=== PATIENT | male | born 1985 | race African-American/Black ===

== ENCOUNTER 2016-02-28 14:37 | Emergency (ER) | payer OTHER ==
[~2016-02-28] VITALS: Ht 188 cm; Wt 77.8 kg
[~2016-02-28 14:37] MED LIST: ACET-1256 PO; ADAL40KI IM; ATR25 PO; DICY20TA10 PO; LXP10 PO; PRED10TA PO
[2016-02-28 14:43] VITALS: TEMP 37.8; Ht 188 cm; Wt 77.8 kg
--- NOTE | 2016-02-28 15:09 | EMERGENCY ROOM VISIT NOTE ---
History Report prepared by Elmira: Elbert Carey Under the Supervision of: Dr. Cholo Domínguez M.D. First contact with patient: 14:56 Chief Complaint: FLU LIKE SX Stated Complaint: FLU LIKE SX, CROHN'S FLARE SEVERE ABD. PAINS History of Present Illness The patient is a 30 year old male who presents to the Emergency Room with complaints of a persistent illness that started 3 days ago. He has Crohn's disease. The patient was just released from alcohol rehab this morning, and he says his whole unit was sick with bronchitis and other illnesses. The patient denies drinking any alcohol since he left rehab. The patient's symptoms include achiness, sore throat, coughing, fevers, and chills. His fever has gone up to 102. The patient is still on Prednisone. He has depression and anxiety, but denies any current suicidal ideations. Source of History: patient Onset: 3 days ago Position: other (global - illness) Timing: other (persistent) Associated Symptoms: + chills, + cough, + fevers, + sorethroat Note: No other associated symptoms noted. Review of Systems See HPI for pertinent positives & negatives. A total of 10 systems reviewed and were otherwise negative. Past Medical & Surgical Medical Problems: (1) Abdominal pain (2) Abdominal pain (3) Alcohol abuse (4) Anxiety (5) Blood loss anemia (6) C. 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 Nurse's notes were reviewed and I agree with. Family History No pertinent family history Social History Smoking Status: Never Smoker Alcohol Use: occasionally Drug Use: marijuana Marital Status: single Housing Status: lives with family Occupation Status: unemployed Current/Historical Medications Scheduled Adalimumab (Humira Pen), 40 MG IM [id number] Amoxicillin & Pot Clavulanate (Augmentin 875-125 mg), 875 MG PO BID Escitalopram Oxalate (Escitalopram Oxalate), 10 MG PO HS Prednisone (Prednisone), 30 MG PO DAILY Scheduled PRN Acetaminophen (Tylenol), 1,000 MG PO Q8 PRN for Pain Dicyclomine Hcl (Dicyclomine Hcl), 20 MG PO TIDM PRN for GI Upset Hydrocodone W/ Homatropine (Hycodan 5/1.5MG 5 Ml), 5-10 ML PO Q4H PRN for Cough Hydroxyzine HCl (Hydroxyzine HCl), 25 MG PO Q4H and at bedtime PRN for Anxiety Allergies Coded Allergies: Tomato (Verified Adverse Reaction, Intermediate, GI SYMPTOMS-CROHN'S ACTS UP, 02/28/16) CROHN'S ACTS UP Eggs or Egg-derived Products (Verified Adverse Reaction, Mild, GI SYMPTOMS , 02/28/16) Lactose (Verified Adverse Reaction, Unknown, GI UPSET, 02/28/16) Physical Exam Vital Signs Date Time Temp Pulse Resp B/P Pulse Ox O2 Delivery O2 Flow Rate FiO2 02/28/16 17:31 120 20 110/77 94 02/28/16 16:35 79 20 118/79 96 Room Air 02/28/16 14:43 37.8 116 18 110/72 95 Room Air Physical Exam General: Well developed well nourished mildly ill appearing but non toxic male in no acute distress, breathing comfortably on room air. Normal speech. Occasional cough. HEENT: Normal cephalic atraumatic. Pupils are equal round and reactive to light. Sclera anicteric. Extraocular movements are intact. Oropharynx is pink with moist mucous membranes. No swelling of the mouth lips or tongue. Neck: Supple with a midline trachea. No meningeal signs or stiffness, no JVD or bruits. No Stridor. Chest: Clear to auscultation bilaterally. No wheezes or rhonchi. No increased work of breathing. Heart: regular rate and rhythm. Abdomen: Soft nontender, nondistended without rebound guarding or rigidity. Extremities: No cyanosis clubbing or edema. No calf tenderness or assymetry Spine/Back. Non tender to palpation. No CVA tenderness Skin: Good turgor without rashes. Neurologic exam: Cranial nerves two through 12 are intact. Motor and sensation are intact and symmetrical throughout. No tremor or evidence of withdrawal. Medical Decision & Procedures ER Provider Diagnostic Interpretation: X-ray results as stated below per interpretation by me and the radiologist: CHEST ONE VIEW PORTABLE HISTORY: Atypical CHEST PAIN COMPARISON: Chest 01/28/2016. FINDINGS: A few small patchy/nodular densities at the lung bases. This is new from the prior study. The heart is normal in size. No pleural effusions. No pneumothorax. Left mediastinal lucency may represent a gas-filled esophagus. This was present on the 06/18/2015 chest x-ray. IMPRESSION: Interval development of a few small patchy/nodular densities at the lung bases. This may represent a developing pneumonia or atelectasis. Electronically signed by: Bert Richardson M.D. 02/28/2016 3:26 PM Dictated Date/Time: 02/28/2016 3:23 PM Laboratory Results 02/28/16 15:22 Red Blood Count 4.91, Mean Corpuscular Volume 82.7, Mean Corpuscular Hemoglobin 28.3, Mean Corpuscular Hemoglobin Concent 34.2, Mean Platelet Volume 9.4, Neutrophils (%) (Auto) 76.5, Lymphocytes (%) (Auto) 16.0, Monocytes (%) (Auto) 6.6, Eosinophils (%) (Auto) 0.5, Basophils (%) (Auto) 0.1, Neutrophils # (Auto) 10.98, Lymphocytes # (Auto) 2.29, Monocytes # (Auto) 0.95, Eosinophils # (Auto) 0.07, Basophils # (Auto) 0.02 02/28/16 15:22 Test 02/28/16 15:15 02/28/16 15:22 Influenza Type A Antigen Neg for Influ A (NEG) Influenza Type B Antigen Neg for Influ B (NEG) White Blood Count 14.35 K/uL (4.8-10.8) Red Blood Count 4.91 M/uL (4.7-6.1) Hemoglobin 13.9 g/dL (14.0-18.0) Hematocrit 40.6 % (42-52) Mean Corpuscular Volume 82.7 fL (80-100) Mean Corpuscular Hemoglobin 28.3 pg (25-34) Mean Corpuscular Hemoglobin Concent 34.2 g/dl (32-36) Platelet Count 226 K/uL (130-400) Mean Platelet Volume 9.4 fL (7.4-10.4) Neutrophils (%) (Auto) 76.5 % Lymphocytes (%) (Auto) 16.0 % Monocytes (%) (Auto) 6.6 % Eosinophils (%) (Auto) 0.5 % Basophils (%) (Auto) 0.1 % Neutrophils # (Auto) 10.98 K/uL (1.4-6.5) Lymphocytes # (Auto) 2.29 K/uL (1.2-3.4) Monocytes # (Auto) 0.95 K/uL (0.11-0.59) Eosinophils # (Auto) 0.07 K/uL (0-0.5) Basophils # (Auto) 0.02 K/uL (0-0.2) RDW Standard Deviation 40.3 fL (36.4-46.3) RDW Coefficient of Variation 13.4 % (11.5-14.5) Immature Granulocyte % (Auto) 0.3 % Immature Granulocyte # (Auto) 0.04 K/uL (0.00-0.02) Anion Gap 8.0 mmol/L (3-11) Est Creatinine Clear Calc Drug Dose 109.0 ml/min Estimated GFR () 104.6 Estimated GFR (Non- 90.2 BUN/Creatinine Ratio 10.1 (10-20) Calcium Level 8.6 mg/dl (8.5-10.1) Total Bilirubin 0.5 mg/dl (0.2-1) Direct Bilirubin 0.1 mg/dl (0-0.2) Aspartate Amino Transf (AST/SGOT) 35 U/L (15-37) Alanine Aminotransferase (ALT/SGPT) 46 U/L (12-78) Alkaline Phosphatase 88 U/L (45-117) Total Protein 7.5 gm/dl (6.4-8.2) Albumin 3.2 gm/dl (3.4-5.0) Lipase 150 U/L (73-393) Laboratory studies as stated above per my review. Medications Administered Medications (Trade) Dose Ordered Sig/Erika Route Start Time Stop Time Status Last Admin Dose Admin Sodium Chloride (Nss 1000ml) 1,000 ml @ 999 mls/hr Q1H1M STAT IV 02/28/16 15:10 02/28/16 16:10 DC 02/28/16 15:42 999 MLS/HR Ketorolac Tromethamine (Toradol Inj) 30 mg NOW STAT IV 02/28/16 15:10 02/28/16 15:13 DC 02/28/16 15:43 30 MG Amoxicillin/ Clavulanate Potassium (Augmentin 875MG Home Pack) 1 homepack UD ONCE PO 02/28/16 16:45 02/28/16 16:46 DC 02/28/16 17:31 1 HOMEPACK Hydrocodone Bit/ Homatropine Methylb (Hycodan Elix Homepack 5/1.5MG/ 5ML) 1 homepack UD ONCE PO 02/28/16 16:45 02/28/16 16:46 DC 02/28/16 17:31 1 HOMEPACK ED Course 1500: Past medical records reviewed. The patient was evaluated in room B6, and a complete history and physical examination were performed. 1510: Ordered Toradol Inj 30 mg IV, NSS 1000 ml @ 200 mls/hr IV, NSS 1000 ml @ 999 mls/hr IV. 1639: I reevaluated the patient and he is doing well. He is watching TV. The patient verbally expressed agreement and understanding of the treatment plan. The patient will be discharged. 1645: Ordered Hycodan Elix Homepack 5/1.5MG/5ML 1 homepack PO, Augmentin 875MG Home Pack 1 homepack PO. Medical Decision Differential diagnoses include: influenza, bronchitis, dehydration, pneumonia, pharyngitis, electrolyte or metabolic abnormality. This patient comes in as described above. He was placed in room B6. He's having flulike symptoms. He has been sick for several daysand had a cough and URI type symptoms as well. He just got discharged from rehabilitation today and he denies that he is relapsed from alcohol. Chest x-ray and multiple blood tests was obtained. IV access established was hydrated with IV normal saline and was given Toradol 30 mg IV for pain. He was feeling better. He has no hypoxemia or anything to suggest sepsis. he's no acute electrode or metabolic abnormalities. He does have a possible infiltrate in the base on his chest x- ray. I'll treat him with Augmentin 875 mg twice a day for an early pneumonia.. Influenza swab was negative. Even if this was flu, he's several days into this and out of the Tamiflu window. For coughing, he's going to use a Hycodan syrup 1-2 teaspoons every 6 hours if needed. He was warned that this could make him drowsy. He was encouraged to return ER if: Worsening of symptoms, fever or chills, shortness of breath, any new problems or concerns. He is happy with plan and discharged to home. Impression Primary Impression: PNA (pneumonia) Scribe Attestation The scribe's documentation has been prepared under my direction and personally reviewed by me in its entirety. I confirm that the note above accurately reflects all work, treatment, procedures, and medical decision making performed by me. Departure Information Dispostion Home / Self-Care Prescriptions Hydrocodone W/ Homatropine (HYCODAN 5/1.5MG 5 ML) 1 Syp Syp 5-10 ML PO Q4H Y for Cough, #200 ML Prov: Cholo Domínguez M.D. 02/28/16 Amoxicillin & Pot Clavulanate (Augmentin 875-125 mg) 1 Tab Tab 875 MG PO BID for 10 Days, #20 TAB Prov: Cholo Domínguez M.D. 02/28/16 Referrals Alfred Carmichael MD (PCP) Forms HOME CARE DOCUMENTATION FORM, IMPORTANT VISIT INFORMATION Patient Instructions A Signature Page, My [facility] [employer] Additional Instructions Rest. Drink plenty of fluids. For cough, may use Hycodan syrup 5-10 mL every 6 hours if needed. This may make you drowsy and do not take with other medications to sedate you. Use Augmentin 875 mg twice a dayantibiotic. Return if: Worsening of symptoms, increasing shortness breath, fever chills, or any new problems or concerns Follow-up with doctor Tuesday for recheck. Return ER over the weekend if symptoms worsen.
[2016-02-28] MEDS ORDERED: SODIUM CHLORIDE 0.9% 1000ML 1,000 ML IV STA (15:10)
[2016-02-28] MEDS ORDERED: KETOROLAC TROMETHAMINE 30 MG/ML VIAL IV STA (15:10)
[2016-02-28] MEDS ORDERED: SODIUM CHLORIDE 0.9% 1000ML 1,000 ML IV ONE (15:10)
--- NOTE | 2016-02-28 15:28 | DIAGNOSTIC IMAGING REPORT ---
CHEST ONE VIEW PORTABLE HISTORY: Atypical CHEST PAIN COMPARISON: Chest 01/28/2016. FINDINGS: A few small patchy/nodular densities at the lung bases. This is new from the prior study. The heart is normal in size. No pleural effusions. No pneumothorax. Left mediastinal lucency may represent a gas-filled esophagus. This was present on the 06/18/2015 chest x-ray. IMPRESSION: Interval development of a few small patchy/nodular densities at the lung bases. This may represent a developing pneumonia or atelectasis. Electronically signed by: Bert Richardson M.D. 02/28/2016 3:26 PM Dictated Date/Time: 02/28/2016 3:23 PM
[2016-02-28 15:47] LABS: BASO % 0.1 %; BASO ABS # 0.02 K/uL (0-0.2); COMPLETE YES; EOS % 0.5 %; HEMATOCRIT 40.6 % (42-52); IG% 0.3 %; LYMPH ABS # 2.29 K/uL (1.2-3.4); MEAN CELL VOLUME 82.7 fL (80-100); MEAN CORPUSCULAR HEMOGLOBIN 28.3 pg (25-34); MEAN CORPUSCULAR HGB CONC 34.2 g/dl (32-36); MEAN PLATELET VOLUME 9.4 fL (7.4-10.4); MONO % 6.6 %; NEUT % 76.5 %; PLATELET COUNT 226 K/uL (130-400); RED BLOOD COUNT 4.91 M/uL (4.7-6.1); WHITE BLOOD COUNT 14.35 K/uL (4.8-10.8)
[2016-02-28 16:19] LABS: BUN/CREATININE RATIO 10.1 (10-20); CALCIUM 8.6 mg/dl (8.5-10.1); CREATININE 1.1 mg/dl (0.60-1.40); POTASSIUM 3.6 mmol/L (3.5-5.1)
[2016-02-28] MEDS ORDERED: HYCODAN 60ML BOTTLE HOMEPACK PO ONE (16:45)
[2016-02-28] MEDS ORDERED: AMOXICIL/CLAVU 875MG HOME PACK PO ONE (16:45)
[2016-02-28] MEDS ORDERED: HYDR5SYP11 PO (16:46)
[2016-02-28] MEDS ORDERED: AMOX875T PO (16:46)
[2016-02-28 17:31] VITALS: BP 110/77; PULSE 120; O2SAT 94
--- NOTE | 2016-03-02 13:58 | Pharmacy Progress Note ---
ED Pharmacist Culture FollowUp Date of Service: Mar 02, 2016. Patient was sent home with a prescription for Augmentin 875mg PO BID x 10 days, which should cover the Grp A Strep growing from the patient's Grp A Strep backup throat culture. No action required at this time as this abx will treat this infection and the duration of treatment is appropriate as well.
== END 2016-02-28 17:34 | disposition home or self-care (01) ==
LOC: C.EDB 14:38
DX: J18.9 Pneumonia, unspecified organism (principal); K50.90 Crohn's disease, unspecified, without complications; F41.9 Anxiety disorder, unspecified; K21.9 Gastro-esophageal reflux disease without esophagitis; F32.9 Major depressive disorder, single episode, unspecified; Z86.19 Personal history of other infectious and parasitic diseases; Z98.890 Other specified postprocedural states; Z79.899 Other long term (current) drug therapy; Z91.018 Allergy to other foods; Z91.011 Allergy to milk products

== ENCOUNTER 2016-04-08 12:39 | Emergency (ER) | payer OTHER ==
[~2016-04-08] VITALS: Ht 188 cm; Wt 78.0 kg
[2016-04-08 12:44] VITALS: Ht 188 cm; Wt 78.0 kg
[2016-04-08] MEDS ORDERED: ONDANSETRON INJ 2 MG/ML 2 ML VIAL IV STA (13:12)
[2016-04-08] MEDS ORDERED: SODIUM CHLORIDE 0.9% 1000ML 1,000 ML IV STA (13:12)
[2016-04-08] MEDS: MoRPHine SULFATE 4 MG/ML 1 ML CARP\\VIAL IV PRN ×2 (13:30→14:24)
--- NOTE | 2016-04-08 13:38 | EMERGENCY ROOM VISIT NOTE ---
History Report prepared by [place]: Cholo Pollack Under the Supervision of: Dr. Pierre Broderick D.O. First contact with patient: 12:58 Chief Complaint: ABDOMINAL PAIN Stated Complaint: SEVERE ABD/ANAL PAINS, CROHNS DISEASE FLARE UP Nursing Triage Summary: pt here with abd pain, nausea and diarrhea since tuesday. hx of crohns disease History of Present Illness The patient is a 30 year old male who presents to the Emergency Room with complaints of persistent abdominal pain beginning about 3 days ago. He reports having Crohn's disease, and believes this to be a flare-up of his Crohn's, the last of which was in January of 2016. He notes having pain with coughing and pain with sitting, and has had difficulty eating as this also causes pain. He has had nausea and lower back pain, but no vomiting or fever. The patient states there was blood in his stools yesterday and today. He follows with Ramrio Kat for gastroenterology, and last saw her 2 weeks ago. He sees her every 4 to 6 months, and is prescribed Tramadol to manage his pain. The patient is currently on Humira, and denies taking any steroids. Source of History: patient Onset: about 3 days ago Position: abdomen Quality: other (abdominal pain; "Crohn's flare-up") Timing: other (persistent) Modifying Factors (Worsening): other (coughing, sitting up, eating) Associated Symptoms: + back pain, + cough, + nausea, No fevers, No vomiting Note: The patient reports having blood in his stools yesterday and today. Review of Systems See HPI for pertinent positives & negatives. A total of 10 systems reviewed and were otherwise negative. Past Medical & Surgical Medical Problems: (1) Abdominal pain (2) Abdominal pain (3) Alcohol abuse (4) Anxiety (5) Blood loss anemia (6) C. difficile diarrhea (7) Cannabis abuse (8) Chest wall pain (9) Cocaine abuse (10) Costochondral pain (11) Crohn disease (12) Crohn's disease (13) Crohn's disease (14) Crohns disease (15) Crohns disease (16) Crohns disease (17) Depression (18) Depression (19) Exacerbation of Crohn's disease (20) Exacerbation of Crohn's disease (21) Generalized anxiety disorder (22) GERD (gastroesophageal reflux disease) (23) Left sided abdominal pain (24) Marfan's disease (25) Marfan's syndrome (26) Non-cardiac chest pain (27) Palpitations (28) Oflrd-Fsqgcyqqm-Kimov (WPW) syndrome (29) Tnkbv-Lynhkhkwg-Cqbcg pattern (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) Surgical Problems: (1) H/O colonoscopy (2) History of bowel resection (3) History of partial colectomy (4) History of prior ablation treatment (5) S/P partial colectomy Family History No pertinent family history Social History Smoking Status: Current Every Day Smoker Alcohol Use: occasionally Drug Use: marijuana Marital Status: single Housing Status: lives with family Occupation Status: unemployed Current/Historical Medications Scheduled Adalimumab (Humira Pen), 40 MG IM [id number] Escitalopram Oxalate (Escitalopram Oxalate), 10 MG PO HS Hydroxyzine Pamoate (Vistaril), 1 CAP PO HS Scheduled PRN Acetaminophen (Tylenol), 1,000 MG PO Q8 PRN for Pain Allergies Coded Allergies: Tomato (Verified Adverse Reaction, Intermediate, GI SYMPTOMS-CROHN'S ACTS UP, 04/08/16) CROHN'S ACTS UP Eggs or Egg-derived Products (Verified Adverse Reaction, Mild, GI SYMPTOMS , 04/08/16) Lactose (Verified Adverse Reaction, Unknown, GI UPSET, 04/08/16) Physical Exam Vital Signs Date Time Temp Pulse Resp B/P Pulse Ox O2 Delivery O2 Flow Rate FiO2 04/08/16 15:06 37.1 61 18 135/95 100 04/08/16 14:25 63 18 130/98 98 Room Air 04/08/16 13:34 65 04/08/16 12:44 37.1 73 16 137/86 99 Room Air Physical Exam GENERAL: Patient is awake alert in no acute distress patient is resting comfortably and showing no signs of anxiety EYES: The conjunctivae are clear. The pupils are round and reactive. EARS, NOSE, MOUTH AND THROAT: The nose is without any evidence of any deformity. Mucous membranes are moist tongue is midline NECK: The neck is nontender and supple. RESPIRATORY: Normal respiratory effort is noted there is no evidence of wheezing rhonchi or rales CARDIOVASCULAR: Regular rate and rhythm noted there no murmurs rubs or gallops normal S1 normal S2 GASTROINTESTINAL: Mildly distended but soft. Diffuse tenderness, but no guarding or rigidity. MUSCULOSKELETAL/EXTREMITIES: There is no evidence of gross deformity full range of motion is noted in the hips and shoulders SKIN: There is no obvious evidence of any rash. There are no petechiae, pallor or cyanosis noted. NEUROLOGIC: Patient is awake alert and oriented x3 strength is symmetric patellar reflexes are 2+ bilaterally Medical Decision & Procedures ER Provider Diagnostic Interpretation: Radiology results as stated below per my review and radiologist interpretation: PA CHEST WITH ABDOMINAL SERIES FINDINGS: A PA chest radiograph is compared to study dated 02/28/2016. The cardiomediastinal silhouette is unremarkable. The lungs and pleural spaces are clear. No pneumothorax is seen. The bony thorax is grossly intact. Supine and erect abdominal radiographs are compared to study dated 01/28/2016 and correlated with abdominal CT dated 08/18/2015. There is a nonobstructed abdominal bowel gas pattern. No intraperitoneal free air is seen. Enlargement of the hepatic silhouette is unchanged from previous. There are no abnormal abdominal calcifications. The lumbosacral spine and bony pelvis structures are within normal limits. IMPRESSION: 1. No active disease in the chest. 2. Nonobstructed abdominal bowel gas pattern. Electronically signed by: Erasmo Pedroza M.D. 04/08/2016 2:14 PM Dictated Date/Time: 04/08/2016 2:13 PM Laboratory Results 04/08/16 13:25 Red Blood Count 5.10, Mean Corpuscular Volume 82.2, Mean Corpuscular Hemoglobin 27.5, Mean Corpuscular Hemoglobin Concent 33.4, Mean Platelet Volume 9.2, Neutrophils (%) (Auto) 71.3, Lymphocytes (%) (Auto) 20.7, Monocytes (%) (Auto) 6.5, Eosinophils (%) (Auto) 1.0, Basophils (%) (Auto) 0.2, Neutrophils # (Auto) 8.52, Lymphocytes # (Auto) 2.47, Monocytes # (Auto) 0.77, Eosinophils # (Auto) 0.12, Basophils # (Auto) 0.02 04/08/16 13:25 Test 04/08/16 13:20 04/08/16 13:25 Urine Color DK YELLOW Urine Appearance CLEAR (CLEAR) Urine pH 6.5 (4.5-7.5) Urine Specific [place]ushing 1.037 (1.000-1.030) Urine Protein NEG (NEG) Urine Glucose (UA) NEG (NEG) Urine Ketones TRACE (NEG) Urine Occult Blood NEG (NEG) Urine Nitrite NEG (NEG) Urine Bilirubin NEG (NEG) Urine Urobilinogen NEG (NEG) Urine Leukocyte Esterase NEG (NEG) White Blood Count 11.93 K/uL (4.8-10.8) Red Blood Count 5.10 M/uL (4.7-6.1) Hemoglobin 14.0 g/dL (14.0-18.0) Hematocrit 41.9 % (42-52) Mean Corpuscular Volume 82.2 fL (80-100) Mean Corpuscular Hemoglobin 27.5 pg (25-34) Mean Corpuscular Hemoglobin Concent 33.4 g/dl (32-36) Platelet Count 275 K/uL (130-400) Mean Platelet Volume 9.2 fL (7.4-10.4) Neutrophils (%) (Auto) 71.3 % Lymphocytes (%) (Auto) 20.7 % Monocytes (%) (Auto) 6.5 % Eosinophils (%) (Auto) 1.0 % Basophils (%) (Auto) 0.2 % Neutrophils # (Auto) 8.52 K/uL (1.4-6.5) Lymphocytes # (Auto) 2.47 K/uL (1.2-3.4) Monocytes # (Auto) 0.77 K/uL (0.11-0.59) Eosinophils # (Auto) 0.12 K/uL (0-0.5) Basophils # (Auto) 0.02 K/uL (0-0.2) RDW Standard Deviation 41.0 fL (36.4-46.3) RDW Coefficient of Variation 13.5 % (11.5-14.5) Immature Granulocyte % (Auto) 0.3 % Immature Granulocyte # (Auto) 0.03 K/uL (0.00-0.02) Toxic Vacuolation OCCASIONAL Erythrocyte Sedimentation Rate 16 mm/hr (0-14) Anion Gap 10.0 mmol/L (3-11) Est Creatinine Clear Calc Drug Dose 109.3 ml/min Estimated GFR () 104.6 Estimated GFR (Non- 90.2 BUN/Creatinine Ratio 5.9 (10-20) Calcium Level 8.9 mg/dl (8.5-10.1) Total Bilirubin 0.8 mg/dl (0.2-1) Direct Bilirubin 0.2 mg/dl (0-0.2) Aspartate Amino Transf (AST/SGOT) 13 U/L (15-37) Alanine Aminotransferase (ALT/SGPT) 17 U/L (12-78) Alkaline Phosphatase 88 U/L (45-117) C-Reactive Protein 0.31 mg/dl (0-0.29) Total Protein 7.5 gm/dl (6.4-8.2) Albumin 3.6 gm/dl (3.4-5.0) Lipase 113 U/L (73-393) Laboratory results per my review. Medications Administered Medications (Trade) Dose Ordered Sig/Erika Route Start Time Stop Time Status Last Admin Dose Admin Sodium Chloride (Nss 1000ml) 1,000 ml @ 999 mls/hr Q1H1M STAT IV 04/08/16 13:12 04/08/16 14:12 DC 04/08/16 13:30 999 MLS/HR Ondansetron HCl (Zofran Inj) 4 mg NOW STAT IV 04/08/16 13:12 04/08/16 13:14 DC 04/08/16 13:30 4 MG Morphine Sulfate (MoRPHine SULFATE INJ) 4 mg Q15M PRN IV 04/08/16 13:15 04/08/16 15:14 DC 04/08/16 14:24 4 MG ED Course 1307: The patient was evaluated in room B9. A complete history and physical examination were performed. 1312: Ordered Zofran Inj 4 mg IV, and NSS 1,000 ml @ 999 mls/hr IV. 1315: Ordered Morphine Sulfate 4 mg IV. 1440: Upon reevaluation, the patient is doing well. I discussed the results and treatment plan with the patient. He verbalized agreement of the treatment plan. The patient was discharged home. Medical Decision Differential diagnosis: Etiologies such as appendicitis, diverticulitis, PUD, biliary pathology, UTI, pancreatitis, obstruction, mesenteric ischemia, aortic pathology, infections, inflammatory bowel disease, renal colic, as well as others were entertained. Nursing notes reviewed. Patient's previous electronic medical records reviewed. The patient is a 30-year-old male who presented to the emergency department for evaluation of lower abdominal pain. The patient has a history of Crohn's disease and feels as though this is consistent with his previous Crohn's exacerbation. The patient tried using his outpatient medications without relief. The patient did not have a physical exam consistent with an acute surgical abdomen. He did not of fever. I discussed the patient's laboratory and radiographic studies with him. He was feeling much better on subsequent reevaluation. He was treated with IV fluids IV pain medicine IV antiemetics. He was encouraged to drink plenty clear liquids and continue all medications as prescribed. 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 He was also encouraged to return to the emergency department immediately if symptoms change worsen or if the need arises. Impression Primary Impression: Right sided abdominal pain Additional Impression: Exacerbation of Crohn's disease Scribe Attestation The scribe's documentation has been prepared under my direction and personally reviewed by me in its entirety. I confirm that the note above accurately reflects all work, treatment, procedures, and medical decision making performed by me. Departure Information Dispostion Home / Self-Care Referrals Alfred Carmichael MD (PCP) Patient Instructions Crohn Disease, My [facility] Additional Instructions Call your gastro doctor to schedule a follow up appointment. Continue all medications as prescribed. Drink plenty of clear liquids Problem Qualifiers
[2016-04-08 13:42] LABS: HEMATOCRIT 41.9 % (42-52); MEAN CELL VOLUME 82.2 fL (80-100); MEAN CORPUSCULAR HEMOGLOBIN 27.5 pg (25-34); MEAN CORPUSCULAR HGB CONC 33.4 g/dl (32-36); MEAN PLATELET VOLUME 9.2 fL (7.4-10.4); PLATELET COUNT 275 K/uL (130-400); WHITE BLOOD COUNT 11.93 K/uL (4.8-10.8)
[2016-04-08 13:44] LABS: URINE APPEARANCE CLEAR (CLEAR); URINE BILIRUBIN NEG (NEG); URINE COLOR DK YELLOW; URINE NITRITE NEG (NEG); URINE PH 6.5 (4.5-7.5); URINE SPECIFIC GRAVITY 1.037 (1.000-1.030); UROBILINOGEN NEG (NEG)
[2016-04-08 13:59] LABS: BUN/CREATININE RATIO 5.9 (10-20); C-REACTIVE PROTEIN 0.31 mg/dl (0-0.29); CALCIUM 8.9 mg/dl (8.5-10.1); CREATININE 1.1 mg/dl (0.60-1.40); POTASSIUM 3.5 mmol/L (3.5-5.1)
[2016-04-08 14:00] LABS: MANUAL MICROSCOPIC REQUIRED? NO; REVIEW REQ? NO
[2016-04-08 14:09] LABS: BASO % 0.2 %; BASO ABS # 0.02 K/uL (0-0.2); COMPLETE YES; IG% 0.3 %; LYMPH % 20.7 %; LYMPH ABS # 2.47 K/uL (1.2-3.4); MONO % 6.5 %; NEUT % 71.3 %; VACUOLIZATION OCCASIONAL
--- NOTE | 2016-04-08 14:15 | DIAGNOSTIC IMAGING REPORT ---
PA CHEST WITH ABDOMINAL SERIES CLINICAL HISTORY: Generalized abdominal pain. FINDINGS: A PA chest radiograph is compared to study dated 02/28/2016. The cardiomediastinal silhouette is unremarkable. The lungs and pleural spaces are clear. No pneumothorax is seen. The bony thorax is grossly intact. Supine and erect abdominal radiographs are compared to study dated 01/28/2016 and correlated with abdominal CT dated 08/18/2015. There is a nonobstructed abdominal bowel gas pattern. No intraperitoneal free air is seen. Enlargement of the hepatic silhouette is unchanged from previous. There are no abnormal abdominal calcifications. The lumbosacral spine and bony pelvis structures are within normal limits. IMPRESSION: 1. No active disease in the chest. 2. Nonobstructed abdominal bowel gas pattern. Electronically signed by: Erasmo Pedroza M.D. 04/08/2016 2:14 PM Dictated Date/Time: 04/08/2016 2:13 PM
[2016-04-08] MEDS ORDERED: HYDR1CAP85 PO (14:26)
[2016-04-08 15:06] VITALS: BP 135/95; PULSE 61; TEMP 37.1; O2SAT 100
== END 2016-04-08 15:07 | disposition home or self-care (01) ==
LOC: C.EDB 12:41
DX: R10.9 Unspecified abdominal pain (principal); K50.90 Crohn's disease, unspecified, without complications; F10.10 Alcohol abuse, uncomplicated; F41.9 Anxiety disorder, unspecified; F12.10 Cannabis abuse, uncomplicated; F14.10 Cocaine abuse, uncomplicated; F32.9 Major depressive disorder, single episode, unspecified; K21.9 Gastro-esophageal reflux disease without esophagitis; I45.6 Pre-excitation syndrome; F17.210 Nicotine dependence, cigarettes, uncomplicated; Z79.899 Other long term (current) drug therapy

== ENCOUNTER 2016-06-27 16:20 | Emergency (ER) | payer OTHER ==
[~2016-06-27] VITALS: Ht 188 cm; Wt 82.8 kg
[~2016-06-27 16:20] MED LIST changes: -ATR25 PO; -DICY20TA10 PO; +HYDR1CAP85 PO; -PRED10TA PO
[2016-06-27 16:27] VITALS: TEMP 37.1; Ht 188 cm; Wt 82.8 kg
[2016-06-27] MEDS ORDERED: KETOROLAC TROMETHAMINE 30 MG/ML VIAL IV STA (16:54)
[2016-06-27] MEDS ORDERED: SODIUM CHLORIDE 0.9% 1000ML 1,000 ML IV STA (16:54)
[2016-06-27 17:33] LABS: URINE APPEARANCE CLEAR (CLEAR); URINE BILIRUBIN NEG (NEG); URINE COLOR YELLOW; URINE EPITHELIAL CELL AUTO 0-5 /lpf (0-5); URINE NITRITE NEG (NEG); URINE SPECIFIC GRAVITY 1.016 (1.000-1.030); UROBILINOGEN NEG (NEG); ZZUR CULT IF INDIC CLEAN CATCH NO
[2016-06-27 17:34] LABS: MANUAL MICROSCOPIC REQUIRED? NO; REVIEW REQ? NO
[2016-06-27 17:53] LABS: BASO % 0.1 %; BASO ABS # 0.01 K/uL (0-0.2); COMPLETE YES; EOS % 3.7 %; HEMATOCRIT 40.3 % (42-52); IG% 0.3 %; LYMPH % 31.4 %; LYMPH ABS # 2.45 K/uL (1.2-3.4); MEAN CELL VOLUME 83.8 fL (80-100); MEAN CORPUSCULAR HEMOGLOBIN 27.2 pg (25-34); MEAN CORPUSCULAR HGB CONC 32.5 g/dl (32-36); MEAN PLATELET VOLUME 9.4 fL (7.4-10.4); MONO % 7.3 %; NEUT % 57.2 %; PLATELET COUNT 298 K/uL (130-400); RED BLOOD COUNT 4.81 M/uL (4.7-6.1); WHITE BLOOD COUNT 7.81 K/uL (4.8-10.8)
[2016-06-27 18:02] LABS: ALT/SGPT 27 U/L (12-78); AST/SGOT 16 U/L (15-37); BLOOD UREA NITROGEN 9 mg/dl (7-18); BUN/CREATININE RATIO 8.4 (10-20); CARBON DIOXIDE 31 mmol/L (21-32); CHLORIDE 104 mmol/L (98-107); GLUCOSE 95 mg/dl (70-99); SODIUM 141 mmol/L (136-145)
[2016-06-27 18:05] LABS: ALKALINE PHOSPHATASE 95 U/L (45-117)
--- NOTE | 2016-06-27 18:41 | DIAGNOSTIC IMAGING REPORT ---
CT PELVIS W/IV CONT ONLY (CT) CT DOSE: 201.29 mGy.cm CLINICAL HISTORY: Rectal pain TECHNIQUE: The patient was scanned without oral contrast. The patient was scanned in a dynamic helical fashion during intravenous administration of 1 15 cc Optiray 320 COMPARISON STUDY: 08/18/2015 FINDINGS: There are postsurgical changes in the ileocecal region. The appendix is not visualized. There is no pathologic bowel dilatation. There is no pathologic bowel wall thickening. There is no evidence of ascites. No bladder abnormalities are visualized. There is no pathologic adenopathy. There is a tiny fat-containing umbilical hernia. There is mild rectus diastases. No rectal abnormalities are visualized. IMPRESSION: 1. Postoperative changes in the ileocecal region 2. No evidence of pathologic bowel dilatation. No evidence of pathologic bowel wall thickening. 3. No acute inflammatory changes Electronically signed by: Speedy Flynn M.D. 06/27/2016 6:39 PM Dictated Date/Time: 06/27/2016 6:35 PM
[2016-06-27] MEDS ORDERED: OPTIRAY 320 IV PRN (18:45)
--- NOTE | 2016-06-27 19:06 | EMERGENCY ROOM VISIT NOTE ---
History Report prepared by [place]: Alfredo Ray Under the Supervision of: Dr. Shawn Vu D.O. First contact with patient: 16:47 Chief Complaint: ABDOMINAL PAIN Stated Complaint: ABD PAIN,RECTAL PAIN (ABCESS) Nursing Triage Summary: Pt presents with RLQ pain x 1.5 weeks. Diarrhea. Pt has hx of Crohn's. History of Present Illness The patient is a 30 year old male with a history of Crohn's who presents to the Emergency Room with complaints of a persistent abscess in his rectal area beginning a week and a half prior to arrival. He currently rates his discomfort as a 9/10 in severity. The patient complains of nausea, vomiting, and diarrhea with today's symptoms. He states he has noticed a sharp pain, when he sits in certain positions for the past month to month and a half with some clear drainage from the abscess. He states his nausea and vomiting began last night. The patient denies being on blood thinners. Source of History: patient Onset: week and a half prior to arrival Position: other (rectum) Symptom Intensity: 9/10 Quality: other (abscess) Timing: other (persistent) Associated Symptoms: + diarrhea, + nausea, + vomiting Note: Associated symptoms: abscess in rectal area with clear drainage Review of Systems See HPI for pertinent positives & negatives. A total of 10 systems reviewed and were otherwise negative. Past Medical & Surgical Medical Problems: (1) Abdominal pain (2) Abdominal pain (3) Alcohol abuse (4) Anxiety (5) Blood loss anemia (6) C. 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) Surgical Problems: (1) H/O colonoscopy (2) History of bowel resection (3) History of partial colectomy (4) History of prior ablation treatment (5) S/P partial colectomy Family History No pertinent family history Social History Smoking Status: Current Every Day Smoker Alcohol Use: occasionally Drug Use: marijuana Marital Status: single Housing Status: lives with family Occupation Status: unemployed Current/Historical Medications No Active Prescriptions or Reported Meds Allergies Coded Allergies: Lactose Intolerance (GI) (Unverified Allergy, Unknown, GI SYMPTOMS, 06/27/16 ) Tomato (Verified Adverse Reaction, Intermediate, GI SYMPTOMS-CROHN'S ACTS UP, 06/27/16) CROHN'S ACTS UP Eggs or Egg-derived Products (Verified Adverse Reaction, Mild, GI SYMPTOMS , 06/27/16) Lactose (Verified Adverse Reaction, Unknown, GI UPSET, 06/27/16) Physical Exam Vital Signs Date Time Temp Pulse Resp B/P Pulse Ox O2 Delivery O2 Flow Rate FiO2 06/27/16 18:07 64 18 125/96 100 Room Air 06/27/16 16:27 37.1 84 18 142/101 97 Room Air Physical Exam CONSTITUTIONAL/VITAL SIGNS: Reviewed / noted above. GENERAL: Non-toxic in appearance. INTEGUMENTARY: Warm, dry, and [place]. HEAD: Normocephalic. EYES: without scleral icterus or trauma. ENT/OROPHARYNX: clear and moist. LYMPHADENOPATHY/NECK: Is supple without lymphadenopathy or meningismus. RESPIRATORY: Lungs clear and equal. CARDIOVASCULAR: Regular rate and rhythm. GI/ABDOMEN: Soft and nontender. No organomegaly or pulsatile mass. No rebound or guarding. Normal bowel sounds. RECTAL: Mild tenderness and swelling in the 3-5 o'clock position. EXTREMITIES: Warm and well perfused. BACK: No CVA tenderness. NEUROLOGICAL: Intact without focal deficits. PSYCHIATRIC: normal affect. MUSCULOSKELETAL: Normally developed with good muscle tone. Medical Decision & Procedures ER Provider Diagnostic Interpretation: CT results as stated below per my review and radiologist interpretation: CT PELVIS W/IV CONT ONLY (CT) CT DOSE: 201.29 mGy.cm CLINICAL HISTORY: Rectal pain TECHNIQUE: The patient was scanned without oral contrast. The patient was scanned in a dynamic helical fashion during intravenous administration of 1 15 cc Optiray 320 COMPARISON STUDY: 08/18/2015 FINDINGS: There are postsurgical changes in the ileocecal region. The appendix is not visualized. There is no pathologic bowel dilatation. There is no pathologic bowel wall thickening. There is no evidence of ascites. No bladder abnormalities are visualized. There is no pathologic adenopathy. There is a tiny fat-containing umbilical hernia. There is mild rectus diastases. No rectal abnormalities are visualized. IMPRESSION: 1. Postoperative changes in the ileocecal region 2. No evidence of pathologic bowel dilatation. No evidence of pathologic bowel wall thickening. 3. No acute inflammatory changes Electronically signed by: Speedy Flynn M.D. 06/27/2016 6:39 PM Laboratory Results 06/27/16 17:00 Red Blood Count 4.81, Mean Corpuscular Volume 83.8, Mean Corpuscular Hemoglobin 27.2, Mean Corpuscular Hemoglobin Concent 32.5, Mean Platelet Volume 9.4, Neutrophils (%) (Auto) 57.2, Lymphocytes (%) (Auto) 31.4, Monocytes (%) (Auto) 7.3, Eosinophils (%) (Auto) 3.7, Basophils (%) (Auto) 0.1, Neutrophils # (Auto) 4.47, Lymphocytes # (Auto) 2.45, Monocytes # (Auto) 0.57, Eosinophils # (Auto) 0.29, Basophils # (Auto) 0.01 06/27/16 17:00 Test 06/27/16 17:00 06/27/16 17:21 White Blood Count 7.81 K/uL (4.8-10.8) Red Blood Count 4.81 M/uL (4.7-6.1) Hemoglobin 13.1 g/dL (14.0-18.0) Hematocrit 40.3 % (42-52) Mean Corpuscular Volume 83.8 fL (80-100) Mean Corpuscular Hemoglobin 27.2 pg (25-34) Mean Corpuscular Hemoglobin Concent 32.5 g/dl (32-36) Platelet Count 298 K/uL (130-400) Mean Platelet Volume 9.4 fL (7.4-10.4) Neutrophils (%) (Auto) 57.2 % Lymphocytes (%) (Auto) 31.4 % Monocytes (%) (Auto) 7.3 % Eosinophils (%) (Auto) 3.7 % Basophils (%) (Auto) 0.1 % Neutrophils # (Auto) 4.47 K/uL (1.4-6.5) Lymphocytes # (Auto) 2.45 K/uL (1.2-3.4) Monocytes # (Auto) 0.57 K/uL (0.11-0.59) Eosinophils # (Auto) 0.29 K/uL (0-0.5) Basophils # (Auto) 0.01 K/uL (0-0.2) RDW Standard Deviation 41.4 fL (36.4-46.3) RDW Coefficient of Variation 13.7 % (11.5-14.5) Immature Granulocyte % (Auto) 0.3 % Immature Granulocyte # (Auto) 0.02 K/uL (0.00-0.02) Anion Gap 6.0 mmol/L (3-11) Est Creatinine Clear Calc Drug Dose 115.3 ml/min Estimated GFR () 104.6 Estimated GFR (Non- 90.2 BUN/Creatinine Ratio 8.4 (10-20) Calcium Level 9.0 mg/dl (8.5-10.1) Total Bilirubin 0.3 mg/dl (0.2-1) Direct Bilirubin < 0.1 mg/dl (0-0.2) Aspartate Amino Transf (AST/SGOT) 16 U/L (15-37) Alanine Aminotransferase (ALT/SGPT) 27 U/L (12-78) Alkaline Phosphatase 95 U/L (45-117) Total Protein 7.7 gm/dl (6.4-8.2) Albumin 3.4 gm/dl (3.4-5.0) Lipase 106 U/L (73-393) Urine Color YELLOW Urine Appearance CLEAR (CLEAR) Urine pH 7.0 (4.5-7.5) Urine Specific [place] 1.016 (1.000-1.030) Urine Protein NEG (NEG) Urine Glucose (UA) NEG (NEG) Urine Ketones NEG (NEG) Urine Occult Blood NEG (NEG) Urine Nitrite NEG (NEG) Urine Bilirubin NEG (NEG) Urine Urobilinogen NEG (NEG) Urine Leukocyte Esterase NEG (NEG) Urine WBC (Auto) 0 /hpf (0-5) Urine RBC (Auto) 0-4 /hpf (0-4) Urine Hyaline Casts (Auto) 0 /lpf (0-5) Urine Epithelial Cells (Auto) 0-5 /lpf (0-5) Urine Bacteria (Auto) NEG (NEG) Laboratory results as stated above per my review. Medications Administered Medications (Trade) Dose Ordered Sig/Erika Route Start Time Stop Time Status Last Admin Dose Admin Sodium Chloride (Nss 1000ml) 1,000 ml @ 999 mls/hr Q1H1M STAT IV 06/27/16 16:54 06/27/16 17:54 DC 06/27/16 17:20 999 MLS/HR Ketorolac Tromethamine (Toradol Inj) 30 mg NOW STAT IV 06/27/16 16:54 06/27/16 16:57 DC 06/27/16 17:20 30 MG ED Course 1652: Previous medical records were reviewed. The patient was evaluated in room A12B. A complete history and physical examination was performed. 1653: Ordered Toradol Inj 30 mg IV, Sodium Chloride 1,000 ml @ 999 mls/hr IV. 1911: On reevaluation, the patient is doing well. I discussed the results and findings with the patient. He verbalized agreement of the treatment plan. The patient was discharged home. Medical Decision The differential diagnoses include but are not limited to: rectal cellulitis, rectal abscess, perirectal abscess. The patient is a 30-year-old male who presents to the ED with a chief complaint of discomfort in his rectal area. The patient reports some rectal discomfort for the past month and a half. The patient reports a history of Crohn's disease. He also stated to the nurse about right lower quadrant pain for a week and a half. He was concerned about a Crohn's flare. The patient's vital signs are normal. He did not report the abdominal discomfort to me. Abdominal exam was unremarkable. Exam of the rectum reveals an area of mild tenderness and slight fullness in the right perianal area in the 2 to 5 o'clock position. His exam is otherwise unremarkable. Blood work including a CBC and complete metabolic panel normal. Urinalysis did not show infection. CT scan of the pelvis did not show rectal abscess or other acute [place]. The patient was given IV fluids and IV Toradol. He is felt to be stable for discharge. I recommended follow-up with his GI specialist. Impression Primary Impression: Rectal pain Additional Impression: Crohns disease Scribe Attestation The scribe's documentation has been prepared under my direction and personally reviewed by me in its entirety. I confirm that the note above accurately reflects all work, treatment, procedures, and medical decision making performed by me. Departure Information Dispostion Home / Self-Care Prescriptions No Active Prescriptions or Reported Meds Referrals No Doctor, Assigned (PCP) Forms HOME CARE DOCUMENTATION FORM, IMPORTANT VISIT INFORMATION Patient Instructions My [facility] Additional Instructions Follow-up with your doctor/ GI specialist for further care and evaluation in 1- 2 days. Return to the emergency department for worsening or new symptoms or any concerns. You have been examined and treated today on an emergency basis only. This is not a substitute for, or an effort to provide, complete comprehensive medical care. It is impossible to recognize and treat all injuries or illnesses in a single emergency department visit. It is therefore important that you follow up closely with your doctor. Call as soon as possible for an appointment. Problem Qualifiers
[2016-06-27 19:48] VITALS: BP 156/108; PULSE 61; O2SAT 100
[2016-12-19] MEDS ORDERED: ADAL40KI INJ (14:58)
[2016-12-19] MEDS ORDERED: ESCI1TAB9 PO (18:53)
[2016-12-19] MEDS ORDERED: HYDR25CA PO (18:54)
[2016-12-20] MEDS ORDERED: DOXY-300 PO (19:57)
[2016-12-20] MEDS ORDERED: OXYC-57 PO (19:57)
== END 2016-06-27 19:49 | disposition home or self-care (01) ==
LOC: C.EDB 16:22 → C.EDA 19:49
DX: K50.90 Crohn's disease, unspecified, without complications (principal); K62.89 Other specified diseases of anus and rectum; F41.1 Generalized anxiety disorder; F32.9 Major depressive disorder, single episode, unspecified; K21.9 Gastro-esophageal reflux disease without esophagitis; I45.6 Pre-excitation syndrome; F17.200 Nicotine dependence, unspecified, uncomplicated; Z98.890 Other specified postprocedural states; Z91.011 Allergy to milk products; Z91.018 Allergy to other foods

== ENCOUNTER 2016-08-04 23:59 | Emergency (ER) | payer OTHER ==
[~2016-08-04] VITALS: Ht 188 cm; Wt 78.2 kg
[2016-08-05 00:05] VITALS: TEMP 36.7; Ht 188 cm; Wt 78.2 kg
--- NOTE | 2016-08-05 01:02 | EMERGENCY ROOM VISIT NOTE ---
History Report prepared by [place]: Polly Clements Under the Supervision of: Dr. Faith Garduno D.O. First contact with patient: 00:44 Chief Complaint: ABDOMINAL PAIN Stated Complaint: SEVERE ABDOMINAL AND RECTAL PAINS - CROHNS/ABSCESS History of Present Illness The patient is a 30 year old male who presents to the Emergency Room with complaints of persistent right sided abdominal pain starting about 7-10 days ago. He has a history of Crohn's disease. The abdominal pain is worse than his normal Crohn's pain. He has severe nausea but denies vomiting. He reports worse than normal diarrhea and increased frequency of bowel movements. He has been having a bowel movement every time he eats. The patient normally has blood with wiping but it has now worsened. He is now having blood in the toilet bowel with the stool. He has a rectal abscess that was opened up and drained about a month ago but it is not healing. The abscess now seemed to have opened up more. A few days ago, he felt another abscess growing on top of the old one and it seemed as though the new one was draining. He informed the locker operator about the new abscess and he was instructed to continue taking Flagyl and Cipro. He denies any relief with the antibiotics. He initially had a surgery set up for August 17 but got a call 2 days ago that the surgery was cancelled. He is unsure of why it was cancelled. He denies lower extremity pain/swelling, or any other complaints. Source of History: patient Onset: about 7-10 days ago Position: abdomen (right sided) Timing: other (persistent) Associated Symptoms: + nausea, + diarrhea, No vomiting Review of Systems See HPI for pertinent positives & negatives. A total of 10 systems reviewed and were otherwise negative. Past Medical & Surgical Medical Problems: (1) Abdominal pain (2) Abdominal pain (3) Alcohol abuse (4) Anxiety (5) Blood loss anemia (6) C. difficile diarrhea (7) Cannabis abuse (8) Chest wall pain (9) Cocaine abuse (10) Costochondral pain (11) Crohn disease (12) Crohn's disease (13) Crohn's disease (14) Crohns disease (15) Crohns disease (16) Crohns disease (17) Depression (18) Depression (19) Exacerbation of Crohn's disease (20) Exacerbation of Crohn's disease (21) Generalized anxiety disorder (22) GERD (gastroesophageal reflux disease) (23) Left sided abdominal pain (24) Marfan's disease (25) Marfan's syndrome (26) Non-cardiac chest pain (27) Palpitations (28) Lpsrn-Bwzncpdfu-Lrseo (WPW) syndrome (29) Zbjrg-Csuizxsbu-Hcsfn pattern (30) WPW (Cnkbg-Rncsnzjvh-Ggdpi syndrome) Surgical Problems: (1) H/O colonoscopy (2) History of bowel resection (3) History of partial colectomy (4) History of prior ablation treatment (5) S/P partial colectomy Family History No pertinent family history Social History Smoking Status: Current Every Day Smoker Alcohol Use: occasionally Drug Use: marijuana Marital Status: single Housing Status: lives with family Occupation Status: unemployed Current/Historical Medications Scheduled Adalimumab (Humira), 40 MG SQ [id number] Ciprofloxacin Hcl (Cipro), Unknown Dose PO TID Metronidazole (Flagyl), Unknown Dose PO BID Allergies Coded Allergies: Lactose Intolerance (GI) (Unverified Allergy, Unknown, GI SYMPTOMS, 06/27/16 ) Tomato (Verified Adverse Reaction, Intermediate, GI SYMPTOMS-CROHN'S ACTS UP, 06/27/16) CROHN'S ACTS UP Eggs or Egg-derived Products (Verified Adverse Reaction, Mild, GI SYMPTOMS , 06/27/16) Lactose (Verified Adverse Reaction, Unknown, GI UPSET, 06/27/16) Physical Exam Vital Signs Date Time Temp Pulse Resp B/P (MAP) Pulse Ox O2 Delivery O2 Flow Rate FiO2 08/05/16 02:48 70 18 152/114 99 Room Air 08/05/16 01:38 68 18 139/108 98 Room Air 08/05/16 00:05 36.7 87 20 143/95 99 Room Air Physical Exam HEENT: Head - normocephalic and atraumatic Pupils are equal, round, and reactive to light. Extraocular eye muscles are intact, and sclera are anicteric. Nose - moist nasal mucosa without discharge. Mouth - moist buccal mucosa. Oropharynx is nonerythematous and there is no tonsillar exudate or edema noted. Neck: Supple; no JVD, nuchal rigidity, cervical lymphadenopathy. Heart: Regular rate and rhythm. There is a normal S1 and S2 with no murmurs, clicks, or gallops appreciated. Lungs: Clear to auscultation bilaterally with no wheezes, rales, or rhonchi. Abdomen: Soft, mild discomfort to the right of the umbilicus, nondistended, with good bowel sounds. There are no palpable pulsatile masses or hepatosplenomegaly. There is no guarding, rigidity, or rebound noted. Rectal: Well-healing surgical incision to the left of the rectum, no signs of infection or drainage. Mild induration, fluctuance, and pain inferior to that area concerning for new perirectal abscess formation. Extremities: No evidence of cyanosis, clubbing, or edema. There are easily palpable peripheral pulses. Skin: warm and dry with good turgor and no rashes. Medical Decision & Procedures Laboratory Results 08/05/16 01:20 Red Blood Count 5.25, Mean Corpuscular Volume 81.9, Mean Corpuscular Hemoglobin 26.9, Mean Corpuscular Hemoglobin Concent 32.8, Mean Platelet Volume 9.3, Neutrophils (%) (Auto) 52.2, Lymphocytes (%) (Auto) 35.4, Monocytes (%) (Auto) 7.2, Eosinophils (%) (Auto) 4.9, Basophils (%) (Auto) 0.2, Neutrophils # (Auto) 4.94, Lymphocytes # (Auto) 3.35, Monocytes # (Auto) 0.68, Eosinophils # (Auto) 0.46, Basophils # (Auto) 0.02 08/05/16 01:20 Test 08/05/16 01:01 08/05/16 01:20 Urine Color DK YELLOW Urine Appearance CLEAR (CLEAR) Urine pH 5.5 (4.5-7.5) Urine Specific [place] 1.032 (1.000-1.030) Urine Protein NEG (NEG) Urine Glucose (UA) NEG (NEG) Urine Ketones TRACE (NEG) Urine Occult Blood NEG (NEG) Urine Nitrite NEG (NEG) Urine Bilirubin NEG (NEG) Urine Urobilinogen NEG (NEG) Urine Leukocyte Esterase NEG (NEG) White Blood Count 9.46 K/uL (4.8-10.8) Red Blood Count 5.25 M/uL (4.7-6.1) Hemoglobin 14.1 g/dL (14.0-18.0) Hematocrit 43.0 % (42-52) Mean Corpuscular Volume 81.9 fL (80-100) Mean Corpuscular Hemoglobin 26.9 pg (25-34) Mean Corpuscular Hemoglobin Concent 32.8 g/dl (32-36) Platelet Count 321 K/uL (130-400) Mean Platelet Volume 9.3 fL (7.4-10.4) Neutrophils (%) (Auto) 52.2 % Lymphocytes (%) (Auto) 35.4 % Monocytes (%) (Auto) 7.2 % Eosinophils (%) (Auto) 4.9 % Basophils (%) (Auto) 0.2 % Neutrophils # (Auto) 4.94 K/uL (1.4-6.5) Lymphocytes # (Auto) 3.35 K/uL (1.2-3.4) Monocytes # (Auto) 0.68 K/uL (0.11-0.59) Eosinophils # (Auto) 0.46 K/uL (0-0.5) Basophils # (Auto) 0.02 K/uL (0-0.2) RDW Standard Deviation 42.1 fL (36.4-46.3) RDW Coefficient of Variation 14.0 % (11.5-14.5) Immature Granulocyte % (Auto) 0.1 % Immature Granulocyte # (Auto) 0.01 K/uL (0.00-0.02) Anion Gap 7.0 mmol/L (3-11) Est Creatinine Clear Calc Drug Dose 109.6 ml/min Estimated GFR () 104.6 Estimated GFR (Non- 90.2 BUN/Creatinine Ratio 11.0 (10-20) Calcium Level 8.7 mg/dl (8.5-10.1) Total Bilirubin 0.4 mg/dl (0.2-1) Direct Bilirubin < 0.1 mg/dl (0-0.2) Aspartate Amino Transf (AST/SGOT) 37 U/L (15-37) Alanine Aminotransferase (ALT/SGPT) 49 U/L (12-78) Alkaline Phosphatase 104 U/L (45-117) Total Protein 8.3 gm/dl (6.4-8.2) Albumin 3.8 gm/dl (3.4-5.0) Laboratory results per my review. Medications Administered Medications (Trade) Dose Ordered Sig/Erika Route Start Time Stop Time Status Last Admin Dose Admin Ondansetron HCl (Zofran Inj) 4 mg NOW STAT IV 6/15/17 01:19 08/05/16 01:21 DC 08/05/16 01:40 4 MG Morphine Sulfate (MoRPHine SULFATE INJ) 4 mg NOW STAT IV 08/05/16 01:19 08/05/16 01:21 DC 08/05/16 01:40 4 MG Sodium Chloride 1,000 ml @ 250 mls/hr Q4H STAT IV 08/05/16 01:19 08/05/16 03:52 DC 08/05/16 01:40 250 MLS/HR Ketorolac Tromethamine (Toradol Inj) 30 mg NOW STAT IV 08/05/16 03:01 08/05/16 03:02 DC 08/05/16 03:05 30 MG Procedure Sodium Chloride 1000 ml @ 250 mls/hr IV, Morphine Sulfate 4 mg IV, Zofran Inj 4 mg IV ED Course 0044: Past medical records reviewed. The patient was evaluated in room B09. A complete history and physical exam was performed. An IV lock was initiated and labs were drawn. 0119: Sodium Chloride 1000 ml @ 250 mls/hr IV, Morphine Sulfate 4 mg IV, Zofran Inj 4 mg IV. 0222: I reviewed the patient's MRI from July 29 which showed no evidence of Crohn 's disease and no abscess was appreciated. It seems that they have canceled any surgical procedure at this time because the MRI showed no significant pathology. 0231: Upon reevaluation, the patient is resting comfortably. I discussed findings and results with him. He verbalized agreement of the treatment plan. He was discharged home. 0301: Toradol Inj 30 mg IV Medical Decision This patient presents to the Emergency Room with the chief complaint of right sided abdominal pain and rectal abscess. Differential diagnosis includes but is not limited to new perirectal abscess formation, Crohn's flare, hematochezia, anemia. His labs showed no leucocytosis, stable H&H, normal renal function, normal glucose, normal LFTs. Patient's urine had trace ketones. I attest that I have personally reviewed the patient's current medication list. Blood Pressure Screening: Patient was found to have a slightly elevated blood pressure due to circumstances. I do not believe that the patient requires hypertension monitoring. The patient presents to the emergency department with increasing pain to the right side of his abdomen with significant bloody stools. The patient has a history of Crohn's disease. He recently restarted his Humira. He recently had a perirectal abscess incised and drained. He is concerned that this was not healing appropriately and that he is developing another abscess in that area. I agree that there may be a new superficial abscess develop did not area but the previous surgical incision appears well healing and is not infected. I have recommended that the patient take his medications as prescribed. He will need to follow up closely with his locker operator as well as with his surgeon in [place] per possible subsequent incision and draining of a newly forming perirectal abscess. He was told to return to the emergency department if he developed more severe pain or fever. Impression Primary Impression: Periumbilical abdominal pain Additional Impression: Perirectal abscess Scribe Attestation The scribe's documentation has been prepared under my direction and personally reviewed by me in its entirety. I confirm that the note above accurately reflects all work, treatment, procedures, and medical decision making performed by me. Departure Information Dispostion Home / Self-Care Referrals Alfred Carmichael MD (PCP) Forms HOME CARE DOCUMENTATION FORM, IMPORTANT VISIT INFORMATION Patient Instructions My [facility] Additional Instructions REst. continue the Flagyl and Cipro. Follow up with GI and your surgeon at [place] Return to the ER for fevers, worsening pain, or more significant GI bleeding Problem Qualifiers
[2016-08-05] MEDS ORDERED: SODIUM CHLORIDE 0.9% 1000ML 1,000 ML IV STA (01:19)
[2016-08-05] MEDS ORDERED: MoRPHine SULFATE 4 MG/ML 1 ML CARP\\VIAL IV STA (01:19)
[2016-08-05] MEDS ORDERED: ONDANSETRON INJ 2 MG/ML 2 ML VIAL IV STA (01:19)
[2016-08-05 01:28] LABS: BASO % 0.2 %; BASO ABS # 0.02 K/uL (0-0.2); COMPLETE YES; EOS % 4.9 %; IG% 0.1 %; LYMPH % 35.4 %; LYMPH ABS # 3.35 K/uL (1.2-3.4); MEAN CELL VOLUME 81.9 fL (80-100); MEAN CORPUSCULAR HEMOGLOBIN 26.9 pg (25-34); MEAN CORPUSCULAR HGB CONC 32.8 g/dl (32-36); MEAN PLATELET VOLUME 9.3 fL (7.4-10.4); MONO % 7.2 %; NEUT % 52.2 %; PLATELET COUNT 321 K/uL (130-400); RED BLOOD COUNT 5.25 M/uL (4.7-6.1); WHITE BLOOD COUNT 9.46 K/uL (4.8-10.8)
[2016-08-05] MEDS ORDERED: ADAL1KIT SQ (01:32)
[2016-08-05] MEDS ORDERED: CIPR-255 PO (01:34)
[2016-08-05] MEDS ORDERED: METR-163 PO (01:35)
[2016-08-05 01:45] LABS: ALT/SGPT 49 U/L (12-78); AST/SGOT 37 U/L (15-37); BLOOD UREA NITROGEN 12 mg/dl (7-18); CALCIUM 8.7 mg/dl (8.5-10.1); CARBON DIOXIDE 26 mmol/L (21-32); CHLORIDE 107 mmol/L (98-107); GLUCOSE 96 mg/dl (70-99); POTASSIUM 4.1 mmol/L (3.5-5.1); SODIUM 140 mmol/L (136-145)
[2016-08-05 01:47] LABS: ALKALINE PHOSPHATASE 104 U/L (45-117)
[2016-08-05 01:58] LABS: URINE APPEARANCE CLEAR (CLEAR); URINE BILIRUBIN NEG (NEG); URINE COLOR DK YELLOW; URINE NITRITE NEG (NEG); URINE PH 5.5 (4.5-7.5); URINE SPECIFIC GRAVITY 1.032 (1.000-1.030); UROBILINOGEN NEG (NEG)
[2016-08-05 01:59] LABS: MANUAL MICROSCOPIC REQUIRED? NO; REVIEW REQ? NO
[2016-08-05 02:48] VITALS: BP 152/114; PULSE 70; O2SAT 99
[2016-08-05] MEDS ORDERED: KETOROLAC TROMETHAMINE 30 MG/ML VIAL IV STA (03:01)
[2016-12-19] MEDS ORDERED: ADAL40KI INJ (14:58)
[2016-12-19] MEDS ORDERED: ESCI1TAB9 PO (18:53)
[2016-12-19] MEDS ORDERED: HYDR25CA PO (18:54)
[2016-12-20] MEDS ORDERED: DOXY-300 PO (19:57)
[2016-12-20] MEDS ORDERED: OXYC-57 PO (19:57)
== END 2016-08-05 03:07 | disposition home or self-care (01) ==
LOC: C.EDB 08-05 00:01
DX: R10.33 Periumbilical pain (principal); L02.211 Cutaneous abscess of abdominal wall; K50.90 Crohn's disease, unspecified, without complications; K21.9 Gastro-esophageal reflux disease without esophagitis; I45.6 Pre-excitation syndrome; F41.1 Generalized anxiety disorder; F32.9 Major depressive disorder, single episode, unspecified; F17.200 Nicotine dependence, unspecified, uncomplicated; Z90.49 Acquired absence of other specified parts of digestive tract; Z98.890 Other specified postprocedural states; Z91.011 Allergy to milk products; Z91.012 Allergy to eggs; Z91.018 Allergy to other foods

== ENCOUNTER 2016-08-12 09:55 | Emergency (ER) | payer OTHER ==
[~2016-08-12] VITALS: Ht 188 cm; Wt 76.7 kg
[~2016-08-12 09:55] MED LIST changes: -ACET-1256 PO; +ADAL1KIT SQ; -ADAL40KI IM; +CIPR-255 PO; -HYDR1CAP85 PO; -LXP10 PO; +METR-163 PO
[2016-08-12 09:58] VITALS: TEMP 36.8; Ht 188 cm; Wt 76.7 kg
[2016-08-12] MEDS ORDERED: SODIUM CHLORIDE 0.9% 1000ML 1,000 ML IV STA (10:14)
[2016-08-12] MEDS ORDERED: ONDANSETRON INJ 2 MG/ML 2 ML VIAL IV STA (10:14)
[2016-08-12] MEDS ORDERED: SODIUM CHLORIDE 0.9% 1000ML 1,000 ML IV ONE (10:14)
[2016-08-12] MEDS ORDERED: MoRPHine SULFATE 4 MG/ML 1 ML CARP\\VIAL IV STA (10:14)
--- NOTE | 2016-08-12 10:17 | EMERGENCY ROOM VISIT NOTE ---
History Report prepared by Elmira: Merced Frankel Under the Supervision of: Dr. Cholo Domínguez M.D. First contact with patient: 10:03 Chief Complaint: ABDOMINAL PAIN Stated Complaint: CROHN'S FLARE-UP, SEVERE ABD. PAINS, N,V Nursing Triage Summary: Pt taking Humira for Chrons disease, being treated for perianal abcesses, verbalizes "i'm not supposed to be on humira while being treated for an infection, but my GI doc wanted me to stay on it". C/O abdominal pain, worse in the morning, N/V/D "feels like a chrons flare-up" since restarted on Humira two weeks ago. Denies blood in stool or vomit. abdominal pain 7/10. History of Present Illness The patient is a 30 year old male who presents to the Emergency Room with complaints of persistent abdominal pain for the past two weeks. He currently rates his discomfort as a 7/10 in severity that he describes as a sharp pain. The patient reports a history of Crohn's Disease and states that two weeks ago he restarted Humira. He states that he has been dealing with abscesses to his buttocks. The patient states that he had the areas drained surgically. He states that he has another abscess forming that he will have surgically fixed in [place]. The patient states that over the last two weeks he has noticed increased nausea, vomiting, and diarrhea. He states that he has not experienced any melena or hematochezia within the last week. The patient states that he follows with gastroenterology. He reports chills today. The patient denies any fistula history. He denies any fever. Source of History: patient Onset: two weeks Position: abdomen Symptom Intensity: 7/10 Quality: sharp Timing: other (persistent) Associated Symptoms: + chills, + nausea, + vomiting, + diarrhea, No fevers, No melena, No hematochezia Review of Systems See HPI for pertinent positives & negatives. A total of 10 systems reviewed and were otherwise negative. Past Medical & Surgical Medical Problems: (1) Abdominal pain (2) Abdominal pain (3) Alcohol abuse (4) Anxiety (5) Blood loss anemia (6) C. 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 Nurse's notes were reviewed and I agree with. Family History No pertinent family history Social History Smoking Status: Current Every Day Smoker Alcohol Use: occasionally Drug Use: marijuana Marital Status: single Housing Status: lives with family Occupation Status: unemployed Current/Historical Medications Scheduled Adalimumab (Humira), 40 MG SQ [id number] Ciprofloxacin Hcl (Cipro), Unknown Dose PO TID Metronidazole (Flagyl), Unknown Dose PO BID Allergies Coded Allergies: Lactose Intolerance (GI) (Unverified Allergy, Unknown, GI SYMPTOMS, 06/27/16 ) Tomato (Verified Adverse Reaction, Intermediate, GI SYMPTOMS-CROHN'S ACTS UP, 06/27/16) CROHN'S ACTS UP Eggs or Egg-derived Products (Verified Adverse Reaction, Mild, GI SYMPTOMS , 06/27/16) Lactose (Verified Adverse Reaction, Unknown, GI UPSET, 06/27/16) Physical Exam Vital Signs Date Time Temp Pulse Resp B/P (MAP) Pulse Ox O2 Delivery O2 Flow Rate FiO2 08/12/16 12:12 57 16 127/93 100 08/12/16 11:16 58 16 125/87 100 Room Air 08/12/16 09:58 36.8 82 16 131/83 98 Room Air Physical Exam General: Well developed well nourished, non-ill appearing young male in no acute distress, breathing comfortably on room air. Normal speech HEENT: Normal cephalic atraumatic. Pupils are equal round and reactive to light. Extraocular movements are intact. Oropharynx is pink with moist mucous membranes. No swelling of the mouth lips or tongue. Neck: Supple with a midline trachea. No meningeal signs or stiffness, no JVD or bruits. No Stridor. Chest: Clear to auscultation bilaterally. No wheezes or rhonchi. No increased work of breathing. Heart: regular rate and rhythm. Abdomen: Soft nontender, nondistended without rebound guarding or rigidity. Rectal: Several small openings where areas were drained. Small fistula noted. Small amount of puss expressible. Extremities: No cyanosis clubbing or edema. No calf tenderness or assymetry Spine/Back. Non tender to palpation. No CVA tenderness Skin: Good turgor without rashes. Neurologic exam: Cranial nerves two through 12 are intact. Motor and sensation are intact and symmetrical throughout. Medical Decision & Procedures Laboratory Results 08/12/16 10:40 Red Blood Count 5.08, Mean Corpuscular Volume 83.1, Mean Corpuscular Hemoglobin 26.8, Mean Corpuscular Hemoglobin Concent 32.2, Mean Platelet Volume 9.3, Neutrophils (%) (Auto) 57.4, Lymphocytes (%) (Auto) 32.8, Monocytes (%) (Auto) 6.6, Eosinophils (%) (Auto) 2.6, Basophils (%) (Auto) 0.3, Neutrophils # (Auto) 4.24, Lymphocytes # (Auto) 2.42, Monocytes # (Auto) 0.49, Eosinophils # (Auto) 0.19, Basophils # (Auto) 0.02 08/12/16 10:40 Test 08/12/16 10:40 White Blood Count 7.38 K/uL (4.8-10.8) Red Blood Count 5.08 M/uL (4.7-6.1) Hemoglobin 13.6 g/dL (14.0-18.0) Hematocrit 42.2 % (42-52) Mean Corpuscular Volume 83.1 fL (80-100) Mean Corpuscular Hemoglobin 26.8 pg (25-34) Mean Corpuscular Hemoglobin Concent 32.2 g/dl (32-36) Platelet Count 306 K/uL (130-400) Mean Platelet Volume 9.3 fL (7.4-10.4) Neutrophils (%) (Auto) 57.4 % Lymphocytes (%) (Auto) 32.8 % Monocytes (%) (Auto) 6.6 % Eosinophils (%) (Auto) 2.6 % Basophils (%) (Auto) 0.3 % Neutrophils # (Auto) 4.24 K/uL (1.4-6.5) Lymphocytes # (Auto) 2.42 K/uL (1.2-3.4) Monocytes # (Auto) 0.49 K/uL (0.11-0.59) Eosinophils # (Auto) 0.19 K/uL (0-0.5) Basophils # (Auto) 0.02 K/uL (0-0.2) RDW Standard Deviation 42.8 fL (36.4-46.3) RDW Coefficient of Variation 14.2 % (11.5-14.5) Immature Granulocyte % (Auto) 0.3 % Immature Granulocyte # (Auto) 0.02 K/uL (0.00-0.02) Erythrocyte Sedimentation Rate 16 mm/hr (0-14) Anion Gap 7.0 mmol/L (3-11) Est Creatinine Clear Calc Drug Dose 98.5 ml/min Estimated GFR () 94.1 Estimated GFR (Non- 81.2 BUN/Creatinine Ratio 7.7 (10-20) Calcium Level 8.6 mg/dl (8.5-10.1) Total Bilirubin 0.4 mg/dl (0.2-1) Direct Bilirubin 0.1 mg/dl (0-0.2) Aspartate Amino Transf (AST/SGOT) 18 U/L (15-37) Alanine Aminotransferase (ALT/SGPT) 35 U/L (12-78) Alkaline Phosphatase 86 U/L (45-117) C-Reactive Protein < 0.29 mg/dl (0-0.29) Total Protein 7.9 gm/dl (6.4-8.2) Albumin 3.6 gm/dl (3.4-5.0) Lipase 158 U/L (73-393) Laboratory studies as stated above per my review. Medications Administered Medications (Trade) Dose Ordered Sig/Erika Route Start Time Stop Time Status Last Admin Dose Admin Sodium Chloride 1,000 ml @ 999 mls/hr Q1H1M STAT IV 08/12/16 10:14 08/12/16 11:14 DC 08/12/16 10:24 999 MLS/HR Sodium Chloride 1,000 ml @ 150 mls/hr Q6H40M ONCE IV 08/12/16 10:14 08/12/16 12:28 DC 08/12/16 10:25 150 MLS/HR Morphine Sulfate (MoRPHine SULFATE INJ) 4 mg NOW STAT IV 08/12/16 10:14 08/12/16 10:15 DC 08/12/16 10:24 4 MG Ondansetron HCl (Zofran Inj) 4 mg NOW STAT IV 08/12/16 10:14 08/12/16 10:15 DC 08/12/16 10:23 4 MG ED Course 1007: Past medical records reviewed. The patient was evaluated in room B4B, and a complete history and physical examination were performed. 1014: Ordered Zofran Inj 4 mg IV, Morphine Sulfate 4 mg IV, Sodium Chloride 1000 ml @ 150 mls/hr IV, Sodium Chloride 1000 ml @ 999 mls/hr IV. 1136: I reevaluated the patient and I performed a rectal exam at this time. See physical exam for further detail. 1143: I discussed the patients case with [facility]. She asked us to add additional labs. 1205: I reevaluated the patient and he is doing well. I discussed all of the exam findings with him and I discussed the treatment plan. He verbalized complete understanding and agreement. He is ready to go home. Medical Decision Differentials include, but are not limited to; acute exacerbation of chronic pain, Crohn's exacerbation, abscess, infection, electrolyte or metabolic abnormality. Medication Reconciliation: I attest that I have personally reviewed the patient' s current medication list. Blood pressure Screening: Patient was found to have normal blood pressure on screening and does not require follow-up. This patient comes in as described above he's having abdominal pain. He is well -known to the emergency department he does get frequent abdominal pain and has Crohn's disease. He looks well on exam. He has is no tenderness or peritonitis. He has no fever or chills. He's been having problems with some rectal abscesses and drainage that has been going on since February he schedule see a [facility] surgeon within the next week. IV access established and he was given IV morphine and IV Zofran and felt significant better .he has no white count or fever to suggest infection. He has no acute electrolyte or metabolic abnormalities. He has nothing to suggest acute liver or kidney disease. On rectal exam, he has several small openings but no large area of redness or fluctuance and has minimal expressible pus. I discussed the case with the GI team the follows him and they asked if I could add a sedimentation rate and a CRP and they felt he go home his artery on antibiotics and they have arranged him to have close follow-up with surgery in [place]. The patient is told to return if increasing pain or fever or drainage, worsening symptoms, any new problems or concerns. Consults Time Called: 1136 Consulting Physician: [facility] Returned Call: [phone] I discussed the patients case with [facility]. She asked us to add additional labs. Impression Primary Impression: Diffuse abdominal pain Additional Impression: Crohn's disease Scribe Attestation The scribe's documentation has been prepared under my direction and personally reviewed by me in its entirety. I confirm that the note above accurately reflects all work, treatment, procedures, and medical decision making performed by me. Departure Information Dispostion Home / Self-Care Referrals Alfred Carmichael MD (PCP) Forms HOME CARE DOCUMENTATION FORM, IMPORTANT VISIT INFORMATION Patient Instructions My [facility] Additional Instructions Continue current antibiotics. May do Sitz baths in the tub. Follow-up with your rectal surgeon keep your appointment this coming week. Return to the ER if: Increasing pain, fever, worsening of symptoms, any new problems or concerns. Problem Qualifiers
[2016-08-12 10:56] LABS: BASO % 0.3 %; BASO ABS # 0.02 K/uL (0-0.2); COMPLETE YES; EOS % 2.6 %; HEMATOCRIT 42.2 % (42-52); IG% 0.3 %; LYMPH % 32.8 %; LYMPH ABS # 2.42 K/uL (1.2-3.4); MEAN CELL VOLUME 83.1 fL (80-100); MEAN CORPUSCULAR HEMOGLOBIN 26.8 pg (25-34); MEAN CORPUSCULAR HGB CONC 32.2 g/dl (32-36); MEAN PLATELET VOLUME 9.3 fL (7.4-10.4); MONO % 6.6 %; NEUT % 57.4 %; PLATELET COUNT 306 K/uL (130-400); RED BLOOD COUNT 5.08 M/uL (4.7-6.1); WHITE BLOOD COUNT 7.38 K/uL (4.8-10.8)
[2016-08-12 11:13] LABS: BUN/CREATININE RATIO 7.7 (10-20); CREATININE 1.2 mg/dl (0.60-1.40); POTASSIUM 4.1 mmol/L (3.5-5.1)
[2016-08-12 11:14] LABS: CALCIUM 8.6 mg/dl (8.5-10.1)
[2016-08-12 12:12] VITALS: BP 127/93; PULSE 57; O2SAT 100
[2016-12-19] MEDS ORDERED: ADAL40KI INJ (14:58)
[2016-12-19] MEDS ORDERED: ESCI1TAB9 PO (18:53)
[2016-12-19] MEDS ORDERED: HYDR25CA PO (18:54)
[2016-12-20] MEDS ORDERED: DOXY-300 PO (19:57)
[2016-12-20] MEDS ORDERED: OXYC-57 PO (19:57)
== END 2016-08-12 12:13 | disposition home or self-care (01) ==
LOC: C.EDB 09:59
DX: K50.90 Crohn's disease, unspecified, without complications (principal); K21.9 Gastro-esophageal reflux disease without esophagitis; F41.1 Generalized anxiety disorder; F32.9 Major depressive disorder, single episode, unspecified; F12.10 Cannabis abuse, uncomplicated; F14.10 Cocaine abuse, uncomplicated; Z79.899 Other long term (current) drug therapy; I45.6 Pre-excitation syndrome; Q87.40 Marfan syndrome, unspecified; Z90.49 Acquired absence of other specified parts of digestive tract

== ENCOUNTER 2016-08-29 11:56 | Emergency (ER) | payer OTHER ==
[~2016-08-29] VITALS: Ht 188 cm; Wt 76.4 kg
[2016-08-29 11:58] VITALS: TEMP 36.7; Ht 188 cm; Wt 76.4 kg
--- NOTE | 2016-08-29 12:22 | EMERGENCY ROOM VISIT NOTE ---
History Report prepared by Elmira: Emi Reddy Under the Supervision of: Dr. Solis Garcia M.D. First contact with patient: 12:15 Chief Complaint: GI ASSESSMENT Stated Complaint: ABD PAIN,VOMITING,NAUSEA,DIARRHEA,CROHN'S DISEASE History of Present Illness The patient is a 30 year old male who presents to the Emergency Room with complaints of worsening abdominal pain beginning 10 days prior to arrival. The patient states that he has Crohn's disease and is having a flare up. The flare up began 10 days ago but has significantly worsened 3 days ago. The patient is experiencing nausea, vomiting, diarrhea and chills. He states that his symptoms are consistent with his Crohn's. He denies urinary symptoms or recent fevers. The patient states that he use to be on Humira. He was taken off due to an abscess that formed. He is scheduled for surgery in [place] on September 01. The patient's GI surgeon does not want to put the patient back on Humira until the surgery is completed. 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 Please see Additional Medical History Sheet. Past Medical & Surgical Medical Problems: (1) Abdominal pain (2) Abdominal pain (3) Alcohol abuse (4) Anxiety (5) Blood loss anemia (6) C. difficile diarrhea (7) Cannabis abuse (8) Chest wall pain (9) Cocaine abuse (10) Costochondral pain (11) Crohn disease (12) Crohn's disease (13) Crohn's disease (14) Crohns disease (15) Crohns disease (16) Crohns disease (17) Depression (18) Depression (19) Exacerbation of Crohn's disease (20) Exacerbation of Crohn's disease (21) Generalized anxiety disorder (22) GERD (gastroesophageal reflux disease) (23) Left sided abdominal pain (24) Marfan's disease (25) Marfan's syndrome (26) Non-cardiac chest pain (27) Palpitations (28) Jimoy-Tymigzcxa-Qqknm (WPW) syndrome (29) Jukqj-Vdfzokzed-Nyhdx pattern (30) WPW (Qgspk-Kusmclxkt-Kdysg syndrome) Surgical Problems: (1) H/O colonoscopy (2) History of bowel resection (3) History of partial colectomy (4) History of prior ablation treatment (5) S/P partial colectomy Family History No pertinent family history Social History Smoking Status: Current Every Day Smoker Alcohol Use: occasionally Drug Use: marijuana Marital Status: single Housing Status: lives with family Occupation Status: unemployed Current/Historical Medications Scheduled Adalimumab (Humira), 40 MG SQ [id number] Dicyclomine Hcl (Bentyl), 1 CAP PO TID Allergies Coded Allergies: Lactose Intolerance (GI) (Verified Allergy, Unknown, GI SYMPTOMS, 08/29/16) Tomato (Verified Adverse Reaction, Intermediate, GI SYMPTOMS-CROHN'S ACTS UP, 08/29/16) CROHN'S ACTS UP Eggs or Egg-derived Products (Verified Adverse Reaction, Mild, GI SYMPTOMS , 08/29/16) Lactose (Verified Adverse Reaction, Unknown, GI UPSET, 08/29/16) Physical Exam Vital Signs Date Time Temp Pulse Resp B/P (MAP) Pulse Ox O2 Delivery O2 Flow Rate FiO2 08/29/16 16:56 52 20 141/98 100 08/29/16 16:09 74 20 134/80 100 Room Air 08/29/16 14:39 86 20 120/89 100 Room Air 08/29/16 13:42 58 20 127/96 100 Room Air 08/29/16 11:58 36.7 88 17 121/80 98 Room Air Physical Exam GENERAL: Patient awake, alert, oriented x 3. Patient follows commands. Patient does not appear toxic. Patient is adequately hydrated and well- nourished. SKIN: No erythema, pallor, cyanosis or rash HEENT: Normal head, pupils equal, reactive to light and accommodation. Oral cavity and posterior pharynx appear normal. Neck: Without adenopathy, no neck vein distention. LUNGS: Clear to auscultation. No wheezes, no rales, no rhonchi. HEART: No murmurs. No gallops. No rubs ABDOMEN: Well healed periumbilical scar and vague tenderness in right mid abdomen. EXTREMITIES: No signs of trauma or infection. NEUROLOGIC: Cranial nerves II-XII within normal limits. No gross motor sensory function deficits. Medical Decision & Procedures Laboratory Results 08/29/16 12:15 Red Blood Count 5.40, Mean Corpuscular Volume 83.7, Mean Corpuscular Hemoglobin 27.8, Mean Corpuscular Hemoglobin Concent 33.2, Mean Platelet Volume 9.6, Neutrophils (%) (Auto) 61.2, Lymphocytes (%) (Auto) 29.8, Monocytes (%) (Auto) 7.1, Eosinophils (%) (Auto) 1.5, Basophils (%) (Auto) 0.3, Neutrophils # (Auto) 4.48, Lymphocytes # (Auto) 2.18, Monocytes # (Auto) 0.52, Eosinophils # (Auto) 0.11, Basophils # (Auto) 0.02 08/29/16 12:15 Test 08/29/16 12:15 08/29/16 13:50 White Blood Count 7.32 K/uL (4.8-10.8) Red Blood Count 5.40 M/uL (4.7-6.1) Hemoglobin 15.0 g/dL (14.0-18.0) Hematocrit 45.2 % (42-52) Mean Corpuscular Volume 83.7 fL (80-100) Mean Corpuscular Hemoglobin 27.8 pg (25-34) Mean Corpuscular Hemoglobin Concent 33.2 g/dl (32-36) Platelet Count 291 K/uL (130-400) Mean Platelet Volume 9.6 fL (7.4-10.4) Neutrophils (%) (Auto) 61.2 % Lymphocytes (%) (Auto) 29.8 % Monocytes (%) (Auto) 7.1 % Eosinophils (%) (Auto) 1.5 % Basophils (%) (Auto) 0.3 % Neutrophils # (Auto) 4.48 K/uL (1.4-6.5) Lymphocytes # (Auto) 2.18 K/uL (1.2-3.4) Monocytes # (Auto) 0.52 K/uL (0.11-0.59) Eosinophils # (Auto) 0.11 K/uL (0-0.5) Basophils # (Auto) 0.02 K/uL (0-0.2) RDW Standard Deviation 44.3 fL (36.4-46.3) RDW Coefficient of Variation 14.4 % (11.5-14.5) Immature Granulocyte % (Auto) 0.1 % Immature Granulocyte # (Auto) 0.01 K/uL (0.00-0.02) Anion Gap 5.0 mmol/L (3-11) Est Creatinine Clear Calc Drug Dose 84.1 ml/min Estimated GFR () 78.1 Estimated GFR (Non- 67.4 BUN/Creatinine Ratio 6.0 (10-20) Calcium Level 9.6 mg/dl (8.5-10.1) Total Bilirubin 0.8 mg/dl (0.2-1) Aspartate Amino Transf (AST/SGOT) 22 U/L (15-37) Alanine Aminotransferase (ALT/SGPT) 30 U/L (12-78) Alkaline Phosphatase 97 U/L (45-117) Total Protein 8.7 gm/dl (6.4-8.2) Albumin 4.1 gm/dl (3.4-5.0) Globulin 4.6 gm/dl (2.5-4.0) Albumin/Globulin Ratio 0.9 (0.9-2) Lipase 111 U/L (73-393) Urine Color DK YELLOW Urine Appearance CLEAR (CLEAR) Urine pH 6.0 (4.5-7.5) Urine Specific [place] 1.028 (1.000-1.030) Urine Protein TRACE (NEG) Urine Glucose (UA) NEG (NEG) Urine Ketones TRACE (NEG) Urine Occult Blood NEG (NEG) Urine Nitrite NEG (NEG) Urine Bilirubin NEG (NEG) Urine Urobilinogen NEG (NEG) Urine Leukocyte Esterase NEG (NEG) Urine WBC (Auto) 1-5 /hpf (0-5) Urine RBC (Auto) 0-4 /hpf (0-4) Urine Hyaline Casts (Auto) 1-5 /lpf (0-5) Urine Epithelial Cells (Auto) 10-20 /lpf (0-5) Urine Bacteria (Auto) NEG (NEG) Laboratory results as stated above per my review. Medications Administered Medications (Trade) Dose Ordered Sig/Erika Route Start Time Stop Time Status Last Admin Dose Admin Sodium Chloride 2,000 ml @ 1,000 mls/hr Q2H ONCE IV 08/29/16 12:30 08/29/16 14:29 DC 08/29/16 12:34 1,000 MLS/HR Morphine Sulfate (MoRPHine SULFATE INJ) 8 mg Q1H PRN IV 08/29/16 12:30 08/29/16 17:18 DC 08/29/16 13:47 8 MG Ondansetron HCl (Zofran Inj) 4 mg Q1HWA PRN IV 08/29/16 12:30 08/29/16 17:18 DC 08/29/16 12:34 4 MG ED Course 1215: Past medical records reviewed. The patient was evaluated in room A11. A complete history and physical examination was performed. 1230: Zofran Inj 4 mg IV, Morphine Sulfate Inj 8 mg IV, Sodium Chloride 2,000 ml @ 1,000 mls/hr IV. 1438: The patient is being to feel better. He will try drinking fluids. 1639: Upon reevaluation, the patient appeared to have improvement of his symptoms. I discussed today's findings with him. He verbalized agreement of the treatment plan. He was discharged home. Medical Decision Nurses notes reviewed. Medical history sheet reviewed. Differential diagnosis includes but is not limited to: Crohn's flare, abscess, metabolic disorder, dehydration. 30-year-old male with history of Crohn's is here with abdominal pain similar to what he experienced in the past with a Crohn's flare. The patient denies fever or chills. He has had some nausea. The patient is scheduled to have surgery this week at [facility] in [place]. Multiple labs and urinalysis were evaluated. The patient is slightly dehydrated and ketotic. He was given 2 L of IV fluid. He was given Zofran and morphine. Patient was able to drink fluids prior to departure. I did not perform another CT as he's had CTs in the past and he does not have an acute abdomen. The patient felt significantly better at time of discharge. The patient was encouraged to make sure he gets to [place] for the surgery this week. Medication Reconciliation: I attest that I have personally reviewed the patient' s current medication list. Blood pressure Screening: Patient was found to have normal blood pressure on screening and does not require follow up. Impression Primary Impression: Exacerbation of Crohn's disease Scribe Attestation The scribe's documentation has been prepared under my direction and personally reviewed by me in its entirety. I confirm that the note above accurately reflects all work, treatment, procedures, and medical decision making performed by me. Departure Information Dispostion Home / Self-Care Referrals No Doctor, Assigned (PCP) Forms HOME CARE DOCUMENTATION FORM, IMPORTANT VISIT INFORMATION Patient Instructions My [facility] Additional Instructions Continue all of your current medications as prescribed. Follow-up at [place] this week for your surgery. Drink extra fluids.
[2016-08-29] MEDS ORDERED: SODIUM CHLORIDE 0.9% 1000ML 2,000 ML IV ONE (12:30)
[2016-08-29] MEDS ORDERED: ONDANSETRON INJ 2 MG/ML 2 ML VIAL IV PRN (12:30)
[2016-08-29 12:34] LABS: BASO % 0.3 %; BASO ABS # 0.02 K/uL (0-0.2); COMPLETE YES; EOS % 1.5 %; HEMATOCRIT 45.2 % (42-52); IG% 0.1 %; LYMPH % 29.8 %; LYMPH ABS # 2.18 K/uL (1.2-3.4); MEAN CELL VOLUME 83.7 fL (80-100); MEAN CORPUSCULAR HEMOGLOBIN 27.8 pg (25-34); MEAN CORPUSCULAR HGB CONC 33.2 g/dl (32-36); MEAN PLATELET VOLUME 9.6 fL (7.4-10.4); MONO % 7.1 %; NEUT % 61.2 %; PLATELET COUNT 291 K/uL (130-400); WHITE BLOOD COUNT 7.32 K/uL (4.8-10.8)
[2016-08-29] MEDS: MoRPHine SULFATE 10 MG/ML CARP/VIAL IV PRN ×2 (12:35→13:47)
[2016-08-29 12:41] LABS: CALCIUM 9.6 mg/dl (8.5-10.1); CREATININE 1.4 mg/dl (0.60-1.40)
[2016-08-29 12:43] LABS: ALB/GLOB RATIO 0.9 (0.9-2)
[2016-08-29] MEDS ORDERED: DICY10CA55 PO (12:47)
[2016-08-29 14:14] LABS: MANUAL MICROSCOPIC REQUIRED? NO; REVIEW REQ? NO; URINE APPEARANCE CLEAR (CLEAR); URINE BILIRUBIN NEG (NEG); URINE COLOR DK YELLOW; URINE NITRITE NEG (NEG); URINE SPECIFIC GRAVITY 1.028 (1.000-1.030); UROBILINOGEN NEG (NEG); ZZUR CULT IF INDIC CLEAN CATCH NO
[2016-08-29 16:56] VITALS: BP 141/98; PULSE 52; O2SAT 100
== END 2016-08-29 16:57 | disposition home or self-care (01) ==
LOC: C.EDB 11:57 → C.EDA 16:57
DX: K50.919 Crohn's disease, unspecified, with unspecified complications (principal); F41.9 Anxiety disorder, unspecified; F12.90 Cannabis use, unspecified, uncomplicated; F32.9 Major depressive disorder, single episode, unspecified; K21.9 Gastro-esophageal reflux disease without esophagitis; Q87.40 Marfan syndrome, unspecified; I45.6 Pre-excitation syndrome; F17.200 Nicotine dependence, unspecified, uncomplicated

== ENCOUNTER 2016-09-08 11:51 | Emergency (ER) | payer OTHER ==
[~2016-09-08] VITALS: Ht 188 cm; Wt 77.2 kg
[~2016-09-08 11:51] MED LIST changes: -CIPR-255 PO; +DICY10CA55 PO; -METR-163 PO
[2016-09-08 11:53] VITALS: TEMP 36.8; Ht 188 cm; Wt 77.2 kg
[2016-09-08] MEDS ORDERED: ACETAMINOPHEN 325 MG TAB PO STA (12:05)
[2016-09-08] MEDS ORDERED: ACET325T96 PO (12:18)
[2016-09-08] MEDS ORDERED: ACETAMINOPHEN 500 MG TAB PO ONE (12:26)
[2016-09-08 12:42] LABS: BASO % 0.3 %; BASO ABS # 0.03 K/uL (0-0.2); COMPLETE YES; EOS % 1.5 %; HEMATOCRIT 45.7 % (42-52); IG% 0.1 %; LYMPH % 26.8 %; MEAN CELL VOLUME 82.3 fL (80-100); MEAN CORPUSCULAR HEMOGLOBIN 26.1 pg (25-34); MEAN CORPUSCULAR HGB CONC 31.7 g/dl (32-36); MEAN PLATELET VOLUME 9.6 fL (7.4-10.4); MONO % 6.2 %; NEUT % 65.1 %; PLATELET COUNT 335 K/uL (130-400); RED BLOOD COUNT 5.55 M/uL (4.7-6.1); WHITE BLOOD COUNT 8.59 K/uL (4.8-10.8)
[2016-09-08] MEDS ORDERED: TRAMADOL HCL 50 MG TAB PO STA (12:57)
[2016-09-08 13:06] LABS: BUN/CREATININE RATIO 8.1 (10-20); CALCIUM 9.5 mg/dl (8.5-10.1); CREATININE 1.3 mg/dl (0.60-1.40); POTASSIUM 3.9 mmol/L (3.5-5.1)
--- NOTE | 2016-09-08 13:27 | EMERGENCY ROOM VISIT NOTE ---
History Report prepared by Elmira: Eloise Peoples Under the Supervision of: Dr. Solis Garcia M.D. 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 The patient has a perirectal abscess. He had an I&D 1 week ago. He states that the pain has worsened since the surgery. He was unable to sleep because of the pain. He has been taking Tylenol to no significant relief. He last took some at 0600 today. He reports drainage from the abscess. He has had a fever for the past 2 nights. He denies any abdominal pain. 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 Review of Systems All systems have been listed, reviewed, and are negative other than those previously mentioned. Please see Additional Medical History Sheet. Past Medical & Surgical Medical Problems: (1) Abdominal pain (2) Abdominal pain (3) Alcohol abuse (4) Anxiety (5) Blood loss anemia (6) C. 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) Kxodp-Uiyrrzpaq-Zfhyr pattern (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) Surgical Problems: (1) H/O colonoscopy (2) History of bowel resection (3) History of partial colectomy (4) History of prior ablation treatment (5) S/P partial colectomy Family History No pertinent family history Social History Smoking Status: Current Every Day Smoker Drug Use: marijuana Marital Status: single Housing Status: lives with significant other Occupation Status: unemployed Current/Historical Medications Scheduled Acetaminophen Tab (Tylenol), 650 MG PO UD Adalimumab (Humira), 40 MG SQ [id number] Dicyclomine Hcl (Bentyl), 1 CAP PO TID Allergies Coded Allergies: Lactose Intolerance (GI) (Verified Allergy, Unknown, GI SYMPTOMS, 09/08/16) Tomato (Verified Adverse Reaction, Intermediate, GI SYMPTOMS-CROHN'S ACTS UP, 09/08/16) CROHN'S ACTS UP Eggs or Egg-derived Products (Verified Adverse Reaction, Mild, GI SYMPTOMS , 09/08/16) Lactose (Verified Adverse Reaction, Unknown, GI UPSET, 09/08/16) Physical Exam Vital Signs Date Time Temp Pulse Resp B/P (MAP) Pulse Ox O2 Delivery O2 Flow Rate FiO2 09/08/16 13:36 62 20 127/86 100 09/08/16 11:53 36.8 88 18 139/92 95 Room Air Physical Exam GENERAL: Patient awake, alert, oriented x 3. Patient follows commands. Patient does not appear toxic. Patient is adequately hydrated and well- nourished. SKIN: No erythema, pallor, cyanosis or rash HEENT: Normal head, pupils equal, reactive to light and accommodation. LUNGS: Clear to auscultation. No wheezes, no rales, no rhonchi. HEART: No murmurs. No gallops. No rubs ABDOMEN: No masses, no rebound, no hepatomegaly or splenomegaly. RECTAL: Patient has 2 open wounds on either side of the rectum, currently not draining, no signs of infection, no significant erythema or induration. EXTREMITIES: No signs of trauma. No pedal or pretibial edema. No calf or thigh tenderness. NEUROLOGIC: Cranial nerves II-XII within normal limits. No gross motor sensory function deficits. Medical Decision & Procedures Laboratory Results 09/08/16 12:17 Red Blood Count 5.55, Mean Corpuscular Volume 82.3, Mean Corpuscular Hemoglobin 26.1, Mean Corpuscular Hemoglobin Concent 31.7, Mean Platelet Volume 9.6, Neutrophils (%) (Auto) 65.1, Lymphocytes (%) (Auto) 26.8, Monocytes (%) (Auto) 6.2, Eosinophils (%) (Auto) 1.5, Basophils (%) (Auto) 0.3, Neutrophils # (Auto) 5.59, Lymphocytes # (Auto) 2.30, Monocytes # (Auto) 0.53, Eosinophils # (Auto) 0.13, Basophils # (Auto) 0.03 09/08/16 12:17 Test 09/08/16 12:17 White Blood Count 8.59 K/uL (4.8-10.8) Red Blood Count 5.55 M/uL (4.7-6.1) Hemoglobin 14.5 g/dL (14.0-18.0) Hematocrit 45.7 % (42-52) Mean Corpuscular Volume 82.3 fL (80-100) Mean Corpuscular Hemoglobin 26.1 pg (25-34) Mean Corpuscular Hemoglobin Concent 31.7 g/dl (32-36) Platelet Count 335 K/uL (130-400) Mean Platelet Volume 9.6 fL (7.4-10.4) Neutrophils (%) (Auto) 65.1 % Lymphocytes (%) (Auto) 26.8 % Monocytes (%) (Auto) 6.2 % Eosinophils (%) (Auto) 1.5 % Basophils (%) (Auto) 0.3 % Neutrophils # (Auto) 5.59 K/uL (1.4-6.5) Lymphocytes # (Auto) 2.30 K/uL (1.2-3.4) Monocytes # (Auto) 0.53 K/uL (0.11-0.59) Eosinophils # (Auto) 0.13 K/uL (0-0.5) Basophils # (Auto) 0.03 K/uL (0-0.2) RDW Standard Deviation 42.1 fL (36.4-46.3) RDW Coefficient of Variation 13.9 % (11.5-14.5) Immature Granulocyte % (Auto) 0.1 % Immature Granulocyte # (Auto) 0.01 K/uL (0.00-0.02) Anion Gap 5.0 mmol/L (3-11) Est Creatinine Clear Calc Drug Dose 91.6 ml/min Estimated GFR () 85.5 Estimated GFR (Non- 73.7 BUN/Creatinine Ratio 8.1 (10-20) Calcium Level 9.5 mg/dl (8.5-10.1) Laboratory results as stated above per my review. Medications Administered Medications (Trade) Dose Ordered Sig/Erika Route Start Time Stop Time Status Last Admin Dose Admin Acetaminophen (Tylenol Tab) 1,000 mg STK-MED ONCE PO 09/08/16 12:26 09/08/16 12:27 DC 09/08/16 12:28 1,000 MG Tramadol HCl (Ultram Tab) 50 mg NOW STAT PO 09/08/16 12:57 09/08/16 12:58 DC 09/08/16 13:03 50 MG ED Course 1202: Past medical records reviewed. The patient was evaluated in room B2. A complete history and physical examination was performed. 1205: Acetaminophen 1000 mg PO. 1257: Ultram Tab 50 mg PO. 1322: Upon reevaluation, the patient appeared to have improvement of his symptoms. I discussed today's findings with him. He verbalized agreement of the treatment plan. He was discharged home. Medical Decision Nurses notes reviewed. Medical history sheet reviewed. Differential diagnosis includes but is not limited to: perirectal/perianal abscess, Crohn's disease. 30-year-old male with Crohn's disease had a perirectal abscess I & Ded last week. He is concerned that he maybe reforming an abscess. Evaluation of the rectal area reveals 2 small incisions without significant induration. No pus was seen. There may be some slight drainage but this is not purulent. White count is not elevated. I reassured the patient. I do not think he requires any other intervention at this time. The patient was encouraged to follow-up with his family physician. The patient is to continue taking Tylenol as needed for pain. Medication Reconcilliation Current Medication List: was personally reviewed by me Blood Pressure Screening Patient's blood pressure: Elevated blood pressure Blood pressure disposition: Elevated BP felt to be situational Impression Primary Impression: Crohns disease Additional Impression: S/P juancarlos-rectal abscess repair, follow-up exam Scribe Attestation The scribe's documentation has been prepared under my direction and personally reviewed by me in its entirety. I confirm that the note above accurately reflects all work, treatment, procedures, and medical decision making performed by me. Departure Information Dispostion Home / Self-Care Referrals Alfred Carmichael MD (PCP) Patient Instructions My [facility] Additional Instructions 1000 mg of Tylenol every 6 hours as needed for pain. Follow-up with your surgeon as scheduled. Continue sitz baths as directed. Continue all current medications as prescribed. Problem Qualifiers
[2016-09-08 13:36] VITALS: BP 127/86; PULSE 62; O2SAT 100
== END 2016-09-08 13:37 | disposition home or self-care (01) ==
LOC: C.EDB 11:53
DX: Z09 Encounter for follow-up examination after completed treatment for conditions other than malignant neoplasm (principal); K61.1 Rectal abscess; K50.90 Crohn's disease, unspecified, without complications; F12.10 Cannabis abuse, uncomplicated; F32.9 Major depressive disorder, single episode, unspecified; F41.1 Generalized anxiety disorder; K21.9 Gastro-esophageal reflux disease without esophagitis; Q87.40 Marfan syndrome, unspecified; I45.6 Pre-excitation syndrome; Z90.49 Acquired absence of other specified parts of digestive tract; F17.210 Nicotine dependence, cigarettes, uncomplicated

== ENCOUNTER 2016-10-14 09:43 | Emergency (ER) | payer OTHER ==
[~2016-10-14] VITALS: Ht 188 cm; Wt 76.0 kg
[~2016-10-14 09:43] MED LIST changes: +ACET325T96 PO
[2016-10-14 09:47] VITALS: TEMP 36.8; Ht 188 cm; Wt 76.0 kg
[2016-10-14] MEDS ORDERED: PROMETHAZINE HCL INJ 25 MG/ML 1 ML VIAL IV STA (09:58)
[2016-10-14] MEDS ORDERED: KETOROLAC TROMETHAMINE 30 MG/ML VIAL IV STA (09:58)
[2016-10-14] MEDS ORDERED: SODIUM CHLORIDE 0.9% 1000ML 1,000 ML IV STA ×2 (09:58)
--- NOTE | 2016-10-14 10:05 | EMERGENCY ROOM VISIT NOTE ---
History Report prepared by Elmira: Merced Frankel Under the Supervision of: Dr. Erasmo Sexton M.D. First contact with patient: 09:47 Chief Complaint: ABDOMINAL PAIN Stated Complaint: ABD PAIN / CROHNS History of Present Illness The patient is a 30 year old male who presents to the Emergency Room with complaints of persistent mid-right abdominal pain that began one week ago. He currently rates his discomfort as a 9/10 in severity. The patient states that he has a history of Crohn's disease and states that he has been experiencing a flair for the past 7 days. He states that he was previously on Humira, but states that he developed an abscess on his rectum so he was taken off the medication. The patient states that his GI provider wants to place him back on the Humira in the near future. He states that he called his GI provider today prior to coming to the emergency department. The patient states that he was was following with a surgeon for his previous abscess to his rectum, but states that he last saw the surgeon on September 02. The patient states that today he has experiencing nausea, vomiting, and diarrhea. He denies any fever. Source of History: patient Onset: one week ago Position: abdomen (mid-right) Symptom Intensity: 9/10 Timing: other (persistent) Associated Symptoms: + nausea, + vomiting, + diarrhea, No fevers Review of Systems See HPI for pertinent positives & negatives. A total of 10 systems reviewed and were otherwise negative. Past Medical & Surgical Medical Problems: (1) Abdominal pain (2) Abdominal pain (3) Alcohol abuse (4) Anxiety (5) Blood loss anemia (6) C. difficile diarrhea (7) Cannabis abuse (8) Chest wall pain (9) Cocaine abuse (10) Costochondral pain (11) Crohn disease (12) Crohn's disease (13) Crohn's disease (14) Crohns disease (15) Crohns disease (16) Crohns disease (17) Depression (18) Depression (19) Exacerbation of Crohn's disease (20) Exacerbation of Crohn's disease (21) Generalized anxiety disorder (22) GERD (gastroesophageal reflux disease) (23) Left sided abdominal pain (24) Marfan's disease (25) Marfan's syndrome (26) Non-cardiac chest pain (27) Palpitations (28) Hqvzh-Jssuwohle-Lkhzl (WPW) syndrome (29) Jicba-Dpjhfwgas-Ejble pattern (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-Shlippibd-Fkudy syndrome) Surgical Problems: (1) H/O colonoscopy (2) History of bowel resection (3) History of partial colectomy (4) History of prior ablation treatment (5) S/P partial colectomy Family History No pertinent family history Social History Smoking Status: Current Every Day Smoker Drug Use: marijuana Marital Status: single Housing Status: lives with significant other Occupation Status: unemployed Current/Historical Medications Scheduled Prednisone (Prednisone), 2 TAB PO DAILY Scheduled PRN Tramadol (Ultram), 50-100 MG PO Q4H PRN for Pain Allergies Coded Allergies: Lactose Intolerance (GI) (Verified Allergy, Unknown, GI SYMPTOMS, 09/08/16) Tomato (Verified Adverse Reaction, Intermediate, GI SYMPTOMS-CROHN'S ACTS UP, 09/08/16) CROHN'S ACTS UP Eggs or Egg-derived Products (Verified Adverse Reaction, Mild, GI SYMPTOMS , 09/08/16) Lactose (Verified Adverse Reaction, Unknown, GI UPSET, 09/08/16) Physical Exam Vital Signs Date Time Temp Pulse Resp B/P (MAP) Pulse Ox O2 Delivery O2 Flow Rate FiO2 10/14/16 12:26 66 20 125/86 99 Room Air 10/14/16 11:57 76 20 106/85 99 Room Air 10/14/16 10:56 76 16 120/93 99 Room Air 10/14/16 09:47 36.8 86 16 142/89 99 Room Air Physical Exam GENERAL: Patient is in no acute distress. HEENT: No acute trauma, normocephalic atraumatic, mucous membranes moist, no nasal congestion, no scleral icterus. NECK: No stridor, no adenopathy, no meningismus, trachea is midline. LUNGS: Clear to auscultation bilaterally, no wheeze, no rhonchi, breath sounds equal. HEART: Without murmurs gallops or rubs, regular rate and rhythm. ABDOMEN: Tender along entire right side. Soft, bowel sounds positive, no hernias, no peritonitis. RECTAL: No perirectal abscess seen, no drainage, healing rectal area consistent with surgery over a month ago. EXTREMITIES: No cyanosis or edema, full range of motion of all the joints without pain or difficulty, no signs for acute trauma. NEUROLOGIC: Oriented x 3, no acute motor or sensory deficits, no focal weakness. SKIN: No rash, no jaundice, no diaphoresis. Medical Decision & Procedures ER Provider Diagnostic Interpretation: X-ray results as stated below per interpretation by me and the radiologist: ABDOMEN 2VIEW W/PA CHEST RTN HISTORY: 30 years-old Male acute abdominal pain with vomiting and diarrhea for approximately 1 week. COMPARISON: Acute abdominal series radiographs 04/08/2016, CT study 06/27/2016. TECHNIQUE: Frontal view of the chest with erect and supine views of the abdomen. FINDINGS: Cardiac mediastinal and hilar silhouettes are within normal limits. No pneumothorax, pleural effusion or focal airspace consolidation. No pneumoperitoneum on the upright projection. Bowel gas pattern is nonobstructive. There are several mildly prominent air-filled loops of small bowel throughout the mid abdomen. No urolithiasis or fracture. IMPRESSION: 1. Air-filled mildly prominent loops of small bowel within the midabdomen without evidence of obstruction are nonspecific. Differential considerations include ileus or enteritis. 2. No pneumoperitoneum. 3. No acute cardiopulmonary process. The above report was generated using voice recognition software. It may contain grammatical, syntax or spelling errors. Electronically signed by: Phan Velázquez M.D. 10/14/2016 10:57 AM Dictated Date/Time: 10/14/2016 10:55 AM Laboratory Results 10/14/16 10:10 Red Blood Count 5.55, Mean Corpuscular Volume 81.3, Mean Corpuscular Hemoglobin 27.9, Mean Corpuscular Hemoglobin Concent 34.4, Mean Platelet Volume 9.4, Neutrophils (%) (Auto) 61.0, Lymphocytes (%) (Auto) 27.5, Monocytes (%) (Auto) 8.7, Eosinophils (%) (Auto) 2.3, Basophils (%) (Auto) 0.3, Neutrophils # (Auto) 5.75, Lymphocytes # (Auto) 2.60, Monocytes # (Auto) 0.82, Eosinophils # (Auto) 0.22, Basophils # (Auto) 0.03 10/14/16 10:10 Test 10/14/16 10:10 White Blood Count 9.44 K/uL (4.8-10.8) Red Blood Count 5.55 M/uL (4.7-6.1) Hemoglobin 15.5 g/dL (14.0-18.0) Hematocrit 45.1 % (42-52) Mean Corpuscular Volume 81.3 fL (80-100) Mean Corpuscular Hemoglobin 27.9 pg (25-34) Mean Corpuscular Hemoglobin Concent 34.4 g/dl (32-36) Platelet Count 366 K/uL (130-400) Mean Platelet Volume 9.4 fL (7.4-10.4) Neutrophils (%) (Auto) 61.0 % Lymphocytes (%) (Auto) 27.5 % Monocytes (%) (Auto) 8.7 % Eosinophils (%) (Auto) 2.3 % Basophils (%) (Auto) 0.3 % Neutrophils # (Auto) 5.75 K/uL (1.4-6.5) Lymphocytes # (Auto) 2.60 K/uL (1.2-3.4) Monocytes # (Auto) 0.82 K/uL (0.11-0.59) Eosinophils # (Auto) 0.22 K/uL (0-0.5) Basophils # (Auto) 0.03 K/uL (0-0.2) RDW Standard Deviation 41.1 fL (36.4-46.3) RDW Coefficient of Variation 13.9 % (11.5-14.5) Immature Granulocyte % (Auto) 0.2 % Immature Granulocyte # (Auto) 0.02 K/uL (0.00-0.02) Anion Gap 6.0 mmol/L (3-11) Est Creatinine Clear Calc Drug Dose 106.5 ml/min Estimated GFR () 104.6 Estimated GFR (Non- 90.2 BUN/Creatinine Ratio 9.5 (10-20) Calcium Level 9.3 mg/dl (8.5-10.1) Total Bilirubin 0.5 mg/dl (0.2-1) Aspartate Amino Transf (AST/SGOT) 15 U/L (15-37) Alanine Aminotransferase (ALT/SGPT) 21 U/L (12-78) Alkaline Phosphatase 97 U/L (45-117) Total Protein 8.6 gm/dl (6.4-8.2) Albumin 3.8 gm/dl (3.4-5.0) Globulin 4.8 gm/dl (2.5-4.0) Albumin/Globulin Ratio 0.8 (0.9-2) Lipase 137 U/L (73-393) Laboratory results reviewed by me. Medications Administered Medications (Trade) Dose Ordered Sig/Erika Route Start Time Stop Time Status Last Admin Dose Admin Morphine Sulfate (MoRPHine SULFATE INJ) 4 mg Q30M PRN IV 10/14/16 10:00 10/28/16 09:59 10/14/16 11:27 4 MG Ketorolac Tromethamine (Toradol Inj) 30 mg NOW STAT IV 10/14/16 09:58 10/14/16 10:01 DC 10/14/16 10:21 30 MG Sodium Chloride 1,000 ml @ 999 mls/hr Q1H1M STAT IV 10/14/16 09:58 10/14/16 10:58 DC 10/14/16 10:21 999 MLS/HR Sodium Chloride 1,000 ml @ 200 mls/hr Q5H STAT IV 10/14/16 09:58 10/14/16 14:57 10/14/16 11:28 200 MLS/HR Promethazine HCl 12.5 mg/Sodium Chloride 50.5 ml @ 202 mls/hr NOW ONCE IV 10/14/16 10:30 10/14/16 10:44 DC 10/14/16 10:57 202 MLS/HR Methylprednisolone Sodium Succinate (Solu-Medrol IV) 80 mg NOW STAT IV 10/14/16 11:54 10/14/16 11:56 DC 10/14/16 12:27 80 MG ED Course 0956: The patient was evaluated in room B7. A complete history and physical exam was performed. 0958: Ordered Sodium Chloride 1000 ml @ 200 mls/hr IV, Sodium Chloride 1000 ml @ 999 mls/hr IV, Toradol Inj 30 mg IV, Phenergan Inj 12.5 mg IV, Morphine Sulfate 4 mg IV. 1000: Ordered Morphine Sulfate 4 mg IV. 1030: Ordered Promethazine HCl 12.5 mg/Sodium Chloride 50.5 ml @ 202 mls/hr IV. 1143: I discussed the patients case with Yamilet [facility]. She is going to speak to Ramiro [facility]. 1154: I spoke to Yamilet [facility]. She states that the patient should be placed on Prednisone and Ultram and he should follow up with their office in a week. Ordered Solu-Medrol IV 80 mg IV. 1205: I reevaluated the patient and he is resting comfortably. I discussed the exam findings with him and I discussed the treatment plan. He verbalized complete understanding and agreement. He is ready to go home. Medical Decision The patient is a 30 year old male who presents to the ED with complaints of abdominal pain. Differential diagnoses considered include exacerbation of Crohn 's, dehydration, electrolyte imbalance, anemia, bowel obstruction. There is no leukocytosis or concerning anemia. No significant electrolyte abnormality, kidney failure or hepatitis. There is no pancreatitis. Obstruction series shows a possible ileus, no bowel obstruction, no pneumonia or free air. The patient was not toxic or febrile. On exam, there was no peritonitis. Patient received IV Toradol, IV Phenergan and IV morphine. He received IV saline and IV Solu-Medrol. I discussed the case with the GI group. The patient is being discharged on steroids, tramadol for pain. He will follow with the GI group in the outpatient setting. If worsening, he can return. He is very likely suffering from an exacerbation of his Crohn's disease. [place] Drug Monitoring Program Search Results: patient reviewed within database, see additional documentation Drug Monitoring Findings: He was prescribed 16 tramadol on October 08 and 30 oxycodone on September 01. Consults Time Called: 1141 Consulting Physician: Sofia Hammer Returned Call: 1143 I discussed the patients case with Sofia Hammer. She is going to speak to Ramiro [facility]. Impression Primary Impression: Vomiting and diarrhea Additional Impressions: Right sided abdominal pain Exacerbation of Crohn's disease Scribe Attestation The scribe's documentation has been prepared under my direction and personally reviewed by me in its entirety. I confirm that the note above accurately reflects all work, treatment, procedures, and medical decision making performed by me. Departure Information Dispostion Home / Self-Care Prescriptions Tramadol (Ultram) 50 Mg Tab 50-100 MG PO Q4H Y for Pain, #14 TAB Prov: Erasmo Sexton M.D. 10/14/16 Prednisone (Prednisone) 20 Mg Tab 2 TAB PO DAILY for 5 Days, #10 TAB Prov: Erasmo Sexton M.D. 10/14/16 Referrals Alfred Carmichael MD (PCP) Forms HOME CARE DOCUMENTATION FORM, IMPORTANT VISIT INFORMATION Patient Instructions My [facility] Additional Instructions prednisone daily for 5 more days tramadol 1-2 tab every 4 hours for severe pain bland diet---crackers, soup, toast, gatorade see GI for follow up as scheduled return for fever or if worsening Problem Qualifiers
[2016-10-14] MEDS: MoRPHine SULFATE 4 MG/ML 1 ML CARP\\VIAL IV PRN ×2 (10:21→11:27)
[2016-10-14 10:23] LABS: BASO % 0.3 %; BASO ABS # 0.03 K/uL (0-0.2); COMPLETE YES; EOS % 2.3 %; HEMATOCRIT 45.1 % (42-52); IG% 0.2 %; LYMPH % 27.5 %; MEAN CELL VOLUME 81.3 fL (80-100); MEAN CORPUSCULAR HEMOGLOBIN 27.9 pg (25-34); MEAN CORPUSCULAR HGB CONC 34.4 g/dl (32-36); MEAN PLATELET VOLUME 9.4 fL (7.4-10.4); MONO % 8.7 %; PLATELET COUNT 366 K/uL (130-400); RED BLOOD COUNT 5.55 M/uL (4.7-6.1); WHITE BLOOD COUNT 9.44 K/uL (4.8-10.8)
[2016-10-14] MEDS ORDERED: PROMETHAZINE HCL INJ 12.5 MG in SODIUM CHLORIDE 0.9% 50ML 50 ML IV ONE (10:30)
[2016-10-14 10:41] LABS: BUN/CREATININE RATIO 9.5 (10-20); CALCIUM 9.3 mg/dl (8.5-10.1); CREATININE 1.1 mg/dl (0.60-1.40)
[2016-10-14 10:46] LABS: ALB/GLOB RATIO 0.8 (0.9-2)
--- NOTE | 2016-10-14 10:59 | DIAGNOSTIC IMAGING REPORT ---
ABDOMEN 2VIEW W/PA CHEST RTN HISTORY: 30 years-old Male acute abdominal pain with vomiting and diarrhea for approximately 1 week. COMPARISON: Acute abdominal series radiographs 04/08/2016, CT study 06/27/2016. TECHNIQUE: Frontal view of the chest with erect and supine views of the abdomen. FINDINGS: Cardiac mediastinal and hilar silhouettes are within normal limits. No pneumothorax, pleural effusion or focal airspace consolidation. No pneumoperitoneum on the upright projection. Bowel gas pattern is nonobstructive. There are several mildly prominent air-filled loops of small bowel throughout the mid abdomen. No urolithiasis or fracture. IMPRESSION: 1. Air-filled mildly prominent loops of small bowel within the midabdomen without evidence of obstruction are nonspecific. Differential considerations include ileus or enteritis. 2. No pneumoperitoneum. 3. No acute cardiopulmonary process. The above report was generated using voice recognition software. It may contain grammatical, syntax or spelling errors. Electronically signed by: Phan Velázquez M.D. 10/14/2016 10:57 AM Dictated Date/Time: 10/14/2016 10:55 AM
[2016-10-14] MEDS ORDERED: METHYLPREDNISOLONE 125 MG VIAL IV STA (11:54)
[2016-10-14] MEDS ORDERED: PRED20TA PO (12:15)
[2016-10-14] MEDS ORDERED: TRAM-10 PO (12:15)
[2016-10-14 12:26] VITALS: BP 125/86; PULSE 66; O2SAT 99
== END 2016-10-14 12:38 | disposition home or self-care (01) ==
LOC: EDBD 09:43 → C.EDB 09:44
DX: K50.90 Crohn's disease, unspecified, without complications (principal); F32.9 Major depressive disorder, single episode, unspecified; F41.1 Generalized anxiety disorder; K21.9 Gastro-esophageal reflux disease without esophagitis; Q87.40 Marfan syndrome, unspecified; I45.6 Pre-excitation syndrome; Z90.49 Acquired absence of other specified parts of digestive tract; F17.210 Nicotine dependence, cigarettes, uncomplicated

== ENCOUNTER 2017-05-05 10:28 | Emergency (ER) | payer OTHER ==
[~2017-05-05] VITALS: Ht 188 cm; Wt 88.4 kg
[~2017-05-05 10:28] MED LIST changes: -ACET325T96 PO; -ADAL1KIT SQ; +ADAL40KI INJ; -DICY10CA55 PO; +DOXY-300 PO; +ESCI1TAB9 PO; +HYDR25CA PO
[2017-05-05 10:45] VITALS: TEMP 36.9; Ht 188 cm; Wt 88.4 kg
[2017-05-05] MEDS ORDERED: OPTIRAY 320 IV PRN (11:30)
[2017-05-05 11:44] LABS: BASO % 0.1 %; BASO ABS # 0.01 K/uL (0-0.2); EOS % 1.1 %; EOS ABS # 0.09 K/uL (0-0.5); HEMATOCRIT 37.5 % (42-52); HEMOGLOBIN 12.4 g/dL (14.0-18.0); IG# 0.03 K/uL (0.00-0.02); LYMPH % 20.5 %; LYMPH ABS # 1.73 K/uL (1.2-3.4); MEAN CELL VOLUME 79.8 fL (80-100); MEAN CORPUSCULAR HEMOGLOBIN 26.4 pg (25-34); MEAN CORPUSCULAR HGB CONC 33.1 g/dl (32-36); MEAN PLATELET VOLUME 8.5 fL (7.4-10.4); MONO % 6.5 %; MONO ABS # 0.55 K/uL (0.11-0.59); NEUT % 71.4 %; NEUT ABS # 6.02 K/uL (1.4-6.5); PLATELET COUNT 288 K/uL (130-400); RED CELL DISTRIBUTION WIDTH CV 13.2 % (11.5-14.5); RED CELL DISTRIBUTION WIDTH SD 38.2 fL (36.4-46.3); WHITE BLOOD COUNT 8.43 K/uL (4.8-10.8)
[2017-05-05 12:01] LABS: ALBUMIN 3.5 gm/dl (3.4-5.0); ALT/SGPT 21 U/L (12-78); AST/SGOT 14 U/L (15-37); BLOOD UREA NITROGEN 8 mg/dl (7-18); CALCIUM 9.2 mg/dl (8.5-10.1); CARBON DIOXIDE 27 mmol/L (21-32); CREATININE 0.96 mg/dl (0.60-1.40); GLUCOSE 91 mg/dl (70-99); LIPASE 118 U/L (73-393); POTASSIUM 3.7 mmol/L (3.5-5.1); SODIUM 138 mmol/L (136-145)
[2017-05-05 12:05] LABS: ALKALINE PHOSPHATASE 94 U/L (45-117); TOTAL PROTEIN 8.6 gm/dl (6.4-8.2)
[2017-05-05] MEDS ORDERED: ACET-1693 PO (12:55)
--- NOTE | 2017-05-05 14:22 | DIAGNOSTIC IMAGING REPORT ---
CT OF THE ABDOMEN AND PELVIS WITH CONTRAST CLINICAL HISTORY: Perirectal abscess surgery in March. Increased swelling and pain. Crohn's disease. COMPARISON STUDY: CT of the abdomen and pelvis December 19, 2016. TECHNIQUE: Following IV administration of 119 mL of Optiray-320, axial images of the abdomen and pelvis were obtained from the lung bases to the proximal femurs. Images were reviewed in the axial, sagittal, and coronal planes. IV contrast was administered without complication. A dose lowering technique was utilized adhering to the principles of ALARA. Oral contrast was administered. CT DOSE: 399.95 mGy.cm FINDINGS: Lung bases are clear. The liver, spleen, adrenal glands, kidneys and pancreas are normal. There is no hydronephrosis. There are findings suggestive of an ileocecectomy. There is no evidence for a bowel obstruction. There is no abdominal abscess. No fistulas identified. No bowel wall thickening is noted on this exam. Apparent colonic wall thickening is likely due to underdistention. There is a right sided seton in place. There is skin thickening and mild infiltration of the right medial gluteal fold. There is an associated 2 x 0.7 cm rim-enhancing fluid collection of the right gluteal fold shown on axial image 441 of 501, located posterior and inferior to the indwelling seton. This suggests an abscess. No additional abscesses are identified on this examination. No suspicious osseous lesion is present. There is no bowel obstruction. IMPRESSION: 1. 2 x 0.7 cm rim-enhancing inferior right gluteal fold fluid collection consistent with a small subcutaneous abscess. Associated infiltration and skin thickening suggests cellulitis. No additional abscesses. Collection is located inferior and posterior to the indwelling right-sided seton. 2. Status post ileocecectomy. No bowel obstruction. No bowel wall thickening. Electronically signed by: Aaron Jefferson M.D. 05/05/2017 2:21 PM Dictated Date/Time: 05/05/2017 2:10 PM
[2017-05-05] MEDS ORDERED: KETOROLAC TROMETHAMINE 30 MG/ML VIAL IV STA (14:54)
[2017-05-05] MEDS ORDERED: CEFTRIAXONE SOD INJ 1 GM ADDVIAL IV STA (14:54)
[2017-05-05] MEDS ORDERED: CEFU250T15 PO (15:12)
--- NOTE | 2017-05-05 15:13 | EMERGENCY ROOM VISIT NOTE ---
History First contact with patient: 11:09 Chief Complaint: RECTAL PAIN Stated Complaint: JOCELIN-RECTAL ABCESS INFECTION Nursing Triage Summary: Denies abd pain, stools regular. Denies blood in stool, reports blood coming from abscess. History of Present Illness The patient is a 31 year old male who presents to the Emergency Room with complaints of increased pain and swelling in the perirectal region. The patient had perirectal abscess surgery done on March 25 at [facility] by Dr. hunt. He has had a long-standing history of Crohn's and recurrent perirectal abscesses. He finally had the surgery to remove the abscess. He has a drain in place. He went and had an appointment with Dr. hunt one week ago for follow-up. He told him at that time that he was having increased pain and drainage in the area. He never even looked at the patient. He stated that increased drainage was normal since there was a drain in place and will see him again in 3 weeks. That will be 2 weeks from this week. The patient just got out of residential this morning. He called his family doctor, Dr. Carmichael and he has an appointment with him next Tuesday but that was earliest they can get him in. He states that his mother just told him to come to the emergency room. The patient denies any fever, nausea or vomiting. The patient has increased pain with sitting. He states it feels a lot more swollen in the area. He cannot visualize the area for any redness. The patient denies any change in bowel habits. He does admit to some lower abdominal discomfort. Review of Systems 10 system review was performed and was negative unless stated otherwise history of present illness. Past Medical/Surgical History Medical Problems: (1) Abdominal pain (2) Abdominal pain (3) Alcohol abuse (4) Anxiety (5) Blood loss anemia (6) C. 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) Surgical Problems: (1) H/O colonoscopy (2) History of bowel resection (3) History of partial colectomy (4) History of prior ablation treatment (5) S/P partial colectomy Family History No pertinent family history Social History Smoking Status: Current Every Day Smoker Drug Use: marijuana Marital Status: single Housing Status: lives with significant other Occupation Status: unemployed Current/Historical Medications Scheduled Acetaminophen Tab (Tylenol), 325 MG PO UD Adalimumab (Humira Pen), 0.8 ML INJ [id number] Escitalopram Oxalate (Lexapro), 1 TAB PO QAM Hydroxyzine Pamoate (Vistaril), 1 CAP PO HS Physical Exam Vital Signs Date Time Temp Pulse Resp B/P (MAP) Pulse Ox O2 Delivery O2 Flow Rate FiO2 05/05/17 15:07 66 16 139/87 99 Room Air 05/05/17 14:30 72 14 130/72 99 Room Air 05/05/17 12:33 65 17 134/76 99 Room Air 05/05/17 10:45 36.9 73 17 145/98 99 Room Air Physical Exam GENERAL: Patient is alert oriented in no acute distress. MOUTH: Mucosa is slightly dry. NECK: Supple, no lymphadenopathy noted. No carotid bruits noted. LUNGS: Clear auscultation without wheezes rales or rhonchi. CARDIAC: Regular rate and rhythm without murmur. Pulses is full and equal throughout. BACK: No CVA tenderness noted. ABDOMEN: Positive bowel sounds all 4 quadrants. Soft, mild tenderness palpation the right lower quadrant otherwise nontender to palpation without organomegaly or masses. RECTAL: There is increased erythema and edema noted in the right perianal region. There is a drain in place. I do not see any active drainage at this time. The patient has a small piece of gauze and does have some yellow drainage on the gauze. EXTREMITIES: No cyanosis or edema noted. Medical Decision & Procedures ER Provider Diagnostic Interpretation: CT OF THE ABDOMEN AND PELVIS WITH CONTRAST CLINICAL HISTORY: Perirectal abscess surgery in March. Increased swelling and pain. Crohn's disease. COMPARISON STUDY: CT of the abdomen and pelvis December 19, 2016. TECHNIQUE: Following IV administration of 119 mL of Optiray-320, axial images of the abdomen and pelvis were obtained from the lung bases to the proximal femurs. Images were reviewed in the axial, sagittal, and coronal planes. IV contrast was administered without complication. A dose lowering technique was utilized adhering to the principles of ALARA. Oral contrast was administered. CT DOSE: 399.95 mGy.cm FINDINGS: Lung bases are clear. The liver, spleen, adrenal glands, kidneys and pancreas are normal. There is no hydronephrosis. There are findings suggestive of an ileocecectomy. There is no evidence for a bowel obstruction. There is no abdominal abscess. No fistulas identified. No bowel wall thickening is noted on this exam. Apparent colonic wall thickening is likely due to underdistention. There is a right sided seton in place. There is skin thickening and mild infiltration of the right medial gluteal fold. There is an associated 2 x 0.7 cm rim-enhancing fluid collection of the right gluteal fold shown on axial image 441 of 501, located posterior and inferior to the indwelling seton. This suggests an abscess. No additional abscesses are identified on this examination. No suspicious osseous lesion is present. There is no bowel obstruction. IMPRESSION: 1. 2 x 0.7 cm rim-enhancing inferior right gluteal fold fluid collection consistent with a small subcutaneous abscess. Associated infiltration and skin thickening suggests cellulitis. No additional abscesses. Collection is located inferior and posterior to the indwelling right-sided seton. 2. Status post ileocecectomy. No bowel obstruction. No bowel wall thickening. Electronically signed by: Aaron Jefferson M.D. 05/05/2017 2:21 PM Laboratory Results 05/05/17 11:30 Red Blood Count 4.70, Mean Corpuscular Volume 79.8, Mean Corpuscular Hemoglobin 26.4, Mean Corpuscular Hemoglobin Concent 33.1, Mean Platelet Volume 8.5, Neutrophils (%) (Auto) 71.4, Lymphocytes (%) (Auto) 20.5, Monocytes (%) (Auto) 6.5, Eosinophils (%) (Auto) 1.1, Basophils (%) (Auto) 0.1, Neutrophils # (Auto) 6.02, Lymphocytes # (Auto) 1.73, Monocytes # (Auto) 0.55, Eosinophils # (Auto) 0.09, Basophils # (Auto) 0.01 05/05/17 11:30 Test 05/05/17 11:30 White Blood Count 8.43 K/uL (4.8-10.8) Red Blood Count 4.70 M/uL (4.7-6.1) Hemoglobin 12.4 g/dL (14.0-18.0) Hematocrit 37.5 % (42-52) Mean Corpuscular Volume 79.8 fL (80-100) Mean Corpuscular Hemoglobin 26.4 pg (25-34) Mean Corpuscular Hemoglobin Concent 33.1 g/dl (32-36) Platelet Count 288 K/uL (130-400) Mean Platelet Volume 8.5 fL (7.4-10.4) Neutrophils (%) (Auto) 71.4 % Lymphocytes (%) (Auto) 20.5 % Monocytes (%) (Auto) 6.5 % Eosinophils (%) (Auto) 1.1 % Basophils (%) (Auto) 0.1 % Neutrophils # (Auto) 6.02 K/uL (1.4-6.5) Lymphocytes # (Auto) 1.73 K/uL (1.2-3.4) Monocytes # (Auto) 0.55 K/uL (0.11-0.59) Eosinophils # (Auto) 0.09 K/uL (0-0.5) Basophils # (Auto) 0.01 K/uL (0-0.2) RDW Standard Deviation 38.2 fL (36.4-46.3) RDW Coefficient of Variation 13.2 % (11.5-14.5) Immature Granulocyte % (Auto) 0.4 % Immature Granulocyte # (Auto) 0.03 K/uL (0.00-0.02) Urine Color YELLOW Urine Appearance CLEAR (CLEAR) Urine pH 6.0 (4.5-7.5) Urine Specific [place] 1.010 (1.000-1.030) Urine Protein NEG (NEG) Urine Glucose (UA) NEG (NEG) Urine Ketones NEG (NEG) Urine Occult Blood NEG (NEG) Urine Nitrite NEG (NEG) Urine Bilirubin NEG (NEG) Urine Urobilinogen NEG (NEG) Urine Leukocyte Esterase NEG (NEG) Anion Gap 6.0 mmol/L (3-11) Est Creatinine Clear Calc Drug Dose 130.9 ml/min Estimated GFR () 122.4 Estimated GFR (Non- 105.6 BUN/Creatinine Ratio 8.0 (10-20) Calcium Level 9.2 mg/dl (8.5-10.1) Total Bilirubin 0.3 mg/dl (0.2-1) Direct Bilirubin < 0.1 mg/dl (0-0.2) Aspartate Amino Transf (AST/SGOT) 14 U/L (15-37) Alanine Aminotransferase (ALT/SGPT) 21 U/L (12-78) Alkaline Phosphatase 94 U/L (45-117) Total Protein 8.6 gm/dl (6.4-8.2) Albumin 3.5 gm/dl (3.4-5.0) Lipase 118 U/L (73-393) ED Course The patient was evaluated. The patient did not have his surgery at our hospital. IV access was obtained. CBC and differential, renal profile, LFTs and lipase levels were ordered. Urinalysis was ordered. The patient was placed n.p.o. labs are reviewed. The patient's white count was normal. Patient 's hemoglobin was slightly low at 12.4 and hematocrit was slightly low at 37.5. Urinalysis was negative. CT with IV and oral contrast was ordered interpreted by the radiologist as above with findings consistent with cellulitis and no new abscess was visualized. The patient was informed of the findings. The patient was then given Toradol 30 mg IV and Rocephin 1 g IV. The patient's case was discussed with Dr. lala who agreed with treatment plan. Outpatient antibiotic treatment was discussed with the pharmacist. The patient will be placed on Ceftin. The patient was discharged home in stable condition.. Medical Decision Differential diagnosis include recurrent perirectal abscess, cellulitis, abdominal abscess [place] Drug Monitoring Program Search Results: patient reviewed within database Medication Reconcilliation Current Medication List: was personally reviewed by me Blood Pressure Screening Patient's blood pressure: Normal blood pressure Impression Primary Impression: Cellulitis of buttock, left Departure Information Condition GOOD Prescriptions Cefuroxime Axetil (CEFTIN) 250 Mg Tab 500 MG PO BID for 10 Days, #40 TAB Prov: Yennifer Gilbert PA-C 3/15/18 Referrals No Doctor, Assigned (PCP) Forms HOME CARE DOCUMENTATION FORM, IMPORTANT VISIT INFORMATION, WORK / SCHOOL INSTRUCTIONS Patient Instructions Cellulitis - [facility], [facility] Additional Instructions Warm compresses to the affected area several times a day. Tylenol and/or ibuprofen as needed for pain. Take Ceftin as prescribed. Return to the ER in 2 -3 days for recheck or earlier if symptoms worsen. Keep scheduled follow-up appointment with your surgeon as previously scheduled.
[2017-05-05 15:38] VITALS: BP 139/87; PULSE 66; O2SAT 99
== END 2017-05-05 15:42 | disposition home or self-care (01) ==
LOC: C.EDB 10:29 → C.EDD 15:42
DX: L03.317 Cellulitis of buttock (principal); F41.9 Anxiety disorder, unspecified; K50.90 Crohn's disease, unspecified, without complications; F32.9 Major depressive disorder, single episode, unspecified; K21.9 Gastro-esophageal reflux disease without esophagitis; Q87.40 Marfan syndrome, unspecified; I45.6 Pre-excitation syndrome; F17.200 Nicotine dependence, unspecified, uncomplicated; F12.90 Cannabis use, unspecified, uncomplicated

== ENCOUNTER 2017-05-15 15:48 | Emergency (ER) | payer OTHER ==
[~2017-05-15] VITALS: Ht 188 cm; Wt 85.0 kg
[~2017-05-15 15:48] MED LIST changes: +ACET-1693 PO; +CEFU250T15 PO; -DOXY-300 PO
[2017-05-15 16:00] VITALS: Ht 188 cm; Wt 85.0 kg
--- NOTE | 2017-05-15 16:19 | EMERGENCY ROOM VISIT NOTE ---
History Report prepared by [place]: Grace Hwang Under the Supervision of: Dr. Nikko Guthrie M.D. First contact with patient: 16:06 Chief Complaint: WOUND INFECTION Stated Complaint: SEVER PAIN DUE TO JOCELIN-RECTAL ABSCESS INFECTION Nursing Triage Summary: jocelin rectal abcess getting worse more drainage more painful History of Present Illness The patient is a 31 year old male who presents to the Emergency Room with complaints of a persistent wound infection that started last week. The patient rates his pain an 8/10 in severity. The patient had surgery on a jocelin-rectal abscess about a month and a half ago. He notes he finished his antibiotics last week. The abscess is still draining. He states he had a fever yesterday but does not have one today. The patient notes he is experiencing nausea, diarrhea, and some blood on tissue during bowel movements. The patient denies any vomiting , abdominal pain, chest pain, shortness of breath, swelling of legs, or syncope. He has a history of Crohn's disease. Source of History: patient Onset: last week Position: other (rectal) Symptom Intensity: 8/10 Timing: other (persistent) Associated Symptoms: + fevers, + nausea, + diarrhea (some blood on tissue), No chest pain, No SOB, No vomiting, No abdominal pain Note: Denies: swelling of legs or syncope. Review of Systems See HPI for pertinent positives & negatives. A total of 10 systems reviewed and were otherwise negative. Past Medical & Surgical Medical Problems: (1) Abdominal pain (2) Abdominal pain (3) Alcohol abuse (4) Anxiety (5) Blood loss anemia (6) C. difficile diarrhea (7) Cannabis abuse (8) Cellulitis (9) Chest wall pain (10) Cocaine abuse (11) Costochondral pain (12) Crohn disease (13) Crohn's disease (14) Crohn's disease (15) Crohns disease (16) Crohns disease (17) Crohns disease (18) Depression (19) Depression (20) Exacerbation of Crohn's disease (21) Exacerbation of Crohn's disease (22) Generalized anxiety disorder (23) GERD (gastroesophageal reflux disease) (24) Left sided abdominal pain (25) Marfan's disease (26) Marfan's syndrome (27) Non-cardiac chest pain (28) Palpitations (29) Bvval-Druucusbq-Sisko (WPW) syndrome (30) Qrchp-Ycxpmkmwf-Wwmcw pattern (31) WPW (Ezlff-Tzmrxcmzt-Ywyij syndrome) Surgical Problems: (1) H/O colonoscopy (2) History of bowel resection (3) History of partial colectomy (4) History of prior ablation treatment (5) S/P partial colectomy Family History No pertinent family history Social History Smoking Status: Current Every Day Smoker Drug Use: marijuana Marital Status: single Housing Status: lives with significant other Occupation Status: unemployed Current/Historical Medications Scheduled Acetaminophen Tab (Tylenol), 325 MG PO UD Adalimumab (Humira Pen), 0.8 ML INJ [id number] Amoxicillin & Pot Clavulanate (Augmentin 875-125 mg), 875 MG PO BID Escitalopram Oxalate (Lexapro), 1 TAB PO QAM Hydroxyzine Pamoate (Vistaril), 1 CAP PO HS Allergies Coded Allergies: Lactose Intolerance (GI) (Verified Allergy, Unknown, GI SYMPTOMS, 05/15/17) Tomato (Verified Adverse Reaction, Intermediate, GI SYMPTOMS-CROHN'S ACTS UP, 05/15/17) CROHN'S ACTS UP Eggs or Egg-derived Products (Verified Adverse Reaction, Mild, GI SYMPTOMS , 05/15/17) Lactose (Verified Adverse Reaction, Unknown, GI UPSET, 05/15/17) Physical Exam Vital Signs Date Time Temp Pulse Resp B/P (MAP) Pulse Ox O2 Delivery O2 Flow Rate FiO2 05/15/17 17:58 36.8 82 18 139/97 100 05/15/17 17:34 82 18 139/97 100 Room Air 05/15/17 16:00 36.8 96 16 132/88 100 Physical Exam GENERAL: Patient is well appearing and in minimal distress. EYES: No scleral icterus, unremarkable pupils. ENT: Mucous membranes moist, no nasal congestion. NECK: No masses appreciated, no meningismus, trachea is midline. RESPIRATORY: No dyspnea. Clear to auscultation and equal bilaterally. No wheeze , no rhonchi. CARDIOVASCULAR: Regular rate and rhythm. No murmurs, rubs, gallops appreciated. GASTROINTESTINAL: Abdomen soft, nontender, no peritonitis. Bowel sounds positive. No masses appreciated. BACK: No midline tenderness, no CVA tenderness EXTREMITIES: Normal motion all extremities, no cyanosis, no edema. NEUROLOGIC: Alert and oriented, no acute motor or sensory deficits, no focal weakness, cranial nerves grossly intact. RECTAL: Left jocelin-rectal swelling infiltration and tenderness with surgical incision and red drain placed. Swelling 2 x 4 cm in size. SKIN: No rash, no jaundice, no diaphoresis. Medical Decision & Procedures Laboratory Results 05/15/17 16:59 05/15/17 16:59 Test 05/15/17 16:59 Red Blood Count 4.99 M/uL (4.7-6.1) Mean Corpuscular Volume 81.4 fL (80-100) Mean Corpuscular Hemoglobin 26.7 pg (25-34) Mean Corpuscular Hemoglobin Concent 32.8 g/dl (32-36) RDW Standard Deviation 41.4 fL (36.4-46.3) RDW Coefficient of Variation 14.0 % (11.5-14.5) Mean Platelet Volume 8.9 fL (7.4-10.4) Anion Gap 8.0 mmol/L (3-11) Est Creatinine Clear Calc Drug Dose 106.5 ml/min Estimated GFR () 95.4 Estimated GFR (Non- 82.3 BUN/Creatinine Ratio 12.1 (10-20) Calcium Level 9.1 mg/dl (8.5-10.1) C-Reactive Protein 1.65 mg/dl (0-0.29) Laboratory results as reviewed by me. Medications Administered Medications (Trade) Dose Ordered Sig/Erika Route Start Time Stop Time Status Last Admin Dose Admin Amoxicillin/ Clavulanate Potassium (Augmentin Tab) 875 mg ONE ONCE PO 05/15/17 18:00 05/15/17 18:01 DC 05/15/17 17:58 875 MG ED Course 1606: The patient was evaluated in room C11B. A complete history and physical exam was performed. 1740: I updated the patient and he is comfortable with the plan to talk to surgery at [place]. 1748: I spoke with Dr. Jett, Joshua of colorectal surgery. He requested the patient be started on Augmentin and call them tomorrow to schedule a follow up appointment. 1751: Reevaluated the patient. Discussed results and discharge instructions: He verbalized understanding and agreement. The patient is ready for discharge. Medical Decision 31 yr old male with Crohn's disease arrives with complaint of left buttock swelling. Seems mildly increased abscess area compared to what was written in note last week despite abx treatment. No fevers, no significant TTP and no evidence systemic symptoms. Wound not draining currently. Seems unlikely to need repeat imaging given just done and only minor worsening. Reviewed with surgeon service at [facility] who advised Augmentin and outpatient follow up. Medication Reconcilliation Current Medication List: was personally reviewed by me Consults Time Called: 1744 Consulting Physician: Joshua Parra Returned Call: 1747 I spoke with Joshua Parra of colorectal surgery. He requested the patient be started on Augmentin and call them tomorrow to schedule a follow up appointment. Impression Primary Impression: Abscess of buttock, left Scribe Attestation The scribe's documentation has been prepared under my direction and personally reviewed by me in its entirety. I confirm that the note above accurately reflects all work, treatment, procedures, and medical decision making performed by me. Departure Information Dispostion Home / Self-Care Prescriptions Amoxicillin & Pot Clavulanate (Augmentin 875-125 mg) 1 Tab Tab 875 MG PO BID for 10 Days, #20 TAB Prov: Nikko Guthrie M.D. 05/15/17 Referrals Alfred Carmichael MD (PCP) Patient Instructions My [facility] Additional Instructions Call your surgeon tomorrow to get follow up in the next few days. Return if worsening pain, fevers, vomiting, passing out or other concerns. Use Tylenol as needed for discomfort.
[2017-05-15 17:06] LABS: HEMATOCRIT 40.6 % (42-52); HEMOGLOBIN 13.3 g/dL (14.0-18.0); MEAN CELL VOLUME 81.4 fL (80-100); MEAN CORPUSCULAR HEMOGLOBIN 26.7 pg (25-34); MEAN CORPUSCULAR HGB CONC 32.8 g/dl (32-36); MEAN PLATELET VOLUME 8.9 fL (7.4-10.4); PLATELET COUNT 319 K/uL (130-400); RED CELL DISTRIBUTION WIDTH SD 41.4 fL (36.4-46.3); WHITE BLOOD COUNT 9.37 K/uL (4.8-10.8)
[2017-05-15 17:23] LABS: CALCIUM 9.1 mg/dl (8.5-10.1); CREATININE 1.18 mg/dl (0.60-1.40); POTASSIUM 4.2 mmol/L (3.5-5.1)
[2017-05-15] MEDS ORDERED: AMOX875T PO (17:49)
[2017-05-15 17:58] VITALS: BP 139/97; PULSE 82; TEMP 36.8; O2SAT 100
[2017-05-15] MEDS ORDERED: AMOXICILLIN/CLAVULANATE TAB 875 MG TAB PO ONE (18:00)
== END 2017-05-15 17:59 | disposition home or self-care (01) ==
LOC: C.EDB 15:49 → C.EDC 17:59
DX: K61.1 Rectal abscess (principal); K50.914 Crohn's disease, unspecified, with abscess; Q87.40 Marfan syndrome, unspecified; I45.6 Pre-excitation syndrome; K21.9 Gastro-esophageal reflux disease without esophagitis; F32.9 Major depressive disorder, single episode, unspecified; F41.9 Anxiety disorder, unspecified; F17.200 Nicotine dependence, unspecified, uncomplicated; Z90.49 Acquired absence of other specified parts of digestive tract; Z86.19 Personal history of other infectious and parasitic diseases; Z87.2 Personal history of diseases of the skin and subcutaneous tissue; Z91.011 Allergy to milk products; Z91.012 Allergy to eggs; Z91.018 Allergy to other foods

== ENCOUNTER 2017-06-03 13:56 | Emergency (ER) | payer OTHER ==
[~2017-06-03] VITALS: Ht 188 cm; Wt 83.7 kg
[~2017-06-03 13:56] MED LIST changes: -ADAL40KI INJ; -CEFU250T15 PO
[2017-06-03 13:58] VITALS: TEMP 36.7; Ht 188 cm; Wt 83.7 kg
[2017-06-03] MEDS ORDERED: SODIUM CHLORIDE 0.9% 500ML 500 ML IV STA (14:47)
--- NOTE | 2017-06-03 14:52 | EMERGENCY ROOM VISIT NOTE ---
History First contact with patient: 14:27 Chief Complaint: OTHER COMPLAINT Stated Complaint: CROHN'S FLARE, SEVERE PAIN WITH BLACK STOOLS History of Present Illness The patient is a 31 year old male who presents to the Emergency Room with complaints of black, tarry stools for the last 4 days. He also reports a sharp , stabbing, constant right-sided abdominal pain. The patient has a history of Crohn's disease. He went in for his typical Humira shot today. When he told the nurse what was going on, she contacted Dr. Daev who sent him to the emergency department for further evaluation. He denies any recent changes in medications. No recent Crohn flares. No significant nausea. Last bowel movement was this morning. Of note, the patient reports being treated for another perirectal abscess. He underwent a small surgical procedure of incision and drainage on 05/29 in [place]. He denies any severe rectal pain. Review of Systems 10 system review performed and negative unless noted in HPI or below Past Medical/Surgical History Medical Problems: (1) Abdominal pain (2) Abdominal pain (3) Alcohol abuse (4) Anxiety (5) Blood loss anemia (6) C. 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-Iqmeclhvw-Yfxwo 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) Surgical Problems: (1) H/O colonoscopy (2) History of bowel resection (3) History of partial colectomy (4) History of prior ablation treatment (5) S/P partial colectomy Family History No pertinent family history Social History Smoking Status: Current Every Day Smoker Drug Use: marijuana Marital Status: single Housing Status: lives with significant other Occupation Status: unemployed Current/Historical Medications Scheduled Adalimumab (Humira Pen), 0.8 ML INJ [id number] Metronidazole (Metronidazole), 500 MG PO TID Physical Exam Vital Signs Date Time Temp Pulse Resp B/P (MAP) Pulse Ox O2 Delivery O2 Flow Rate FiO2 06/03/17 16:26 86 18 123/79 100 Room Air 06/03/17 13:58 36.7 96 20 132/73 98 Room Air Physical Exam VITALS: Vitals are noted on the nurse's note and reviewed by myself. Vital signs stable. GENERAL: 31-year-old male, in no acute distress, nondiaphoretic, well-developed well-nourished. SKIN: The skin was without rashes, erythema, edema, or bruising. HEAD: Normocephalic atraumatic. MOUTH: Mucous membranes slightly dry. Tonsils are not enlarged. Pharynx without erythema or exudate. Uvula midline. Airway patent. Tongue does not deviate. NECK: Supple without nuchal rigidity. No lymphadenopathy. Cervical spine is nontender. No JVD. HEART: Regular rate and rhythm without murmurs gallops or rubs. LUNGS: Clear to auscultation bilaterally without wheezes, rales or rhonchi. No accessory muscle use. ABDOMEN: Positive bowel sounds x 4.Soft, nontender, without organomegaly. No guarding or rebound tenderness. RECTAL: Small perirectal incision approximately 0.5 cm in length with a catheter present. No surrounding erythema. Mild discomfort with rectal exam. Faintly guaiac positive. Good sphincter tone. MUSCULOSKELETAL: No muscle atrophy, erythema, or edema noted. Strength 5/5 throughout. NEURO: Patient was alert and oriented to person place and time. Normal sensation to touch. No focal neurological deficits. Medical Decision & Procedures ER Provider Diagnostic Interpretation: Abdominal/chest x-ray IMPRESSION: No acute cardiopulmonary process. No evidence for bowel obstruction. Electronically signed by: Bert Richardson M.D. 06/03/2017 3:28 PM Dictated Date/Time: 06/03/2017 3:24 PM Laboratory Results 06/03/17 15:05 Red Blood Count 5.04, Mean Corpuscular Volume 81.3, Mean Corpuscular Hemoglobin 26.6, Mean Corpuscular Hemoglobin Concent 32.7, Mean Platelet Volume 9.2, Neutrophils (%) (Auto) 80.3, Lymphocytes (%) (Auto) 15.8, Monocytes (%) (Auto) 2.8, Eosinophils (%) (Auto) 0.8, Basophils (%) (Auto) 0.1, Neutrophils # (Auto) 9.53, Lymphocytes # (Auto) 1.88, Monocytes # (Auto) 0.33, Eosinophils # (Auto) 0.10, Basophils # (Auto) 0.01 06/03/17 15:05 Test 06/03/17 15:05 White Blood Count 11.87 K/uL (4.8-10.8) Red Blood Count 5.04 M/uL (4.7-6.1) Hemoglobin 13.4 g/dL (14.0-18.0) Hematocrit 41.0 % (42-52) Mean Corpuscular Volume 81.3 fL (80-100) Mean Corpuscular Hemoglobin 26.6 pg (25-34) Mean Corpuscular Hemoglobin Concent 32.7 g/dl (32-36) Platelet Count 361 K/uL (130-400) Mean Platelet Volume 9.2 fL (7.4-10.4) Neutrophils (%) (Auto) 80.3 % Lymphocytes (%) (Auto) 15.8 % Monocytes (%) (Auto) 2.8 % Eosinophils (%) (Auto) 0.8 % Basophils (%) (Auto) 0.1 % Neutrophils # (Auto) 9.53 K/uL (1.4-6.5) Lymphocytes # (Auto) 1.88 K/uL (1.2-3.4) Monocytes # (Auto) 0.33 K/uL (0.11-0.59) Eosinophils # (Auto) 0.10 K/uL (0-0.5) Basophils # (Auto) 0.01 K/uL (0-0.2) RDW Standard Deviation 42.7 fL (36.4-46.3) RDW Coefficient of Variation 14.4 % (11.5-14.5) Immature Granulocyte % (Auto) 0.2 % Immature Granulocyte # (Auto) 0.02 K/uL (0.00-0.02) Anion Gap 3.0 mmol/L (3-11) Est Creatinine Clear Calc Drug Dose 114.2 ml/min Estimated GFR () 103.9 Estimated GFR (Non- 89.6 BUN/Creatinine Ratio 10.4 (10-20) Calcium Level 9.2 mg/dl (8.5-10.1) Total Bilirubin 0.4 mg/dl (0.2-1) Aspartate Amino Transf (AST/SGOT) 52 U/L (15-37) Alanine Aminotransferase (ALT/SGPT) 58 U/L (12-78) Alkaline Phosphatase 85 U/L (45-117) Total Protein 8.7 gm/dl (6.4-8.2) Albumin 3.9 gm/dl (3.4-5.0) Globulin 4.8 gm/dl (2.5-4.0) Albumin/Globulin Ratio 0.8 (0.9-2) Medications Administered Medications (Trade) Dose Ordered Sig/Erika Route Start Time Stop Time Status Last Admin Dose Admin Sodium Chloride 500 ml @ 999 mls/hr Q31M STAT IV 06/03/17 14:47 06/03/17 15:17 DC 06/03/17 14:47 999 MLS/HR Pantoprazole Sodium 40 mg/ Syringe 10 ml @ 5 mls/min NOW ONCE IV 06/03/17 15:30 06/03/17 15:31 DC 06/03/17 15:59 5 MLS/MIN Morphine Sulfate (MoRPHine SULFATE INJ) 4 mg ONE STAT IV 06/03/17 15:52 06/03/17 15:53 DC 06/03/17 15:59 4 MG ED Course Patient was seen and examined Vital signs including blood pressure were reviewed medications list was verified with patient Labs were obtained, and a saline lock was established The patient was hydrated with 500 cc of normal saline Imaging was performed and reviewed The patient was medicated with morphine 4 mg IV for pain The patient was seen by Dr. Rae from GI. We discussed the case. The patient was reassessed. We discussed his results. He voiced understanding , was comfortable being discharged home. I reviewed discharge instructions the patient. They voiced understanding and had no further questions. Medical Decision Differential diagnosis: Crohn's flare, gastritis, gastric versus duodenal ulcer , SBO, rectal bleeding, perirectal abscess, appendicitis This patient is a 31-year-old male with a history of Crohn's disease that presents complaining of dark stools and abdominal pain for the last 4 days. He was sent in by GI. On exam, he was nontoxic in appearance. He was very faintly guaiac positive, which I would expect given his history of recent incision and drainage of a perirectal abscess on 05/29. His abdomen was benign. He is afebrile. His labs revealed mild leukocytosis. His H&H is stable. Per GIs recommendations, he was started on pantoprazole twice daily. He will follow up with him first thing Tuesday morning for his Humira injection and recheck. The patient was comfortable with this plan. He agrees to return over the weekend for any new or worsening symptoms This chart was completed in part utilizing [employer] Voice Recognition software. Attempts were made to minimize the grammatical errors, random word insertions, pronoun errors and incomplete sentences. Any formal questions or concerns about the content, text or information contained within the body of this dictation should be directly addressed to the provider for clarification. Medication Reconcilliation Current Medication List: was personally reviewed by me Blood Pressure Screening Patient's blood pressure: Normal blood pressure Consults Consulting Physician: Dr. Rae Impression Primary Impression: GI bleed Departure Information Dispostion Home / Self-Care Condition GOOD Referrals Alfred Carmichael MD (PCP) Pierre Dave M.D. Patient Instructions My [facility] Additional Instructions You have been evaluated in the emergency department for possible GI bleeding. The GI doctors recommended putting you on pantoprazole twice daily. Please take this medication as prescribed. Please avoid caffeine, tobacco, spicy foods and alcohol DO NOT TAKE NSAIDS SUCH : IBUPROFEN/ADVIL/MOTRIN, NAPROXEN/ALEVE, ASPIRIN Please follow-up with your GI doctor on Tuesday as scheduled Do not hesitate to return to the emergency department with any new, worsening or concerning symptoms it was a pleasure participating in your care today
[2017-06-03] MEDS ORDERED: ADAL40KI INJ (14:58)
[2017-06-03] MEDS ORDERED: PANT1TAB3 PO (15:19)
[2017-06-03 15:27] LABS: BASO % 0.1 %; BASO ABS # 0.01 K/uL (0-0.2); EOS % 0.8 %; HEMOGLOBIN 13.4 g/dL (14.0-18.0); IG# 0.02 K/uL (0.00-0.02); LYMPH % 15.8 %; LYMPH ABS # 1.88 K/uL (1.2-3.4); MEAN CELL VOLUME 81.3 fL (80-100); MEAN CORPUSCULAR HEMOGLOBIN 26.6 pg (25-34); MEAN CORPUSCULAR HGB CONC 32.7 g/dl (32-36); MEAN PLATELET VOLUME 9.2 fL (7.4-10.4); MONO % 2.8 %; MONO ABS # 0.33 K/uL (0.11-0.59); NEUT % 80.3 %; NEUT ABS # 9.53 K/uL (1.4-6.5); PLATELET COUNT 361 K/uL (130-400); RED CELL DISTRIBUTION WIDTH CV 14.4 % (11.5-14.5); RED CELL DISTRIBUTION WIDTH SD 42.7 fL (36.4-46.3); WHITE BLOOD COUNT 11.87 K/uL (4.8-10.8)
--- NOTE | 2017-06-03 15:29 | DIAGNOSTIC IMAGING REPORT ---
CHEST AND ABDOMEN 2 VIEWS HISTORY: hx chrons black stools. Generalized abdominal pain ?SBO, perf COMPARISON: Abdomen and pelvis CT 05/05/2017. FINDINGS: The lungs are clear. The cardiomediastinal silhouette is within normal limits. There is no pneumoperitoneum or pneumatosis. The bowel gas pattern is unremarkable. No evidence for bowel obstruction. No pathologic calcifications. IMPRESSION: No acute cardiopulmonary process. No evidence for bowel obstruction. Electronically signed by: Bert Richardson M.D. 06/03/2017 3:28 PM Dictated Date/Time: 06/03/2017 3:24 PM
[2017-06-03] MEDS ORDERED: PANTOprazole INJ 40 MG in SYRINGE 0 ML IV ONE (15:30)
[2017-06-03 15:50] LABS: ALBUMIN 3.9 gm/dl (3.4-5.0); CALCIUM 9.2 mg/dl (8.5-10.1); CREATININE 1.1 mg/dl (0.60-1.40); POTASSIUM 3.7 mmol/L (3.5-5.1)
[2017-06-03] MEDS ORDERED: MoRPHine SULFATE 4 MG/ML 1 ML CARP\\VIAL IV STA (15:52)
[2017-06-03 15:53] LABS: TOTAL PROTEIN 8.7 gm/dl (6.4-8.2)
[2017-06-03] MEDS ORDERED: MTR500 PO (16:19)
[2017-06-03 16:26] VITALS: BP 123/79; PULSE 86; O2SAT 100
== END 2017-06-03 16:49 | disposition home or self-care (01) ==
LOC: C.EDB 13:58
DX: K92.2 Gastrointestinal hemorrhage, unspecified (principal); K50.90 Crohn's disease, unspecified, without complications; Z98.890 Other specified postprocedural states; F32.9 Major depressive disorder, single episode, unspecified; F41.1 Generalized anxiety disorder; K21.9 Gastro-esophageal reflux disease without esophagitis; Q87.40 Marfan syndrome, unspecified; I45.6 Pre-excitation syndrome; Z90.49 Acquired absence of other specified parts of digestive tract; F17.210 Nicotine dependence, cigarettes, uncomplicated; Z79.899 Other long term (current) drug therapy

== ENCOUNTER 2018-03-27 15:42 | Inpatient (IN) ==
[2018-03-27 16:44] LABS: Basophils # (auto) 0.03 K/uL (0-0.2); Basophils % (auto) 0.3 %; Eosinophils # (auto) 0.33 K/uL (0-0.5); Eosinophils % (auto) 3.2 %; Hematocrit (blood only) 40.9 % (42-52); Hemoglobin 12.9 g/dL (14.0-18.0); Immature Granulocytes # (auto) 0.03 K/uL (0.00-0.02); Immature Granulocytes % (auto) 0.3 %; Lymphocytes # (auto) 3.13 K/uL (1.2-3.4); Lymphocytes % (auto) 30.1 %; Mean Corpuscular Hgb Conc 31.5 g/dL (32-36); Mean Corpuscular Volume 80.2 fL (80-100); Mean Platelet Volume 9.2 fL (7.4-10.4); Monocytes # (auto) 0.71 K/uL (0.11-0.59); Monocytes % (auto) 6.8 %; Neutrophils # (auto) 6.17 K/uL (1.4-6.5); Neutrophils % (auto) 59.3 %; Platelet Count 466 K/uL (130-400); RDW Coefficient of Variation 15.6 % (11.5-14.5); RDW Standard Deviation 45.7 fL (36.4-46.3)
[2018-03-27 17:01] LABS: Albumin Level 3.3 gm/dl (3.4-5.0); BUN Creatinine Ratio 7.6 (10-20); Creatinine Clr Calc Pharmacy 142.3 ml/min; Est GFR (African American) 140.1; Est GFR (Non-African American) 120.9
[2018-03-27 17:04] LABS: Albumin Globulin Ratio 0.7 (0.9-2); Bilirubin,Total 0.3 mg/dl (0.2-1); Globulin 4.9 gm/dl (2.5-4.0); Total Protein 8.2 gm/dl (6.4-8.2)
[2018-03-27] MEDS ORDERED: LACTATED RINGER'S 1,000 ML IV ONE (17:42)
[2018-03-27] MEDS ORDERED: ONDANSETRON INJ 2 MG/ML 2 ML VIAL IV STA (17:42)
[2018-03-27] MEDS ORDERED: MoRPHine SULFATE 4 MG/ML 1 ML CARP\\VIAL IV STA ×2 (17:42→19:26)
--- NOTE | 2018-03-27 17:52 | Emergency Department Note ---
History of Present Illness General Chief complaint: Abdominal Pain Stated complaint: abdominal pain Time Seen by Provider: 03/27/18 17:23 History of Present Illness Maximum Pain Intensity: 10 This patient is a 32-year-old male returns to the emergency department complaining of ongoing abdominal pain for the last several weeks. It is in the epigastric region. He describes it as a constant cramping sensation. He rates his discomfort a 10/10. It is worse with eating. He has tried his Subutex with no relief of the pain. He denies any fever or chills. He reports normal output from his ostomy bag. He denies any blood in his stool. The patient has an appointment with his GI doctor scheduled 03/29, 2 days from now. Home Medications Home Medications Medication Instructions Recorded Confirmed Type buprenorphine HCl 12 mg SUBLINGUAL BID 03/17/18 03/27/18 History paroxetine HCl 20 mg PO DAILY 03/17/18 03/27/18 History nicotine [Nicoderm CQ] 14 mg TRANSDERMAL QAM 30 Days #30 03/29/18 Rx ea Allergies Allergy/AdvReac Type Severity Reaction Status Date / Time tomato AdvReac Intermediate GI Verified 03/27/18 17:52 SYMPTOMS-CROHN'S ACTS UP Egg Derived AdvReac Mild GI SYMPTOMS Verified 03/27/18 17:52 lactose AdvReac Unknown GI SYMPTOMS Verified 03/27/18 17:52 Past Med/Surg History Medical History Colostomy in place (Chronic) Crohns disease (Chronic) Rxdcw-Bbyebliek-Unsyg (WPW) syndrome (Chronic) GERD (gastroesophageal reflux disease) (Chronic) Marfan's disease (Chronic) Exacerbation of Crohn's disease (Resolved) Alcohol abuse (Resolved) Cannabis abuse (Chronic) Cellulitis (Resolved) Cocaine abuse (Resolved) Depression (Chronic) Generalized anxiety disorder (Chronic) Sunitha-rectal abscess (Resolved) Surgical History History of prior ablation treatment (Chronic) H/O colonoscopy (Chronic) History of partial colectomy (Chronic) Family History Other Ulcerative colitis Social History (Reviewed 03/28/18 @ 17:32 by RIGOBERTO Watson Current Living Situation: Spouse and Family Other Information That Helps Us Care for You: Yes Feels Safe at Home: Yes Safety Concerns: Feels Safe At This Time Smoking Status: Current every day smoker Tobacco Type: cigarettes Cigarettes per Day: 15 Do You Dip or Chew Tobacco: No Second Hand Exposure: No Tobacco Cessation Education Requested by Patient: Yes Hx Alcohol Use: Yes Alcohol Intake Frequency: holidays/special occasions only Hx Substance Use: Yes substance use type: marijuana Beliefs That Will Affect Care: None Preferred Language: Polish Review of Systems A total of 10 systems reviewed and were otherwise negative Physical Exam Vital Signs Vital Signs - 24 hr 03/27/18 18:26 03/27/18 20:25 03/27/18 22:00 Temperature Temperature Source Pulse Rate 69 Pulse Rate [Finger] Pulse Rate [Radial] 73 72 Pulse Rhythm [Radial] Regular Regular Pulse Strength [Radial] Normal Respiratory Rate 16 18 Respiratory Effort / Characteristics Non-Labored Spontaneous Respiratory Depth Normal Normal Blood Pressure [Right Arm] 108/73 129/75 Blood Pressure Mean [Right Arm] 84 93 Blood Pressure Position [Right Arm] Pulse Oximetry 100 97 Oxygen Delivery Method Room Air Room Air 03/27/18 22:21 03/27/18 23:56 03/28/18 00:00 Temperature 36.6 C 36.7 C Temperature Source Oral Oral Pulse Rate 80 Pulse Rate [Finger] Pulse Rate [Radial] 75 54 L Pulse Rhythm [Radial] Pulse Strength [Radial] Respiratory Rate 14 16 Respiratory Effort / Characteristics Non-Labored Spontaneous Respiratory Depth Normal Normal Blood Pressure [Right Arm] 115/79 113/73 Blood Pressure Mean [Right Arm] 91 86 Blood Pressure Position [Right Arm] Lying Lying Pulse Oximetry 98 98 Oxygen Delivery Method Room Air Room Air 03/28/18 04:00 03/28/18 07:00 03/28/18 11:32 Temperature 36.9 C 36.9 C 36.5 C Temperature Source Oral Oral Oral Pulse Rate Pulse Rate [Finger] 62 Pulse Rate [Radial] 65 71 Pulse Rhythm [Radial] Pulse Strength [Radial] Respiratory Rate 16 18 16 Respiratory Effort / Characteristics Respiratory Depth Normal Blood Pressure [Right Arm] 128/76 122/78 131/87 Blood Pressure Mean [Right Arm] 93 92 101 Blood Pressure Position [Right Arm] Lying Lying Lying Pulse Oximetry 98 99 96 Oxygen Delivery Method Room Air Room Air Room Air 03/28/18 15:37 Temperature 37 C Temperature Source Oral Pulse Rate Pulse Rate [Finger] 69 Pulse Rate [Radial] Pulse Rhythm [Radial] Pulse Strength [Radial] Respiratory Rate 18 Respiratory Effort / Characteristics Respiratory Depth Blood Pressure [Right Arm] 149/94 H Blood Pressure Mean [Right Arm] 112 Blood Pressure Position [Right Arm] Pulse Oximetry 98 Oxygen Delivery Method Constitutional WD/WN, vitals as above Mildly uncomfortable in appearance Eyes EOM intact bilaterally ENMT Oral mucosa slightly dry Neck trachea midline Respiratory normal respiratory effort, lungs clear to auscultation Cardiovascular RRR, no murmur, no edema Gastrointestinal (Abdomen) Bowel sounds present in all 4 quadrants. Tenderness to palpation noted in the epigastric region. There is gas and firm stool noted in the ostomy bag. Musculoskeletal no cyanosis or clubbing, extremities motor strength 5/5 Skin no rashes, warm and dry Neurologic Alert and oriented x3. No focal motor deficits. Psychiatric Acting appropriately Course The patient was triaged. Critical pathways were initiated. Labs were drawn. The patient was moved to room b 8 where he was evaluated by myself. A saline lock was established The patient was ordered morphine 4 mg IV, Zofran 4 mg IV and 1 L of LR bolus Imaging was performed and reviewed Upon reassessment, the patient was still complaining of pain. He was given an additional dose of morphine 4 mg IV. We discussed his workup. He voiced understanding, and was comfortable with proceeding plan. The case was discussed with my supervising physician who is in agreement with my plan. The case was discussed with case management and subsequently the [facility] service. They kindly agreed to evaluate the patient for further treatment. Consultations Consultation #1: Dr. Blum Administered Medications Discontinued Medications Buprenorphine HCl (Subutex) 12 mg SL BID RHONDA Stop: 04/26/18 21:07 Last Admin: 03/29/18 07:46 Dose: 12 mg Admin: 03/28/18 20:23 Dose: 12 mg Admin: 03/28/18 09:27 Dose: 12 mg Admin: 03/27/18 22:15 Dose: 12 mg Hydromorphone HCl (Dilaudid) 0.5 mg IV Q3H PRN PRN Reason: Pain Stop: 04/10/18 21:07 Last Admin: 03/29/18 07:46 Dose: 0.5 mg Admin: 03/29/18 03:31 Dose: 0.5 mg Admin: 03/28/18 23:34 Dose: 0.5 mg Admin: 03/28/18 20:23 Dose: 0.5 mg Admin: 03/28/18 16:51 Dose: 0.5 mg Admin: 03/28/18 10:49 Dose: 0.5 mg Admin: 03/28/18 07:28 Dose: 0.5 mg Admin: 03/28/18 04:00 Dose: 0.5 mg Admin: 03/28/18 01:09 Dose: 0.5 mg Admin: 03/27/18 22:13 Dose: 0.5 mg Lactated Ringer's (Lr) 1,000 mls @ 999 mls/hr IV .Q1H1M ONE Stop: 03/27/18 18:42 Last Infusion: 03/27/18 19:26 Dose: 0 mls/hr Admin: 03/27/18 18:24 Dose: 999 mls/hr Lactated Ringer's (Lr) 1,000 mls @ 125 mls/hr IV .Q8H RHONDA Stop: 04/26/18 21:07 Last Infusion: 03/29/18 12:40 Dose: 0 mls/hr Admin: 03/29/18 05:50 Dose: 125 mls/hr Infusion: 03/29/18 05:50 Dose: 125 mls/hr Admin: 03/28/18 22:23 Dose: 125 mls/hr Infusion: 03/28/18 22:21 Dose: 0 mls/hr Admin: 03/28/18 13:23 Dose: 125 mls/hr Infusion: 03/28/18 13:23 Dose: 125 mls/hr Admin: 03/28/18 06:08 Dose: 125 mls/hr Infusion: 03/28/18 06:08 Dose: 125 mls/hr Admin: 03/27/18 22:16 Dose: 125 mls/hr Miscellaneous (Remove Nicoderm Patch) 1 ea N/A HS RHONDA Stop: 04/27/18 20:59 Last Admin: 03/28/18 20:23 Dose: Not Given Morphine Sulfate (Morphine Sulfate) 4 mg IV NOW STA Stop: 03/27/18 17:43 Last Admin: 03/27/18 18:24 Dose: 4 mg Morphine Sulfate (Morphine Sulfate) 4 mg IV NOW STA Stop: 03/27/18 19:27 Last Admin: 03/27/18 19:34 Dose: 4 mg Nicotine (Nicoderm Cq) 14 mg TD QAM RHONDA Stop: 04/26/18 21:07 Last Admin: 03/29/18 07:47 Dose: Not Given Admin: 03/28/18 09:30 Dose: Not Given Admin: 03/27/18 22:13 Dose: Not Given Ondansetron HCl (Zofran) 4 mg IV NOW STA Stop: 03/27/18 17:43 Last Admin: 03/27/18 18:24 Dose: 4 mg Paroxetine HCl (Paxil) 20 mg PO DAILY RHONDA Stop: 04/27/18 08:59 Last Admin: 03/29/18 07:47 Dose: 20 mg Admin: 03/28/18 09:28 Dose: 20 mg Zolpidem Tartrate (Ambien) 5 mg PO HS PRN PRN Reason: Sleep Stop: 04/26/18 21:11 Last Admin: 03/28/18 20:23 Dose: 5 mg Admin: 03/27/18 22:14 Dose: 5 mg Medical Decision Making Medical Records Attestation: I reviewed the patient's medical records. Home Medications Current Medication List: was personally reviewed by me Laboratory Data Attestation: I reviewed the patient's lab results. Result diagrams: 03/28/18 05:37 03/28/18 05:37 Lab Results 03/27/18 03/27/18 03/27/18 Range/Units 16:25 16:25 16:25 WBC 10.40 (4.8-10.8) K/uL RBC 5.10 (4.7-6.1) M/uL Hgb 12.9 L (14.0-18.0) g/dL Hct 40.9 L (42-52) % MCV 80.2 (80-100) fL MCH 25.3 (25-34) pg MCHC 31.5 L (32-36) g/dL RDW Std Deviation 45.7 (36.4-46.3) fL RDW Coeff of Khadijah 15.6 H (11.5-14.5) % Plt Count 466 H (130-400) K/uL MPV 9.2 (7.4-10.4) fL Immature Gran % (Auto) 0.3 % Neut % (Auto) 59.3 % Lymph % (Auto) 30.1 % [place] % (Auto) 6.8 % Eos % (Auto) 3.2 % Baso % (Auto) 0.3 % Immature Gran # (Auto) 0.03 H (0.00-0.02) K/uL Neut # (Auto) 6.17 (1.4-6.5) K/uL Lymph # (Auto) 3.13 (1.2-3.4) K/uL [place] # (Auto) 0.71 H (0.11-0.59) K/uL Eos # (Auto) 0.33 (0-0.5) K/uL Baso # (Auto) 0.03 (0-0.2) K/uL ESR (0-14) mm/hr Sodium 137 (136-145) mmol/L Potassium 4.0 (3.5-5.1) mmol/L Chloride 105 (98-107) mmol/L Carbon Dioxide 29 (21-32) mmol/L Anion Gap 3.0 (3-11) BUN 6 L (7-18) mg/dl Creatinine 0.77 (0.6-1.4) mg/dl Est Cr Clr Drug Dosing 142.3 ml/min Est GFR ( Amer) 140.1 Est GFR (Non-Af Amer) 120.9 BUN/Creatinine Ratio 7.6 L (10-20) Glucose 105 H (70-99) mg/dl Calcium 9.0 (8.5-10.1) mg/dl Total Bilirubin 0.3 (0.2-1) mg/dl Direct Bilirubin (0-0.2) mg/dl AST 16 (15-37) U/L ALT 25 (12-78) U/L Alkaline Phosphatase 165 H (45-117) U/L C-Reactive Protein 1.64 H (0-0.29) mg/dl Total Protein 8.2 (6.4-8.2) gm/dl Albumin 3.3 L (3.4-5.0) gm/dl Globulin 4.9 H (2.5-4.0) gm/dl Albumin/Globulin Ratio 0.7 L (0.9-2) Amylase Cancelled 306 H Lipase 2746 H (73-393) U/L Urine Color Urine Appearance (Clear) Urine pH (4.5-7.5) Ur Specific [place] (1.000-1.030) Urine Protein (Negative) Urine Glucose (UA) (Negative) Urine Ketones (Negative) Urine Blood (Negative) Urine Nitrite (Negative) Urine Bilirubin (Negative) Urine Urobilinogen (Negative) Ur Leukocyte Esterase (Negative) Urine WBC (Auto) (0-5) /hpf Urine RBC (Auto) (0-4) /hpf U Hyaline Cast (Auto) (0-5) /lpf U Epithel Cells (Auto) (0-5) /lpf Urine Bacteria (Auto) (Negative) 03/27/18 03/27/18 03/28/18 Range/Units 16:25 18:12 05:37 WBC 9.04 (4.8-10.8) K/uL RBC 4.61 L (4.7-6.1) M/uL Hgb 11.6 L (14.0-18.0) g/dL Hct 37.0 L (42-52) % MCV 80.3 (80-100) fL MCH 25.2 (25-34) pg MCHC 31.4 L (32-36) g/dL RDW Std Deviation 45.9 (36.4-46.3) fL RDW Coeff of Khadijah 15.6 H (11.5-14.5) % Plt Count 387 (130-400) K/uL MPV 9.1 (7.4-10.4) fL Immature Gran % (Auto) % Neut % (Auto) % Lymph % (Auto) % [place] % (Auto) % Eos % (Auto) % Baso % (Auto) % Immature Gran # (Auto) (0.00-0.02) K/uL Neut # (Auto) (1.4-6.5) K/uL Lymph # (Auto) (1.2-3.4) K/uL [place] # (Auto) (0.11-0.59) K/uL Eos # (Auto) (0-0.5) K/uL Baso # (Auto) (0-0.2) K/uL ESR 58 H (0-14) mm/hr Sodium (136-145) mmol/L Potassium (3.5-5.1) mmol/L Chloride (98-107) mmol/L Carbon Dioxide (21-32) mmol/L Anion Gap (3-11) BUN (7-18) mg/dl Creatinine (0.6-1.4) mg/dl Est Cr Clr Drug Dosing ml/min Est GFR ( Amer) Est GFR (Non-Af Amer) BUN/Creatinine Ratio (10-20) Glucose (70-99) mg/dl Calcium (8.5-10.1) mg/dl Total Bilirubin (0.2-1) mg/dl Direct Bilirubin (0-0.2) mg/dl AST (15-37) U/L ALT (12-78) U/L Alkaline Phosphatase (45-117) U/L C-Reactive Protein (0-0.29) mg/dl Total Protein (6.4-8.2) gm/dl Albumin (3.4-5.0) gm/dl Globulin (2.5-4.0) gm/dl Albumin/Globulin Ratio (0.9-2) Amylase Lipase (73-393) U/L Urine Color Yellow Urine Appearance Clear (Clear) Urine pH 6.5 (4.5-7.5) Ur Specific [place] 1.033 H (1.000-1.030) Urine Protein Negative (Negative) Urine Glucose (UA) Negative (Negative) Urine Ketones Trace H (Negative) Urine Blood Negative (Negative) Urine Nitrite Negative (Negative) Urine Bilirubin Negative (Negative) Urine Urobilinogen Negative (Negative) Ur Leukocyte Esterase Trace H (Negative) Urine WBC (Auto) 1-5 (0-5) /hpf Urine RBC (Auto) 0-4 (0-4) /hpf U Hyaline Cast (Auto) 1-5 (0-5) /lpf U Epithel Cells (Auto) 20-30 H (0-5) /lpf Urine Bacteria (Auto) Negative (Negative) 03/28/18 Range/Units 05:37 WBC (4.8-10.8) K/uL RBC (4.7-6.1) M/uL Hgb (14.0-18.0) g/dL Hct (42-52) % MCV (80-100) fL MCH (25-34) pg MCHC (32-36) g/dL RDW Std Deviation (36.4-46.3) fL RDW Coeff of Khadijah (11.5-14.5) % Plt Count (130-400) K/uL MPV (7.4-10.4) fL Immature Gran % (Auto) % Neut % (Auto) % Lymph % (Auto) % [place] % (Auto) % Eos % (Auto) % Baso % (Auto) % Immature Gran # (Auto) (0.00-0.02) K/uL Neut # (Auto) (1.4-6.5) K/uL Lymph # (Auto) (1.2-3.4) K/uL [place] # (Auto) (0.11-0.59) K/uL Eos # (Auto) (0-0.5) K/uL Baso # (Auto) (0-0.2) K/uL ESR (0-14) mm/hr Sodium 139 (136-145) mmol/L Potassium 3.8 (3.5-5.1) mmol/L Chloride 104 (98-107) mmol/L Carbon Dioxide 30 (21-32) mmol/L Anion Gap 5.0 (3-11) BUN 6 L (7-18) mg/dl Creatinine 0.81 (0.6-1.4) mg/dl Est Cr Clr Drug Dosing 135.1 ml/min Est GFR ( Amer) 137.3 Est GFR (Non-Af Amer) 118.4 BUN/Creatinine Ratio 7.2 L (10-20) Glucose 79 (70-99) mg/dl Calcium 8.7 (8.5-10.1) mg/dl Total Bilirubin 0.3 (0.2-1) mg/dl Direct Bilirubin < 0.1 (0-0.2) mg/dl AST 16 (15-37) U/L ALT 19 (12-78) U/L Alkaline Phosphatase 137 H (45-117) U/L C-Reactive Protein (0-0.29) mg/dl Total Protein 6.8 (6.4-8.2) gm/dl Albumin 2.7 L (3.4-5.0) gm/dl Globulin 4.1 H (2.5-4.0) gm/dl Albumin/Globulin Ratio 0.7 L (0.9-2) Amylase Lipase 2152 H (73-393) U/L Urine Color Urine Appearance (Clear) Urine pH (4.5-7.5) Ur Specific [place] (1.000-1.030) Urine Protein (Negative) Urine Glucose (UA) (Negative) Urine Ketones (Negative) Urine Blood (Negative) Urine Nitrite (Negative) Urine Bilirubin (Negative) Urine Urobilinogen (Negative) Ur Leukocyte Esterase (Negative) Urine WBC (Auto) (0-5) /hpf Urine RBC (Auto) (0-4) /hpf U Hyaline Cast (Auto) (0-5) /lpf U Epithel Cells (Auto) (0-5) /lpf Urine Bacteria (Auto) (Negative) Imaging Data Attestation: I personally reviewed and interpreted this imaging study as follows : Radiologist's Impression: X-rays of the abdomen with PA chest IMPRESSION: 1. No acute process of the chest. 2. Nonobstructive bowel gas pattern. 3. Left lower quadrant colostomy. The above report was generated using voice recognition software. It may contain grammatical, syntax or spelling errors. Electronically signed by: Phan Velázquez M.D. 03/27/2018 7:13 PM Dictated: 03/27/181910 Transcribed: 03/27/181910 Blood Pressure Blood Pressure Findings: Normal blood pressure MDM Narrative Differential diagnosis: Viral GI illness, chronic abdominal pain, drug-seeking behavior, bowel obstruction, inflammatory bowel disease, gastritis, pancreatitis , cholecystitis, choledocholithiasis, among others This patient is a 32-year-old male presents to the emergency department with ongoing epigastric pain and nausea as noted above. He has a long-standing history of Crohn's disease and possible drug-seeking behavior. On exam, he was tender in the epigastric region and appeared dry. He had labs reveal an increasing lipase when compared to prior visits. Given this and his epigastric tenderness, this is likely pancreatitis. I do not feel comfortable sending the patient home. [facility] Hospitalist service was consulted and kindly agreed to evaluate the patient for further management. Impression & Plan Pancreatitis Discharge Plan Visit Data *Final* Discharge Date/Time: 03/27/18 20:48 Chief Complaint: Abdominal Pain Stated Complaint: abdominal pain ED Provider: Erasmo Sexton ED Midlevel Provider: Rosetta Lane Discharge Problem: Pancreatitis Patient Disposition: Admitted As Inpatient Condition: Fair Discharge Instructions Interventions: ED Discharge Assessment Last Done: 03/27/18 20:48
[2018-03-27 18:24] LABS: C Reactive Protein 1.64 mg/dl (0-0.29)
[2018-03-27 18:27] LABS: Appearance Urine Clear (Clear); Bacteria Urine Automated Negative (Negative); Bilirubin Urine Negative (Negative); Color Urine Yellow; Epithelial Cell Urine Auto 20-30 /lpf (0-5); Glucose Urine UA Negative (Negative); Ketones Urine Trace (Negative); Leukocyte Esterase Urine Trace (Negative); Nitrite Urine Negative (Negative); Protein Urine Negative (Negative); Specific Gravity Urine 1.033 (1.000-1.030); Urobilinogen Urine Negative (Negative); pH Urine 6.5 (4.5-7.5)
--- NOTE | 2018-03-27 19:14 | XRay Report ---
XR abdomen 2V w PA chest HISTORY: 32 years-old Male pancreatitis n/v abd pain ? ileus acute generalized abdominal pain with a cute atypical chest pain COMPARISON: CT abdomen and pelvis 03/20/2018, acute abdominal series radiographs 08/31/2017 TECHNIQUE: PA view of the chest with erect and supine views of the abdomen FINDINGS: Cardiomediastinal and hilar silhouettes are within normal limits. No pneumothorax, pleural effusion, focal airspace consolidation or overt pulmonary edema. Bones of the chest appear grossly intact. No pneumatosis or pneumoperitoneum. Bowel gas pattern is nonobstructive. Left lower quadrant colostom y noted. Air-filled mildly prominent loop of small bowel within this distribution is likely physiolog ic. No urolith. Bones appear intact. IMPRESSION: 1. No acute process of the chest. 2. Nonobstructive bowel gas pattern. 3. Left lower quadrant colostomy. The above report was generated using voice recognition software. It may contain grammatical, syntax o r spelling errors. Electronically signed by: Phan Velázquez M.D. 03/27/2018 7:13 PM
--- NOTE | 2018-03-27 20:35 | History & Physical Report ---
Date of Service March 27, 2018 Assessment & Plan (1) Pancreatitis: C/O epigastric pain with intermittent radiation to back x 2 weeks aggravated with eating. intermittent nausea. Drinks a few times a month, had 2 beers 2 days ago. Denies fever, vomiting, increased loose stool. This is pt's 3rd ER visit, most recent on 03/20/[address] with lipase [address] ABD/ PELVIS with no signs abscess or inflammation and refused hospital admission at that time. Today In ER afebrile, vitals stable. WBC: 10. Hgb: 12.9, AST: 16, ALT: 25, Alk Phos: 165, total bili: 0.3. Lipase: 2746. -Lactacted ringers -NPO -continue subutex -dilaudid prn breakthrough pain -cbc, liver/cmp in am -GI consult appreciate recommendations (2) Crohns disease: Hx Crohns, regional enteriritis, fistula, perirectal abscess, perianal crohns s/p perianal resection with end colostomy in 10/2017 -does not appear to be acute flare. denies hematochezia, changes in stool -has been off Humira since prior to surgery 10/2017 -GI consult appreciate recommendations (3) Nsofo-Alscpmfpo-Oooss (WPW) syndrome: Hx WPW -monitor (4) Chronic pain: On subutex from Dr Hernandez at [facility] -continue subutex (5) Tobacco use: -smoking cessation discussed -nicotine patch DVT Prophylaxis -SCDs Follows with Dr Carmichael for routine care Pt was seen with Dr Dunn. See addendum History of Present Illness Chief Complaint: Abdominal pain Primary Care Provider: Alfred Carmichael MD Pt is 32 y/o M with PMH WPW, Crohns, regional enteriritis, fistula, perirectal abscess, perianal crohns s/p perianal resection with end colostomy in 10/2017, depression, anxiety, GERD, tobacco abuse presented to ER with c/o abdominal pain x 2 weeks. Pt reports epigastric pain that is constant cramping with intermittent sharp pains that radiate to back. Pain worse with eating. 2 days ago ate at buffet and had increased abdominal pain and nausea. No vomiting. No increased stool or watery stool or hematochezia noted in colostomy bag. Denies fever, AGUIRRE, dizziness, syncope, vision changes, neck pain, CP, SOB, orthopnea, palpitations, cough, sore throat, choking, otalgia, rhinorrhea, paresthesias, weakness, extremity edema, rashes, urinary symptoms. Pt seen in ER on 03/20/18 for abdominal pain and had lipase of 2500, CT ABD/ PELVIS showed post surgical changes of ileocecectomy and partial left hemicolectomy with creation of a left lower quadrant colostomy. No evidence of bowel obstruction. No evidence of abscess. No acute inflammatory changes. Follows with Dr Dave - GI. Allergies Allergy/AdvReac Type Severity Reaction Status Date / Time tomato AdvReac Intermediate GI Verified 03/27/18 17:52 SYMPTOMS-CROHN'S ACTS UP Egg Derived AdvReac Mild GI SYMPTOMS Verified 03/27/18 17:52 lactose AdvReac Unknown GI SYMPTOMS Verified 03/27/18 17:52 Home Medications Home Medications Medication Instructions Recorded Confirmed Type buprenorphine HCl 12 mg SUBLINGUAL BID 03/17/18 03/27/18 History paroxetine HCl 20 mg PO DAILY 03/17/18 03/27/18 History Past Med/Surg History Medical History Colostomy in place (Chronic) Crohns disease (Chronic) Ndgxx-Rrjhohfws-Drobn (WPW) syndrome (Chronic) GERD (gastroesophageal reflux disease) (Chronic) Marfan's disease (Chronic) Exacerbation of Crohn's disease (Resolved) Alcohol abuse (Resolved) Cannabis abuse (Chronic) Cellulitis (Resolved) Cocaine abuse (Resolved) Depression (Chronic) Generalized anxiety disorder (Chronic) Sunitha-rectal abscess (Resolved) Surgical History History of prior ablation treatment (Chronic) H/O colonoscopy (Chronic) History of partial colectomy (Chronic) Social History Feels Safe at Home: Yes Smoking Status: Current every day smoker Hx Alcohol Use: Yes Alcohol Intake Frequency: a few times a month Hx Substance Use: Yes substance use type: marijuana Preferred Language: Yakut Review of Systems All systems reviewed & are unremarkable except as noted in HPI & below Physical Exam 2 Vital Signs (Past 24 Hours): Last Vital Signs Temp 36.8 C 03/27/18 16:15 Pulse 72 03/27/18 20:25 Resp 18 03/27/18 20:25 BP 129/75 03/27/18 20:25 Pulse Ox 97 03/27/18 20:25 Physical Exam: General: no distress, WDWN Head: normocephalic, atraumatic Eyes: PERRL, EOM's intact, conjunctiva non-injected, anicteric ENT: normal inspection external ears, nose, mucous membranes moist Neck: supple, trachea midline, non-tender Lungs: clear, no respiratory distress, no wheezing/rhonchi/rales CV: RRR, no murmur, no pretibial edema Abd: normal BS, soft, +colostomy small amount brown stool, +tender epigastric Ext: no cyanosis, no calf tenderness Neuro: A&O x 3, no focal deficits noted, normal affect Skin: warm, dry Results & Data Laboratory Results Short CBC 03/27/18 Range/Units 16:25 WBC 10.40 (4.8-10.8) K/uL Hgb 12.9 L (14.0-18.0) g/dL Hct 40.9 L (42-52) % Plt Count 466 H (130-400) K/uL BMP 03/27/18 16:25 Sodium 137 Potassium 4.0 Chloride 105 Carbon Dioxide 29 BUN 6 L Creatinine 0.77 Glucose 105 H Calcium 9.0 Liver Function 03/27/18 Range/Units 16:25 Total Bilirubin 0.3 (0.2-1) mg/dl AST 16 (15-37) U/L ALT 25 (12-78) U/L Alkaline Phosphatase 165 H (45-117) U/L Albumin 3.3 L (3.4-5.0) gm/dl Urine 03/27/18 Range/Units 18:12 Urine Color Yellow Urine Appearance Clear (Clear) Urine pH 6.5 (4.5-7.5) Ur Specific [place] 1.033 H (1.000-1.030) Urine Protein Negative (Negative) Urine Glucose (UA) Negative (Negative) Diagnostic Findings CXR/ABD XRAY: IMPRESSION: 1. Postsurgical changes of an ileocecectomy 2. Interval partial left hemicolectomy with creation of a left lower quadrant colostomy 3. No evidence of bowel obstruction. No evidence of free air 4. No evidence of abscess. No acute inflammatory changes. Supervising Physician Co-Signing Physician Notes Attending addendum The patient was seen and examined in emergency room He is a 32 y/o M with PMH WPW, Crohns, regional enteriritis, fistula, perirectal abscess, perianal crohns s/p perianal resection with end colostomy in 10/2017, depression, anxiety, GERD, tobacco abuse presented to ER with c/o abdominal pain x 2 weeks without any significant nausea and/or vomiting. Noted to have lipase of more than 2700 Denies any nausea and/or vomiting, abdominal pain is controlled Denies any other symptoms On examination Lying in bed comfortably Hemodynamically stable Chest-clear to auscultate bilaterally Heart-S1-S2 regular Abdomen-soft, tender in the epigastrium, colostomy site is intact, bowel sounds present Extremities-negative for any edema Admission labs and imaging studies reviewed Has acute pancreatitis GI consulted Agree with assessment and plan as outlined above by Ghazala Dunn
[2018-03-27] MEDS ORDERED: ONDANSETRON INJ 2 MG/ML 2 ML VIAL IV PRN (21:03)
[2018-03-27] MEDS: HYDROmorphone INJ 0.5 MG/0.5 ML SYR IV PRN (22:13)
[2018-03-27] MEDS: NICOTINE 14 MG/24 HR PATCH TD SCH (22:13)
[2018-03-27] MEDS: ZOLPIDEM TARTRATE 5 MG TAB PO PRN (22:14)
[2018-03-27] MEDS: BUPRENORPHINE HCL 8 MG SUBL SL SCH (22:15)
[2018-03-27] MEDS: LACTATED RINGER'S 1,000 ML IV SCH (22:16)
[2018-03-28] MEDS: HYDROmorphone INJ 0.5 MG/0.5 ML SYR IV PRN ×7 (01:09→23:34)
[2018-03-28 05:49] LABS: Hemoglobin 11.6 g/dL (14.0-18.0); Mean Corpuscular Hgb Conc 31.4 g/dL (32-36); Mean Corpuscular Volume 80.3 fL (80-100); Mean Platelet Volume 9.1 fL (7.4-10.4); Platelet Count 387 K/uL (130-400); RDW Coefficient of Variation 15.6 % (11.5-14.5); RDW Standard Deviation 45.9 fL (36.4-46.3); Red Blood Count 4.61 M/uL (4.7-6.1); White Blood Count 9.04 K/uL (4.8-10.8)
[2018-03-28] MEDS: LACTATED RINGER'S 1,000 ML IV SCH ×3 (06:08→22:23)
[2018-03-28 06:23] LABS: Alanine Aminotransferase 19 U/L (12-78); Albumin Level 2.7 gm/dl (3.4-5.0); Aspartate Aminotransferase 16 U/L (15-37); BUN Creatinine Ratio 7.2 (10-20); Bilirubin Direct < 0.1 mg/dl (0-0.2); Blood Urea Nitrogen 6 mg/dl (7-18); Calcium 8.7 mg/dl (8.5-10.1); Carbon Dioxide 30 mmol/L (21-32); Chloride 104 mmol/L (98-107); Creatinine Clr Calc Pharmacy 135.1 ml/min; Est GFR (African American) 137.3; Est GFR (Non-African American) 118.4; Glucose 79 mg/dl (70-99); Potassium 3.8 mmol/L (3.5-5.1); Sodium 139 mmol/L (136-145)
[2018-03-28 06:40] LABS: Albumin Globulin Ratio 0.7 (0.9-2); Alkaline Phosphatase 137 U/L (45-117); Bilirubin,Total 0.3 mg/dl (0.2-1); Globulin 4.1 gm/dl (2.5-4.0); Total Protein 6.8 gm/dl (6.4-8.2)
[2018-03-28] MEDS: BUPRENORPHINE HCL 8 MG SUBL SL SCH ×2 (09:27→20:23)
[2018-03-28] MEDS: PARoxetine HCl 20 MG TAB PO SCH (09:28)
[2018-03-28] MEDS: NICOTINE 14 MG/24 HR PATCH TD SCH (09:30)
--- NOTE | 2018-03-28 10:32 | Gastrointestinal Consultation ---
Date of Consultation March 28, 2018 Assessment & Plan (1) Pancreatitis: 32 year old male with crohn's disease s/p proctectomy and end colostomy in 2018 who presents for 2 weeks worth of upper abdominal pain, nausea. Lipase elevated at 2000, LFTs normal. CT 03/20 without any acute findings. DDX discussed : med induced, ETOH induced, gallstones, idiopathic etc - Check triglycerides - ABD US to rule out gallstones - ETOH cessation was recommended - Marijuana cessation was recommended - Treat the pancreatitis LR 200 ml/hr Antiemetics PRN Analgesia PRN NPO for now --> can advance to low fat clear liquids if still feeling well for dinner - In regards to his crohn's disease he has a history of medical noncompliance. He has had recurrence of rectal abscess and now reports continued rectal drainage w/ foul odor despite seton placement and surgical intervention. No fevers - OP GI follow up with Dr. Dave - Will discuss with attending inpatient gen surg eval vs OP colo-rectal Present on Admission?: Yes (2) Crohns disease: Present on Admission?: Yes Supervising Physician Co-Signing Physician Notes I saw and evaluated the patient. He is known to 1 of my partners for outpatient treatment of inflammatory bowel disease. Of note the patient does have some difficulty with compliance over the years. He presented with discomfort and was found to have mild pancreatitis. The patient does admit to cannabis use on a regular basis. He denies having nausea or vomiting today and notes that his pain is improving. Physical examination No obvious distress, no scleral icterus noted Impression: Patient with mild pancreatitis which appears to be improving with conservative intravenous fluid resuscitation. Given his pain-free status today I would suggest giving a clear liquid diet but continuing with IV hydration. There are number of etiologies to consider such as choledocholithiasis or perhaps cannabis use. Recommendations Continue with IV hydration overnight Right upper quadrant ultrasound pending Consider cessation of cannabis use Patient to reestablish care with Dr. Dave and his colorectal surgery as OP. 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 Pt was seen and evaluated , chart reviewed. Endorses upper abddominal pain for about 2-3 weeks. This is located in epigastric region, associated with nausea. Does not recall ever vomiting. Pain is intermittent. Sharp. Worse after PO. Radiates to back. No other associated symptoms. Denies any any change in bowel function. Empties bag 1-3 times a day. Stool can be semi-formed or loose. No black or bloody stools. Notes he is still having difficulty with sunitha-rectal abscess. Denies any new medications. Is only using paroxetine and subutex. Does drink ETOH 2-3 drinks 1- 2 a month. Uses marijuana almost daily. Has been in ED for symptoms x 2. Admission was suggested on both evaluations secondary to elevated lipase. He has refused admission CT 03/20: Postsurgical changes of an ileocecectomyInterval partial left hemicolectomy with creation of a left lower quadrant colostomy No evidence of bowel obstruction. No evidence of free airNo evidence of abscess. No acute inflammatory changes. Allergies Allergy/AdvReac Type Severity Reaction Status Date / Time tomato AdvReac Intermediate GI Verified 03/27/18 17:52 SYMPTOMS-CROHN'S ACTS UP Egg Derived AdvReac Mild GI SYMPTOMS Verified 03/27/18 17:52 lactose AdvReac Unknown GI SYMPTOMS Verified 03/27/18 17:52 Home Medications Home Medications Medication Instructions Recorded Confirmed Type buprenorphine HCl 12 mg SUBLINGUAL BID 03/17/18 03/27/18 History paroxetine HCl 20 mg PO DAILY 03/17/18 03/27/18 History Patient History Medical History Colostomy in place (Chronic) Crohns disease (Chronic) Ekvwm-Blgxhcwib-Lbeya (WPW) syndrome (Chronic) GERD (gastroesophageal reflux disease) (Chronic) Marfan's disease (Chronic) Exacerbation of Crohn's disease (Resolved) Alcohol abuse (Resolved) Cannabis abuse (Chronic) Cellulitis (Resolved) Cocaine abuse (Resolved) Depression (Chronic) Generalized anxiety disorder (Chronic) Sunitha-rectal abscess (Resolved) Surgical History History of prior ablation treatment (Chronic) H/O colonoscopy (Chronic) History of partial colectomy (Chronic) Social History Current Living Situation: Spouse and Family Other Information That Helps Us Care for You: Yes Feels Safe at Home: Yes Safety Concerns: Feels Safe At This Time Smoking Status: Current every day smoker Tobacco Type: cigarettes Cigarettes per Day: 15 Do You Dip or Chew Tobacco: No Second Hand Exposure: No Tobacco Cessation Education Requested by Patient: Yes Hx Alcohol Use: Yes Alcohol Intake Frequency: holidays/special occasions only Hx Substance Use: Yes substance use type: marijuana Beliefs That Will Affect Care: None Communication Ability: Effective Review of Systems Constitutional: no fever, no chills and no fatigue Respiratory: no cough, no chest congestion and no dyspnea Cardiovascular: no chest pain, no chest pain at rest and no dyspnea Gastrointestinal: + abdominal pain, + bloating, + nausea and + problem reported (rectal discharge/odor); no belching, no vomiting, no coffee ground emesis, no hematemesis, no dysphagia, no cramping, no diarrhea/loose stools, no blood in stools and no melena Physical Exam 2 Vital Signs (Past 24 Hours): Last Vital Signs Temp 36.9 C 03/28/18 07:00 Pulse 71 03/28/18 07:00 Resp 18 03/28/18 07:00 BP 122/78 03/28/18 07:00 Pulse Ox 99 03/28/18 07:00 Constitutional: well nourished, cooperative and comfortable; no acute distress Respiratory: normal respiratory effort, lungs clear to auscultation Cardiovascular: RRR, no murmur, no edema Gastrointestinal (Abdomen): Inspection/Auscultation: normal bowel sounds Percussion/Palpation: + abdomen tender (epigastric) and abdomen soft Rectal Exam: + abnormal visual inspection of rectum (failed closure of fistulizing tract) Ostomy in place. No stool but gas in bag Skin: no rashes, warm and dry Results & Data Laboratory Results 03/28/18 03/28/18 03/27/18 Range/Units 05:37 05:37 18:12 WBC 9.04 (4.8-10.8) K/uL RBC 4.61 L (4.7-6.1) M/uL Hgb 11.6 L (14.0-18.0) g/dL Hct 37.0 L (42-52) % MCV 80.3 (80-100) fL MCH 25.2 (25-34) pg MCHC 31.4 L (32-36) g/dL RDW Std Deviation 45.9 (36.4-46.3) fL RDW Coeff of Khadijah 15.6 H (11.5-14.5) % Plt Count 387 (130-400) K/uL MPV 9.1 (7.4-10.4) fL Immature Gran % (Auto) % Neut % (Auto) % Lymph % (Auto) % Mckinley % (Auto) % Eos % (Auto) % Baso % (Auto) % Immature Gran # (Auto) (0.00-0.02) K/uL Neut # (Auto) (1.4-6.5) K/uL Lymph # (Auto) (1.2-3.4) K/uL Mckinley # (Auto) (0.11-0.59) K/uL Eos # (Auto) (0-0.5) K/uL Baso # (Auto) (0-0.2) K/uL ESR (0-14) mm/hr Sodium 139 (136-145) mmol/L Potassium 3.8 (3.5-5.1) mmol/L Chloride 104 (98-107) mmol/L Carbon Dioxide 30 (21-32) mmol/L Anion Gap 5.0 (3-11) BUN 6 L (7-18) mg/dl Creatinine 0.81 (0.6-1.4) mg/dl Est Cr Clr Drug Dosing 135.1 ml/min Est GFR ( Amer) 137.3 Est GFR (Non-Af Amer) 118.4 BUN/Creatinine Ratio 7.2 L (10-20) Glucose 79 (70-99) mg/dl Calcium 8.7 (8.5-10.1) mg/dl Total Bilirubin 0.3 (0.2-1) mg/dl Direct Bilirubin < 0.1 (0-0.2) mg/dl AST 16 (15-37) U/L ALT 19 (12-78) U/L Alkaline Phosphatase 137 H (45-117) U/L C-Reactive Protein (0-0.29) mg/dl Total Protein 6.8 (6.4-8.2) gm/dl Albumin 2.7 L (3.4-5.0) gm/dl Globulin 4.1 H (2.5-4.0) gm/dl Albumin/Globulin Ratio 0.7 L (0.9-2) Amylase Lipase 2152 H (73-393) U/L Urine Color Yellow Urine Appearance Clear (Clear) Urine pH 6.5 (4.5-7.5) Ur Specific Caldwell 1.033 H (1.000-1.030) Urine Protein Negative (Negative) Urine Glucose (UA) Negative (Negative) Urine Ketones Trace H (Negative) Urine Blood Negative (Negative) Urine Nitrite Negative (Negative) Urine Bilirubin Negative (Negative) Urine Urobilinogen Negative (Negative) Ur Leukocyte Esterase Trace H (Negative) Urine WBC (Auto) 1-5 (0-5) /hpf Urine RBC (Auto) 0-4 (0-4) /hpf U Hyaline Cast (Auto) 1-5 (0-5) /lpf U Epithel Cells (Auto) 20-30 H (0-5) /lpf Urine Bacteria (Auto) Negative (Negative) 03/27/18 03/27/18 03/27/18 Range/Units 16:25 16:25 16:25 WBC (4.8-10.8) K/uL RBC (4.7-6.1) M/uL Hgb (14.0-18.0) g/dL Hct (42-52) % MCV (80-100) fL MCH (25-34) pg MCHC (32-36) g/dL RDW Std Deviation (36.4-46.3) fL RDW Coeff of Khadijah (11.5-14.5) % Plt Count (130-400) K/uL MPV (7.4-10.4) fL Immature Gran % (Auto) % Neut % (Auto) % Lymph % (Auto) % Mckinley % (Auto) % Eos % (Auto) % Baso % (Auto) % Immature Gran # (Auto) (0.00-0.02) K/uL Neut # (Auto) (1.4-6.5) K/uL Lymph # (Auto) (1.2-3.4) K/uL Mckinley # (Auto) (0.11-0.59) K/uL Eos # (Auto) (0-0.5) K/uL Baso # (Auto) (0-0.2) K/uL ESR 58 H (0-14) mm/hr Sodium 137 (136-145) mmol/L Potassium 4.0 (3.5-5.1) mmol/L Chloride 105 (98-107) mmol/L Carbon Dioxide 29 (21-32) mmol/L Anion Gap 3.0 (3-11) BUN 6 L (7-18) mg/dl Creatinine 0.77 (0.6-1.4) mg/dl Est Cr Clr Drug Dosing 142.3 ml/min Est GFR ( Amer) 140.1 Est GFR (Non-Af Amer) 120.9 BUN/Creatinine Ratio 7.6 L (10-20) Glucose 105 H (70-99) mg/dl Calcium 9.0 (8.5-10.1) mg/dl Total Bilirubin 0.3 (0.2-1) mg/dl Direct Bilirubin (0-0.2) mg/dl AST 16 (15-37) U/L ALT 25 (12-78) U/L Alkaline Phosphatase 165 H (45-117) U/L C-Reactive Protein 1.64 H (0-0.29) mg/dl Total Protein 8.2 (6.4-8.2) gm/dl Albumin 3.3 L (3.4-5.0) gm/dl Globulin 4.9 H (2.5-4.0) gm/dl Albumin/Globulin Ratio 0.7 L (0.9-2) Amylase 306 H Cancelled Lipase 2746 H (73-393) U/L Urine Color Urine Appearance (Clear) Urine pH (4.5-7.5) Ur Specific Caldwell (1.000-1.030) Urine Protein (Negative) Urine Glucose (UA) (Negative) Urine Ketones (Negative) Urine Blood (Negative) Urine Nitrite (Negative) Urine Bilirubin (Negative) Urine Urobilinogen (Negative) Ur Leukocyte Esterase (Negative) Urine WBC (Auto) (0-5) /hpf Urine RBC (Auto) (0-4) /hpf U Hyaline Cast (Auto) (0-5) /lpf U Epithel Cells (Auto) (0-5) /lpf Urine Bacteria (Auto) (Negative) 03/27/18 Range/Units 16:25 WBC 10.40 (4.8-10.8) K/uL RBC 5.10 (4.7-6.1) M/uL Hgb 12.9 L (14.0-18.0) g/dL Hct 40.9 L (42-52) % MCV 80.2 (80-100) fL MCH 25.3 (25-34) pg MCHC 31.5 L (32-36) g/dL RDW Std Deviation 45.7 (36.4-46.3) fL RDW Coeff of Khadijah 15.6 H (11.5-14.5) % Plt Count 466 H (130-400) K/uL MPV 9.2 (7.4-10.4) fL Immature Gran % (Auto) 0.3 % Neut % (Auto) 59.3 % Lymph % (Auto) 30.1 % Mckinley % (Auto) 6.8 % Eos % (Auto) 3.2 % Baso % (Auto) 0.3 % Immature Gran # (Auto) 0.03 H (0.00-0.02) K/uL Neut # (Auto) 6.17 (1.4-6.5) K/uL Lymph # (Auto) 3.13 (1.2-3.4) K/uL Mckinley # (Auto) 0.71 H (0.11-0.59) K/uL Eos # (Auto) 0.33 (0-0.5) K/uL Baso # (Auto) 0.03 (0-0.2) K/uL ESR (0-14) mm/hr Sodium (136-145) mmol/L Potassium (3.5-5.1) mmol/L Chloride (98-107) mmol/L Carbon Dioxide (21-32) mmol/L Anion Gap (3-11) BUN (7-18) mg/dl Creatinine (0.6-1.4) mg/dl Est Cr Clr Drug Dosing ml/min Est GFR ( Amer) Est GFR (Non-Af Amer) BUN/Creatinine Ratio (10-20) Glucose (70-99) mg/dl Calcium (8.5-10.1) mg/dl Total Bilirubin (0.2-1) mg/dl Direct Bilirubin (0-0.2) mg/dl AST (15-37) U/L ALT (12-78) U/L Alkaline Phosphatase (45-117) U/L C-Reactive Protein (0-0.29) mg/dl Total Protein (6.4-8.2) gm/dl Albumin (3.4-5.0) gm/dl Globulin (2.5-4.0) gm/dl Albumin/Globulin Ratio (0.9-2) Amylase Lipase (73-393) U/L Urine Color Urine Appearance (Clear) Urine pH (4.5-7.5) Ur Specific Caldwell (1.000-1.030) Urine Protein (Negative) Urine Glucose (UA) (Negative) Urine Ketones (Negative) Urine Blood (Negative) Urine Nitrite (Negative) Urine Bilirubin (Negative) Urine Urobilinogen (Negative) Ur Leukocyte Esterase (Negative) Urine WBC (Auto) (0-5) /hpf Urine RBC (Auto) (0-4) /hpf U Hyaline Cast (Auto) (0-5) /lpf U Epithel Cells (Auto) (0-5) /lpf Urine Bacteria (Auto) (Negative)
--- NOTE | 2018-03-28 13:58 | Hospitalist Progress Note ---
Date of Service March 28, 2018 delayed entry date of service as noted above Assessment & Plan (1) Pancreatitis: per admitting service notes C/O epigastric pain with intermittent radiation to back x 2 weeks aggravated with eating. intermittent nausea. Drinks a few times a month, had 2 beers 2 days ago. Denies fever, vomiting, increased loose stool. This is pt's 3rd ER visit, most recent on 03/20/18 with lipase [address] ABD/ PELVIS with no signs abscess or inflammation and refused hospital admission at that time. Today In ER afebrile, vitals stable. WBC: 10. Hgb: 12.9, AST: 16, ALT: 25, Alk Phos: 165, total bili: 0.3. Lipase: 2746. -Lactacted ringers -NPO -continue subutex -dilaudid prn breakthrough pain -cbc, liver/cmp in am -GI consult appreciate recommendations 03/28/18 symptoms improving lipase down from 2600 to 2100s discussed with GI etiology unclear at this time ordered GB US to r/o gallstones from alcohol intake? clear liquids started continue LR monitor (2) Crohns disease: Hx Crohns, regional enteriritis, fistula, perirectal abscess, perianal crohns s/p perianal resection with end colostomy in 10/2017 -has been off Humira since prior to surgery 10/2017 - does not exhibit signs/symptoms of flare up (3) Xyokk-Lsdrazwiu-Vvqfq (WPW) syndrome: Hx WPW -monitor (4) Chronic pain: On subutex from Dr Hernandez at [facility] -continue subutex (5) Tobacco use: -smoking cessation discussed -nicotine patch DVT Prophylaxis -SCDs Follows with Dr Carmichael for routine care discussed with patient and family member at bedside in detail and at length they are agreeable and comfortable with the plan of care Subjective ff up for acute pancreatitis seen resting in bed, comfortable states he feels improved compared to previous day less abdominal pain, no nausea no BMs no chest pain, dyspnea, dizziness ambulating with no problems denies other symptoms Physical Exam 2 Vital Signs (Past 24 Hours): Last Vital Signs Temp 36.5 C 03/28/18 11:32 Pulse 62 03/28/18 11:32 Resp 16 03/28/18 11:32 BP 131/87 03/28/18 11:32 Pulse Ox 96 03/28/18 11:32 Physical Exam: General- oriented x 3, not in distress, speaks in sentences with no effort or accessory muscle use Eyes- anicteric Neck- no JVD Lungs- clear breath sounds bilaterally, no rales/wheezes Heart- normal rate, regular rhythm; no murmurs Abdomen- normal bowel sounds, nondistended, soft, (+) moderate tenderness upper quadrants Extremities- no pretibial edema, no calf tenderness Neuro- alert, oriented x 3; no gross focal neurologic deficits Skin- warm & dry Results & Data Laboratory Results all noted and reviewed
--- NOTE | 2018-03-28 14:44 | Ultrasound Report ---
US gallbladder HISTORY: Pain pancreatitis r/o gallstone COMPARISON: None. FINDINGS: Normal gallbladder. Common bile duct 3 mm. Liver is uniform throughout. Pancreas and right kidney are unremarkable. Slight decrease in pancreatic echogenicity. IMPRESSION: 1. Negative study. 2. Normal caliber bile ducts. The above report was generated using voice recognition software. It may contain grammatical, syntax or spelling errors. Electronically signed by: Cristiano Giblert M.D. 03/28/2018 2:42 PM
[2018-03-28] MEDS: ZOLPIDEM TARTRATE 5 MG TAB PO PRN (20:23)
[2018-03-29] MEDS: HYDROmorphone INJ 0.5 MG/0.5 ML SYR IV PRN ×2 (03:31→07:46)
[2018-03-29] MEDS: LACTATED RINGER'S 1,000 ML IV SCH (05:50)
[2018-03-29] MEDS: BUPRENORPHINE HCL 8 MG SUBL SL SCH (07:46)
[2018-03-29] MEDS: PARoxetine HCl 20 MG TAB PO SCH (07:47)
[2018-03-29] MEDS: NICOTINE 14 MG/24 HR PATCH TD SCH (07:47)
--- NOTE | 2018-03-29 10:03 | Gastroenterology Progress Note ---
Date of Service March 29, 2018 Assessment & Plan (1) Pancreatitis: 32 year old male with crohn's disease s/p proctectomy and end colostomy in 2018 who presents for 2 weeks worth of upper abdominal pain, nausea. Lipase elevated at 2000, LFTs normal. CT 03/20 without any acute findings. DDX discussed : med induced, ETOH induced, gallstones, idiopathic etc. Tolerating clears, clinically improving. Would recommend he have low fat diet as tolerated - Check triglycerides - ABD US to rule out gallstones - ETOH cessation was recommended - Marijuana cessation was recommended - Treat the pancreatitis LR 200 ml/hr Antiemetics PRN Analgesia PRN Low fat diet - In regards to his crohn's disease he has a history of medical noncompliance. He has had recurrence of rectal abscess and now reports continued rectal drainage w/ foul odor despite seton placement and surgical intervention. No fevers - OP GI follow up with Dr. Dave - Will discuss with attending inpatient gen surg eval vs OP colo-rectal GI to sign off.Thank you for allowing us to participate in the care of this patient. Please call with any acute changes, questions or concerns. Please see addendum below with additional recommendation from my supervising physician. (2) Crohns disease: Supervising Physician Co-Signing Physician Notes I saw and evaluated the patient. He notes that his pancreatitis symptoms have resolved. He will follow-up with Dr. Daev as an OP. Subjective Pt was seen and evaluated, chart reviewed. No acute events. Feels a lot better. Wants to go home. No longer has any abd pain. Tolerated clears. no nausea, vomiting. Constitutional: no fever and no chills Respiratory: no cough and no dyspnea Cardiovascular: no chest pain, no radiating jaw, neck or arm pain, no dyspnea and no orthopnea Gastrointestinal: + bloating; no abdominal pain, no belching, no nausea, no vomiting, no coffee ground emesis, no hematemesis, no dysphagia, no cramping, no diarrhea/loose stools, no blood in stools and no melena Physical Exam 2 Vital Signs (Past 24 Hours): Last Vital Signs Temp 36.8 C 03/29/18 07:39 Pulse 66 03/29/18 07:39 Resp 18 03/29/18 07:39 BP 139/72 03/29/18 07:39 Pulse Ox 99 03/29/18 07:39 Constitutional: well nourished, cooperative and comfortable; no acute distress Respiratory: normal respiratory effort, lungs clear to auscultation Cardiovascular: RRR, no murmur, no edema Gastrointestinal (Abdomen): Inspection/Auscultation: normal bowel sounds Percussion/Palpation: + abdomen tender (epigastric) and abdomen soft Skin: no rashes, warm and dry _ (1) Pancreatitis Acute pancreatitis complication: Chronicity: acute Pancreatitis type:
--- NOTE | 2018-03-29 13:20 | Hospitalist Progress Note ---
Date of Service March 29, 2018 Assessment & Plan (1) Pancreatitis: As per admitting service notes C/O epigastric pain with intermittent radiation to back x 2 weeks aggravated with eating. intermittent nausea. Drinks a few times a month, had 2 beers 2 days ago. Denies fever, vomiting, increased loose stool. This is pt's 3rd ER visit, most recent on 03/20/18 with lipase [address] ABD/ PELVIS with no signs abscess or inflammation and refused hospital admission at that time. Today In ER afebrile, vitals stable. WBC: 10. Hgb: 12.9, AST: 16, ALT: 25, Alk Phos: 165, total bili: 0.3. Lipase: 2746. Received IV fluid and intravenous pain medications as needed Has been on n.p.o. and started low-fat diet from this morning feeling Better and wants to be discharged Appreciate GI input and recommendation for discharge today (2) Crohns disease: Hx Crohns, regional enteriritis, fistula, perirectal abscess, perianal crohns s/p perianal resection with end colostomy in 10/2017 -has been off Humira since prior to surgery 10/2017 - does not exhibit signs/symptoms of flare up -Advised to keep appointment with outpatient GI for ongoing Crohn's disease (3) Xbiwt-Srrpowgqo-Hwwgx (WPW) syndrome: Hx WPW -monitor (4) Chronic pain: On subutex from Dr Hernandez at [facility] -continue subutex (5) Tobacco use: -smoking cessation discussed -nicotine patch -Advised to quit smoking and quit using marijuana and/or alcohol DVT Prophylaxis -SCDs Follows with Dr Carmichael for routine care discussed with patient and family member at bedside in detail and at length they are agreeable and comfortable with the plan of care Discharge home today Subjective He is a 32 y/o M with PMH WPW, Crohns, regional enteriritis, fistula, perirectal abscess, perianal crohns s/p perianal resection with end colostomy in 10/2017, depression, anxiety, GERD, tobacco abuse presented to ER with c/o abdominal pain x 2 weeks without any significant nausea and/or vomiting. 03/29 The patient was seen and examined in medical telemetry Has been feeling a lot better today denies any abdominal pain nausea and/or vomiting Started on solid food from today Wants to go home Physical Exam 2 Vital Signs (Past 24 Hours): Last Vital Signs Temp 36.8 C 03/29/18 11:44 Pulse 67 03/29/18 11:44 Resp 18 03/29/18 11:44 BP 158/94 H 03/29/18 11:44 Pulse Ox 98 03/29/18 11:44 Constitutional: WD/WN, vitals as above well nourished, cooperative and comfortable; no acute distress Eyes: EOM intact bilaterally Neck: trachea midline Respiratory: normal respiratory effort, lungs clear to auscultation Cardiovascular: RRR, no murmur, no edema Gastrointestinal (Abdomen): Inspection/Auscultation: normal bowel sounds Percussion/Palpation: abdomen soft Musculoskeletal: no cyanosis or clubbing, extremities motor strength 5/5 Skin: no rashes, warm and dry Neurologic: Alert, awake and oriented x3 Results & Data Medications Administered Current Inpatient Medications Buprenorphine HCl (Subutex) 12 mg SL BID [facility] Stop: 04/26/18 21:07 Last Admin: 03/29/18 07:46 Dose: 12 mg Hydromorphone HCl (Dilaudid) 0.5 mg IV Q3H PRN PRN Reason: Pain Stop: 04/10/18 21:07 Last Admin: 03/29/18 07:46 Dose: 0.5 mg Miscellaneous (Remove Nicoderm Patch) 1 ea N/A HS [facility] Stop: 04/27/18 20:59 Last Admin: 03/28/18 20:23 Dose: Not Given Nicotine (Nicoderm Cq) 14 mg TD QAM [facility] Stop: 04/26/18 21:07 Last Admin: 03/29/18 07:47 Dose: Not Given Ondansetron HCl (Zofran) 4 mg IV Q6H PRN PRN Reason: Nausea Stop: 04/26/18 21:02 Paroxetine HCl (Paxil) 20 mg PO DAILY [facility] Stop: 04/27/18 08:59 Last Admin: 03/29/18 07:47 Dose: 20 mg Zolpidem Tartrate (Ambien) 5 mg PO HS PRN PRN Reason: Sleep Stop: 04/26/18 21:11 Last Admin: 03/28/18 20:23 Dose: 5 mg _ (1) Pancreatitis Acute pancreatitis complication: Chronicity: acute Pancreatitis type:
--- NOTE | 2018-03-30 07:59 | Discharge Summary ---
Date of Service March 30, 2018 Admission HPI Per Admitting Provider Pt is 32 y/o M with PMH WPW, Crohns, regional enteriritis, fistula, perirectal abscess, perianal crohns s/p perianal resection with end colostomy in 10/2017, depression, anxiety, GERD, tobacco abuse presented to ER with c/o abdominal pain x 2 weeks. Pt reports epigastric pain that is constant cramping with intermittent sharp pains that radiate to back. Pain worse with eating. 2 days ago ate at buffet and had increased abdominal pain and nausea. No vomiting. No increased stool or watery stool or hematochezia noted in colostomy bag. Denies fever, AGUIRRE, dizziness, syncope, vision changes, neck pain, CP, SOB, orthopnea, palpitations, cough, sore throat, choking, otalgia, rhinorrhea, paresthesias, weakness, extremity edema, rashes, urinary symptoms. Pt seen in ER on 03/20/18 for abdominal pain and had lipase of 2500, CT ABD/ PELVIS showed post surgical changes of ileocecectomy and partial left hemicolectomy with creation of a left lower quadrant colostomy. No evidence of bowel obstruction. No evidence of abscess. No acute inflammatory changes. Follows with Dr Dave - GI. Admission Exam Per Admitting Provider Vital Signs (Past 24 Hours): Last Vital Signs Temp 36.8 C 03/27/18 16:15 Pulse 72 03/27/18 20:25 Resp 18 03/27/18 20:25 BP 129/75 03/27/18 20:25 Pulse Ox 97 03/27/18 20:25 Physical Exam: General: no distress, WDWN Head: normocephalic, atraumatic Eyes: PERRL, EOM's intact, conjunctiva non-injected, anicteric ENT: normal inspection external ears, nose, mucous membranes moist Neck: supple, trachea midline, non-tender Lungs: clear, no respiratory distress, no wheezing/rhonchi/rales CV: RRR, no murmur, no pretibial edema Abd: normal BS, soft, +colostomy small amount brown stool, +tender epigastric Ext: no cyanosis, no calf tenderness Neuro: A&O x 3, no focal deficits noted, normal affect Skin: warm, dry Principal Diagnosis Acute pancreatitis, Crohn's disease status post terminal ileostomy Discharge Exam Constitutional WD/WN, vitals as above well nourished, cooperative and comfortable; no acute distress Eyes EOM intact bilaterally Neck trachea midline Respiratory normal respiratory effort, lungs clear to auscultation Cardiovascular RRR, no murmur, no edema Gastrointestinal (Abdomen) Inspection/Auscultation: normal bowel sounds Percussion/Palpation: abdomen soft Rectal Exam: + abnormal visual inspection of rectum (failed closure of fistulizing tract) Musculoskeletal no cyanosis or clubbing, extremities motor strength 5/5 Skin no rashes, warm and dry Discharge Data Allergies Allergy/AdvReac Type Severity Reaction Status Date / Time tomato AdvReac Intermediate GI Verified 03/27/18 17:52 SYMPTOMS-CROHN'S ACTS UP Egg Derived AdvReac Mild GI SYMPTOMS Verified 03/27/18 17:52 lactose AdvReac Unknown GI SYMPTOMS Verified 03/27/18 17:52 Consultations 03/27/18 19:27 ED Decision to Admit Stat 03/28/18 07:00 Consult Gastroenterology Routine Ordered Studies 03/28/18 13:50 US gallbladder Routine Hospital Course (1) Pancreatitis: As per admitting service notes C/O epigastric pain with intermittent radiation to back x 2 weeks aggravated with eating. intermittent nausea. Drinks a few times a month, had 2 beers 2 days ago. Denies fever, vomiting, increased loose stool. This is pt's 3rd ER visit, most recent on 03/20/[address] with lipase [address] ABD/ PELVIS with no signs abscess or inflammation and refused hospital admission at that time. Today In ER afebrile, vitals stable. WBC: 10. Hgb: 12.9, AST: 16, ALT: 25, Alk Phos: 165, total bili: 0.3. Lipase: 2746. Received IV fluid and intravenous pain medications as needed Has been on n.p.o. and started low-fat diet from this morning feeling Better and wants to be discharged Appreciate GI input and recommendation for discharge today (2) Crohns disease: Hx Crohns, regional enteriritis, fistula, perirectal abscess, perianal crohns s/p perianal resection with end colostomy in 10/2017 -has been off Humira since prior to surgery 10/2017 - does not exhibit signs/symptoms of flare up -Advised to keep appointment with outpatient GI for ongoing Crohn's disease (3) Kwluf-Eijfbjxjw-Tdhcw (WPW) syndrome: Hx WPW -monitor (4) Chronic pain: On subutex from Dr Hernandez at [facility] -continue subutex (5) Tobacco use: -smoking cessation discussed -nicotine patch -Advised to quit smoking and quit using marijuana and/or alcohol DVT Prophylaxis -SCDs Follows with Dr Carmichael for routine care discussed with patient and family member at bedside in detail and at length they are agreeable and comfortable with the plan of care Discharge home today Total Time Total Time Spent Total Time Spent (In Minutes): 35 minutes Total Time Includes: Examination of the Patient, Discharge Planning, Medication Reconciliation and Communication With Other Providers Discharge Plan Discharge Items Patient Disposition: Home - Self-Care Reason For Visit: PANCREATITIS Discharge Diagnosis: Acute pancreatitis, Crohn's disease status post terminal ileostomy Condition: Fair Discharge Goals: Decrease discomfort, Improve disease control and Improve function Activity: Resume your previous activity Non-emergency contact: Primary Care Provider Call non-emergency contact if: you have any medication questions and your symptoms worsen Follow-up/Referrals: Alfred Carmichael MD [Primary Care Provider] - 04/03/18 10:45 am (Please keep appointment with treasury accountant) Diet: Low Fat Addtl Provider Instructions: Please keep your regular appointments. Quit smoking and quit drinking alcohol. Prescriptions: New nicotine [Nicoderm CQ] 14 mg/24 hr Patch 24 Hour 14 mg Transdermal QAM 30 Days Qty: 30 RF: 0 Continue buprenorphine HCl 8 mg tablet, sublingual 12 mg Sublingual BID RF: 0 paroxetine HCl 20 mg Tablet 20 mg PO DAILY RF: 0 Stand-Alone Forms: [facility] Discharge Orders: Discharge Order (Routine); Ordered 03/29/18 Ordered By: Mandie Dunn Admission Data Admit Date/Time: 03/27/18 20:29 Attending Provider: Mandie Dunn Admit Provider: Mandie Dunn Primary Care Provider: Alfred Carmichael Other Providers: Mandie Dunn ; Maxi Veloz ; Boston Blas Service: Telemetry Other Interventions: Discharge Summary Assessment (RN) Last Done: 03/29/18 13:42 DC Date/Time DO NOT enter until pt leaves facility: 03/29/18 14:45
== END 2018-03-29 14:45 | disposition home or self-care (01) | DRG 439 ==
LOC: ED 15:42 → SUATTDRO 20:29 → 2N 20:29

== ENCOUNTER 2018-07-18 17:25 | Inpatient (IN) ==
--- OUTSIDE RECORDS SUMMARY | 2018-07-18 17:28 | External Medical Summary | Continuity of Care Document ---
:1985 Author Name Flaquito Chacko, Provider Address Unavailable Unavailable , Care Team Providers Name Role Phone Unavailable Unavailable Unavailable PCP, NO Unavailable Unavailable Problems Active medical history not documented Allergies and Adverse Reactions Allergy history not documented Medications Medications not documented Procedures Procedures not documented Immunizations Immunizations not documented Plan of Treatment Planned Observations Planned Goals not documented Results No Known Results Results not documented
[2018-07-18 18:37] LABS: Appearance Urine Clear (Clear); Bilirubin Urine Negative (Negative); Blood Urine Negative (Negative); Color Urine Yellow; Glucose Urine UA Negative (Negative); Ketones Urine Negative (Negative); Leukocyte Esterase Urine Negative (Negative); Nitrite Urine Negative (Negative); Protein Urine Negative (Negative); Urobilinogen Urine Negative (Negative); pH Urine 7.5 (4.5-7.5)
[2018-07-18 18:56] LABS: Basophils # (auto) 0.02 K/uL (0-0.2); Basophils % (auto) 0.2 %; Eosinophils # (auto) 0.43 K/uL (0-0.5); Eosinophils % (auto) 4.2 %; Hematocrit (blood only) 40.2 % (42-52); Hemoglobin 13.4 g/dL (14.0-18.0); Immature Granulocytes # (auto) 0.02 K/uL (0.00-0.02); Immature Granulocytes % (auto) 0.2 %; Lymphocytes # (auto) 2.52 K/uL (1.2-3.4); Lymphocytes % (auto) 24.8 %; Mean Corpuscular Hgb Conc 33.3 g/dL (32-36); Mean Corpuscular Volume 77.5 fL (80-100); Mean Platelet Volume 9.2 fL (7.4-10.4); Monocytes # (auto) 0.93 K/uL (0.11-0.59); Monocytes % (auto) 9.2 %; Neutrophils # (auto) 6.24 K/uL (1.4-6.5); Neutrophils % (auto) 61.4 %; Platelet Count 361 K/uL (130-400); RDW Coefficient of Variation 14.3 % (11.5-14.5); RDW Standard Deviation 40.6 fL (36.4-46.3); Red Blood Count 5.19 M/uL (4.7-6.1); White Blood Count 10.16 K/uL (4.8-10.8)
[2018-07-18 19:18] LABS: Amphetamines+Metham, Urine Neg (Neg); Barbiturates, Urine Neg (Neg); Benzodiazepine, Urine Neg (Neg); Cocaine, Urine Neg (Neg); MDMA (Ecstacy), Urine Neg (Neg); Methadone, Urine Neg (Neg); Opiate, Urine Neg (Neg); Phencyclidine, Urine Neg (Neg)
[2018-07-18 19:19] LABS: Albumin Level 3.3 gm/dl (3.4-5.0); BUN Creatinine Ratio 7.5 (10-20); Calcium 8.7 mg/dl (8.5-10.1); Creatinine Clr Calc Pharmacy 106.7 ml/min; Est GFR (African American) 115.7; Est GFR (Non-African American) 99.8; Potassium 3.5 mmol/L (3.5-5.1)
[2018-07-18 19:27] LABS: Acetaminophen < 2 ug/ml (10-30); Salicylate 3.6 mg/dl (2.8-20)
[2018-07-18 19:29] LABS: Albumin Globulin Ratio 0.7 (0.9-2); Bilirubin,Total 0.4 mg/dl (0.2-1); Globulin 4.6 gm/dl (2.5-4.0); Total Protein 7.9 gm/dl (6.4-8.2)
--- NOTE | 2018-07-18 21:57 | Emergency Department Note ---
Entered by Fox Gomes acting as a scribe for Terry Phillip MD History of Present Illness General Chief complaint: Mental Health Evaluation Stated complaint: MENTAL HEALTH Time Seen by Provider: 07/18/18 17:40 Source: patient History of Present Illness Onset (ago): week(s) (couple) Location: head (depression) Pain Consistency: + other (worsening) Maximum Pain Intensity: 9 Exacerbated By: + other (financial stress and medical issues) Associated symptoms: + denies other symptoms (congestion) and + other (feelings of hopelessness, suicidal ideations prior to arrival); no cough and no fe kiran/chills The patient is a 32 year old M who presents to the Emergency Room with compla ints of worsening depression that started a couple of weeks ago. The patient states that he is in the ED today because his depression is too strong to deal with. He notes that his depression started several years ago but was recently exacerbated due to financial stress and medical issues. He states that in October 2017, he underwent surgery for permanent placement of a colostomy bag. He adds that the colostomy bag was placed due to a history of Crohns disease and a rectal abscess. He states that the other source of his depression is from financial stress and feeling that he cannot provide for his family. 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 He states that due to this, he is trying to find another job. He adds that he has been unable to find another job. He notes that he has 6 children. He adds that he lives with his 3 children that he had with his current girlfriend. He states that he last had thoughts of hurting himself earlier today. He denies having a plan but notes that he does not want to have to deal with the stress anymore. He states that he was admitted to [facility] 2 years ago for de pression. He adds that a couple months ago he tried to hurt himself by tying a rope around his neck. He states that he is currently experiencing feelings of hopelessness. He denies experiencing hearing voices, fever, chills, coughing, and congestion. He also denies a regular use of alcohol and marijuana. He states that he smokes cigarettes regularly. He notes that he was prescribed Subutex for pain. He adds that he has not been taking his other medications that were prescribed to his by his PCP. Home Medications Home Medications Medication Instructions Recorded Confirmed Type buprenorphine HCl 12 mg SUBLINGUAL BID 03/17/18 07/18/18 History Allergies Allergy/AdvReac Type Severity Reaction Status Date / Time tomato AdvReac Intermediate GI Verified 03/27/18 17:52 SYMPTOMS-CROHN'S ACTS UP Egg Derived AdvReac Mild GI SYMPTOMS Verified 03/27/18 17:52 lactose AdvReac Unknown GI SYMPTOMS Verified 03/27/18 17:52 Past Med/Surg History Medical History Colostomy in place (Chronic) Crohns disease (Chronic) Gtkuh-Qqugfxmhc-Adwzu (WPW) syndrome (Chronic) GERD (gastroesophageal reflux disease) (Chronic) Marfan's disease (Chronic) Exacerbation of Crohn's disease (Resolved) Alcohol abuse (Resolved) Cannabis abuse (Chronic) Cellulitis (Resolved) Cocaine abuse (Resolved) Depression (Chronic) Generalized anxiety disorder (Chronic) Sunitha-rectal abscess (Resolved) Abdominal pain, acute, generalized (Inactive) Crohn's disease (Inactive) Surgical History History of prior ablation treatment (Chronic) H/O colonoscopy (Chronic) History of partial colectomy (Chronic) Family History Other Ulcerative colitis Social History Preferred Language: Moroccan Communication Ability: 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 and A total of 10 systems reviewed and were otherwise negative Physical Exam Vital Signs Vital Signs - 24 hr 07/18/18 17:33 Temperature 37 C Temperature Source Oral Sepsis Recent Fever Within 48 Hours No Sepsis New/Unexplained Change in Mental Status No Sepsis Action Taken by Nursing No Action Required Pulse Rate 87 Pulse Rhythm Regular Pulse Strength Normal Respiratory Rate 16 Respiratory Effort / Characteristics Non-Labored Spontaneous Respiratory Depth Normal Respiratory Pattern Regular Blood Pressure 128/87 Blood Pressure Mean 100 Blood Pressure Position Sitting Pulse Oximetry 99 Oxygen Delivery Method Room Air GENERAL: Awake, alert, melancholy appearing, no distress HENT: Normocephalic, atraumatic. TM's normal. Oropharynx unremarkable. EYES: PERRL. EOMI. Normal conjunctiva. Sclera non-icteric. NECK: Supple. No nuchal rigidity. FROM. No JVD or bruit. RESPIRATORY: CTAB CARDIAC: RRR. ABDOMEN: Soft, non distended. No tenderness to palpation. No rebound or guarding. No masses. Ostomy in place in left lower quadrant which is clean, dry, and intact. RECTAL: Deferred. MUSCULOSKELETAL: Unremarkable. No edema. No discoloration. Gross motor strength symmetric. NEURO: Normal sensorium. No sensory or motor deficits noted. SKIN: No rash or jaundice noted. LYMPH: No adenopathy PSYCH: Positive depression, hopelessness and intermittent suicidal ideations. Flat affect. Course 1739: The patient was evaluated in room A8. A complete history and physical exam was performed. 2149: The patient was medically cleared. 2224: The patient is being evaluated by [address] [facility]. Administered Medications Discontinued Medications Buprenorphine HCl (Subutex) 12 mg SL NOW STA Stop: 07/18/18 22:27 Last Admin: 07/18/18 22:57 Dose: 12 mg Documented by: [id number] Medical Decision Making Differential Diagnosis Differential diagnosis includes: mood disorder, infection, hypoglycemia, electrolyte abnormalities, cardiac sources, intracerebral event, toxicologic, neurologic, as well as others were entertained. Medical Records Attestation: I reviewed the patient's medical records. Home Medications Current Medication List: was personally reviewed by or Laboratory Data Attestation: I reviewed the patient's lab results. Result diagrams: 07/18/18 18:41 07/18/18 18:41 Lab Results 07/18/18 07/18/18 07/18/18 Range/Units 18:08 18:08 18:41 WBC 10.16 (4.8-10.8) K/uL RBC 5.19 (4.7-6.1) M/uL Hgb 13.4 L (14.0-18.0) g/dL Hct 40.2 L (42-52) % MCV 77.5 L (80-100) fL MCH 25.8 (25-34) pg MCHC 33.3 (32-36) g/dL RDW Std Deviation 40.6 (36.4-46.3) fL RDW Coeff of Khadijah 14.3 (11.5-14.5) % Plt Count 361 (130-400) K/uL MPV 9.2 (7.4-10.4) fL Immature Gran % (Auto) 0.2 % Neut % (Auto) 61.4 % Lymph % (Auto) 24.8 % [place] % (Auto) 9.2 % Eos % (Auto) 4.2 % Baso % (Auto) 0.2 % Immature Gran # (Auto) 0.02 (0.00-0.02) K/uL Neut # (Auto) 6.24 (1.4-6.5) K/uL Lymph # (Auto) 2.52 (1.2-3.4) K/uL [place] # (Auto) 0.93 H (0.11-0.59) K/uL Eos # (Auto) 0.43 (0-0.5) K/uL Baso # (Auto) 0.02 (0-0.2) K/uL Sodium (136-145) mmol/L Potassium (3.5-5.1) mmol/L Chloride (98-107) mmol/L Carbon Dioxide (21-32) mmol/L Anion Gap (3-11) BUN (7-18) mg/dl Creatinine (0.6-1.4) mg/dl Est Cr Clr Drug Dosing ml/min Est GFR ( Amer) Est GFR (Non-Af Amer) BUN/Creatinine Ratio (10-20) Glucose (70-99) mg/dl Calcium (8.5-10.1) mg/dl Total Bilirubin (0.2-1) mg/dl AST (15-37) U/L ALT (12-78) U/L Alkaline Phosphatase (45-117) U/L Total Protein (6.4-8.2) gm/dl Albumin (3.4-5.0) gm/dl Globulin (2.5-4.0) gm/dl Albumin/Globulin Ratio (0.9-2) TSH (0.300-4.500) uIu/ml Urine Color Yellow Urine Appearance Clear (Clear) Urine pH 7.5 (4.5-7.5) Ur Specific [place] 1.010 (1.000-1.030) Urine Protein Negative (Negative) Urine Glucose (UA) Negative (Negative) Urine Ketones Negative (Negative) Urine Blood Negative (Negative) Urine Nitrite Negative (Negative) Urine Bilirubin Negative (Negative) Urine Urobilinogen Negative (Negative) Ur Leukocyte Esterase Negative (Negative) Salicylates (2.8-20) mg/dl Urine Opiates Screen Neg (Neg) Ur Methadone, Qual Neg (Neg) Acetaminophen (10-30) ug/ml Urine Barbiturates Neg (Neg) Ur Phencyclidine (PCP) Neg (Neg) U Amphetamin/Meth Scrn Neg (Neg) MDMA (Ecstasy) Screen Neg (Neg) U Benzodiazepines Scrn Neg (Neg) Ur Cocaine Metabolite Neg (Neg) U Marijuana (THC) Screen Pos H (Neg) Ethyl Alcohol mg/dL (0-3) mg/dl 07/18/18 07/18/18 07/18/18 Range/Units 18:41 18:41 18:41 WBC (4.8-10.8) K/uL RBC (4.7-6.1) M/uL Hgb (14.0-18.0) g/dL Hct (42-52) % MCV (80-100) fL MCH (25-34) pg MCHC (32-36) g/dL RDW Std Deviation (36.4-46.3) fL RDW Coeff of Khadijah (11.5-14.5) % Plt Count (130-400) K/uL MPV (7.4-10.4) fL Immature Gran % (Auto) % Neut % (Auto) % Lymph % (Auto) % [place] % (Auto) % Eos % (Auto) % Baso % (Auto) % Immature Gran # (Auto) (0.00-0.02) K/uL Neut # (Auto) (1.4-6.5) K/uL Lymph # (Auto) (1.2-3.4) K/uL [place] # (Auto) (0.11-0.59) K/uL Eos # (Auto) (0-0.5) K/uL Baso # (Auto) (0-0.2) K/uL Sodium 135 L (136-145) mmol/L Potassium 3.5 (3.5-5.1) mmol/L Chloride 101 (98-107) mmol/L Carbon Dioxide 29 (21-32) mmol/L Anion Gap 5.0 (3-11) BUN 7 (7-18) mg/dl Creatinine 1.00 (0.6-1.4) mg/dl Est Cr Clr Drug Dosing 106.7 ml/min Est GFR ( Amer) 115.7 Est GFR (Non-Af Amer) 99.8 BUN/Creatinine Ratio 7.5 L (10-20) Glucose 118 H (70-99) mg/dl Calcium 8.7 (8.5-10.1) mg/dl Total Bilirubin 0.4 (0.2-1) mg/dl AST 16 (15-37) U/L ALT 19 (12-78) U/L Alkaline Phosphatase 116 (45-117) U/L Total Protein 7.9 (6.4-8.2) gm/dl Albumin 3.3 L (3.4-5.0) gm/dl Globulin 4.6 H (2.5-4.0) gm/dl Albumin/Globulin Ratio 0.7 L (0.9-2) TSH 0.801 (0.300-4.500) uIu/ml Urine Color Urine Appearance (Clear) Urine pH (4.5-7.5) Ur Specific [place] (1.000-1.030) Urine Protein (Negative) Urine Glucose (UA) (Negative) Urine Ketones (Negative) Urine Blood (Negative) Urine Nitrite (Negative) Urine Bilirubin (Negative) Urine Urobilinogen (Negative) Ur Leukocyte Esterase (Negative) Salicylates 3.6 (2.8-20) mg/dl Urine Opiates Screen (Neg) Ur Methadone, Qual (Neg) Acetaminophen < 2 L (10-30) ug/ml Urine Barbiturates (Neg) Ur Phencyclidine (PCP) (Neg) U Amphetamin/Meth Scrn (Neg) MDMA (Ecstasy) Screen (Neg) U Benzodiazepines Scrn (Neg) Ur Cocaine Metabolite (Neg) U Marijuana (THC) Screen (Neg) Ethyl Alcohol mg/dL < 3.0 (0-3) mg/dl Blood Pressure Blood Pressure Findings: Normal blood pressure Blood Pressure Disposition: did not require urgent referral MDM Narrative The patient is a 32 y/o gentleman with a pmhx of Crohn's disease s/p colostomy 10/2017, depression, chronic pain on subutex who presents to the emergency department with worsening depression and recurrent SI over the past week per HP I. Patient is interested in voluntary inpatient treatment. On arrival the patient is in NAD, AFVSS. Patient is melancholy appearing with flat affect. He reports recurring SI and persistent hopelessness. He has a history of admission for depression and previously even went so far to put a rope around his neck to kill himself but was talked out of it by his partner. Denies any recent medical complaints. WBC and platelets wnl. H/H similar to prior range of values. Chemistry without acidosis. LFTs and electrolytes unremarkable. UA negative for infection. Drug screen positive for THC. Patient was medically cleared. Accepted to for voluntary admission. 201 signed. Impression & Plan Suicidal ideation, Depression Discharge Plan Visit Data *Final* Discharge Date/Time: 07/19/18 00:15 Chief Complaint: Mental Health Evaluation Stated Complaint: MENTAL HEALTH ED Provider: Terry Phillip Discharge Problem: Suicidal ideation, Depression Patient Disposition: Admitted As Inpatient Discharge Instructions Interventions: ED Discharge Assessment Last Done: 07/19/18 00:15 The scribe's documentation has been prepared under my direction and personally reviewed by me in its entirety. I confirm that the note above accurately reflects all work, treatment, procedures, and medical decision making performed by me.
[2018-07-18] MEDS ORDERED: BUPRENORPHINE HCL 8 MG SUBL SL STA (22:26)
[2018-07-18] MEDS ORDERED: BISMUTH SUBSALICYLATE PER ML OMNICELL CHARGE PO PRN (22:47)
[2018-07-18] MEDS ORDERED: NICOTINE POLACRILEX 2 MG GUM MT PRN (22:47)
[2018-07-18] MEDS ORDERED: ALUMINUM/MAGNESIUM SUSP 30 ML UDC PO PRN (22:47)
[2018-07-18] MEDS ORDERED: MAGNESIUM HYDROXIDE SUSP 30 ML UDC PO PRN (22:47)
[2018-07-18] MEDS ORDERED: ACETAMINOPHEN 325 MG TAB PO PRN (22:47)
[2018-07-18] MEDS ORDERED: SODIUM CHLORIDE 0.65% NA SOLN 45 ML (OCEAN) PRN (22:47)
--- NOTE | 2018-07-19 08:17 | History & Physical ---
Date of Service July 19, 2018 Impression / Recommendations Impression 32-year-old male with a history of recurrent depression, generalized anxiety disorder, polysubstance abuse, and Crohn's disease who presented with worsening mood and suicidal ideation in the context of multiple stressors and was admitted voluntarily. He submitted a 72-hour notice within 24 hours of admission, but there has been no change in his status and he remains at risk of suicide if discharged prematurely. He has not been in outpatient mental health treatment for over a year, but in the past has been prescribed antidepressant medication by his PCP. He has never followed through with recommendations for substance abuse treatment or therapy, which were recommended during both of his 2 previous hospitalizations here. He is now taking Subutex for chronic pain, and smoking marijuana regularly. He agreed to a trial of fluoxetine, we will need a family meeting with his girlfriend and referrals for outpatient mental health and substance abuse treatment. (1) Suicidal ideation: 07/19 - Continue voluntary hospitalization. - Suicide checks for safety. - Encourage group attendance and participation, work on healthy coping skills and safety plan. - Family meeting with girlfriend whom he lives with, confirm no access to guns, reviewed recommendations for abstinence from substances, and review safety plan with her. Present on Admission?: Yes (2) Depression: 07/19 - H/o recurrent depression and reports worsening depression for the past month with SI and suicide attempt 1-2 mos ago. - Reviewed recommendations for antidepressant medication to target depression and anxiety. Had a good response to citalopram in the past, but doesn't want to resume. Discussed trial of fluoxetine or SNRI, and he agreed to trial of fluoxetine. Reviewed risks, benefits and side effects and what to respect form medication. Will start 20mg daily. - Reviewed behavioral strategies to improve mood, including physical activity, good nutrition, therapy. - Recommend OP therapy, which he is declining as he doesn't feel he has time. -Patient submitted a 72-hour notice requesting to be discharged from treatment, but reports that part of him wants to be here and knows he needs help, will part of him wants to leave. Continue to attempt to align with the part of him that desires to get well, encourage him to engage fully in treatment and make the most of his hospitalization. He is not safe for discharge given the severity of his symptoms, suicidality, recent suicide attempt, and the fact that he is not not in treatment currently and nothing has been done to address his risk factors. Active/Remission status: currently active Depression Type: major depressive disorder Major depression episode severity: severe Major depression recurrence: recurrent Psychotic features: without psychotic features Qualified Code(s): F33.2 - Major depressive disorder, recurrent severe without psychotic features Present on Admission?: Yes (3) Cannabis abuse: 07/19 - Reviewed risks of substance abuse, including worsening of mood, anxiety, psychosis, financial and legal implications. He is refusing to sign an MAGDALENO for his PO. - F/u at [facility] for substance abuse treatment. Present on Admission?: Yes (4) Generalized anxiety disorder: 07/19 - Start SSRI as above, offer hydroxyzine as needed. - Work on relaxation techniques and behavioral management of anxiety. Present on Admission?: Yes (5) Tobacco use: 07/19 - Offer nicotine patch/gum prn cravings. Present on Admission?: Yes (6) Colostomy in place: 07/19 - Continue colostomy care. Present on Admission?: Yes (7) Crohns disease: 07/19 - Has not seen GI doctor in 8 months (goes to [facility]), and states he was supposed to resume medications after his surgery last fall, but has only see nurses when he goes to GI appointments and they have not been resumed. Schedule f/u with Dr. Dvae. -Patient reports he has on Subutex for chronic abdominal pain. Does confirmed with Dr. Gordillo's office as 8 mg 3 times daily; will continue here and arrange follow-up. Send records to coordinate care. Present on Admission?: Yes (8) Xdndd-Ycppckkhv-Yfibn (WPW) syndrome: 07/19 - F/u with PCP and cardiology as needed. Present on Admission?: Yes Inventory Assets Strengths: responsible for children, has housing Needs: sobriety/substance abuse treatment, outpatient mental health treatment, regular employment Risk Factors Assessment Male: Yes : No Do You Have Access To A Gun?: No Health Problems: Yes Mental Health Diagnoses: Yes Substance Use Disorders: Yes Previous Attempt: Yes Family History of Suicide: No Previous Psychiatric Hospitalization: Yes Hopelessness: Yes Smoker: Yes Protective Factors Assessment Christian Beliefs: No : No Responsible for Young Children: Yes Employed: No ("Stopped job today at [employer]") Stable Relationships: Yes Supportive Family: No Good Rapport with Provider: No Psychiatric History Identifying Data RENEA MOROCHO is a 32-year-old M who currently lives in [place] with his girlfriend and 3 children and was admitted on 07/18/18 22:47 on a 201 voluntary commitment for depression and SI. He submitted a 72-hour notice requesting to withdraw from treatment within 24 hours of admission. Chief Complaint "Better to be doing it here than trying to do it on my own". History of Present Illness The patient presented to the ER with his girlfriend last evening (07/18/2018) reporting worsening depression and suicidality. He endorsed multiple stressors, including unemployment, and ability to find a job, and health issues with a colostomy due to Crohn's disease. His girlfriend reported she has never seen him this depressed. He reported feeling inadequate, as he cannot provide for his 4 children, 2 of whom live with him, and the other 2 live with their respective mothers. He reported helplessness, hopelessness, and not wanting to be alive. He admitted to a suicide attempt a couple of months ago when he wrapped a string around his neck and attempted to strangle himself, but his girlfriend found him and removed the string. He did not seek treatment at that time, but reported a history of 2 previous inpatient hospitalizations here. He said he has no outpatient mental health providers, but takes Suboxone prescribed by Dr. Hernandez. He is on probation, but refused to sign a release for his p.o. He reported he quit his job on the day of presentation, because they were not giving him enough hours. He reported increased anxiety, decreased sleep and appetite. This morning he submitted a 72 hour notice requesting to withdraw from treatment. On my assessment, he reports he has continued to struggle with maintaining employment and supporting his family, as well as with his yo issues, and had surgery for a nonreversible colostomy last fall. 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 He reports suicidal thoughts occur "whenever I get really stressed, like when they took my hours away," or when he doesn't have enough money. He reports "I'm tired of dealing with this, no matter how hard I try, I just get push back." He says he didn't want to be hospitalized, and that is why he submitted a 72 hour notice this morning, but then says he came here because "I know the program, it helped me before, that's why I came here." He says he asked to leave this morning because "I have other issues I need to deal with, they're not being met at all." He is upset that his colostomy bag was full yesterday and no one has helped him to empty it, and that his Suboxone wasn't ordered this morning (as done was not yet confirmed). He is also upset that his PCP wouldn't prescribe different psychotropic medication for him, stating he told him a couple months ago that the citalopram wasn't working, and he wanted something else. He is unable to clarify if he stopped the citalopram then or earlier (gives conflicting reports). He says he "needs something stronger, to be to the level of my medications." Past Psychiatric History Previous Psych History: PCP Dr. Carmichael previously prescribed antidepressants (2 SSRIs, which the patient said were ineffective and made him tired. He has not been on psychotropic medications for 1 year). Patient was hospitalized here in 10/2010 and again in 01/2016 for recurrent depression, generalized anxiety disorder, and polysubstance abuse (alcohol, cannabis, cocaine). Current Psychiatric Diagnosis: Depression Outpatient Services: Nurse practitioner Melina Alvarado prescribes Suboxone - (Chalino Dooley), states he also sees Dr. Hernandez in [place] No current mental health treatment, but reports having an intake with a nurse practitioner at [facility] in [place] on 07/21/2018. Do You Have Access To A Gun?: No History of Previous Suicide Attempt: Yes Describe Attempts in the Past: "Had a shoe string around my neck 1-1/2 months ago" Past Medication Trials: Paroxetine Citalopram -on it at the time of 2010 hospitalization, and stayed on it until 2015 when he stopped it because he felt better and did not think he needed it anymore. Escitalopram - doesn't recall response Lorazepam Hydroxyzine Allergies Allergy/AdvReac Type Severity Reaction Status Date / Time tomato AdvReac Intermediate GI Verified 03/27/18 17:52 SYMPTOMS-CROHN'S ACTS UP Egg Derived AdvReac Mild GI SYMPTOMS Verified 03/27/18 17:52 lactose AdvReac Unknown GI SYMPTOMS Verified 03/27/18 17:52 Home Medications Home Medications Medication Instructions Recorded Confirmed Type buprenorphine HCl 8 mg SUBLINGUAL TID 03/17/18 07/19/18 History Family History Family History of: Depression (Mother) and Alcoholism/Drug Abuse (Mother) Alcohol History Hx of Alcohol Use Over the Past 12 Months: Yes ("Socially") AUDIT Total Score: 3 Smoking Use tobacco type: cigarettes Smoking Status: Current every day smoker Substance History Hx of Prescription Med Misuse Over the Past 12 Months: No Hx of Over the Counter Med Misuse Over the Past 12 Months: No Hx of Inhalent Misuse Over the Past 12 Months: No Hx of Organic Substance Use Over the Past 12 Months: Yes (Marijuana -UDS positive, vague about amount and frequency of use. 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 B gonzález smoking cigarettes and marijuana and drinking alcohol around age 18, with regular marijuana use since then. Has abused alcohol and cocaine, with numerous legal problems as a result of substance abuse, as well as health and relationship problems. Was using cocaine for 4 months at the time of his last hospitalization in 2016. During hospitalization in 2010, inpatient rehab was recommended, but he refused substance abuse treatment. Personal History Living Arrangements: Home Living Arrangements Comments: With girlfriend in their 3 children in [place], [place] Born In: [place], [place] Childhood: Raised by maternal grandmother. 9 siblings, 6 brothers and 3 sisters. Never had any contact with his biological father. His mother was abusing drugs and when he was 16 he and his siblings were split up and placed into the custody of other people. Highest Grade Completed: High School Graduate Employment Status: Unemployed (Has not maintained stable employment) Number Of Children: 4 (although records from last hospitalization report 6 children) Beliefs That Will Affect Care: None Current Legal Problems: Yes Legal Problems Comment: History of multiple arrests on drug charges, trespass, burglary, harassment, and multiple DUIs. 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 Hx Legal Problems: Yes Hx Traumatic Life Events: No Patient History Medical History Colostomy in place (Chronic) Crohns disease (Chronic) Uxpac-Vimamrymf-Raqvz (WPW) syndrome (Chronic) GERD (gastroesophageal reflux disease) (Chronic) Marfan's disease (Chronic) Exacerbation of Crohn's disease (Resolved) Alcohol abuse (Resolved) Cannabis abuse (Chronic) Cellulitis (Resolved) Cocaine abuse (Resolved) Depression (Chronic) Generalized anxiety disorder (Chronic) Sunitha-rectal abscess (Resolved) Abdominal pain, acute, generalized (Inactive) Crohn's disease (Inactive) Surgical History History of prior ablation treatment (Chronic) H/O colonoscopy (Chronic) History of partial colectomy (Chronic) Family History Other Ulcerative colitis Social History Preferred Language: Nigerien Communication Ability: Effective Human Resources Project Coordinator Required: No Beliefs That Will Affect Care: None Current Living Situation: Spouse and Family Feels Safe at Home: Yes Smoking Status: Current every day smoker Tobacco Type: cigarettes Cigarettes Per Day: 15 Second Hand Exposure: No Hx Alcohol Use: Yes Hx Substance Use: Yes substance use type: marijuana Review of Systems Review of Systems: All systems reviewed & are unremarkable except as noted in HPI & below colostomy in place Physical Exam Psychiatric: Orientation: alert and oriented x 3 partially cooperative Apperance: appropriately dressed, appropriately groomed and appeared stated age Thin male, hair in dreads, trimmed facial hair, nose pierced. Eye Contact: + fair eye contact Motor Behavior: steady gait and station Restless, shifting in chair Speech: normal rate/rhythm/volume of speech Affect: + depressed affect and + anxious affect Mood: + depressed mood, + anxious mood and + irritable mood Thought Process: goal directed thought process Thought Content: + cognitive distortions, + hopelessness, + worthlessness and + guilt Suicidal Thoughts: + reports suicidal thoughts Homicidal Thoughts: denies homicidal thoughts Hallucinations: no auditory hallucinations Cognition: recent memory grossly intact, attention grossly intact and language grossly intact Estimated Intelligence: consistent with education level Insight: + impaired insight Judgement: + impaired judgement Vital Signs (Past 24 Hours): Last Vital Signs Temp 36.9 C 07/19/18 06:47 Pulse 88 07/19/18 06:48 Resp 16 07/19/18 06:47 BP 115/79 07/19/18 06:48 Pulse Ox 97 07/19/18 00:38 Exam Statement: A physical exam was performed in the ER prior to admission to the unit by Dr. Terry Phillip. I accept that physical as correct/medical clearance for the inpatient physical exam. Results & Data Laboratory Results Laboratory Results - last 24 hr 07/18/18 07/18/18 07/18/18 18:08 18:08 18:08 WBC RBC Hgb Hct MCV MCH MCHC RDW Std Deviation RDW Coeff of Khadijah Plt Count MPV Immature Gran % (Auto) Neut % (Auto) Lymph % (Auto) [place] % (Auto) Eos % (Auto) Baso % (Auto) Immature Gran # (Auto) Neut # (Auto) Lymph # (Auto) Licking # (Auto) Eos # (Auto) Baso # (Auto) Sodium Potassium Chloride Carbon Dioxide Anion Gap BUN Creatinine Est Cr Clr Drug Dosing Est GFR ( Amer) Est GFR (Non-Af Amer) BUN/Creatinine Ratio Glucose Calcium Total Bilirubin AST ALT Alkaline Phosphatase Total Protein Albumin Globulin Albumin/Globulin Ratio TSH Urine Color Yellow Urine Appearance Clear Urine pH 7.5 Ur Specific Cass 1.010 Urine Protein Negative Urine Glucose (UA) Negative Urine Ketones Negative Urine Blood Negative Urine Nitrite Negative Urine Bilirubin Negative Urine Urobilinogen Negative Ur Leukocyte Esterase Negative Salicylates Urine Opiates Screen Neg Ur Methadone, Qual Neg Acetaminophen Urine Barbiturates Neg Ur Phencyclidine (PCP) Neg U Amphetamin/Meth Scrn Neg MDMA (Ecstasy) Screen Neg U Benzodiazepines Scrn Neg Ur Cocaine Metabolite Neg U Marijuana (THC) Screen Pos H U Marijuana THC Carboxy Pending Ethyl Alcohol mg/dL 07/18/18 07/18/18 07/18/18 18:41 18:41 18:41 WBC 10.16 RBC 5.19 Hgb 13.4 L Hct 40.2 L MCV 77.5 L MCH 25.8 MCHC 33.3 RDW Std Deviation 40.6 RDW Coeff of Khadijah 14.3 Plt Count 361 MPV 9.2 Immature Gran % (Auto) 0.2 Neut % (Auto) 61.4 Lymph % (Auto) 24.8 Licking % (Auto) 9.2 Eos % (Auto) 4.2 Baso % (Auto) 0.2 Immature Gran # (Auto) 0.02 Neut # (Auto) 6.24 Lymph # (Auto) 2.52 Licking # (Auto) 0.93 H Eos # (Auto) 0.43 Baso # (Auto) 0.02 Sodium 135 L Potassium 3.5 Chloride 101 Carbon Dioxide 29 Anion Gap 5.0 BUN 7 Creatinine 1.00 Est Cr Clr Drug Dosing 106.7 Est GFR ( Amer) 115.7 Est GFR (Non-Af Amer) 99.8 BUN/Creatinine Ratio 7.5 L Glucose 118 H Calcium 8.7 Total Bilirubin 0.4 AST 16 ALT 19 Alkaline Phosphatase 116 Total Protein 7.9 Albumin 3.3 L Globulin 4.6 H Albumin/Globulin Ratio 0.7 L TSH 0.801 Urine Color Urine Appearance Urine pH Ur Specific Cass Urine Protein Urine Glucose (UA) Urine Ketones Urine Blood Urine Nitrite Urine Bilirubin Urine Urobilinogen Ur Leukocyte Esterase Salicylates 3.6 Urine Opiates Screen Ur Methadone, Qual Acetaminophen < 2 L Urine Barbiturates Ur Phencyclidine (PCP) U Amphetamin/Meth Scrn MDMA (Ecstasy) Screen U Benzodiazepines Scrn Ur Cocaine Metabolite U Marijuana (THC) Screen U Marijuana THC Carboxy Ethyl Alcohol mg/dL 07/18/18 18:41 WBC RBC Hgb Hct MCV MCH MCHC RDW Std Deviation RDW Coeff of Khadijah Plt Count MPV Immature Gran % (Auto) Neut % (Auto) Lymph % (Auto) [place] % (Auto) Eos % (Auto) Baso % (Auto) Immature Gran # (Auto) Neut # (Auto) Lymph # (Auto) Licking # (Auto) Eos # (Auto) Baso # (Auto) Sodium Potassium Chloride Carbon Dioxide Anion Gap BUN Creatinine Est Cr Clr Drug Dosing Est GFR ( Amer) Est GFR (Non-Af Amer) BUN/Creatinine Ratio Glucose Calcium Total Bilirubin AST ALT Alkaline Phosphatase Total Protein Albumin Globulin Albumin/Globulin Ratio TSH Urine Color Urine Appearance Urine pH Ur Specific Cass Urine Protein Urine Glucose (UA) Urine Ketones Urine Blood Urine Nitrite Urine Bilirubin Urine Urobilinogen Ur Leukocyte Esterase Salicylates Urine Opiates Screen Ur Methadone, Qual Acetaminophen Urine Barbiturates Ur Phencyclidine (PCP) U Amphetamin/Meth Scrn MDMA (Ecstasy) Screen U Benzodiazepines Scrn Ur Cocaine Metabolite U Marijuana (THC) Screen U Marijuana THC Carboxy Ethyl Alcohol mg/dL < 3.0 Current Inpatient Medications Current Inpatient Medications: Current Inpatient Medications Acetaminophen (Tylenol) 650 mg PO Q4H PRN PRN Reason: Headache or Minor Fever Stop: 08/17/18 22:46 Al Hydrox/Mg Hydrox/Simethicone (Maalox) 30 ml PO Q4H PRN PRN Reason: GI Upset Stop: 08/17/18 22:46 Bismuth Subsalicylate (Kaopectate) 15 ml PO PRN PRN PRN Reason: Loose Stool Stop: 08/17/18 22:46 Hydroxyzine HCl (Vistaril) 50 mg PO HSZ PRN PRN Reason: Insomnia Stop: 08/17/18 22:46 Hydroxyzine HCl (Vistaril) 25 mg PO Q4H PRN PRN Reason: Anxiety Stop: 08/17/18 22:46 Magnesium Hydroxide (Milk Of Magnesia) 30 ml PO DAILY PRN PRN Reason: Heartburn Stop: 08/17/18 22:46 Nicotine (Nicoderm Cq) 21 mg TD QAM RHONDA Stop: 08/18/18 08:59 Nicotine Polacrilex (Nicorette 2mg) 1 piece MT UD PRN PRN Reason: Nicotine Withdrawal Stop: 08/17/18 22:46 Sodium Chloride ([place] Nasal) 1 - 2 sprays NA PRN PRN PRN Reason: Nasal Dryness/Congestion Stop: 08/17/18 22:46 CPT Code CPT Code Initial Hospital Care: 60201
[2018-07-19] MEDS: BUPRENORPHINE HCL 8 MG SUBL SL SCH ×3 (11:48→22:07)
[2018-07-19] MEDS: FLUOXETINE HCL 20 MG CAP PO SCH (11:48)
[2018-07-19] MEDS: NICOTINE 21 MG/24 HR TDSY TD SCH (11:49)
[2018-07-20] MEDS: FLUOXETINE HCL 20 MG CAP PO SCH (09:09)
[2018-07-20] MEDS: BUPRENORPHINE HCL 8 MG SUBL SL SCH ×3 (09:18→21:32)
[2018-07-20] MEDS: NICOTINE 21 MG/24 HR TDSY TD SCH (09:24)
--- NOTE | 2018-07-20 11:55 | Psychiatric Progress Note ---
Date of Service July 20, 2018 Impression / Recommendations Impression Pt reporting some improvement in mood, but admits that he is concerned about ability to maintain this stability. Pt believes his anxiety is improving somewhat, but feels he continues to deal with depression. Pt is agreeable to titration of fluoxetine to 40mg daily to further target anxiety and depression. Pt reports continued inability to contract for safety outside of the hospital setting. Inpatient psychiatric treatment is medically necessary at this time. (1) Suicidal ideation: 07/19 - Continue voluntary hospitalization. - Suicide checks for safety. - Encourage group attendance and participation, work on healthy coping skills and safety plan. - Family meeting with girlfriend whom he lives with, confirm no access to guns, reviewed recommendations for abstinence from substances, and review safety plan with her. (2) Depression: 07/19 - H/o recurrent depression and reports worsening depression for the past month with SI and suicide attempt 1-2 mos ago. - Reviewed recommendations for antidepressant medication to target depression and anxiety. Had a good response to citalopram in the past, but doesn't want to resume. Discussed trial of fluoxetine or SNRI, and he agreed to trial of fluoxetine. Reviewed risks, benefits and side effects and what to respect form medication. Will start 20mg daily. - Reviewed behavioral strategies to improve mood, including physical activity, good nutrition, therapy. - Recommend OP therapy, which he is declining as he doesn't feel he has time. -Patient submitted a 72-hour notice requesting to be discharged from treatment, but reports that part of him wants to be here and knows he needs help, will part of him wants to leave. Continue to attempt to align with the part of him that desires to get well, encourage him to engage fully in treatment and make the most of his hospitalization. He is not safe for discharge given the severity of his symptoms, suicidality, recent suicide attempt, and the fact that he is not not in treatment currently and nothing has been done to address his risk factors. 07/20 - Pt rescinded his 72-hour notice, willing to remain in treatment - Increase fluoxetine to 40mg daily starting tomorrow morning - Family meeting to be scheduled with his girlfriend to discuss aftercare and safety planning (3) Cannabis abuse: 07/19 - Reviewed risks of substance abuse, including worsening of mood, anxiety, psychosis, financial and legal implications. He is refusing to sign an MAGDALENO for his PO. - F/u at [facility] for substance abuse treatment. (4) Generalized anxiety disorder: 07/19 - Start SSRI as above, offer hydroxyzine as needed. - Work on relaxation techniques and behavioral management of anxiety. 07/20 - Titrate fluoxetine to 40mg starting tomorrow morning - Continue to encourage healthy coping strategies (5) Tobacco use: 07/19 - Offer nicotine patch/gum prn cravings. (6) Colostomy in place: 07/19 - Continue colostomy care. (7) Crohns disease: 07/19 - Has not seen GI doctor in 8 months (goes to [facility]), and states he was supposed to resume medications after his surgery last fall, but has only see nurses when he goes to GI appointments and they have not been resumed. Schedule f/u with Dr. Dave. -Patient reports he has on Subutex for chronic abdominal pain. Does confirmed with Dr. Gordillo's office as 8 mg 3 times daily; will continue here and arrange follow-up. Send records to coordinate care. 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 Inventory Assets Strengths: responsible for children, has housing Needs: sobriety/substance abuse treatment, outpatient mental health treatment, regular employment Risk Factors Assessment Male: Yes : No Do You Have Access To A Gun?: No Health Problems: Yes Mental Health Diagnoses: Yes Substance Use Disorders: Yes Previous Attempt: Yes Family History of Suicide: No Previous Psychiatric Hospitalization: Yes Hopelessness: Yes Smoker: Yes Protective Factors Assessment Restoration Beliefs: No : No Responsible for Young Children: Yes Employed: No ("Stopped job today at [employer]") Stable Relationships: Yes Supportive Family: No Good Rapport with Provider: No Interval History Identifying Information RENEA MOROCHO is a 32-year-old M who currently lives in [place] with his girlfriend and 3 children and was admitted on 07/18/18 22:47 on a 201 voluntary commitment for depression and SI. Chief Complaint "Better than yesterday, I was flip-flopping a lot yesterday." Review of Systems Notes Constitutional: denied Cardiovascular: denied Respiratory: denied Gastrointestinal: denied Neurological: denied Psychiatric: denies symptoms other than stated above Total of at least 10 systems reviewed, pertinent positives as above and in HPI. Sleep Information Total Hours of Sleep: 7.25 Sleep Comments: pt on q-15 minute checks Meal Information Percent Meal Consumed - Breakfast: 100 Percent Meal Consumed - Lunch: 95 Percent Meal Consumed - Dinner: 90 Subjective Subjective Patient was seen & assessed and interval progress reviewed with Nursing. Staff reports patient did revoke his 72-hour notice initially submitted within 24 hours of admission. Pt was seen today to assess progress since admission. Pt states he is doing "better today." He reports feeling as though his mood "flip- flopped a lot yesterday." Pt states he feels his depressive symptoms can occur very suddenly, actually sharing that he often "looks for something to ruin a good mood, I wait for someone to say something or for something to happy." Pt states he has been attempting to participate very intentionally in groups. He feels his participation is not only helpful for him, but he feels his stories are beneficial to other patient's as well. Pt denies SI since last evening, but remains concerned about his ability to maintain this progress. Pt states, "I'm just still dealing with a lot of depression." Pt denies other specific needs or concerns at this time. Physical Exam Psychiatric Orientation: alert, oriented x 3 and cooperative Apperance: appropriately dressed and appropriately groomed Eye Contact: good eye contact Motor Behavior: steady gait and station and no abnormal motor movements Speech: normal rate/rhythm/volume of speech Affect: + depressed affect (though appears to be including) Mood: + depressed mood ("Just still dealing with a lot of depression") and + anxious mood Thought Process: goal directed thought process, linear/logical thought process and clear/coherent thought process Thought Content: reality based without delusions Suicidal Thoughts: denies suicidal thoughts (so far today) Homicidal Thoughts: denies homicidal thoughts Hallucinations: no auditory hallucinations and no visual hallucinations Cognition: recent memory grossly intact, attention grossly intact and language grossly intact Estimated Intelligence: consistent with education level Insight: + fair insight Judgement: + fair judgement Vital Signs (Past 24 Hours) Last Vital Signs Temp 36.5 C 07/20/18 06:37 Pulse 73 07/20/18 06:38 Resp 16 07/20/18 06:37 BP 118/82 07/20/18 06:38 Pulse Ox 97 07/19/18 00:38 Results & Data Current Inpatient Medications Current Inpatient Medications: Current Inpatient Medications Acetaminophen (Tylenol) 650 mg PO Q4H PRN PRN Reason: Headache or Minor Fever Stop: 08/17/18 22:46 Al Hydrox/Mg Hydrox/Simethicone (Maalox) 30 ml PO Q4H PRN PRN Reason: GI Upset Stop: 08/17/18 22:46 Bismuth Subsalicylate (Kaopectate) 15 ml PO PRN PRN PRN Reason: Loose Stool Stop: 08/17/18 22:46 Buprenorphine HCl (Subutex) 8 mg SL TID RHONDA Stop: 08/18/18 10:59 Last Admin: 07/20/18 09:18 Dose: 8 mg Documented by: Fluoxetine HCl (Prozac) 20 mg PO QAM RHONDA Stop: 08/18/18 10:59 Last Admin: 07/20/18 09:09 Dose: 20 mg Documented by: Hydroxyzine HCl (Vistaril) 50 mg PO HSZ PRN PRN Reason: Insomnia Stop: 08/17/18 22:46 Hydroxyzine HCl (Vistaril) 25 mg PO Q4H PRN PRN Reason: Anxiety Stop: 08/17/18 22:46 Magnesium Hydroxide (Milk Of Magnesia) 30 ml PO DAILY PRN PRN Reason: Heartburn Stop: 08/17/18 22:46 Nicotine (Nicoderm Cq) 21 mg TD QAM RHONDA Stop: 08/18/18 08:59 Last Admin: 07/20/18 09:24 Dose: Not Given Documented by: Nicotine Polacrilex (Nicorette 2mg) 1 piece MT UD PRN PRN Reason: Nicotine Withdrawal Stop: 08/17/18 22:46 Sodium Chloride ([place] Nasal) 1 - 2 sprays NA PRN PRN PRN Reason: Nasal Dryness/Congestion Stop: 08/17/18 22:46 Post Discharge Appointments Primary Care Physician Name Of Family Doctor: Dr Jany Sanchez Primary Care Date of Appointment with PCP: 08/01/18 Time of Appointment with PCP: 11:45 Provider Appointment Comment: [address], [place] [address] Psychiatrist Name of Psychiatrist: Ed [facility] Psychiatrist's Date of Appointment with Psychiatrist: 08/04/18 Time of Appointment with Psychiatrist: 4pm (complete paperwork online prior to appt and call once done) Psychiatric Appointment Comment: [address], [place] [address] Therapist Name of Therapist: Denied Material Stress Tester Name of Material Stress Tester: [employer] Phone Number for Material Stress Tester: [phone] Case Management Appointment Comment: [address], [place] [address] Contact Information Discharge Discharge Address: [address], [address], [place] [address] CPT Code CPT Code 59753 (1) Depression Active/Remission status: currently active Depression Type: major depressive disorder Major depression episode severity: severe Major depression recurrence: recurrent Psychotic features: without psychotic features Qualified Code(s): F33.2 - Major depressive disorder, recurrent severe without psychotic features
[2018-07-21] MEDS: FLUOXETINE HCL 20 MG CAP PO SCH (09:22)
[2018-07-21] MEDS: BUPRENORPHINE HCL 8 MG SUBL SL SCH ×3 (09:22→21:39)
[2018-07-21] MEDS: NICOTINE 21 MG/24 HR TDSY TD SCH (09:33)
--- NOTE | 2018-07-21 13:59 | Psychiatric Progress Note ---
Date of Service July 21, 2018 Impression / Recommendations Impression Patient reports improvement in mood, but is realistic in his awareness that dealing with stressors upon discharge can re-trigger depressive and anxiety symptoms. He is currently less concerned about returning to pre-admission state, given he has identified ways in which he might try to cope including medication, behaviors, and outpatient therapy. His goal is to maintain his current stability. Patient is currently content with the initiation and titration of fluoxetine as well as the as needed hydroxyzine, which help both the depression and anxiety symptoms, without evidence of side effects. Patient had a phone meeting with his and a contract for safety outside of the hospital setting is being developed. Inpatient psychiatric treatment is medically necessary at this time. Outpatient transitional follow up arrangements are made. (1) Suicidal ideation: 07/19 - Continue voluntary hospitalization. - Suicide checks for safety. - Encourage group attendance and participation, work on healthy coping skills and safety plan. - Family meeting with girlfriend whom he lives with, confirm no access to guns, reviewed recommendations for abstinence from substances, and review safety plan with her. 07/21 - Currently future-oriented, hopeful, without further SI - Productive phone meeting with girlfriend, with multiple stressors identified and discussed - Continue programming/group therapy, work on healthy coping skills and safety plan (2) Depression: 07/19 - H/o recurrent depression and reports worsening depression for the past month with SI and suicide attempt 1-2 mos ago. - Reviewed recommendations for antidepressant medication to target depression and anxiety. Had a good response to citalopram in the past, but doesn't want to resume. Discussed trial of fluoxetine or SNRI, and he agreed to trial of fluoxetine. Reviewed risks, benefits and side effects and what to respect form medication. Will start 20mg daily. - Reviewed behavioral strategies to improve mood, including physical activity, good nutrition, therapy. - Recommend OP therapy, which he is declining as he doesn't feel he has time. - Patient submitted a 72-hour notice requesting to be discharged from treatment, but reports that part of him wants to be here and knows he needs help, will part of him wants to leave. Continue to attempt to align with the part of him that desires to get well, encourage him to engage fully in treatment and make the most of his hospitalization. He is not safe for discharge given the severity of his symptoms, suicidality, recent suicide attempt, and the fact that he is not not in treatment currently and nothing has been done to address his risk factors. 07/20 - Pt rescinded his 72-hour notice, willing to remain in treatment - Increase fluoxetine to 40mg daily starting tomorrow morning - Family meeting to be scheduled with his girlfriend to discuss aftercare and safety planning 07/21 - Tolerating increased dose of fluoxetine to 40mg daily, will continue - Now amenable to follow up with outpatient therapist, will arrange (3) Cannabis abuse: 07/19 - Reviewed risks of substance abuse, including worsening of mood, anxiety, psychosis, financial and legal implications. He is refusing to sign an MAGDALENO for his PO. - F/u at [facility] for substance abuse treatment. (4) Generalized anxiety disorder: 07/19 - Start SSRI as above, offer hydroxyzine as needed. - Work on relaxation techniques and behavioral management of anxiety. 07/20 - Titrate fluoxetine to 40mg starting tomorrow morning - Continue to encourage healthy coping strategies 07/21 - Will continue increased dose of fluoxetine to target anxiety - Continue use of PRN hydroxyzine 25mg q4h as patient feels this has been helping - Patient interested in continuing regimen with SSRI and PRN hydroxyzine upon discharge - Patient self-identified various coping strategies and is encouraged to continuing practice of these (5) Tobacco use: 07/19 - Offer nicotine patch/gum prn cravings. 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 (7) Crohns disease: 07/19 - Has not seen GI doctor in 8 months (goes to [facility]), and states he was supposed to resume medications after his surgery last fall, but has only see nurses when he goes to GI appointments and they have not been resumed. Schedule f/u with Dr. Dave. -Patient reports he has on Subutex for chronic abdominal pain. Does confirmed with Dr. Gordillo's office as 8 mg 3 times daily; will continue here and arrange follow-up. Send records to coordinate care. 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 Inventory Assets Strengths: responsible for children, has housing, interested in outpatient therapy Needs: sobriety/substance abuse treatment, outpatient mental health treatment, regular employment Risk Factors Assessment Male: Yes : No Do You Have Access To A Gun?: No Health Problems: Yes Mental Health Diagnoses: Yes Substance Use Disorders: Yes Previous Attempt: Yes Family History of Suicide: No Previous Psychiatric Hospitalization: Yes Hopelessness: Yes Smoker: Yes Protective Factors Assessment Pentecostal Beliefs: No : No Responsible for Young Children: Yes Employed: No ("Stopped job today at [employer]") Stable Relationships: Yes Supportive Family: No Good Rapport with Provider: No Interval History Identifying Information RENEA MOROCHO is a 32-year-old M who currently lives in [place] with his girlfriend and 3 children and was admitted on 07/18/18 22:47 on a 201 voluntary commitment for depression and SI. Chief Complaint "Depression got so bad, I didn't want to wake up anymore. Now I'm coping better." Review of Systems Sleep Information Total Hours of Sleep: 6 Sleep Comments: pt given vistaril x2 per rn. pt on q-15 minute checks. Meal Information Percent Meal Consumed - Breakfast: 100 Percent Meal Consumed - Lunch: 100 Percent Meal Consumed - Dinner: 100 Subjective Subjective Patient was seen & assessed and interval progress reviewed with the Treatment Team. The staff notes that the patient attended all group programming and participated fully. He has been positive and encouraging to other patients, demonstrating good insight, but has been less hopeful of his own situation. He notes ongoing anxiety and has been using hydroxyzine PRN in the day time, also at night for insomnia. Per discussion with the patient, he notes marked improvement in his mood over the last 48 hours. He attributes the change to both being in the hospital and being able to talk about his concerns, and listening to other patient's issues. He also feels significantly better since starting the fluoxetine, and states it has "made him feel better" and it's like he "can feel the medicine working in [his] body and mind." He states that compared to time of admission, he feels like he is now able to smile. He no longer feels hopeless and helpless, and describes resolution of passive SI. He no longer feels empty or alone. He notes improvement in appetite, concentration, energy. He denies irritability or agitation, but does note ongoing issues with falling asleep. He appreciates that his stressors (financial and health concerns) will still need to be addressed, but is able to identify means to address his anxiety related to these. He notes, he will try to keep busy to avoid "too much down time" which is when his anxiety begins mounting when he 'over thinks'. When feeling anxious, his plan is to picker the phone and call his girlfriend, or mom, or a friend who recently started coping with depression. He also plans to continue to write music or listen to music as a calming therapy. He plans to keep Vistaril as a back up, as it does help and continue taking fluoxetine. His plans upon discharge are to commence job hunting, follow up as outpatient on previous health issues, look into ways to undo or lessen the duration of his licence being revoked (revoked until 2020 due to DUI + subsequent violation of probation) and is now amenable to commence outpatient therapy as a means for ongoing support. Physical Exam Psychiatric Orientation: alert, oriented x 3 and cooperative Apperance: appropriately dressed, appropriately groomed and appeared stated age Eye Contact: good eye contact Motor Behavior: steady gait and station and no abnormal motor movements Speech: normal rate/rhythm/volume of speech Affect: euthymic affect Euthymic mood, calm Thought Process: goal directed thought process, linear/logical thought process and clear/coherent thought process Thought Content: reality based without delusions (future-oriented, logical, linear) Suicidal Thoughts: denies suicidal thoughts (so far today) Homicidal Thoughts: denies homicidal thoughts Hallucinations: no auditory hallucinations and no visual hallucinations Cognition: recent memory grossly intact, remote memory grossly intact, attention grossly intact and language grossly intact Estimated Intelligence: consistent with education level Insight: good insight Judgement: good judgement Vital Signs (Past 24 Hours) Last Vital Signs Temp 36.7 C 07/21/18 06:41 Pulse 87 07/21/18 06:41 Resp 16 07/21/18 06:41 BP 128/86 07/21/18 06:41 Pulse Ox 97 07/19/18 00:38 Results & Data Laboratory Results Laboratory Results - last 24 hr 07/18/18 18:08 U Marijuana THC Carboxy 307 A Current Inpatient Medications Current Inpatient Medications: Current Inpatient Medications Acetaminophen (Tylenol) 650 mg PO Q4H PRN PRN Reason: Headache or Minor Fever Stop: 08/17/18 22:46 Al Hydrox/Mg Hydrox/Simethicone (Maalox) 30 ml PO Q4H PRN PRN Reason: GI Upset Stop: 08/17/18 22:46 Bismuth Subsalicylate (Kaopectate) 15 ml PO PRN PRN PRN Reason: Loose Stool Stop: 08/17/18 22:46 Buprenorphine HCl (Subutex) 8 mg SL TID RHONDA Stop: 08/18/18 10:59 Last Admin: 07/21/18 13:42 Dose: 8 mg Documented by: Fluoxetine HCl (Prozac) 40 mg PO QAM RHONDA Stop: 08/20/18 08:59 Last Admin: 07/21/18 09:22 Dose: 40 mg Documented by: Hydroxyzine HCl (Vistaril) 50 mg PO HSZ PRN PRN Reason: Insomnia Stop: 08/17/18 22:46 Last Admin: 07/20/18 23:13 Dose: 50 mg Documented by: Hydroxyzine HCl (Vistaril) 25 mg PO Q4H PRN PRN Reason: Anxiety Stop: 08/17/18 22:46 Last Admin: 07/21/18 09:27 Dose: 25 mg Documented by: Magnesium Hydroxide (Milk Of Magnesia) 30 ml PO DAILY PRN PRN Reason: Heartburn Stop: 08/17/18 22:46 Nicotine (Nicoderm Cq) 21 mg TD QAM RHONDA Stop: 08/18/18 08:59 Last Admin: 07/21/18 09:33 Dose: Not Given Documented by: Nicotine Polacrilex (Nicorette 2mg) 1 piece MT UD PRN PRN Reason: Nicotine Withdrawal Stop: 08/17/18 22:46 Sodium Chloride ([place] Nasal) 1 - 2 sprays NA PRN PRN PRN Reason: Nasal Dryness/Congestion Stop: 08/17/18 22:46 Post Discharge Appointments Primary Care Physician Name Of Family Doctor: Dr Jany Sanchez Primary Care Date of Appointment with PCP: 08/01/18 Time of Appointment with PCP: 1pm Provider Appointment Comment: [address], [place] [address] Psychiatrist Name of Psychiatrist: Ed [facility] Psychiatrist's Date of Appointment with Psychiatrist: 08/04/18 Time of Appointment with Psychiatrist: 4pm (complete paperwork online prior to appt and call once done) Psychiatric Appointment Comment: [address], [place] [address] Therapist Name of Therapist: Denied Receiver Stocker Name of Receiver Stocker: [employer] Phone Number for Receiver Stocker: [phone] Case Management Appointment Comment: [address], [place] [address] Contact Information Discharge Discharge Address: [address] [place] [address] CPT Code CPT Code 97788 [id number] Resident Activity Tracking Resident Involvement: Resident Care Provided Care Provided: Adult Hospital Medicine (1) Depression Active/Remission status: currently active Depression Type: major depressive disorder Major depression episode severity: severe Major depression recurrence: recurrent Psychotic features: without psychotic features Qualified Code(s): F33.2 - Major depressive disorder, recurrent severe without psychotic features
[2018-07-22] MEDS: FLUOXETINE HCL 20 MG CAP PO SCH (09:16)
[2018-07-22] MEDS: BUPRENORPHINE HCL 8 MG SUBL SL SCH ×2 (09:16→13:45)
[2018-07-22] MEDS: NICOTINE 21 MG/24 HR TDSY TD SCH ×2 (09:16→09:22)
--- NOTE | 2018-07-22 11:12 | Discharge Summary ---
Date of Service July 22, 2018 History of Present Illness The patient presented to the ER with his girlfriend last evening (07/18/2018) reporting worsening depression and suicidality. He endorsed multiple stressors, including unemployment, and ability to find a job, and health issues with a colostomy due to Crohn's disease. His girlfriend reported she has never seen him this depressed. He reported feeling inadequate, as he cannot provide for his 4 children, 2 of whom live with him, and the other 2 live with their respective mothers. He reported helplessness, hopelessness, and not wanting to be alive. He admitted to a suicide attempt a couple of months ago when he wrapped a string around his neck and attempted to strangle himself, but his girlfriend found him and removed the string. He did not seek treatment at that time, but reported a history of 2 previous inpatient hospitalizations here. He said he has no outpatient mental health providers, but takes Suboxone prescribed by Dr. Hernandez. He is on probation, but refused to sign a release for his p.o. He reported he quit his job on the day of presentation, because they were not giving him enough hours. He reported increased anxiety, decreased sleep and appetite. This morning he submitted a 72 hour notice requesting to withdraw from treatment. On my assessment, he reports he has continued to struggle with maintaining employment and supporting his family, as well as with his yo issues, and had surgery for a nonreversible colostomy last fall. 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 He reports suicidal thoughts occur "whenever I get really stressed, like when they took my hours away," or when he doesn't have enough money. He reports "I'm tired of dealing with this, no matter how hard I try, I just get push back." He says he didn't want to be hospitalized, and that is why he submitted a 72 hour notice this morning, but then says he came here because "I know the program, it helped me before, that's why I came here." He says he asked to leave this morning because "I have other issues I need to deal with, they're not being met at all." He is upset that his colostomy bag was full yesterday and no one has helped him to empty it, and that his Suboxone wasn't ordered this morning (as done was not yet confirmed). He is also upset that his PCP wouldn't prescribe different psychotropic medication for him, stating he told him a couple months ago that the citalopram wasn't working, and he wanted something else. He is unable to clarify if he stopped the citalopram then or earlier (gives conflicting reports). He says he "needs something stronger, to be to the level of my medications." Physical Exam Psychiatric Orientation: alert and oriented x 3 Apperance: appropriately dressed and appropriately groomed Eye Contact: good eye contact Motor Behavior: no abnormal motor movements Speech: normal rate/rhythm/volume of speech Affect: euthymic affect Mood: no depressed mood Thought Process: goal directed thought process Thought Content: reality based without delusions Suicidal Thoughts: denies suicidal thoughts Homicidal Thoughts: denies homicidal thoughts Hallucinations: no auditory hallucinations and no visual hallucinations Cognition: recent memory grossly intact Estimated Intelligence: average estimated intelligence Insight: + fair insight Judgement: + fair judgement Vital Signs (Past 24 Hours) Last Vital Signs Temp 36.7 C 07/22/18 10:38 Pulse 76 07/22/18 10:38 Resp 16 07/22/18 10:38 BP 139/84 07/22/18 10:38 Pulse Ox 97 07/22/18 10:38 Principal Diagnosis MDD Psychiatric Data see below Day of Discharge Assessment Patient reports significant improvement. He voices his safety plan and commitment to outpatient follow up appointments. He is future focussed with regards to his children and has been taking care of self on unit. He denies SI/HI/ramos and is stable for discharge to outpatient level of care. He did voice that unsure how may Subutex that he has at home. Reviewed that we do not provide that medication and would direct to outpatient prescriber. Confirmed that 84 filled at [facility] on 06/30 (28 day supply) which should be adequate until his outpatient follow-up, particularly given used hospital meds during stay. Transition of Care Transition Of Care Record: was reviewed with the patient Advance Directives Advance Directives Information Provided: Yes Advance Directives: No Mental Health Advance Directive: No Advance Directives on File: No Living Will: No Power of International Marketing Coordinator: No Advance Directives Reason:: Declines as Mental Health Visit. Risk Factors Assessment Male: Yes : No Do You Have Access To A Gun?: No Health Problems: Yes Mental Health Diagnoses: Yes Substance Use Disorders: Yes Previous Attempt: Yes Family History of Suicide: No Previous Psychiatric Hospitalization: Yes Hopelessness: Yes Smoker: Yes Protective Factors Assessment Yarsanism Beliefs: No : No Responsible for Young Children: Yes Employed: No ("Stopped job today at [employer]") Stable Relationships: Yes Supportive Family: No Good Rapport with Provider: No Tobacco Cessation at Discharge Tobacco Cessation Medication Prescribed at Discharge: Offered & Pt Refused Total Time Total Time Spent: Less Than 30 Minutes Discharge Data Lab Results 07/18/18 07/18/18 07/18/18 18:08 18:08 18:08 WBC RBC Hgb Hct MCV MCH MCHC RDW Std Deviation RDW Coeff of Khadijah Plt Count MPV Immature Gran % (Auto) Neut % (Auto) Lymph % (Auto) [place] % (Auto) Eos % (Auto) Baso % (Auto) Immature Gran # (Auto) Neut # (Auto) Lymph # (Auto) [place] # (Auto) Eos # (Auto) Baso # (Auto) Sodium Potassium Chloride Carbon Dioxide Anion Gap BUN Creatinine Est Cr Clr Drug Dosing Est GFR ( Amer) Est GFR (Non-Af Amer) BUN/Creatinine Ratio Glucose Calcium Total Bilirubin AST ALT Alkaline Phosphatase Total Protein Albumin Globulin Albumin/Globulin Ratio TSH Urine Color Yellow Urine Appearance Clear Urine pH 7.5 Ur Specific [place] 1.010 Urine Protein Negative Urine Glucose (UA) Negative Urine Ketones Negative Urine Blood Negative Urine Nitrite Negative Urine Bilirubin Negative Urine Urobilinogen Negative Ur Leukocyte Esterase Negative Salicylates Urine Opiates Screen Neg Ur Methadone, Qual Neg Acetaminophen Urine Barbiturates Neg Ur Phencyclidine (PCP) Neg U Amphetamin/Meth Scrn Neg MDMA (Ecstasy) Screen Neg U Benzodiazepines Scrn Neg Ur Cocaine Metabolite Neg U Marijuana (THC) Screen Pos H U Marijuana THC Carboxy 307 A Ethyl Alcohol mg/dL 07/18/18 07/18/18 07/18/18 18:41 18:41 18:41 WBC 10.16 RBC 5.19 Hgb 13.4 L Hct 40.2 L MCV 77.5 L MCH 25.8 MCHC 33.3 RDW Std Deviation 40.6 RDW Coeff of Khadijah 14.3 Plt Count 361 MPV 9.2 Immature Gran % (Auto) 0.2 Neut % (Auto) 61.4 Lymph % (Auto) 24.8 [place] % (Auto) 9.2 Eos % (Auto) 4.2 Baso % (Auto) 0.2 Immature Gran # (Auto) 0.02 Neut # (Auto) 6.24 Lymph # (Auto) 2.52 [place] # (Auto) 0.93 H Eos # (Auto) 0.43 Baso # (Auto) 0.02 Sodium 135 L Potassium 3.5 Chloride 101 Carbon Dioxide 29 Anion Gap 5.0 BUN 7 Creatinine 1.00 Est Cr Clr Drug Dosing 106.7 Est GFR ( Amer) 115.7 Est GFR (Non-Af Amer) 99.8 BUN/Creatinine Ratio 7.5 L Glucose 118 H Calcium 8.7 Total Bilirubin 0.4 AST 16 ALT 19 Alkaline Phosphatase 116 Total Protein 7.9 Albumin 3.3 L Globulin 4.6 H Albumin/Globulin Ratio 0.7 L TSH 0.801 Urine Color Urine Appearance Urine pH Ur Specific [place] Urine Protein Urine Glucose (UA) Urine Ketones Urine Blood Urine Nitrite Urine Bilirubin Urine Urobilinogen Ur Leukocyte Esterase Salicylates 3.6 Urine Opiates Screen Ur Methadone, Qual Acetaminophen < 2 L Urine Barbiturates Ur Phencyclidine (PCP) U Amphetamin/Meth Scrn MDMA (Ecstasy) Screen U Benzodiazepines Scrn Ur Cocaine Metabolite U Marijuana (THC) Screen U Marijuana THC Carboxy Ethyl Alcohol mg/dL 07/18/18 18:41 WBC RBC Hgb Hct MCV MCH MCHC RDW Std Deviation RDW Coeff of Khadijah Plt Count MPV Immature Gran % (Auto) Neut % (Auto) Lymph % (Auto) [place] % (Auto) Eos % (Auto) Baso % (Auto) Immature Gran # (Auto) Neut # (Auto) Lymph # (Auto) [place] # (Auto) Eos # (Auto) Baso # (Auto) Sodium Potassium Chloride Carbon Dioxide Anion Gap BUN Creatinine Est Cr Clr Drug Dosing Est GFR ( Amer) Est GFR (Non-Af Amer) BUN/Creatinine Ratio Glucose Calcium Total Bilirubin AST ALT Alkaline Phosphatase Total Protein Albumin Globulin Albumin/Globulin Ratio TSH Urine Color Urine Appearance Urine pH Ur Specific [place] Urine Protein Urine Glucose (UA) Urine Ketones Urine Blood Urine Nitrite Urine Bilirubin Urine Urobilinogen Ur Leukocyte Esterase Salicylates Urine Opiates Screen Ur Methadone, Qual Acetaminophen Urine Barbiturates Ur Phencyclidine (PCP) U Amphetamin/Meth Scrn MDMA (Ecstasy) Screen U Benzodiazepines Scrn Ur Cocaine Metabolite U Marijuana (THC) Screen U Marijuana THC Carboxy Ethyl Alcohol mg/dL < 3.0 Hospital Course (1) Suicidal ideation: 07/19 - Continue voluntary hospitalization. - Suicide checks for safety. - Encourage group attendance and participation, work on healthy coping skills and safety plan. - Family meeting with girlfriend whom he lives with, confirm no access to guns, reviewed recommendations for abstinence from substances, and review safety plan with her. (2) Depression: 07/19 - H/o recurrent depression and reports worsening depression for the past month with SI and suicide attempt 1-2 mos ago. - Reviewed recommendations for antidepressant medication to target depression and anxiety. Had a good response to citalopram in the past, but doesn't want to resume. Discussed trial of fluoxetine or SNRI, and he agreed to trial of fluoxetine. Reviewed risks, benefits and side effects and what to respect form medication. Will start 20mg daily. - Reviewed behavioral strategies to improve mood, including physical activity, good nutrition, therapy. - Recommend OP therapy, which he is declining as he doesn't feel he has time. -Patient submitted a 72-hour notice requesting to be discharged from treatment, but reports that part of him wants to be here and knows he needs help, will part of him wants to leave. Continue to attempt to align with the part of him that desires to get well, encourage him to engage fully in treatment and make the most of his hospitalization. He is not safe for discharge given the severity of his symptoms, suicidality, recent suicide attempt, and the fact that he is not not in treatment currently and nothing has been done to address his risk factors. 07/20 - Pt rescinded his 72-hour notice, willing to remain in treatment - Increase fluoxetine to 40mg daily starting tomorrow morning - Family meeting to be scheduled with his girlfriend to discuss aftercare and safety planning (3) Cannabis abuse: 07/19 - Reviewed risks of substance abuse, including worsening of mood, anxiety, psychosis, financial and legal implications. He is refusing to sign an MAGDALENO for his PO. - F/u at [facility] for substance abuse treatment. (4) Generalized anxiety disorder: 07/19 - Start SSRI as above, offer hydroxyzine as needed. - Work on relaxation techniques and behavioral management of anxiety. 07/20 - Titrate fluoxetine to 40mg starting tomorrow morning - Continue to encourage healthy coping strategies (5) Tobacco use: 07/19 - Offer nicotine patch/gum prn cravings. (6) Colostomy in place: 07/19 - Continue colostomy care. (7) Crohns disease: 07/19 - Has not seen GI doctor in 8 months (goes to [facility]), and states he was supposed to resume medications after his surgery last fall, but has only see nurses when he goes to GI appointments and they have not been resumed. Schedule f/u with Dr. Dave. -Patient reports he has on Subutex for chronic abdominal pain. Does confirmed with Dr. Gordillo's office as 8 mg 3 times daily; will continue here and arrange follow-up. Send records to coordinate care. 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 Post Discharge Appointments Primary Care Physician Name Of Family Doctor: Dr Carmichael - [facility] Date of Appointment with PCP: 08/01/18 Time of Appointment with PCP: 1 pm Provider Appointment Comment: [address], [place] [address] Psychiatrist Name of Psychiatrist: [facility] Date of Appointment with Psychiatrist: 08/04/18 Time of Appointment with Psychiatrist: 4 pm (complete paperwork online prior to appt and call once done) Psych[facility] App[facility]ment [facility] [address] [facility] [place] [address] Therapist Name of Therapist: [facility] Time of Therapist Appointment: Please call and schedule an intake (they have your referral) [facility] Appointment [facility] [address] [facility] [facility] Abstractor Name of Court Abstractor: [facility] Phone Number for Court Abstractor: [phone] Time of [address] with Court Abstractor: Please call and schedule an intake (they have your referral) Case Management Appointment Comment: [address], [place] [address] Smoking Cessation Counseling Tobacco Cessation Medication Prescribed at Discharge: Offered & Pt Refused Contact Information Discharge Discharge Address: [address], [place] [address] Discharge Plan Discharge Items Patient Disposition: Home - Self-Care Reason For Visit: MDRS Discharge Diagnosis: depressive disorder Discharge Goals: Improve disease control and Improve function Activity: Resume your previous activity Non-emergency contact: Primary Care Provider Call non-emergency contact if: your symptoms worsen Follow-up/Referrals: Alfred Carmichael MD [Primary Care Provider] - Diet: Regular, Lactose Intolerant and See below Diet Comment: with Crohn's guidelines Addtl Provider Instructions: SPECIAL CARE INSTRUCTIONS: 1. Follow through with your scheduled aftercare appointments. If unable to keep an appointment, please call to reschedule. 2. Take your medication only as prescribed. Medication should not be changed or stopped without the approval of your doctor. In the event of worsening symptoms or concerns about side effects, contact your doctor immediately. 3. Utilize new healthy coping skills, anger management skills, and stress management skills learned during your hospitalization. Journal feelings and process them with a support person. Identify stressors or situations that may result in relapse, deterioration or inappropriate behaviors and develop a plan to deal with those issues. 4. If your coping skills are ineffective and you are in crisis, contact your outpatient providers for direction. If unable to reach your providers, please call the CAN HELP LINE AT or go to the closest Emergency Room. 5. Avoid alcohol and un-prescribed drugs. 6. You have been provided with the Mental Health Advance Directives Pamphlet for your review. AFTERCARE APPOINTMENTS: * Please call your insurance company prior to your scheduled appointment to confirm your aftercare providers are covered. Take your insurance information to your appointments. WHO TO CALL AND WHEN: Medical Emergencies: For questions or emergencies related to your hospital stay, please contact the Inpatient Behavioral Health Unit at [phone]. A pyroglazer is on-call 24/7 for the Behavioral Health Unit for emergencies At any time you feel your situation is an emergency, you may also call 911 immediately. Your Doctors Instructions noted above were prepared by provider Araceli Marin MD. Prescriptions: New fluoxetine 20 mg Capsule 40 mg PO QAM Qty: 30 RF: 0 Continued buprenorphine HCl 8 mg tablet, sublingual 8 mg Sublingual TID RF: 0 Stand-Alone Forms: [facility] Discharge Orders: Discharge Order (Routine); Ordered 07/22/18 Ordered By: Araceli Marin Admission Data Admit Date/Time: 07/18/18 22:47 Attending Provider: Kristine Gresham Admit Provider: Hola Szymanski Primary Care Provider: Alfred Carmichael Service: Psychiatry Other Interventions: Discharge Summary Assessment (RN) Last Done: 07/22/18 10:38 PSY Interdisciplinary Discharge Planning Last Done: 07/22/18 10:40 Pending Studies at Discharge: No
== END 2018-07-22 14:25 | disposition home or self-care (01) | DRG 885 ==
LOC: ED 17:25 → 3S 22:47

== ENCOUNTER 2018-11-14 12:43 | Inpatient (IN) ==
[2018-11-14] MEDS ORDERED: SODIUM CHLORIDE 0.9% 1000ML 1,000 ML IV ONE (14:28)
[2018-11-14] MEDS ORDERED: MoRPHine SULFATE 4 MG/ML 1 ML CARP\\VIAL IV STA (14:28)
[2018-11-14] MEDS ORDERED: ONDANSETRON INJ 2 MG/ML 2 ML VIAL IV STA (14:28)
[2018-11-14 15:24] LABS: Basophils # (auto) 0.02 K/uL (0-0.2); Basophils % (auto) 0.2 %; Eosinophils # (auto) 0.55 K/uL (0-0.5); Eosinophils % (auto) 4.9 %; Hematocrit (blood only) 40.8 % (42-52); Hemoglobin 12.8 g/dL (14.0-18.0); Immature Granulocytes # (auto) 0.02 K/uL (0.00-0.02); Immature Granulocytes % (auto) 0.2 %; Lymphocytes # (auto) 1.66 K/uL (1.2-3.4); Lymphocytes % (auto) 14.7 %; Mean Corpuscular Hemoglobin 26.4 pg (25-34); Mean Corpuscular Hgb Conc 31.4 g/dL (32-36); Mean Corpuscular Volume 84.1 fL (80-100); Mean Platelet Volume 9.6 fL (7.4-10.4); Monocytes # (auto) 0.46 K/uL (0.11-0.59); Monocytes % (auto) 4.1 %; Neutrophils # (auto) 8.58 K/uL (1.4-6.5); Neutrophils % (auto) 75.9 %; Platelet Count 366 K/uL (130-400); RDW Coefficient of Variation 14.3 % (11.5-14.5); Red Blood Count 4.85 M/uL (4.7-6.1); White Blood Count 11.29 K/uL (4.8-10.8)
[2018-11-14 15:39] LABS: Albumin Level 3.7 gm/dl (3.4-5.0); BUN Creatinine Ratio 7.2 (10-20); Bilirubin Direct 0.2 mg/dl (0-0.2); Calcium 9.1 mg/dl (8.5-10.1); Creatinine Clr Calc Pharmacy 116.4 ml/min; Est GFR (African American) 119.2; Est GFR (Non-African American) 102.9; Potassium 3.4 mmol/L (3.5-5.1)
[2018-11-14 15:41] LABS: Bilirubin,Total 0.6 mg/dl (0.2-1); Total Protein 8.1 gm/dl (6.4-8.2)
[2018-11-14] MEDS ORDERED: HYDROmorphone INJ 1 MG/ML SYRINGE IV STA (15:41)
[2018-11-14] MEDS ORDERED: IOVERSOL 100ml IV PRN (16:17)
--- NOTE | 2018-11-14 16:42 | CT Scan Report ---
ABDOMEN AND PELVIS CT WITH IV CONTRAST CT DOSE: 262.80 mGy.cm HISTORY: Acute epigastric abdominal pain with history of Crohn's disease. Postoperative changes from prior ileocecectomy and left hemicolectomy. epigastric abdominal pain hx crohns pancreatitis TECHNIQUE: Multiaxial CT images of the abdomen and pelvis were performed following the IV administrat ion of 90 cc of Optiray 320, A dose lowering technique was utilized adhering to the principles of AL TAMARA. COMPARISON STUDY: CT abdomen and pelvis 03/20/2018. FINDINGS: Lung bases are generally clear. No pneumatosis or pneumoperitoneum. Imaged inferior cardiac chambers are unremarkable. Bridger lobe of the liver. No focal hepatic mass lesion or intrahepatic delayed duct al dilation. Portal vein appears patent. Spleen, gallbladder and adrenal glands are unremarkable. Mod erate interstitial inflammation/edema with peripancreatic edema compatible with acute pancreatitis. N o evidence of pancreatic necrosis, pancreatic ductal dilation or acute pancreatic fluid collection. N o biliary ductal dilation. The kidneys and ureters are unremarkable. Mild nonspecific wall thickening of the bladder. Trace free pelvic fluid is likely reactive. Aorta and IVC are unremarkable. There is no adenopathy. No bowel obstruction or bowel wall thickening. Postoperative changes from partial left hemicolectomy with left lower quadrant ostomy. Additionally, postoperative changes are noted compatible with prior ileocecectomy. Evaluation of the bowel is limited without the use of oral contrast. Bones appear to b e intact. IMPRESSION: 1. Findings compatible with acute uncomplicated pancreatitis. No evidence of pancreatic necrosis or a cute peripancreatic fluid collection. 2. Postoperative changes from prior ileocecectomy and partial left hemicolectomy with left lower quad rant ostomy. 3. No bowel obstruction or bowel wall thickening. 4. No pneumatosis or pneumoperitoneum. Electronically signed by: Phan Velázquez M.D. 11/14/2018 4:40 PM
[2018-11-14] MEDS ORDERED: KETOROLAC TROMETHAMINE 15 MG/ML VIAL IV STA (18:09)
--- NOTE | 2018-11-14 18:18 | History & Physical Report ---
Date of Service November 14, 2018 Assessment & Plan (1) Abdominal pain: (2) Pancreatitis: Patient is 33 y/o M with PMH Crohn's, regional enteritis, fistula, perirectal abscess, perianal Crohn's s/p perianal resection with colostomy in 10/2017, nonhealing perineal wound with recent debridement on 11/03/2018 at [facility] by Dr. William, WPW, depression, anxiety, GERD, tobacco use, chronic pain on Subutex presented to ER with complaint of sharp upper abdominal pain that started today with nausea and vomiting x 1. In ER afebrile, P: 58, R: 20, BP: 161/108. WBC: 11, H/H: 12.8/40 (baseline Hgb: 13), AST: 16, ALT: 17, Alk Phos: 119, Lipase: 1193 CT ABD/PELVIS: 1. Findings compatible with acute uncomplicated pancreatitis. No evidence of pancreatic necrosis or acute peripancreatic fluid collection. 2. Postoperative changes from prior ileocecectomy and partial left hemicolectomy with left lower quadrant ostomy. 3. No bowel obstruction or bowel wall thickening. 4. No pneumatosis or pneumoperitoneum. Consistent with pancreatitis. DDX: Crohn's flare -In ER given 1L NSS, morphine 8 mg, Dilaudid 1 mg, Zofran -Lactated Ringer's -N.p.o. -Zofran PRN nausea -Dilaudid as needed breakthrough pain -Continue chronic Subutex -CBC, CMP, liver labs in a.m. -GI consult (3) Crohns disease: H/O Crohn's, regional enteritis, fistula, perirectal abscess, perianal Crohn's s/p perianal resection with colostomy in 10/2017, nonhealing perineal wound with recent debridement on 11/03/2018 Off Humira since prior to surgery in 2017 No hematochezia or reported changes in stool -GI consult (4) Open wound of perineum: H/O nonhealing perineal wound with recent debridement on 11/03/2018 at [facility] by Dr. William Denies any increased discharge -General surgery consult (5) Chronic pain: On Subutex. Follows with Dr. Hernandez at [facility] Subutex last filled 10/27/2018 -Continue Subutex (6) Wmqfa-Hfilnzeti-Zidnn (WPW) syndrome: -Monitor (7) Tobacco use: -Patient denies nicotine patch -Smoking cessation encouraged DVT Prophylaxis -SCDs Follows with Dr Carmichael for routine care Pt was seen and care coordinated with Dr Waddell. See addendum History of Present Illness Chief Complaint: Abdominal pain Primary Care Provider: Alfred Carmichael MD Patient is 33 y/o M with PMH Crohn's, regional enteritis, fistula, perirectal abscess, perianal Crohn's s/p perianal resection with colostomy in 10/2017, nonhealing perineal wound with recent debridement on 11/03/2018 at [facility] by MANNY Turner, depression, anxiety, GERD, tobacco use, chronic pain on Subutex presented to ER with complaint of abdominal pain that started today. Patient reports upper abdominal pain that is described as sharp and constant is nonra diating. He reports chronic diffuse abdominal pain at baseline. Patient states took his Subutex this morning and Tylenol without relief of abdominal pain. Complains of nausea and vomiting x1 today. Denies any increased stool output to colostomy bag. Denies hematochezia, hematemesis, melena. Patient denies any fevers or chills. Did not eat or drink anything today. Reports he ate cheeseburger and fries yesterday. Reports 3 days ago had 3 glasses of wine. Today did not eat anything secondary to abdominal pain. Reports chronic intermittent drainage to perineal wound and denies any increased drainage. Denies fever/chills, diaphoresis, AGUIRRE, dizziness, syncope, vision changes, neck pain, CP, SOB, orthopnea, palpitations, cough, sore throat, choking, otalgia, rhinorrhea, paresthesias, weakness, extremity weakness, extremity edema, rashes, urinary symptoms. Allergies Allergy/AdvReac Type Severity Reaction Status Date / Time tomato AdvReac Intermediate GI Verified 11/14/18 14:27 SYMPTOMS-CROHN'S ACTS UP Egg Derived AdvReac Mild GI SYMPTOMS Verified 11/14/18 14:27 lactose AdvReac Unknown GI SYMPTOMS Verified 11/14/18 14:27 Home Medications Home Medications Medication Instructions Recorded Confirmed Type buprenorphine HCl 8 mg SUBLINGUAL TID 03/17/18 11/14/18 History Past Med/Surg History Medical History Chronic pain (Chronic) Tobacco use (Chronic) Colostomy in place (Chronic) Crohns disease (Chronic) Eokug-Bqucxuhbk-Bumsb (WPW) syndrome (Chronic) Marfan's disease (Chronic) Exacerbation of Crohn's disease (Resolved) Alcohol abuse (Resolved) Cannabis abuse (Chronic) Cellulitis (Resolved) Cocaine abuse (Resolved) Depression (Chronic) Generalized anxiety disorder (Chronic) Sunitha-rectal abscess (Resolved) Abdominal pain, acute, generalized (Inactive) Crohn's disease (Inactive) Surgical History History of prior ablation treatment (Chronic) H/O colonoscopy (Chronic) History of partial colectomy (Chronic) Family History Other Ulcerative colitis Social History Preferred Language: Eritrean Communication Ability: Effective Polymerization Helper Required: No Beliefs That Will Affect Care: None Current Living Situation: Significant Other Feels Safe at Home: Yes Safety Concerns: Feels Safe At This Time Smoking Status: Current every day smoker Tobacco Type: cigarettes ; Cigarettes Per Day: 1/2 pack per day ; Do You Dip or Chew Tobacco: No ; Second Hand Exposure: No ; Tobacco Cessation Education Requested by Patient: No Hx Alcohol Use: Yes Alcohol type: wine Hx Substance Use: Yes substance use type: marijuana Last Used Substance: Days (ago) Last Used Substance Other:: A couple days ago Review of Systems Review of Systems: All systems reviewed & are unremarkable except as noted in HPI & below Physical Exam Physical Exam: General: no apparent distress and resting in bed however reports upper abdominal pain, WDWN Head: normocephalic, atraumatic Eyes: PERRL, EOM's intact, conjunctiva non-injected, anicteric ENT: normal inspection external ears, nose, mucous membranes mildly dry Neck: supple, trachea midline Lungs: clear, no respiratory distress, no wheezing/rhonchi/rales CV: RRR, no murmur, no pretibial edema Abd: +healed surgical incision to mid abdomen, +colostomy bag with brown liquid stool, normal BS, soft, +tenderness to palpation epigastric, RUQ, LUQ without rebound, no RLQ or LLQ tenderness to palpation; Perineal open wound with pink tissue without surrounding erythema and no discharge at this time Ext: no cyanosis, no calf tenderness Neuro: A&O x 3, no focal deficits noted, normal affect Skin: warm, dry Results & Data Vital Signs (Past 12 Hours) Vital Signs Temp Pulse Resp BP BP Pulse Ox 11/14/18 16:36 56 L 20 163/104 H 99 11/14/18 15:56 62 20 168/106 H 100 11/14/18 14:46 97 11/14/18 14:39 58 L 20 161/108 H 100 11/14/18 12:53 36.6 C 18 161/102 H 99 Laboratory Results Short CBC 11/14/18 Range/Units 14:15 WBC 11.29 H (4.8-10.8) K/uL Hgb 12.8 L (14.0-18.0) g/dL Hct 40.8 L (42-52) % Plt Count 366 (130-400) K/uL BMP 11/14/18 14:15 Sodium 137 Potassium 3.4 L Chloride 103 Carbon Dioxide 29 BUN 7 Creatinine 0.97 Glucose 87 Calcium 9.1 Liver Function 11/14/18 Range/Units 14:15 Total Bilirubin 0.6 (0.2-1) mg/dl Direct Bilirubin 0.2 (0-0.2) mg/dl AST 16 (15-37) U/L ALT 17 (12-78) U/L Alkaline Phosphatase 119 H (45-117) U/L Albumin 3.7 (3.4-5.0) gm/dl Diagnostic Findings CT ABD/PELVIS: IMPRESSION: 1. Findings compatible with acute uncomplicated pancreatitis. No evidence of pancreatic necrosis or acute peripancreatic fluid collection. 2. Postoperative changes from prior ileocecectomy and partial left hemicolectomy with left lower quadrant ostomy. 3. No bowel obstruction or bowel wall thickening. 4. No pneumatosis or pneumoperitoneum. Supervising Physician Co-Signing Physician Notes I have seen and examined the patient and have discussed the case with the provider above. I agree with the assessment and plan as stated with the following exceptions. Abdomen was diffusely tender without distension and a normal heart and lung exam. Pain began just this morning but states that he pain in his abdomen every morning when he awakens. He has a h/o Chron's disease. Physical exam findings reflected in exam above. Cont supportive care efforts overnight including LR @ 200 mls/hr. Consult GI based on persistent abdominal pain and consult General Surgery to help us manage his perirectal wound. Bairon, DO
[2018-11-14] MEDS ORDERED: HYDROmorphone INJ 0.5 MG/0.5 ML SYR ONE (18:29)
[2018-11-14] MEDS ORDERED: HYDROmorphone INJ 0.5 MG/0.5 ML SYR IV STA (18:37)
[2018-11-14] MEDS ORDERED: ONDANSETRON INJ 2 MG/ML 2 ML VIAL IV PRN (20:10)
[2018-11-14] MEDS: LACTATED RINGER'S 1,000 ML IV SCH (20:30)
--- NOTE | 2018-11-14 21:56 | Emergency Department Note ---
Entered by Penny Curry acting as a scribe for Aamir Daigle History of Present Illness General Chief complaint: Abdominal Pain Stated complaint: CROHNS DISEASE FLARE, SEVERE ABD PAIN Time Seen by Provider: 11/14/18 14:04 Source: patient Limitations: no limitations History of Present Illness Provider complaint: Abdominal Pain Onset (ago): hour(s) 5 Location: abdomen Radiation: non-radiation Severity: severe Maximum Pain Intensity: 10 Relieved By: + none Exacerbated By: + none Associated symptoms: + nausea/vomiting and + weakness; no fever/chills Treatments prior to arrival: none The patient is a 33 year old male who presents to the ED with complaints of worsening abdominal pain that began when he woke up 5 hours ago. The patient has not eaten today and has a colostomy bag. He has a history of Crohns disease. The patient denies any fevers. He states he vomited this morning and notes he had small specs of a red substance in his vomit which she is unsure if they are blood. No hematemesis or coffee-ground emesis. No melena or hematochezia. The patient smokes but does not drink alcohol. The patient also has a history of pancreatitis. Home Medications Home Medications Medication Instructions Recorded Confirmed Type buprenorphine HCl 8 mg SUBLINGUAL TID 03/17/18 11/14/18 History Allergies Allergy/AdvReac Type Severity Reaction Status Date / Time tomato AdvReac Intermediate GI Verified 11/14/18 14:27 SYMPTOMS-CROHN'S ACTS UP Egg Derived AdvReac Mild GI SYMPTOMS Verified 11/14/18 14:27 lactose AdvReac Unknown GI SYMPTOMS Verified 11/14/18 14:27 Past Med/Surg History Medical History Chronic pain (Chronic) Tobacco use (Chronic) Colostomy in place (Chronic) Crohns disease (Chronic) Cylve-Mfbakxbhz-Snjip (WPW) syndrome (Chronic) Marfan's disease (Chronic) Exacerbation of Crohn's disease (Resolved) Alcohol abuse (Resolved) Cannabis abuse (Chronic) Cellulitis (Resolved) Cocaine abuse (Resolved) Depression (Chronic) Generalized anxiety disorder (Chronic) Sunitha-rectal abscess (Resolved) Abdominal pain, acute, generalized (Inactive) Crohn's disease (Inactive) Surgical History History of prior ablation treatment (Chronic) H/O colonoscopy (Chronic) History of partial colectomy (Chronic) Family History Other Ulcerative colitis Social History Preferred Language: Armenian Communication Ability: Effective Business Center Manager Required: No Beliefs That Will Affect Care: None Current Living Situation: Significant Other Feels Safe at Home: Yes Safety Concerns: Feels Safe At This Time Smoking Status: Current every day smoker Tobacco Type: cigarettes ; Cigarettes Per Day: 1/2 pack per day ; Do You Dip or Chew Tobacco: No ; Second Hand Exposure: No ; Tobacco Cessation Education Requested by Patient: No Hx Alcohol Use: Yes Alcohol type: wine Hx Substance Use: Yes substance use type: marijuana Last Used Substance: Days (ago) Last Used Substance Other:: A couple days ago Review of Systems See HPI for pertinent positives & negatives. and A total of 10 systems reviewed and were otherwise negative Physical Exam Vital Signs Vital Signs - 24 hr 11/14/18 12:53 11/14/18 14:39 11/14/18 14:46 Temperature 36.6 C Temperature Source Oral Sepsis Recent Fever Within 48 Hours No Sepsis Action Taken by Nursing No Action Required Pulse Rate [Right] 58 L Respiratory Rate 18 20 Respiratory Effort / Characteristics Non-Labored Spontaneous Respiratory Depth Normal Blood Pressure 161/102 H Blood Pressure [Right Arm] 161/108 H Blood Pressure Mean 121 Blood Pressure Mean [Right Arm] 125 Pulse Oximetry 99 100 97 Oxygen Delivery Method Room Air Room Air Room Air 11/14/18 15:56 11/14/18 16:36 11/14/18 17:00 Temperature Temperature Source Sepsis Recent Fever Within 48 Hours Sepsis Action Taken by Nursing Pulse Rate [Right] 62 56 L 59 L Respiratory Rate 20 20 16 Respiratory Effort / Characteristics Non-Labored Non-Labored Spontaneous Respiratory Depth Normal Normal Normal Blood Pressure Blood Pressure [Right Arm] 168/106 H 163/104 H 171/103 H Blood Pressure Mean Blood Pressure Mean [Right Arm] 126 123 125 Pulse Oximetry 100 99 98 Oxygen Delivery Method Room Air Room Air Room Air 11/14/18 18:00 Temperature Temperature Source Sepsis Recent Fever Within 48 Hours Sepsis Action Taken by Nursing Pulse Rate [Right] 59 L Respiratory Rate 16 Respiratory Effort / Characteristics Non-Labored Spontaneous Respiratory Depth Normal Blood Pressure Blood Pressure [Right Arm] 175/115 H Blood Pressure Mean Blood Pressure Mean [Right Arm] 135 Pulse Oximetry 97 Oxygen Delivery Method Room Air Physical Exam GENERAL: He is oriented to person, place, and time. He appears well-developed and well-nourished. He does not appear distressed. ____ HENT: Exam performed. - Head: Normocephalic and atraumatic. - Right Ear: External ear normal. No mastoid tenderness. - Left Ear: External ear normal. No mastoid tenderness. - Mouth/Throat: The oropharynx is clear and moist. No trismus in the jaw. No dental abscesses or uvula swelling. No oropharyngeal exudate or tonsillar abscesses. ____ EYES: Conjunctivae and EOM are normal. Pupils are equal, round, and reactive to light. Right eye exhibits no discharge. Left eye exhibits no discharge. No scleral icterus. ____ NECK: Normal range of motion. Neck supple. No JVD present. No spinous process tenderness present. No carotid bruit present. No rigidity. No tracheal deviation and normal range of motion present. No Brudzinski's sign and no Kernig's sign noted. ____ CV: Normal rate, regular rhythm, normal heart sounds and intact distal pulses. There is no peripheral edema. Palpable radial pulses bue. ____ PULM/CHEST: Effort normal and breath sounds normal. No respiratory distress. No stridor. He has no wheezes. He has no rales. - Chest Wall: He exhibits no tenderness. ____ ABD: Colostomy bag in place, diffuse pain on palpation of the abdomen. MUSC/SKEL: Normal range of motion. There is no peripheral edema, tenderness or deformity. LYMPH: No cervical adenopathy. ____ NEURO: He is alert and oriented to person, place, and time. He has normal strength. No cranial nerve deficit or sensory deficit. Coordination and gait normal. GCS eye subscore is 4. GCS verbal subscore is 5. GCS motor subscore is 6. cerbellar tests wnl. ____ SKIN: Skin is warm and dry. He is not diaphoretic. ____ PSYCH: He has a normal mood and affect. His behavior is normal. Judgment and thought content normal. ____ Course 1410: Medical records reviewed. The patient was seen in room A10, a physical examination was performed. 1700: Vital signs stable, the patients labs show Lipase of 1193, and his CT scan showed pancreatitis. I spoke with Dr. Waddell, [facility] Hospitalist, about the patients case who agreed to accept the patient for further evaluation. Administered Medications Discontinued Medications Hydromorphone HCl (Dilaudid) 1 mg IV NOW STA Stop: 11/14/18 15:42 Last Admin: 11/14/18 15:53 Dose: 1 mg Documented by: [id number] Hydromorphone HCl (Dilaudid) Confirm Administered Dose 0.5 mg .ROUTE .STK-MED ONE Stop: 11/14/18 18:30 Last Admin: 11/14/18 18:35 Dose: 0.5 mg Documented by: [id number] Hydromorphone HCl (Dilaudid) 0.5 mg IV NOW STA Stop: 11/14/18 18:38 Last Admin: 11/14/18 19:05 Dose: Not Given Documented by: [id number] Sodium Chloride (Nss 1000ml) 1,000 mls @ 999 mls/hr IV .Q1H1M ONE Stop: 11/14/18 15:28 Last Infusion: 11/14/18 15:55 Dose: 0 mls/hr Documented by: [id number] Admin: 11/14/18 14:41 Dose: 999 mls/hr Documented by: [id number] Ioversol (Optiray 320 100ml) 90 ml IV ONCE PRN PRN Reason: Interaction Checking Stop: 11/18/18 16:16 Last Admin: 11/14/18 16:17 Dose: 90 ml Documented by: [id number] Ketorolac Tromethamine (Toradol) 15 mg IV NOW STA Stop: 11/14/18 18:10 Last Admin: 11/14/18 18:35 Dose: 15 mg Documented by: [id number] Morphine Sulfate (Morphine Sulfate) 8 mg IV NOW STA Stop: 11/14/18 14:29 Last Admin: 11/14/18 14:40 Dose: 8 mg Documented by: [id number] Ondansetron HCl (Zofran) 4 mg IV NOW STA Stop: 11/14/18 14:29 Last Admin: 11/14/18 14:40 Dose: 4 mg Documented by: [id number] Medical Decision Making Medical Records Attestation: I reviewed the patient's medical records. Home Medications Current Medication List: was personally reviewed by me Laboratory Data Attestation: I reviewed the patient's lab results. Result diagrams: 11/14/18 14:15 11/14/18 14:15 Lab Results 11/14/18 11/14/18 Range/Units 14:15 14:15 WBC 11.29 H (4.8-10.8) K/uL RBC 4.85 (4.7-6.1) M/uL Hgb 12.8 L (14.0-18.0) g/dL Hct 40.8 L (42-52) % MCV 84.1 (80-100) fL MCH 26.4 (25-34) pg MCHC 31.4 L (32-36) g/dL RDW Std Deviation 44.0 (36.4-46.3) fL RDW Coeff of Khadijah 14.3 (11.5-14.5) % Plt Count 366 (130-400) K/uL MPV 9.6 (7.4-10.4) fL Immature Gran % (Auto) 0.2 % Neut % (Auto) 75.9 % Lymph % (Auto) 14.7 % Terrell % (Auto) 4.1 % Eos % (Auto) 4.9 % Baso % (Auto) 0.2 % Immature Gran # (Auto) 0.02 (0.00-0.02) K/uL Neut # (Auto) 8.58 H (1.4-6.5) K/uL Lymph # (Auto) 1.66 (1.2-3.4) K/uL Terrell # (Auto) 0.46 (0.11-0.59) K/uL Eos # (Auto) 0.55 H (0-0.5) K/uL Baso # (Auto) 0.02 (0-0.2) K/uL Sodium 137 (136-145) mmol/L Potassium 3.4 L (3.5-5.1) mmol/L Chloride 103 (98-107) mmol/L Carbon Dioxide 29 (21-32) mmol/L Anion Gap 5.0 (3-11) BUN 7 (7-18) mg/dl Creatinine 0.97 (0.6-1.4) mg/dl Est Cr Clr Drug Dosing 116.4 ml/min Est GFR ( Amer) 119.2 Est GFR (Non-Af Amer) 102.9 BUN/Creatinine Ratio 7.2 L (10-20) Glucose 87 (70-99) mg/dl Calcium 9.1 (8.5-10.1) mg/dl Total Bilirubin 0.6 (0.2-1) mg/dl Direct Bilirubin 0.2 (0-0.2) mg/dl AST 16 (15-37) U/L ALT 17 (12-78) U/L Alkaline Phosphatase 119 H (45-117) U/L Total Protein 8.1 (6.4-8.2) gm/dl Albumin 3.7 (3.4-5.0) gm/dl Lipase 1193 H (73-393) U/L Imaging Data Radiologist's Impression: Radiology results as stated below per my review and the radiologist's interpretation: ABDOMEN AND PELVIS CT WITH IV CONTRAST CT DOSE: 262.80 mGy.cm HISTORY: Acute epigastric abdominal pain with history of Crohn's disease. Postoperative changes from prior ileocecectomy and left hemicolectomy. epigastric abdominal pain hx crohns pancreatitis TECHNIQUE: Multiaxial CT images of the abdomen and pelvis were performed following the IV administration of 90 cc of Optiray 320, A dose lowering te chnique was utilized adhering to the principles of ALARA. COMPARISON STUDY: CT abdomen and pelvis 03/20/2018. FINDINGS: Lung bases are generally clear. No pneumatosis or pneumoperitoneum. Imaged infe rior cardiac chambers are unremarkable. Bridger lobe of the liver. No focal hepatic mass lesion or intrahepatic delayed ductal dilation. Portal vein appears patent. Spleen, gallbladder and adrenal glands are unremarkable. Moderate interstitial inflammation/edema with peripancreatic edema compatible with acute pancreatitis. No evidence of pancreatic necrosis, pancreatic ductal dilation or acute pancreatic fluid collection. No biliary ductal dilation. The kidneys and ureters are unremarkable. Mild nonspecific wall thickening of the bladder. Trace free pelvic fluid is likely reactive. Aorta and IVC are unremarkable. There is no adenopathy. No bowel obstruction or bowel wall thickening. Postoperative changes from partial left hemicolectomy with left lower quadrant ostomy. Additionally, postoperative changes are noted compatible with prior ileocecectomy. Evaluation of the bowel is limited without the use of oral contrast. Bones appear to be intact. IMPRESSION: 1. Findings compatible with acute uncomplicated pancreatitis. No evidence of pancreatic necrosis or acute peripancreatic fluid collection. 2. Postoperative changes from prior ileocecectomy and partial left hemicolectomy with left lower quadrant ostomy. 3. No bowel obstruction or bowel wall thickening. 4. No pneumatosis or pneumoperitoneum. Electronically signed by: Phan Velázquez M.D. 11/14/2018 4:40 PM Blood Pressure Blood Pressure Findings: Elevated blood pressure Blood Pressure Disposition: further management by hospitalist SURYA Narrative Vital signs stable, the patients labs show Lipase of 1193, and his CT scan showed pancreatitis. I spoke with Dr. Waddell, [facility] Hospitalist, about the patients case who agreed to accept the patient for further evaluation. Impression & Plan Pancreatitis Discharge Plan Visit Data *Final* Discharge Date/Time: 11/14/18 19:22 Chief Complaint: Abdominal Pain Stated Complaint: CROHNS DISEASE FLARE, SEVERE ABD PAIN ED Provider: Aamir Daigle Discharge Problem: Pancreatitis Patient Disposition: Admitted As Inpatient Discharge Instructions Interventions: ED Discharge Assessment Last Done: 11/14/18 19:22 The scribe's documentation has been prepared under my direction and personally reviewed by me in its entirety. I confirm that the note above accurately reflects all work, treatment, procedures, and medical decision making performed by me.
--- NOTE | 2018-11-14 21:58 | Ultrasound Report ---
ABDOMINAL ULTRASOUND, RIGHT UPPER QUADRANT HISTORY: Mid abdominal pain. rule out gallstones, acute pancreatitis. COMPARISON: Abdomen and pelvis CT 11/14/2018. Abdominal ultrasound 03/28/2018. FINDINGS: Pancreas: The pancreatic tail is obscured by overlying bowel gas. The remaining portions of the pancr eas are within normal limits. The main pancreatic duct is at the upper limits of normal measuring 3 m m. Liver: Unremarkable. Gallbladder: No gallbladder wall thickening. No gallstones. CBD: Right kidney: No hydronephrosis. IMPRESSION: 1. Normal gallbladder. No gallstones. 2. The patient's acute pancreatitis is better appreciated on the same day abdomen and pelvis CT. Electronically signed by: Bert Richardson M.D. 11/14/2018 9:57 PM
[2018-11-14] MEDS: HYDROmorphone INJ 0.5 MG/0.5 ML SYR IV PRN (22:02)
[2018-11-14] MEDS: buprenorphine HCL 8 MG SUBL SL SCH (22:04)
[2018-11-14 22:22] LABS: Appearance Urine Clear (Clear); Bilirubin Urine Negative (Negative); Blood Urine Negative (Negative); Color Urine Orange; Glucose Urine UA Negative (Negative); Ketones Urine 2+ (Negative); Leukocyte Esterase Urine Negative (Negative); Nitrite Urine Negative (Negative); Protein Urine Negative (Negative); Specific Gravity Urine > 1.045 (1.000-1.030); Urobilinogen Urine Negative (Negative); pH Urine 6.5 (4.5-7.5)
[2018-11-15] MEDS: LACTATED RINGER'S 1,000 ML IV SCH ×5 (00:27→17:42)
[2018-11-15] MEDS: HYDROmorphone INJ 0.5 MG/0.5 ML SYR IV PRN ×7 (01:53→20:24)
[2018-11-15 06:27] LABS: Basophils # (auto) 0.02 K/uL (0-0.2); Basophils % (auto) 0.2 %; Eosinophils # (auto) 0.49 K/uL (0-0.5); Eosinophils % (auto) 4.2 %; Hemoglobin 12.7 g/dL (14.0-18.0); Immature Granulocytes # (auto) 0.01 K/uL (0.00-0.02); Immature Granulocytes % (auto) 0.1 %; Lymphocytes # (auto) 2.14 K/uL (1.2-3.4); Lymphocytes % (auto) 18.5 %; Mean Corpuscular Hemoglobin 27.4 pg (25-34); Mean Corpuscular Hgb Conc 32.6 g/dL (32-36); Mean Corpuscular Volume 84.1 fL (80-100); Mean Platelet Volume 9.1 fL (7.4-10.4); Monocytes # (auto) 0.85 K/uL (0.11-0.59); Monocytes % (auto) 7.3 %; Neutrophils # (auto) 8.07 K/uL (1.4-6.5); Neutrophils % (auto) 69.7 %; Platelet Count 316 K/uL (130-400); RDW Standard Deviation 43.3 fL (36.4-46.3); Red Blood Count 4.64 M/uL (4.7-6.1); White Blood Count 11.58 K/uL (4.8-10.8)
[2018-11-15 06:58] LABS: Albumin Level 2.8 gm/dl (3.4-5.0); BUN Creatinine Ratio 6.5 (10-20); Bilirubin Direct 0.2 mg/dl (0-0.2); Calcium 8.4 mg/dl (8.5-10.1); Creatinine Clr Calc Pharmacy 154.9 ml/min; Est GFR (African American) 142.2; Est GFR (Non-African American) 122.7; Potassium 3.3 mmol/L (3.5-5.1)
[2018-11-15 07:11] LABS: Albumin Globulin Ratio 0.7 (0.9-2); Bilirubin,Total 0.8 mg/dl (0.2-1); Globulin 3.9 gm/dl (2.5-4.0); Total Protein 6.7 gm/dl (6.4-8.2)
[2018-11-15] MEDS: buprenorphine HCL 8 MG SUBL SL SCH ×3 (07:53→20:21)
[2018-11-15] MEDS ORDERED: POTASSIUM CHLORIDE 10 MEQ TABCR PO ONE (08:45)
--- NOTE | 2018-11-15 09:53 | Surgery Consultation ---
Date of Consultation November 15, 2018 Assessment & Plan (1) Open wound of perineum: pt is a 33 year -old male who was admitted to hospital for acute pancreatitis with chronic perineal wound, IMP: acute pancreatitis, chronic open wound of perineum I agree with treatment plan, add on iv cipro + flagyl, repeta labs in am, will F/U History of Present Illness Attending Physician: Umesh Gilliam MD Chief Complaint: Abdominal pain Primary Care Provider: Alfred Carmichael MD Patient is 33 y/o M with PMH Crohn's, regional enteritis, fistula, perirectal abscess, perianal Crohn's s/p perianal resection with colostomy in 10/2017, nonhealing perineal wound with recent debridement on 11/03/2018 [place] [facility] MANNY Turner, depression, anxiety, GERD, tobacco use, chronic pain on Subutex presented to ER with complaint of abdominal pain that started today. Patient reports upper abdominal pain that is described as sharp and constant is nonradiating. He reports chronic diffuse abdominal pain at baseline. Patient states took his Subutex this morning and Tylenol without relief of abdominal pain. Complains of nausea and vomiting x1 today. Denies any increased stool output to colostomy bag. Denies hematochezia, hematemesis, melena. Patient denies any fevers or chills. Did not eat or drink anything today. Reports he ate cheeseburger and fries yesterday. Reports 3 days ago had 3 glasses of wine. Today did not eat anything secondary to abdominal pain. Reports chronic intermittent drainage to perineal wound and denies any increased drainage. Denies fever/chills, diaphoresis, AGUIRRE, dizziness, syncope, vision changes, neck pain, CP, SOB, orthopnea, palpitations, cough, sore throat, choking, otalgia, rhinorrhea, paresthesias, weakness, extremity weakness, extremity edema, rashes, urinary symptoms. I ( Kuldip Alfredo MD ) got a call for consult perineal wound, I reviewed pt's H/P with pt and I agree with above history, pt is still have some epigastric pain, no back pain, pt denies rectal pain, I reviewed labs and CT scan. Allergies Allergy/AdvReac Type Severity Reaction Status Date / Time tomato AdvReac Intermediate GI Verified 11/14/18 14:27 SYMPTOMS-CROHN'S ACTS UP Egg Derived AdvReac Mild GI SYMPTOMS Verified 11/14/18 14:27 lactose AdvReac Unknown GI SYMPTOMS Verified 11/14/18 14:27 Home Medications Home Medications Medication Instructions Recorded Confirmed Type buprenorphine HCl 8 mg SUBLINGUAL TID 03/17/18 11/14/18 History Patient History Medical History Open wound of perineum Chronic pain (Chronic) Tobacco use (Chronic) Colostomy in place (Chronic) Crohns disease (Chronic) Yelqh-Alaezmbfq-Tlfkm (WPW) syndrome (Chronic) Marfan's disease (Chronic) Exacerbation of Crohn's disease (Resolved) Alcohol abuse (Resolved) Cannabis abuse (Chronic) Cellulitis (Resolved) Cocaine abuse (Resolved) Depression (Chronic) Generalized anxiety disorder (Chronic) Sunitha-rectal abscess (Resolved) Abdominal pain, acute, generalized (Inactive) Crohn's disease (Inactive) Surgical History History of prior ablation treatment (Chronic) H/O colonoscopy (Chronic) History of partial colectomy (Chronic) Family History Other Ulcerative colitis Social History Preferred Language: [place] Communication Ability: Effective Social Work Professor Required: No Beliefs That Will Affect Care: None Current Living Situation: Significant Other Feels Safe at Home: Yes Safety Concerns: Feels Safe At This Time Smoking Status: Current every day smoker Tobacco Type: cigarettes ; Cigarettes Per Day: 1/2 pack per day ; Do You Dip or Chew Tobacco: No ; Second Hand Exposure: No ; Tobacco Cessation Education Requested by Patient: No Hx Alcohol Use: Yes Alcohol type: wine Hx Substance Use: Yes substance use type: marijuana Last Used Substance: Days (ago) Last Used Substance Other:: A couple days ago Review of Systems Review of Systems: All systems reviewed & are unremarkable except as noted in HPI & below Constitutional: as per Subjective / HPI Ear, Nose, Mouth, Throat: as per Subjective / HPI Respiratory: as per Subjective / HPI Cardiovascular: as per Subjective / HPI Gastrointestinal: as per Subjective / HPI crohn's disease, S/P partial colectomy, colostomy, I/D perirectal infection and chronic wound Genitourinary: + as per Subjective / HPI Musculoskeletal: as per Subjective / HPI Integumentary: as per Subjective / HPI Neurologic: as per Subjective / HPI Psychiatric: as per Subjective / HPI Endocrine: as per Subjective / HPI Hematologic / Lymphatic: as per Subjective / HPI Physical Exam Constitutional: WD/WN, vitals as above well developed and well nourished ENMT: external ear and nose normal, oropharynx normal Neck: trachea midline, no thyromegaly Respiratory: normal respiratory effort, lungs clear to auscultation normal respiratory effort Cardiovascular: RRR, no murmur, no edema Rate/Rhythm: regular rate and regular rhythm Gastrointestinal (Abdomen): Percussion/Palpation: + abdomen tender and abdomen soft some tenderness at epigastric area, no rebound pain, no distend, BS +. rectal exam- chronic open on perirectal area, small amount drainage, no tenderness, no active bleeding, Musculoskeletal: no cyanosis or clubbing, extremities motor strength 5/5 Skin: no rashes, warm and dry Neurologic: patellar DTR's 2+ bilat, sensation intact Psychiatric: A+Ox3, euthymic affect Results & Data Vital Signs (Past 12 Hours) Vital Signs Temp Pulse Resp BP BP Pulse Ox 11/15/18 07:52 148/89 H 11/15/18 07:07 36.9 C 61 19 158/108 H 100 11/15/18 05:14 59 L 147/61 H 11/14/18 23:41 36.8 C 55 L 18 160/90 H 98 Laboratory Results Abnormal lab results 11/14/18 11/14/18 11/14/18 Range/Units 14:15 14:15 22:00 WBC 11.29 H (4.8-10.8) K/uL RBC (4.7-6.1) M/uL Hgb 12.8 L (14.0-18.0) g/dL Hct 40.8 L (42-52) % MCHC 31.4 L (32-36) g/dL Neut # (Auto) 8.58 H (1.4-6.5) K/uL [place] # (Auto) (0.11-0.59) K/uL Eos # (Auto) 0.55 H (0-0.5) K/uL Potassium 3.4 L (3.5-5.1) mmol/L BUN (7-18) mg/dl BUN/Creatinine Ratio 7.2 L (10-20) Calcium (8.5-10.1) mg/dl AST (15-37) U/L ALT (12-78) U/L Alkaline Phosphatase 119 H (45-117) U/L Albumin (3.4-5.0) gm/dl Albumin/Globulin Ratio (0.9-2) Lipase 1193 H (73-393) U/L Ur Specific [place] > 1.045 H (1.000-1.030) Urine Ketones 2+ H (Negative) 11/15/18 11/15/18 Range/Units 06:10 06:10 WBC 11.58 H (4.8-10.8) K/uL RBC 4.64 L (4.7-6.1) M/uL Hgb 12.7 L (14.0-18.0) g/dL Hct 39.0 L (42-52) % MCHC (32-36) g/dL Neut # (Auto) 8.07 H (1.4-6.5) K/uL [place] # (Auto) 0.85 H (0.11-0.59) K/uL Eos # (Auto) (0-0.5) K/uL Potassium 3.3 L (3.5-5.1) mmol/L BUN 5 L (7-18) mg/dl BUN/Creatinine Ratio 6.5 L (10-20) Calcium 8.4 L (8.5-10.1) mg/dl AST 9 L (15-37) U/L ALT 11 L (12-78) U/L Alkaline Phosphatase (45-117) U/L Albumin 2.8 L (3.4-5.0) gm/dl Albumin/Globulin Ratio 0.7 L (0.9-2) Lipase 1099 H (73-393) U/L Ur Specific [place] (1.000-1.030) Urine Ketones (Negative) Diagnostic Findings ABDOMEN AND PELVIS CT WITH IV CONTRAST CT DOSE: 262.80 mGy.cm HISTORY: Acute epigastric abdominal pain with history of Crohn's disease. Postoperative changes from prior ileocecectomy and left hemicolectomy. epigastric abdominal pain hx crohns pancreatitis TECHNIQUE: Multiaxial CT images of the abdomen and pelvis were performed following the IV administration of 90 cc of Optiray 320, A dose lowering technique was utilized adhering to the principles of ALARA. COMPARISON STUDY: CT abdomen and pelvis 03/20/2018. FINDINGS: Lung bases are generally clear. No pneumatosis or pneumoperitoneum. Imaged inferior cardiac chambers are unremarkable. Bridger lobe of the liver. No focal hepatic mass lesion or intrahepatic delayed ductal dilation. Portal vein appears patent. Spleen, gallbladder and adrenal glands are unremarkable. Moderate interstitial inflammation/edema with peripancreatic edema compatible with acute pancreatitis. No evidence of pancreatic necrosis, pancreatic ductal dilation or acute pancreatic fluid collection. No biliary ductal dilation. The kidneys and ureters are unremarkable. Mild nonspecific wall thickening of the bladder. Trace free pelvic fluid is likely reactive. Aorta and IVC are unremarkable. There is no adenopathy. No bowel obstruction or bowel wall thickening. Postoperative changes from partial left hemicolectomy with left lower quadrant ostomy. Additionally, postoperative changes are noted compatible with prior ileocecectomy. Evaluation of the bowel is limited without the use of oral contrast. Bones appear to be intact. IMPRESSION: 1. Findings compatible with acute uncomplicated pancreatitis. No evidence of pancreatic necrosis or acute peripancreatic fluid collection. 2. Postoperative changes from prior ileocecectomy and partial left hemicolectomy with left lower quadrant ostomy. 3. No bowel obstruction or bowel wall thickening. 4. No pneumatosis or pneumoperitoneum. ABDOMINAL ULTRASOUND, RIGHT UPPER QUADRANT HISTORY: Mid abdominal pain. rule out gallstones, acute pancreatitis. COMPARISON: Abdomen and pelvis CT 11/14/2018. Abdominal ultrasound 03/28/2018. FINDINGS: Pancreas: The pancreatic tail is obscured by overlying bowel gas. The remaining portions of the pancreas are within normal limits. The main pancreatic duct is a t the upper limits of normal measuring 3 mm. Liver: Unremarkable. Gallbladder: No gallbladder wall thickening. No gallstones. CBD: Right kidney: No hydronephrosis. IMPRESSION: 1. Normal gallbladder. No gallstones. 2. The patient's acute pancreatitis is better appreciated on the same day abdomen and pelvis CT.
--- NOTE | 2018-11-15 10:00 | Gastrointestinal Consultation ---
Date of Consultation November 15, 2018 Assessment & Plan (1) Abdominal pain: 33 year old male with crohn's disease s/p proctectomy and end colostomy in 2018 who presents w/ acute onset upper abdominal pain yesterday morning associated w/ severe nausea and one episode of vomiting admitted through the ED w/ elevated lipase, CT evidence of acute, uncomplicated pancreatitis. His LFTs are normal. This is his second episode of pancreatitis - first through secondary to ongoing ETOH and cannabid use. DDX discussed: med induced, ETOH induced, gallstones, idiopathic etc - Check triglycerides - ABD US to rule out gallstones was negative - ETOH cessation was recommended - Marijuana cessation was recommended - Treat the pancreatitis LR 200 ml/hr Antiemetics PRN Analgesia PRN NPO for now - OP EGD/EUS in 6-8 weeks - Consider OP genetic testing - In regards to his crohn's disease he has a history of medical noncompliance. He has had recurrence of rectal abscess following with colorectal surgery in [place]. He has been lost to follow up with Dr. Dave. Will need to re-establish with Dr. Dave and continue following with colorectal. Present on Admission?: Yes Supervising Physician Co-Signing Physician Notes Late entry: Patient was seen and examined the patient with LAWRENCE Egan whose note reflects our findings and plan. History of Present Illness Reason for Consultation: pancreatitis Requesting Physician: Tawana Attending Physician: Umesh Gilliam MD History of Present Illness 33 year old male with history of WPW, perianal crohn's disease, persistent perirectal abscess, s/p proctectomy and end colostomy in 2018 who presents to the ED for evaluation of upper abdominal pain, nausea. Pt was seen and evalu ated, chart reviewed. Endorses upper abdominal pain started acutely yesterday morning. Pain is similar to prior episode of pancreatitis but is much more severe. Constant. Sharp, stabbing. Radiates to his back. Did have an episode of severe nausea, vomiting in the ED yesterday. Denies any GERD. No change in bowel function. Continues to follow with general surgery in [place]. Stool can be semi-formed or loose. No black or bloody stools. Not on any therapy for IBD presently. Only OP medication is subutex. Does drink ETOH 2-3 drinks 1-2 a month. Last ETOH use was on Tuesday when he had three glasses of wine. Has cut back on marijuana and suggests 1-2 x a week. No fever, chills, CP, SOB ETOH 3 glasses of wine tuesday Had Roxicodone last week following a surgical procedure Marijuana 1-2 x a week Denies any other medications ABD US 2019: Normal gallbladder. No gallstones.The patient's acute pancreatitis is better appreciated on the same day abdomen and pelvis CT. CT 2019: Findings compatible with acute uncomplicated pancreatitis. No evidence of pancreatic necrosis or acute peripancreatic fluid collection.Postoperative changes from prior ileocecectomy and partial left hemicolectomy with left lower quadrant ostomy. No bowel obstruction or bowel wall thickening. No pneumatosis or pneumoperitoneum. Allergies Allergy/AdvReac Type Severity Reaction Status Date / Time tomato AdvReac Intermediate GI Verified 11/14/18 14:27 SYMPTOMS-CROHN'S ACTS UP Egg Derived AdvReac Mild GI SYMPTOMS Verified 11/14/18 14:27 lactose AdvReac Unknown GI SYMPTOMS Verified 11/14/18 14:27 Home Medications Home Medications Medication Instructions Recorded Confirmed Type buprenorphine HCl 8 mg SUBLINGUAL TID 03/17/18 11/14/18 History Patient History Medical History Open wound of perineum Chronic pain (Chronic) Tobacco use (Chronic) Colostomy in place (Chronic) Crohns disease (Chronic) Gztum-Ombqnpdbl-Pfdst (WPW) syndrome (Chronic) Marfan's disease (Chronic) Exacerbation of Crohn's disease (Resolved) Alcohol abuse (Resolved) Cannabis abuse (Chronic) Cellulitis (Resolved) Cocaine abuse (Resolved) Depression (Chronic) Generalized anxiety disorder (Chronic) Sunitha-rectal abscess (Resolved) Abdominal pain, acute, generalized (Inactive) Crohn's disease (Inactive) Surgical History History of prior ablation treatment (Chronic) H/O colonoscopy (Chronic) History of partial colectomy (Chronic) Family History Other Ulcerative colitis Social History Preferred Language: Nepali Communication Ability: Effective Gas Engine Operator Required: No Beliefs That Will Affect Care: None Current Living Situation: Significant Other Feels Safe at Home: Yes Safety Concerns: Feels Safe At This Time Smoking Status: Current every day smoker Tobacco Type: cigarettes ; Cigarettes Per Day: 1/2 pack per day ; Do You Dip or Chew Tobacco: No ; Second Hand Exposure: No ; Tobacco Cessation Education Requested by Patient: No Hx Alcohol Use: Yes Alcohol type: wine Hx Substance Use: Yes substance use type: marijuana Last Used Substance: Days (ago) Last Used Substance Other:: A couple days ago Review of Systems Constitutional: no fever, no chills and no fatigue Respiratory: no cough and no dyspnea Cardiovascular: no chest pain and no radiating jaw, neck or arm pain Gastrointestinal: + abdominal pain, + nausea and + vomiting; no belching, no early satiety, no heartburn, no coffee ground emesis, no hematemesis, no pain with swallowing, no dysphagia, no cramping, no excessive flatulence, no change in bowel habits, no change in stools, no constipation, no diarrhea/loose stools, no fecal incontinence, no constant urge to pass stools, no blood in stools and no melena Physical Exam Constitutional: no acute distress and not ill appearing Neck: trachea midline Respiratory: normal respiratory effort, lungs clear to auscultation Cardiovascular: RRR, no murmur, no edema Gastrointestinal (Abdomen): Inspection/Auscultation: normal bowel sounds Percussion/Palpation: + abdomen tender (epigastric) and abdomen soft; no guarding and abdomen not rigid Skin: no rashes, warm and dry Results & Data Vital Signs (Past 12 Hours) Vital Signs Temp Pulse Resp BP BP Pulse Ox 11/15/18 07:52 148/89 H 11/15/18 07:07 36.9 C 61 19 158/108 H 100 11/15/18 05:14 59 L 147/61 H 11/14/18 23:41 36.8 C 55 L 18 160/90 H 98 Laboratory Results 11/15/18 11/15/18 11/14/18 Range/Units 06:10 06:10 22:00 WBC 11.58 H (4.8-10.8) K/uL RBC 4.64 L (4.7-6.1) M/uL Hgb 12.7 L (14.0-18.0) g/dL Hct 39.0 L (42-52) % MCV 84.1 (80-100) fL MCH 27.4 (25-34) pg MCHC 32.6 (32-36) g/dL RDW Std Deviation 43.3 (36.4-46.3) fL RDW Coeff of Khadijah 14.0 (11.5-14.5) % Plt Count 316 (130-400) K/uL MPV 9.1 (7.4-10.4) fL Immature Gran % (Auto) 0.1 % Neut % (Auto) 69.7 % Lymph % (Auto) 18.5 % [place] % (Auto) 7.3 % Eos % (Auto) 4.2 % Baso % (Auto) 0.2 % Immature Gran # (Auto) 0.01 (0.00-0.02) K/uL Neut # (Auto) 8.07 H (1.4-6.5) K/uL Lymph # (Auto) 2.14 (1.2-3.4) K/uL [place] # (Auto) 0.85 H (0.11-0.59) K/uL Eos # (Auto) 0.49 (0-0.5) K/uL Baso # (Auto) 0.02 (0-0.2) K/uL Sodium 136 (136-145) mmol/L Potassium 3.3 L (3.5-5.1) mmol/L Chloride 102 (98-107) mmol/L Carbon Dioxide 27 (21-32) mmol/L Anion Gap 7.0 (3-11) BUN 5 L (7-18) mg/dl Creatinine 0.73 (0.6-1.4) mg/dl Est Cr Clr Drug Dosing 154.9 ml/min Est GFR ( Amer) 142.2 Est GFR (Non-Af Amer) 122.7 BUN/Creatinine Ratio 6.5 L (10-20) Glucose 76 (70-99) mg/dl Calcium 8.4 L (8.5-10.1) mg/dl Total Bilirubin 0.8 (0.2-1) mg/dl Direct Bilirubin 0.2 (0-0.2) mg/dl AST 9 L (15-37) U/L ALT 11 L (12-78) U/L Alkaline Phosphatase 100 (45-117) U/L Total Protein 6.7 (6.4-8.2) gm/dl Albumin 2.8 L (3.4-5.0) gm/dl Globulin 3.9 (2.5-4.0) gm/dl Albumin/Globulin Ratio 0.7 L (0.9-2) Lipase 1099 H (73-393) U/L Urine Color [place] Urine Appearance Clear (Clear) Urine pH 6.5 (4.5-7.5) Ur Specific [place] > 1.045 H (1.000-1.030) Urine Protein Negative (Negative) Urine Glucose (UA) Negative (Negative) Urine Ketones 2+ H (Negative) Urine Blood Negative (Negative) Urine Nitrite Negative (Negative) Urine Bilirubin Negative (Negative) Urine Urobilinogen Negative (Negative) Ur Leukocyte Esterase Negative (Negative) 11/14/18 11/14/18 Range/Units 14:15 14:15 WBC 11.29 H (4.8-10.8) K/uL RBC 4.85 (4.7-6.1) M/uL Hgb 12.8 L (14.0-18.0) g/dL Hct 40.8 L (42-52) % MCV 84.1 (80-100) fL MCH 26.4 (25-34) pg MCHC 31.4 L (32-36) g/dL RDW Std Deviation 44.0 (36.4-46.3) fL RDW Coeff of Khadijah 14.3 (11.5-14.5) % Plt Count 366 (130-400) K/uL MPV 9.6 (7.4-10.4) fL Immature Gran % (Auto) 0.2 % Neut % (Auto) 75.9 % Lymph % (Auto) 14.7 % [place] % (Auto) 4.1 % Eos % (Auto) 4.9 % Baso % (Auto) 0.2 % Immature Gran # (Auto) 0.02 (0.00-0.02) K/uL Neut # (Auto) 8.58 H (1.4-6.5) K/uL Lymph # (Auto) 1.66 (1.2-3.4) K/uL [place] # (Auto) 0.46 (0.11-0.59) K/uL Eos # (Auto) 0.55 H (0-0.5) K/uL Baso # (Auto) 0.02 (0-0.2) K/uL Sodium 137 (136-145) mmol/L Potassium 3.4 L (3.5-5.1) mmol/L Chloride 103 (98-107) mmol/L Carbon Dioxide 29 (21-32) mmol/L Anion Gap 5.0 (3-11) BUN 7 (7-18) mg/dl Creatinine 0.97 (0.6-1.4) mg/dl Est Cr Clr Drug Dosing 116.4 ml/min Est GFR ( Amer) 119.2 Est GFR (Non-Af Amer) 102.9 BUN/Creatinine Ratio 7.2 L (10-20) Glucose 87 (70-99) mg/dl Calcium 9.1 (8.5-10.1) mg/dl Total Bilirubin 0.6 (0.2-1) mg/dl Direct Bilirubin 0.2 (0-0.2) mg/dl AST 16 (15-37) U/L ALT 17 (12-78) U/L Alkaline Phosphatase 119 H (45-117) U/L Total Protein 8.1 (6.4-8.2) gm/dl Albumin 3.7 (3.4-5.0) gm/dl Globulin (2.5-4.0) gm/dl Albumin/Globulin Ratio (0.9-2) Lipase 1193 H (73-393) U/L Urine Color Urine Appearance (Clear) Urine pH (4.5-7.5) Ur Specific [place] (1.000-1.030) Urine Protein (Negative) Urine Glucose (UA) (Negative) Urine Ketones (Negative) Urine Blood (Negative) Urine Nitrite (Negative) Urine Bilirubin (Negative) Urine Urobilinogen (Negative) Ur Leukocyte Esterase (Negative)
[2018-11-15] MEDS: CIPROFLOXACIN 400 MG/200 ML BAG IV SCH ×2 (10:52→21:21)
[2018-11-15] MEDS: metroNIDAZOLE 500 MG/100 ML BAG IV SCH ×2 (10:52→17:36)
--- NOTE | 2018-11-15 18:45 | Hospitalist Progress Note ---
Date of Service November 15, 2018 Assessment & Plan (1) Abdominal pain: (2) Pancreatitis: Patient is a 33 yr male with H/O Crohn's, regional enteritis, fistula, perirectal abscess, perianal Crohn's s/p perianal resection with colostomy in 10/2017, nonhealing perineal wound with recent debridement on 11/03/2018 at [facility] by Dr. William, WPW, depression, anxiety, GERD, tobacco use, chronic pain on Subutex presents with Sharp upper abdominal pain associated with nausea and vomiting. Acute Pancreatitis --CT ABD:Findings compatible with acute uncomplicated pancreatitis. No evidence of pancreatic necrosis or acute peripancreatic fluid collection. Postoperative changes from prior ileocecectomy and partial left hemicolectomy with left lower quadrant ostomy. No bowel obstruction or bowel wall thickening. 4. No pneumatosis or pneumoperitoneum. --Admits to drinking alcohol --Normal LFTs --Check Lipid Panel --Liver USD:Normal gallbladder. No gallstones. The patient's acute pancreatitis is better appreciated on the same day abdomen and pelvis CT. --Continue Bowel rest, IV fluids, Pain control --Outpatient EGD/EUS in 6 to 8 weeks. --Consider outpatient genetic testing --Counseled to quit alcohol, marijuana use --Appreciate GI Input (3) Crohns disease: H/O Crohn's, regional enteritis, fistula, perirectal abscess, perianal Crohn's s/p perianal resection with colostomy in 10/2017, nonhealing perineal wound with recent debridement on 11/03/2018 Off Humira since prior to surgery in 2017 No hematochezia or reported changes in stool Needs to reestablish care with GI, as outpatient Also need to follow-up with colorectal surgeon (4) Open wound of perineum: H/O nonhealing perineal wound with recent debridement on 11/03/2018 at [facility] by Dr. William Denies any increased discharge -General surgery consult (5) Chronic pain: On Subutex. Follows with Dr. Hernandez at [facility] Subutex last filled 10/27/2018 Continue Subutex Started on Cipro, Flagyl as per surgery Appreciate surgery input (6) Ydnca-Jnrdobfhs-Axkfm (WPW) syndrome: Monitor (7) Tobacco use: Patient refuses nicotine patch Smoking cessation encouraged DVT Px: SCDs Code Status Full Code Disposition: Expect to discharge home when stable Subjective Patient is seen and examined at bedside Complains of epigastric pain, nausea Denies any chest pain, shortness of breath, dizziness Offers no other complaints Family at bedside Review of Systems Review of Systems: All systems reviewed & are unremarkable except as noted in HPI & below Physical Exam Physical Exam: Physical Exam: Vitals signs as noted above General Appearance:Moderately built and nourished, no apparent distress Head: normocephalic, Atraumatic Eyes: normal inspection, EOMI Neck: supple, Trachea midline Respiratory/Chest: Normal breath sounds, CTA Cardiovascular: S1, S2, No murmur Abdomen/GI:Soft, +Epigastric tender, +colostomy, Bowel sounds present, Perianal open wound Extremities/Musculoskelatal:normal inspection, no edema Neurologic/Psych:AAOX3, grossly no focal neurological deficits Skin: normal color, warm Results & Data Vital Signs (Past 12 Hours) Vital Signs Temp Pulse Pulse Resp BP Pulse Ox 11/15/18 15:43 36.8 C 71 20 162/93 H 97 11/15/18 07:52 148/89 H 11/15/18 07:07 36.9 C 61 19 158/108 H 100 Laboratory Results Short CBC 11/15/18 Range/Units 06:10 WBC 11.58 H (4.8-10.8) K/uL Hgb 12.7 L (14.0-18.0) g/dL Hct 39.0 L (42-52) % Plt Count 316 (130-400) K/uL BMP 11/15/18 06:10 Sodium 136 Potassium 3.3 L Chloride 102 Carbon Dioxide 27 BUN 5 L Creatinine 0.73 Glucose 76 Calcium 8.4 L Liver Function 11/15/18 Range/Units 06:10 Total Bilirubin 0.8 (0.2-1) mg/dl Direct Bilirubin 0.2 (0-0.2) mg/dl AST 9 L (15-37) U/L ALT 11 L (12-78) U/L Alkaline Phosphatase 100 (45-117) U/L Albumin 2.8 L (3.4-5.0) gm/dl Urine 11/14/18 Range/Units 22:00 Urine Color [place] Urine Appearance Clear (Clear) Urine pH 6.5 (4.5-7.5) Ur Specific [place] > 1.045 H (1.000-1.030) Urine Protein Negative (Negative) Urine Glucose (UA) Negative (Negative)
[2018-11-15] MEDS ORDERED: LORazepam 0.5 MG/1 ML VIAL IV PRN (22:31)
--- NOTE | 2018-11-15 22:31 | Hospitalist Progress Note ---
Date of Service November 15, 2018 Subjective Made aware by RN of patient communicating suicidal ideations to girlfriend around 7:30 PM. Psych liaison RN requested to evaluate patient. Suicide precautions ordered until patient evaluated by psychiatrist in a.m. Around 11 PM, patient expressed intent to leave hospital AGAINST MEDICAL ADVICE. Not enough indication to warrant involuntary confinement as per psych liaison RN/Can Help liaison as per RN. Patient unwilling to wait for undersigned provider to discuss issues. Patient left hospital AGAINST MEDICAL ADVICE around 11:50 PM as per RN. Will relay to AM provider. Results & Data Vital Signs (Past 12 Hours) Vital Signs Temp Pulse Resp BP Pulse Ox 11/15/18 15:43 36.8 C 71 20 162/93 H 97
--- NOTE | 2018-11-16 08:56 | Discharge Summary ---
Date of Service November 16, 2018 Admission HPI Per Admitting Provider Patient is 33 y/o M with PMH Crohn's, regional enteritis, fistula, perirectal abscess, perianal Crohn's s/p perianal resection with colostomy in 10/2017, nonhealing perineal wound with recent debridement on 11/03/2018 [place] [facility] [place], WPW, depression, anxiety, GERD, tobacco use, chronic pain on Subutex presented to ER with complaint of abdominal pain that started today. Patient reports upper abdominal pain that is described as sharp and constant is nonradiating. He reports chronic diffuse abdominal pain at baseline. Patient states took his Subutex this morning and Tylenol without relief of abdominal pain. Complains of nausea and vomiting x1 today. Denies any increased stool output to colostomy bag. Denies hematochezia, hematemesis, melena. Patient denies any fevers or chills. Did not eat or drink anything today. Reports he ate cheeseburger and fries yesterday. Reports 3 days ago had 3 glasses of wine. Today did not eat anything secondary to abdominal pain. Reports chronic intermittent drainage to perineal wound and denies any increased drainage. Denies fever/chills, diaphoresis, AGUIRRE, dizziness, syncope, vision changes, neck pain, CP, SOB, orthopnea, palpitations, cough, sore throat, choking, otalgia, rhinorrhea, paresthesias, weakness, extremity weakness, extremity edema, rashes, urinary symptoms. Admission Exam Per Admitting Provider General: no apparent distress and resting in bed however reports upper abdominal pain, WDWN Head: normocephalic, atraumatic Eyes: PERRL, EOM's intact, conjunctiva non-injected, anicteric ENT: normal inspection external ears, nose, mucous membranes mildly dry Neck: supple, trachea midline Lungs: clear, no respiratory distress, no wheezing/rhonchi/rales CV: RRR, no murmur, no pretibial edema Abd: +healed surgical incision to mid abdomen, +colostomy bag with brown liquid stool, normal BS, soft, +tenderness to palpation epigastric, RUQ, LUQ without rebound, no RLQ or LLQ tenderness to palpation; Perineal open wound with pink tissue without surrounding erythema and no discharge at this time Ext: no cyanosis, no calf tenderness Neuro: A&O x 3, no focal deficits noted, normal affect Skin: warm, dry Principal Diagnosis Acute pancreatitis Chronic stasis Discharge Data Allergies Allergy/AdvReac Type Severity Reaction Status Date / Time tomato AdvReac Intermediate GI Verified 11/14/18 14:27 SYMPTOMS-CROHN'S ACTS UP Egg Derived AdvReac Mild GI SYMPTOMS Verified 11/14/18 14:27 lactose AdvReac Unknown GI SYMPTOMS Verified 11/14/18 14:27 Consultations 11/14/18 17:01 ED Decision to Admit Stat 11/14/18 20:10 Consult Gastroenterology Routine Consult General Surgery Routine 11/15/18 19:47 Consult Psychiatry Routine Procedures Performed CT ABD: 1. Findings compatible with acute uncomplicated pancreatitis. No evidence of pancreatic necrosis or acute peripancreatic fluid collection. 2. Postoperative changes from prior ileocecectomy and partial left hemicolectomy with left lower quadrant ostomy. 3. No bowel obstruction or bowel wall thickening. 4. No pneumatosis or pneumoperitoneum. Liver USD: 1. Normal gallbladder. No gallstones. 2. The patient's acute pancreatitis is better appreciated on the same day abdomen and pelvis CT. Ordered Studies 11/14/18 14:29 CT abd pelvis IV con only Stat 11/14/18 20:10 US liver Routine Hospital Course (1) Abdominal pain: (2) Pancreatitis: Patient is a 33 yr male with H/O Crohn's, regional enteritis, fistula, perirectal abscess, perianal Crohn's s/p perianal resection with colostomy in 10/2017, nonhealing perineal wound with recent debridement on 11/03/2018 at [facility] [place]. William WPW, depression, anxiety, GERD, tobacco use, chronic pain on Subutex presents with Sharp upper abdominal pain associated with nausea and vomiting. Acute Pancreatitis --CT ABD:Findings compatible with acute uncomplicated pancreatitis. No evidence of pancreatic necrosis or acute peripancreatic fluid collection. Postoperative changes from prior ileocecectomy and partial left hemicolectomy with left lower quadrant ostomy. No bowel obstruction or bowel wall thickening. 4. No pneumatosis or pneumoperitoneum. --Admits to drinking alcohol --Normal LFTs --Check Lipid Panel --Liver USD:Normal gallbladder. No gallstones. The patient's acute pancreatitis is better appreciated on the same day abdomen and pelvis CT. --Continue Bowel rest, IV fluids, Pain control --Outpatient EGD/EUS in 6 to 8 weeks. --Consider outpatient genetic testing --Counseled to quit alcohol, marijuana use --Appreciate GI Input (3) Crohns disease: H/O Crohn's, regional enteritis, fistula, perirectal abscess, perianal Crohn's s/p perianal resection with colostomy in 10/2017, nonhealing perineal wound with recent debridement on 11/03/2018 Off Humira since prior to surgery in 2018 No hematochezia or reported changes in stool Needs to reestablish care with GI, as outpatient Also need to follow-up with colorectal surgeon (4) Open wound of perineum: H/O nonhealing perineal wound with recent debridement on 11/03/2018 [place] [facility] [place] William Denies any increased discharge -General surgery consult (5) Chronic pain: On Subutex. Follows with Dr. Hernandez at [facility] Subutex last filled 10/27/2018 Continue Subutex Started on Cipro, Flagyl as per surgery Appreciate surgery input (6) Pubol-Mbvlixxgi-Jsbgm (WPW) syndrome: Monitor (7) Tobacco use: Patient refuses nicotine patch Smoking cessation encouraged DVT Px: SCDs Code Status Full Code Disposition: Expect to discharge home when stable Patient left AGAINST MEDICAL ADVICE overnight despite explaining the risks and consequences of incomplete treatment by night hospitalist. Total Time Total Time Spent Total Time Spent (In Minutes): 25 minutes Total Time Includes: Examination of the Patient, Discharge Planning, Medication Reconciliation, Communication With Other Providers and Other Discharge Plan Discharge Items Patient Disposition: Against Medical Advice Reason For Visit: PANCREATITIS Follow-up/Referrals: Alfred Carmichael MD [Primary Care Provider] - Stand-Alone Forms: Call Back Authorization, [facility] Medications and DC Order Prescriptions: No Action buprenorphine HCl 8 mg tablet, sublingual 8 mg Sublingual TID RF: 0 Admission Data Admit Date/Time: 11/14/18 18:16 Attending Provider: Umesh Gilliam Admit Provider: Aliya Waddell Primary Care Provider: Alfred Carmichael Other Providers: Aliya Waddell ; Kuldip Alfredo ; Mary Grace Washburn ; Kristine Gresham DC Date/Time DO NOT enter until pt leaves facility: 11/16/18 00:05
--- NOTE | 2018-11-20 08:02 | Communication Note ---
Date of Service: November 20, 2018 Psychiatric consult requested 11/15/18 at 19:47. Patient discharged 11/16/18 at 08:55, before patient was seen.
== END 2018-11-16 00:05 | disposition left against medical advice (07) | DRG 439 ==
LOC: ED 12:43 → SUATTDRO 18:16 → 4W 18:16

== ENCOUNTER 2018-11-17 20:31 | Inpatient (IN) ==
[2018-11-17] MEDS ORDERED: MoRPHine SULFATE 4 MG/ML 1 ML CARP\\VIAL IV STA (21:29)
[2018-11-17] MEDS ORDERED: ONDANSETRON INJ 2 MG/ML 2 ML VIAL IV STA (21:29)
[2018-11-17] MEDS ORDERED: SODIUM CHLORIDE 0.9% 1000ML 1,000 ML IV SCH ×2 (21:30→22:45)
[2018-11-17 21:38] LABS: Basophils # (auto) 0.03 K/uL (0-0.2); Basophils % (auto) 0.4 %; Eosinophils # (auto) 0.46 K/uL (0-0.5); Eosinophils % (auto) 5.6 %; Hematocrit (blood only) 39.5 % (42-52); Hemoglobin 12.6 g/dL (14.0-18.0); Immature Granulocytes # (auto) 0.01 K/uL (0.00-0.02); Immature Granulocytes % (auto) 0.1 %; Lymphocytes # (auto) 2.47 K/uL (1.2-3.4); Lymphocytes % (auto) 30.2 %; Mean Corpuscular Hemoglobin 27.2 pg (25-34); Mean Corpuscular Hgb Conc 31.9 g/dL (32-36); Mean Corpuscular Volume 85.3 fL (80-100); Mean Platelet Volume 9.5 fL (7.4-10.4); Monocytes # (auto) 0.83 K/uL (0.11-0.59); Monocytes % (auto) 10.1 %; Neutrophils # (auto) 4.39 K/uL (1.4-6.5); Neutrophils % (auto) 53.6 %; Platelet Count 359 K/uL (130-400); RDW Coefficient of Variation 14.1 % (11.5-14.5); RDW Standard Deviation 44.2 fL (36.4-46.3); Red Blood Count 4.63 M/uL (4.7-6.1); White Blood Count 8.19 K/uL (4.8-10.8)
[2018-11-17 21:46] LABS: Albumin Level 3.4 gm/dl (3.4-5.0); BUN Creatinine Ratio 8.6 (10-20); Creatinine Clr Calc Pharmacy 99.9 ml/min; Est GFR (African American) 100.2; Est GFR (Non-African American) 86.5; Potassium 3.2 mmol/L (3.5-5.1)
[2018-11-17 21:52] LABS: Albumin Globulin Ratio 0.8 (0.9-2); Bilirubin,Total 0.2 mg/dl (0.2-1); Globulin 4.2 gm/dl (2.5-4.0); Total Protein 7.6 gm/dl (6.4-8.2)
[2018-11-17] MEDS ORDERED: POTASSIUM CHLORIDE 20 MEQ TABCR PO STA (22:37)
[2018-11-17] MEDS: LACTATED RINGER'S 1,000 ML IV SCH (22:53)
--- NOTE | 2018-11-17 23:17 | History & Physical Report ---
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 hx opioid dependence on Suboxone, chronic anemia baseline hemoglobin of 12. Recent confinement November 142018 for pancreatitis possibly from alcohol intake. Patient left AMA due to " annoying attention" he got after communicating suicidal messages to his girlfriend. No current suicidal ideations as per patient. At home, belly discomfort little better. Patient did not eat anything for about a day. Patient felt worsening achy upper belly discomfort after a hamburger meal today. No alcohol intake at all since leaving hospital AMA as per patient and girlfriend. No chest pain, S OB, fever, chills,. Normal ostomy output. One episode of emesis at the ER. 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 Allergies Allergy/AdvReac Type Severity Reaction Status Date / Time tomato AdvReac Intermediate GI Verified 11/17/18 21:13 SYMPTOMS-CROHN'S ACTS UP Egg Derived AdvReac Mild GI SYMPTOMS Verified 11/17/18 21:13 lactose AdvReac Unknown GI SYMPTOMS Verified 11/17/18 21:13 Home Medications Home Medications Medication Instructions Recorded Confirmed Type buprenorphine HCl 8 mg SUBLINGUAL TID 03/17/18 11/17/18 History Past Med/Surg History Medical History Open wound of perineum Chronic pain (Chronic) Tobacco use (Chronic) Colostomy in place (Chronic) Crohns disease (Chronic) Krynl-Azraxdqws-Eztpz (WPW) syndrome (Chronic) Marfan's disease (Chronic) Exacerbation of Crohn's disease (Resolved) Alcohol abuse (Resolved) Cannabis abuse (Chronic) Cellulitis (Resolved) Cocaine abuse (Resolved) Depression (Chronic) Generalized anxiety disorder (Chronic) Sunitha-rectal abscess (Resolved) Abdominal pain, acute, generalized (Inactive) Crohn's disease (Inactive) Surgical History History of prior ablation treatment (Chronic) H/O colonoscopy (Chronic) History of partial colectomy (Chronic) Social History Preferred Language: Czech Communication Ability: 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 Beliefs That Will Affect Care: None Current Living Situation: Significant Other Feels Safe at Home: Yes Smoking Status: Never smoker Tobacco Type: cigarettes ; Cigarettes Per Day: 1/2 pack per day ; Second Hand Exposure: No ; Hx Alcohol Use: Yes Alcohol type: wine Hx Substance Use: Yes substance use type: marijuana Last Used Substance: Days (ago) Review of Systems Review of Systems: As per HPI, all 10 systems reviewed, all other ROS negative Physical Exam Physical Exam: GENERAL: Slightly uncomfortable, marfanoid habitus, no respiratory distress SKIN: Pallor , warm HEENT: Pale palpebral conjunctivae, no ptosis, dry buccal mucosa NECK : Supple, no tenderness CHEST : Decreased breath sounds , no tenderness HEART : RRR, no obvious murmurs ABDOMEN: Some distention, epigastric tenderness EXTREMITIES : No LE swelling/tenderness, no other conspicuous deformities noted NEUROLOGIC : Coherent, no facial asymmetry, no other gross focality Results & Data Vital Signs (Past 12 Hours) Vital Signs Temp Pulse Pulse Resp BP BP Pulse Ox 11/17/18 22:55 74 20 126/92 98 11/17/18 21:53 80 18 125/92 98 11/17/18 21:43 97 11/17/18 20:33 36.7 C 91 H 20 112/73 100 Laboratory Results Laboratory Results WBC 8.19 K/uL (4.8-10.8) 11/17/18 21:10 RBC 4.63 M/uL (4.7-6.1) L 11/17/18 21:10 Hgb 12.6 g/dL (14.0-18.0) L 11/17/18 21:10 Hct 39.5 % (42-52) L 11/17/18 21:10 MCV 85.3 fL (80-100) 11/17/18 21:10 MCH 27.2 pg (25-34) 11/17/18 21:10 MCHC 31.9 g/dL (32-36) L 11/17/18 21:10 RDW Std Deviation 44.2 fL (36.4-46.3) 11/17/18 21:10 RDW Coeff of Khadijah 14.1 % (11.5-14.5) 11/17/18 21:10 Plt Count 359 K/uL (130-400) 11/17/18 21:10 MPV 9.5 fL (7.4-10.4) 11/17/18 21:10 Immature Gran % (Auto) 0.1 % 11/17/18 21:10 Neut % (Auto) 53.6 % 11/17/18 21:10 Lymph % (Auto) 30.2 % 11/17/18 21:10 Walker % (Auto) 10.1 % 11/17/18 21:10 Eos % (Auto) 5.6 % 11/17/18 21:10 Baso % (Auto) 0.4 % 11/17/18 21:10 Immature Gran # (Auto) 0.01 K/uL (0.00-0.02) 11/17/18 21:10 Neut # (Auto) 4.39 K/uL (1.4-6.5) 11/17/18 21:10 Lymph # (Auto) 2.47 K/uL (1.2-3.4) 11/17/18 21:10 Walker # (Auto) 0.83 K/uL (0.11-0.59) H 11/17/18 21:10 Eos # (Auto) 0.46 K/uL (0-0.5) 11/17/18 21:10 Baso # (Auto) 0.03 K/uL (0-0.2) 11/17/18 21:10 Sodium 141 mmol/L (136-145) 11/17/18 21:10 Potassium 3.2 mmol/L (3.5-5.1) L 11/17/18 21:10 Chloride 104 mmol/L (98-107) 11/17/18 21:10 Carbon Dioxide 29 mmol/L (21-32) 11/17/18 21:10 Anion Gap 8.0 (3-11) 11/17/18 21:10 BUN 10 mg/dl (7-18) 11/17/18 21:10 Creatinine 1.12 mg/dl (0.6-1.4) 11/17/18 21:10 Est Cr Clr Drug Dosing 99.9 ml/min 11/17/18 21:10 Est GFR ( Amer) 100.2 11/17/18 21:10 Est GFR (Non-Af Amer) 86.5 11/17/18 21:10 BUN/Creatinine Ratio 8.6 (10-20) L 11/17/18 21:10 Glucose 94 mg/dl (70-99) 11/17/18 21:10 Calcium 9.0 mg/dl (8.5-10.1) 11/17/18 21:10 Total Bilirubin 0.2 mg/dl (0.2-1) 11/17/18 21:10 AST 13 U/L (15-37) L 11/17/18 21:10 ALT 12 U/L (12-78) 11/17/18 21:10 Alkaline Phosphatase 107 U/L (45-117) 11/17/18 21:10 Total Protein 7.6 gm/dl (6.4-8.2) 11/17/18 21:10 Albumin 3.4 gm/dl (3.4-5.0) 11/17/18 21:10 Globulin 4.2 gm/dl (2.5-4.0) H 11/17/18 21:10 Albumin/Globulin Ratio 0.8 (0.9-2) L 11/17/18 21:10 Lipase 703 U/L (73-393) H 11/17/18 21:10
[2018-11-17] MEDS ORDERED: KETOROLAC TROMETHAMINE 15 MG/ML VIAL IV STA (23:20)
[2018-11-17 23:31] LABS: Magnesium 1.9 mg/dl (1.8-2.4)
[2018-11-17] MEDS ORDERED: LORazepam 0.25 MG/0.5 ML VIAL IV PRN (23:37)
[2018-11-18] MEDS ORDERED: ACETAMINOPHEN 325 MG TAB PO PRN (00:07)
[2018-11-18] MEDS ORDERED: TRAMADOL HCL 50 MG TABLET PO PRN (00:07)
[2018-11-18] MEDS ORDERED: PROMETHAZINE HCL 12.5 MG in SODIUM CHLORIDE 0.9% 50 ML IV PRN (00:07)
[2018-11-18] MEDS ORDERED: KETOROLAC TROMETHAMINE 15 MG/ML VIAL IV PRN (00:07)
[2018-11-18] MEDS ORDERED: MAGNESIUM SULFATE / D5W 1 GM/100 ML BAG IV ONE (00:15)
[2018-11-18] MEDS: LACTATED RINGER'S 1,000 ML IV SCH ×5 (02:12→22:29)
[2018-11-18 06:52] LABS: Basophils # (auto) 0.03 K/uL (0-0.2); Basophils % (auto) 0.4 %; Eosinophils # (auto) 0.51 K/uL (0-0.5); Eosinophils % (auto) 7.3 %; Hematocrit (blood only) 37.7 % (42-52); Hemoglobin 11.8 g/dL (14.0-18.0); Immature Granulocytes # (auto) 0.01 K/uL (0.00-0.02); Immature Granulocytes % (auto) 0.1 %; Mean Corpuscular Hemoglobin 26.6 pg (25-34); Mean Corpuscular Hgb Conc 31.3 g/dL (32-36); Mean Corpuscular Volume 84.9 fL (80-100); Mean Platelet Volume 9.4 fL (7.4-10.4); Monocytes # (auto) 0.62 K/uL (0.11-0.59); Monocytes % (auto) 8.8 %; Neutrophils # (auto) 3.25 K/uL (1.4-6.5); Neutrophils % (auto) 46.4 %; Platelet Count 329 K/uL (130-400); RDW Standard Deviation 43.8 fL (36.4-46.3); Red Blood Count 4.44 M/uL (4.7-6.1); White Blood Count 7.02 K/uL (4.8-10.8)
[2018-11-18 07:52] LABS: Albumin Globulin Ratio 0.7 (0.9-2); Albumin Level 2.9 gm/dl (3.4-5.0); Bilirubin,Total 0.4 mg/dl (0.2-1); Calcium 8.3 mg/dl (8.5-10.1); Creatinine Clr Calc Pharmacy 118.4 ml/min; Est GFR (African American) 122.3; Est GFR (Non-African American) 105.5; Globulin 3.9 gm/dl (2.5-4.0); Potassium 3.9 mmol/L (3.5-5.1); Total Protein 6.8 gm/dl (6.4-8.2)
[2018-11-18] MEDS: buprenorphine HCL 8 MG SUBL SL SCH ×3 (09:56→21:13)
[2018-11-18] MEDS: ENOXAPARIN INJ 30 MG/0.3 ML SYR SQ SCH (09:57)
--- NOTE | 2018-11-18 14:50 | Hospitalist Progress Note ---
Date of Service November 18, 2018 Assessment & Plan (1) Pancreatitis: Recurrent Pancreatitis --CT ABD on 11/14/18:Findings compatible with acute uncomplicated pancreatitis. No evidence of pancreatic necrosis or acute peripancreatic fluid collection. Postoperative changes from prior ileocecectomy and partial left hemicolectomy with left lower quadrant ostomy. No bowel obstruction or bowel wall thickening. No pneumatosis or pneumoperitoneum. --Likely secondary to alcohol, Marjuavana use Will check Lipid Panel Continue IV fluids, Pain control Advance diet as tolerated Outpatient EGD/EUS in 6 to 8 weeks. Consider outpatient genetic testing Counseled to quit alcohol, marijuana use GI Consulted Crohn's disease: H/O Crohn's, regional enteritis, fistula, perirectal abscess, perianal Crohn's s/p perianal resection with colostomy in 10/2017, nonhealing perineal wound with recent debridement on 11/03/2018 Off Humira since prior to surgery in 2017 No hematochezia or reported changes in stool Needs to reestablish care with GI, and colorectal surgeon as outpatient Open wound of perineum: H/O nonhealing perineal wound with recent debridement on 11/03/2018 at [facility] [place] by Dr. William Needs follow up as outpatient Chronic pain: On Suboxone Follows with Dr. Hernandez at [facility] Subutex last filled 10/27/2018 Continue home meds Nqvoe-Zkjjngvje-Kdzgh (WPW) syndrome: Monitor Tobacco use: Junior Buyer to quit smoking DVT Px: Lovenox SQ Code Status Full Code Disposition: Expect to discharge home when stable Subjective Patient is seen and examined at bedside States abdominal pain is better Denies any chest pain, shortness of breath, dizziness, nausea Offers no other complaints Review of Systems Review of Systems: All systems reviewed & are unremarkable except as noted in HPI & below Physical Exam Physical Exam: Physical Exam: Vitals signs as noted above General Appearance:Moderately built and nourished, no apparent distress Head: normocephalic, Atraumatic Eyes: normal inspection, EOMI Neck: supple, Trachea midline Respiratory/Chest: Normal breath sounds, CTA Cardiovascular: S1, S2, No murmur Abdomen/GI:Soft, +Epigastric tender, +colostomy, Bowel sounds present, Perianal open wound Extremities/Musculoskelatal:normal inspection, no edema Neurologic/Psych:AAOX3, grossly no focal neurological deficits Skin: normal color, warm Results & Data Vital Signs (Past 12 Hours) Vital Signs Temp Pulse Resp BP Pulse Ox 11/18/18 07:14 36.6 C 63 16 138/66 100 Laboratory Results Short CBC 11/17/18 11/18/18 Range/Units 21:10 06:25 WBC 8.19 7.02 (4.8-10.8) K/uL Hgb 12.6 L 11.8 L (14.0-18.0) g/dL Hct 39.5 L 37.7 L (42-52) % Plt Count 359 329 (130-400) K/uL BMP 11/17/18 11/18/18 21:10 06:25 Sodium 141 140 Potassium 3.2 L 3.9 D Chloride 104 107 Carbon Dioxide 29 27 BUN 10 9 Creatinine 1.12 0.95 Glucose 94 87 Calcium 9.0 8.3 L Liver Function 11/17/18 11/18/18 Range/Units 21:10 06:25 Total Bilirubin 0.2 0.4 (0.2-1) mg/dl AST 13 L 12 L (15-37) U/L ALT 12 10 L (12-78) U/L Alkaline Phosphatase 107 90 (45-117) U/L Albumin 3.4 2.9 L (3.4-5.0) gm/dl (1) Pancreatitis Chronicity: chronic Pancreatitis type: alcohol induced Qualified Code(s): K86.0 - Alcohol-induced chronic pancreatitis
--- NOTE | 2018-11-18 15:46 | Gastrointestinal Consultation ---
Date of Consultation November 18, 2018 Assessment & Plan (1) Pancreatitis: mild, with no evidence of organ failure. Recs: --LR 200 cc/hr until can tolerate regular diet --currently on clear liquids, advance diet as tolerated when his symptoms improve --pain control prn thank you for allowing me to participate in the care of this patient. History of Present Illness Attending Physician: Umesh Gilliam MD 33 yo male with hx IBD s/p surgery, alcohol and marijuana use, pancreatitis who is here with pancreatitis. Patient was just recently discharged for pancreatitis and he notes that at home his pain returned, epigastric in nature radiating to his back with nausea associated. Denies diarrhea, fevers, chills, vomiting. He has a history of alcohol and marijuana use which were thought to be etiologies for his previous episodes of pancreatitis, but says he has not used either in 2 weeks. Importance of stopping both substances was discussed with him today. Labs, imaging, vitals reviewed. Labs mostly unremarkable, consistent with a mild pancreatitis. Allergies Allergy/AdvReac Type Severity Reaction Status Date / Time tomato AdvReac Intermediate GI Verified 11/17/18 21:13 SYMPTOMS-CROHN'S ACTS UP Egg Derived AdvReac Mild GI SYMPTOMS Verified 11/17/18 21:13 lactose AdvReac Unknown GI SYMPTOMS Verified 11/17/18 21:13 Home Medications Home Medications Medication Instructions Recorded Confirmed Type buprenorphine HCl 8 mg SUBLINGUAL TID 03/17/18 11/17/18 History Patient History Medical History Open wound of perineum Chronic pain (Chronic) Tobacco use (Chronic) Colostomy in place (Chronic) Crohns disease (Chronic) Hutxz-Ekwdlonsg-Yhyqn (WPW) syndrome (Chronic) Marfan's disease (Chronic) Exacerbation of Crohn's disease (Resolved) Alcohol abuse (Resolved) Cannabis abuse (Chronic) Cellulitis (Resolved) Cocaine abuse (Resolved) Depression (Chronic) Generalized anxiety disorder (Chronic) Sunitha-rectal abscess (Resolved) Abdominal pain, acute, generalized (Inactive) Crohn's disease (Inactive) Surgical History History of prior ablation treatment (Chronic) H/O colonoscopy (Chronic) History of partial colectomy (Chronic) Family History Other Ulcerative colitis Social History Preferred Language: Maltese 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 Beliefs That Will Affect Care: None Current Living Situation: Significant Other Other Information That Helps Us Care for You: No Feels Safe at Home: Yes Safety Concerns: Feels Safe At This Time Smoking Status: Current every day smoker Tobacco Type: cigarettes ; Cigarettes Per Day: 1/2 pack ; Do You Dip or Chew Tobacco: No ; Second Hand Exposure: No ; Tobacco Cessation Education Requested by Patient: No Hx Alcohol Use: Yes Alcohol type: wine Hx Substance Use: Yes substance use type: marijuana Last Used Substance: Days (ago) Last Used Substance Other:: a few days ago Review of Systems Constitutional: no fever and no chills Eyes: as per Subjective / HPI Ear, Nose, Mouth, Throat: as per Subjective / HPI Respiratory: no cough, no dyspnea and no dyspnea on exertion Cardiovascular: no chest pain and no dyspnea Gastrointestinal: as per Subjective / HPI Musculoskeletal: no joint pain and no swelling Integumentary: no rash and no lesions Neurologic: no numbness and no paresthesia Psychiatric: no depression and no anxiety Endocrine: no fatigue Hematologic / Lymphatic: no easy bleeding and no easy bruising Physical Exam Constitutional: WD/WN, vitals as above Eyes: EOM intact bilaterally Neck: normal visual inspection Respiratory: normal respiratory effort, lungs clear to auscultation Cardiovascular: RRR, no murmur, no edema Gastrointestinal (Abdomen): normal bowel sounds, soft, nontender, no hepatosplenomegaly Inspection/Auscultation: abdomen normal to inspection; abdomen not distended Percussion/Palpation: abdomen soft; abdomen nontender and no hepatosplenomegaly Musculoskeletal: Extremities: no cyanosis Gait: normal gait no lower extremity edema Skin: no rashes, warm and dry Neurologic: moves all extremities Psychiatric: A+Ox3, euthymic affect Results & Data Vital Signs (Past 12 Hours) Vital Signs Temp Pulse Resp BP Pulse Ox 11/18/18 07:14 36.6 C 63 16 138/66 100 PG Care Time/CCT Total # of Minutes Spent Total Time Spent with Patient: Total time spent is greater than 50% in coordination of care (as documented) at patient's floor/unit and/or counseling patient: (1) Pancreatitis Chronicity: chronic Pancreatitis type: alcohol induced Qualified Code(s): K86.0 - Alcohol-induced chronic pancreatitis
--- NOTE | 2018-11-18 16:23 | Emergency Department Note ---
Entered by Fox Gomes acting as a scribe for Robert Alvarez MD History of Present Illness General Chief complaint: Abdominal Pain Stated complaint: PANCREATITIS Time Seen by Provider: 11/17/18 21:13 Source: patient History of Present Illness Onset (ago): day(s) 1 Location: abdomen (upper) Pain Consistency: + constant Maximum Pain Intensity: 10 Relieved By: + none Associated symptoms: + denies other symptoms (penile pain) and + nausea/vomiting (positive nausea, negative vomiting) The patient is a 33 year-old -[place] M w/ PMHx of Crohn's, regional enteritis, fistula, perirectal abscess, WPW, depression, anxiety, GERD, tobacco use, and chronic pain who presents to the ED w/ CC of constant upper abdominal pain beginning 1 day ago. He adds that his abdominal pain feels more like his pancreas than his Crohns disease. He states that he is currently experiencing nausea. He denies experiencing vomiting and penile pain. He also denies any abdominal trauma or alcohol usage. He notes that he has a colostomy bag in [facility]. He adds that he is urinating normally. He states that that he is a current smoker. A review of the patients records show that the patient left AMA on the for pancreatitis. Home Medications Home Medications Medication Instructions Recorded Confirmed Type buprenorphine HCl 8 mg SUBLINGUAL TID 03/17/18 11/17/18 History Allergies Allergy/AdvReac Type Severity Reaction Status Date / Time tomato AdvReac Intermediate GI Verified 11/17/18 21:13 SYMPTOMS-CROHN'S ACTS UP Egg Derived AdvReac Mild GI SYMPTOMS Verified 11/17/18 21:13 lactose AdvReac Unknown GI SYMPTOMS Verified 11/17/18 21:13 Past Med/Surg History Medical History Open wound of perineum Chronic pain (Chronic) Tobacco use (Chronic) Colostomy in place (Chronic) Crohns disease (Chronic) Ygunu-Xuuqlniit-Akrts (WPW) syndrome (Chronic) Marfan's disease (Chronic) Exacerbation of Crohn's disease (Resolved) Alcohol abuse (Resolved) Cannabis abuse (Chronic) Cellulitis (Resolved) Cocaine abuse (Resolved) Depression (Chronic) Generalized anxiety disorder (Chronic) Sunitha-rectal abscess (Resolved) Abdominal pain, acute, generalized (Inactive) Crohn's disease (Inactive) Surgical History History of prior ablation treatment (Chronic) H/O colonoscopy (Chronic) History of partial colectomy (Chronic) Family History Other Ulcerative colitis Social History Preferred Language: Croatian Communication Ability: Effective 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 Required: No Beliefs That Will Affect Care: None Current Living Situation: Significant Other Other Information That Helps Us Care for You: No Feels Safe at Home: Yes Safety Concerns: Feels Safe At This Time Smoking Status: Current every day smoker Tobacco Type: cigarettes ; Cigarettes Per Day: 1/2 pack ; Do You Dip or Chew Tobacco: No ; Second Hand Exposure: No ; Tobacco Cessation Education Requested by Patient: No Hx Alcohol Use: Yes Alcohol type: wine Hx Substance Use: Yes substance use type: marijuana Last Used Substance: Days (ago) Last Used Substance Other:: a few days ago Review of Systems See HPI for pertinent positives & negatives. and A total of 10 systems reviewed and were otherwise negative Physical Exam Vital Signs Vital Signs - 24 hr 11/17/18 20:33 11/17/18 21:43 11/17/18 21:53 Temperature 36.7 C Temperature Source Oral Sepsis Recent Fever Within 48 Hours No Sepsis Action Taken by Nursing No Action Required Pulse Rate 91 H Pulse Rate [Right Finger] 80 Pulse Rhythm Regular Pulse Rhythm [Right Finger] Regular Pulse Strength Normal Pulse Strength [Right Finger] Normal Respiratory Rate 20 18 Respiratory Effort / Characteristics Non-Labored Spontaneous Non-Labored Spontaneous Respiratory Depth Normal Normal Respiratory Pattern Regular Regular Blood Pressure 112/73 Blood Pressure [Right Arm] 125/92 Blood Pressure Mean 86 Blood Pressure Mean [Right Arm] 103 Blood Pressure Position Sitting Blood Pressure Position [Right Arm] Lying Pulse Oximetry 100 97 98 Oxygen Delivery Method Room Air Room Air Room Air 11/17/18 22:55 Temperature Temperature Source Sepsis Recent Fever Within 48 Hours Sepsis Action Taken by Nursing Pulse Rate Pulse Rate [Right Finger] 74 Pulse Rhythm Pulse Rhythm [Right Finger] Regular Pulse Strength Pulse Strength [Right Finger] Normal Respiratory Rate 20 Respiratory Effort / Characteristics Non-Labored Spontaneous Respiratory Depth Normal Respiratory Pattern Regular Blood Pressure Blood Pressure [Right Arm] 126/92 Blood Pressure Mean Blood Pressure Mean [Right Arm] 103 Blood Pressure Position Blood Pressure Position [Right Arm] Lying Pulse Oximetry 98 Oxygen Delivery Method Room Air GENERAL: Well appearing, well nourished, NAD, non-toxic. EYE EXAM: Normal conjunctiva. PERRL, no anisocoria and EOM's grossly intact w/o pain. OROPHARYNX: Moist mucous membranes. Grossly normal dentition. NECK: Supple, no nuchal rigidity, no adenopathy, non-tender. No signs of meningismus. LUNGS: Clear to auscultation. Normal chest wall mechanics. HEART: NSR, no MRG. ABDOMEN: Abdomen soft, epigastric pain, left lower quadrant colostomy in place, normo-active bowel sounds, no masses, no rebound or guarding. Negative obturators and psoas. BACK: No CVA TTP. SKIN: No rashes and no bruising. UPPER EXTREMITIES: Upper extremities are grossly normal. LOWER EXTREMITIES: No pitting edema. No calf pain. NEURO EXAM: A&O x3, cranial nerves II-XII grossly intact, normal speech, moves all 4 extremities on command w/o issue. Course 2116: The patient was evaluated in room A3. A complete history and physical exam was performed. 2232: I [facility] the [facility] He will evaluate the patient for further management. Consultations Consultation #1: I reviewed the patient's [facility] He will evaluate the patient for further management. Time: 22:33 Administered Medications Buprenorphine HCl (Subutex) 8 mg SL TID [facility] Stop: 12/18/18 08:59 Last Admin: 11/18/18 14:56 Dose: 8 mg Documented by: [id number] Admin: 11/18/18 09:56 Dose: 8 mg Documented by: [id number] Enoxaparin Sodium (Lovenox) 30 mg SQ QAM [facility] Stop: 12/18/18 08:59 Last Admin: 11/18/18 09:57 Dose: Not Given Documented by: [id number] Lactated Ringer's (Lr) 1,000 mls @ 200 mls/hr IV .Q5H [facility] Stop: 12/17/18 22:44 Last Admin: 11/18/18 12:00 Dose: 200 mls/hr Documented by: [id number] Infusion: 11/18/18 11:38 Dose: 200 mls/hr Documented by: [id number] Admin: 11/18/18 06:38 Dose: 200 mls/hr Documented by: [id number] Infusion: 11/18/18 06:38 Dose: 200 mls/hr Documented by: [id number] Admin: 11/18/18 02:12 Dose: 200 mls/hr Documented by: [id number] Infusion: 11/18/18 02:12 Dose: 200 mls/hr Documented by: [id number] Admin: 11/17/18 22:53 Dose: 200 mls/hr Documented by: [id number] Discontinued Medications Sodium Chloride (Nss 1000ml) 1,000 mls @ 999 mls/hr IV .Q1H1M [facility] Stop: 11/17/18 22:30 Last Infusion: 11/17/18 22:39 Dose: 0 mls/hr Documented by: [id number] Admin: 11/17/18 21:37 Dose: 999 mls/hr Documented by: [id number] Magnesium Sulfate/Dextrose (Magnesium Sulfate / D5w) 1 gm in 100 mls @ 100 mls/hr IV ONE ONE Stop: 11/18/18 01:14 Last Infusion: 11/18/18 02:05 Dose: 0 mls/hr Documented by: [id number] Admin: 11/18/18 01:05 Dose: 100 mls/hr Documented by: [id number] Ketorolac Tromethamine (Toradol) 15 mg IV NOW STA Stop: 11/17/18 23:21 Last Admin: 11/17/18 23:45 Dose: 15 mg Documented by: [id number] Ketorolac Tromethamine (Toradol) 15 mg IV Q6H PRN PRN Reason: Pain Stop: 11/23/18 00:06 Last Admin: 11/18/18 06:37 Dose: 15 mg Documented by: [id number] Morphine Sulfate (Morphine Sulfate) 4 mg IV NOW STA Stop: 11/17/18 21:30 Last Admin: 11/17/18 21:37 Dose: 4 mg Documented by: [id number] Ondansetron HCl (Zofran) 4 mg IV NOW STA Stop: 11/17/18 21:30 Last Admin: 11/17/18 21:37 Dose: 4 mg Documented by: [id number] Potassium Chloride (Klor-Con M20) 40 meq PO NOW STA Stop: 11/17/18 22:38 Last Admin: 11/17/18 22:53 Dose: 40 meq Documented by: [id number] Medical Decision Making Differential Diagnosis Differential diagnosis: Etiologies such as appendicitis, diverticulitis, PUD, biliary pathology, UTI, pancreatitis, obstruction, mesenteric ischemia, aortic pathology, infections, inflammatory bowel disease, r enal colic, as well as others were entertained. Medical Records Attestation: I reviewed the patient's medical records. Home Medications Current Medication List: was personally reviewed by me Laboratory Data Attestation: I reviewed the patient's lab results. Result diagrams: 11/18/18 06:25 11/18/18 06:25 Lab Results 11/17/18 11/17/18 Range/Units 21:10 21:10 WBC 8.19 (4.8-10.8) K/uL RBC 4.63 L (4.7-6.1) M/uL Hgb 12.6 L (14.0-18.0) g/dL Hct 39.5 L (42-52) % MCV 85.3 (80-100) fL MCH 27.2 (25-34) pg MCHC 31.9 L (32-36) g/dL RDW Std Deviation 44.2 (36.4-46.3) fL RDW Coeff of Khadijah 14.1 (11.5-14.5) % Plt Count 359 (130-400) K/uL MPV 9.5 (7.4-10.4) fL Immature Gran % (Auto) 0.1 % Neut % (Auto) 53.6 % Lymph % (Auto) 30.2 % [place] % (Auto) 10.1 % Eos % (Auto) 5.6 % Baso % (Auto) 0.4 % Immature Gran # (Auto) 0.01 (0.00-0.02) K/uL Neut # (Auto) 4.39 (1.4-6.5) K/uL Lymph # (Auto) 2.47 (1.2-3.4) K/uL [place] # (Auto) 0.83 H (0.11-0.59) K/uL Eos # (Auto) 0.46 (0-0.5) K/uL Baso # (Auto) 0.03 (0-0.2) K/uL Sodium 141 (136-145) mmol/L Potassium 3.2 L (3.5-5.1) mmol/L Chloride 104 (98-107) mmol/L Carbon Dioxide 29 (21-32) mmol/L Anion Gap 8.0 (3-11) BUN 10 (7-18) mg/dl Creatinine 1.12 (0.6-1.4) mg/dl Est Cr Clr Drug Dosing 99.9 ml/min Est GFR ( Amer) 100.2 Est GFR (Non-Af Amer) 86.5 BUN/Creatinine Ratio 8.6 L (10-20) Glucose 94 (70-99) mg/dl Calcium 9.0 (8.5-10.1) mg/dl Magnesium 1.9 (1.8-2.4) mg/dl Total Bilirubin 0.2 (0.2-1) mg/dl AST 13 L (15-37) U/L ALT 12 (12-78) U/L Alkaline Phosphatase 107 (45-117) U/L Total Protein 7.6 (6.4-8.2) gm/dl Albumin 3.4 (3.4-5.0) gm/dl Globulin 4.2 H (2.5-4.0) gm/dl Albumin/Globulin Ratio 0.8 L (0.9-2) Lipase 703 H (73-393) U/L Blood Pressure Blood Pressure Findings: Elevated blood pressure Blood Pressure Disposition: further management by hospitalist SURYA Narrative The patient is a 33 year-old -[place] M w/ PMHx of Crohn's, regional enteritis, fistula, perirectal abscess, WPW, depression, anxiety, GERD, tobacco use, and chronic pain who presents to the ED w/ CC of constant upper abdominal pain beginning 1 day ago. Patient was seen and evaluated the bedside. The patient was presenting for worsening epigastric discomfort. Patient does have a known history of alcohol induced pancreatitis recently left AMA. The patient has been having some nausea. No recent vomiting. No recent trauma. The patient did have repeat blood work completed which does show the patient's lipase is elevated. Patient was made n.p.o. started on IV fluids. I did speak the on-call hospitalist who agreed to further evaluate treat the patient. I did ensure that the patient was willing to stay in the hospital not to leave AGAINST MEDICAL ADVICE until he has been treated. Patient is agreeable to staying. I counseled patient on smoking cessation for 5 minutes. Treatment options discussed and resources provided. Patient was receptive. Impression & Plan Pancreatitis, Abdominal pain, Encounter for smoking cessation counseling Discharge Plan Visit Data *Final* Discharge Date/Time: 11/17/18 23:51 Chief Complaint: Abdominal Pain Stated Complaint: PANCREATITIS ED Provider: Robert Alvarez Discharge Problem: Pancreatitis, Abdominal pain, Encounter for smoking cessation counseling Patient Disposition: Admitted As Inpatient Discharge Instructions Interventions: ED Discharge Assessment Last Done: 11/17/18 23:51 The scribe's documentation has been prepared under my direction and personally reviewed by me in its entirety. I confirm that the note above accurately reflects all work, treatment, procedures, and medical decision making performed by me.
[2018-11-18] MEDS: KETOROLAC TROMETHAMINE 15 MG/ML VIAL IV PRN (17:24)
[2018-11-19] MEDS: KETOROLAC TROMETHAMINE 15 MG/ML VIAL IV PRN ×2 (00:48→07:50)
[2018-11-19] MEDS: LACTATED RINGER'S 1,000 ML IV SCH ×2 (03:09→07:46)
[2018-11-19 06:25] LABS: BUN Creatinine Ratio 4.6 (10-20); Calcium 8.4 mg/dl (8.5-10.1); Creatinine Clr Calc Pharmacy 129.3 ml/min; Est GFR (African American) 132.4; Est GFR (Non-African American) 114.2; Potassium 3.9 mmol/L (3.5-5.1)
[2018-11-19] MEDS: buprenorphine HCL 8 MG SUBL SL SCH ×2 (09:16→14:03)
[2018-11-19] MEDS: ENOXAPARIN INJ 30 MG/0.3 ML SYR SQ SCH (09:16)
--- NOTE | 2018-11-19 12:59 | Hospitalist Progress Note ---
Date of Service November 19, 2018 Assessment & Plan (1) Pancreatitis: Recurrent Pancreatitis --CT ABD on 11/14/18:Findings compatible with acute uncomplicated pancreatitis. No evidence of pancreatic necrosis or acute peripancreatic fluid collection. Postoperative changes from prior ileocecectomy and partial left hemicolectomy with left lower quadrant ostomy. No bowel obstruction or bowel wall thickening. No pneumatosis or pneumoperitoneum. --Likely secondary to alcohol, Marjuavana use Lipid Panel:WNL Continue IV fluids, Pain control Tolerating diet Advance diet today Outpatient EGD/EUS in 6 to 8 weeks. Consider outpatient genetic testing Counseled to quit alcohol, marijuana use Appreciate GI Input Crohn's disease: H/O Crohn's, regional enteritis, fistula, perirectal abscess, perianal Crohn's s/p perianal resection with colostomy in 10/2017, nonhealing perineal wound with recent debridement on 11/03/2018 Off Humira since prior to surgery in 2018 No hematochezia or reported changes in stool Needs to reestablish care with GI, and colorectal surgeon as out patient Open wound of perineum: H/O nonhealing perineal wound with recent debridement on 11/03/2018 [place] [facility] [place] William Needs follow up as outpatient Chronic pain: On Suboxone Follows with Dr. 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 DVT Px: Lovenox SQ Code Status Full Code Disposition: Expect to discharge home when stable Subjective Patient is seen and examined at bedside Doing much better today States abdominal pain has resolved Tolerating diet Denies any chest pain, shortness of breath, dizziness, nausea Family at bedside Plan to advance diet today, if tolerates then plan to discharge Review of Systems Review of Systems: All systems reviewed & are unremarkable except as noted in HPI & below Physical Exam Physical Exam: Physical Exam: Vitals signs as noted above General Appearance:Moderately built and nourished, no apparent distress Head: normocephalic, Atraumatic Eyes: normal inspection, EOMI Neck: supple, Trachea midline Respiratory/Chest: Normal breath sounds, CTA Cardiovascular: S1, S2, No murmur Abdomen/GI:Soft, Non tender, +colostomy, Bowel sounds present, Perianal open wound Extremities/Musculoskelatal:normal inspection, no edema Neurologic/Psych:AAOX3, grossly no focal neurological deficits Skin: normal color, warm Results & Data Vital Signs (Past 12 Hours) Vital Signs Temp Pulse Resp BP Pulse Ox 11/19/18 07:10 36.7 C 52 L 14 146/94 H 99 Laboratory Results [facility] 11/19/18 05:41 Sodium 142 Potassium 3.9 Chloride 108 H Carbon Dioxide 30 BUN 4 L D Creatinine 0.87 Glucose 95 Calcium 8.4 L (1) Pancreatitis Chronicity: chronic Pancreatitis type: alcohol induced Qualified Code(s): K86.0 - Alcohol-induced chronic pancreatitis
--- NOTE | 2018-11-19 13:11 | Discharge Summary ---
Date of Service November 19, 2018 Admission HPI Per Admitting Provider History obtained from patient, family, and records. 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 hx opioid dependence on Suboxone, chronic anemia baseline hemoglobin of 12. Recent confinement November 142018 for pancreatitis possibly from alcohol intake. Patient left AMA due to " annoying attention" he got after communicating suicidal messages to his girlfriend. No current suicidal ideations as per patient. At home, belly discomfort little better. Patient did not eat anything for about a day. Patient felt worsening achy upper belly discomfort after a hamburger meal today. No alcohol intake at all since leaving hospital AMA as per patient and girlfriend. No chest pain, S OB, fever, chills,. Normal ostomy output. One episode of emesis at the ER. 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 Admission Exam Per Admitting Provider GENERAL: Slightly uncomfortable, marfanoid habitus, no respiratory distress SKIN: Pallor , warm HEENT: Pale palpebral conjunctivae, no ptosis, dry buccal mucosa NECK : Supple, no tenderness CHEST : Decreased breath sounds , no tenderness HEART : RRR, no obvious murmurs ABDOMEN: Some distention, epigastric tenderness EXTREMITIES : No LE swelling/tenderness, no other conspicuous deformities noted NEUROLOGIC : Coherent, no facial asymmetry, no other gross focality Principal Diagnosis Recurrent Pancreatitis Discharge Data Allergies Allergy/AdvReac Type Severity Reaction Status Date / Time tomato AdvReac Intermediate GI Verified 11/17/18 21:13 SYMPTOMS-CROHN'S ACTS UP Egg Derived AdvReac Mild GI SYMPTOMS Verified 11/17/18 21:13 lactose AdvReac Unknown GI SYMPTOMS Verified 11/17/18 21:13 Consultations 11/17/18 22:33 ED Decision to Admit Stat 11/18/18 00:07 Consult Gastroenterology Routine Hospital Course (1) Pancreatitis: Recurrent Pancreatitis --CT ABD on 11/14/18:Findings compatible with acute uncomplicated pancreatitis. No evidence of pancreatic necrosis or acute peripancreatic fluid collection. Postoperative changes from prior ileocecectomy and partial left hemicolectomy with left lower quadrant ostomy. No bowel obstruction or bowel wall thickening. No pneumatosis or pneumoperitoneum. --Likely secondary to alcohol, Marjuavana use Lipid Panel:WNL Continue IV fluids, Pain control Tolerating diet Advance diet today Outpatient EGD/EUS in 6 to 8 weeks. Consider outpatient genetic testing Counseled to quit alcohol, marijuana use Appreciate GI Input Crohn's disease: H/O Crohn's, regional enteritis, fistula, perirectal abscess, perianal Crohn's s/p perianal resection with colostomy in 10/2017, nonhealing perineal wound with recent debridement on 11/03/2018 Off Humira since prior to surgery in 2018 No hematochezia or reported changes in stool Needs to reestablish care with GI, and colorectal surgeon as outpatient Open wound of perineum: H/O nonhealing perineal wound with recent debridement on 11/03/2018 at [facility] [place] by Dr. William Needs follow up as outpatient Chronic pain: On Suboxone Follows with Dr. 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 DVT Px: Lovenox SQ Code Status Full Code Disposition: Expect to discharge home when stable Total Time Total Time Spent Total Time Spent (In Minutes): 37 minutes Total Time Includes: Examination of the Patient, Discharge Planning, Medication Reconciliation, Communication With Other Providers and Other Discharge Plan Discharge Items Patient Disposition: Home - Self-Care Reason For Visit: PANCREATITIS Discharge Diagnosis: Recurrent Pancreatitis Activity: Resume your previous activity Exercise/Sports: Gradually increase as tolerated Non-emergency contact: Primary Care Provider and Harbor [facility] Call non-emergency contact if: you have any medication questions, your symptoms worsen, your pain is not controlled, your pain is worsening, your pain is unusual for you, your pain is concerning for you and you have a fever Follow-up/Referrals: Alfred Carmichael MD [Primary Care Provider] - Diet: Heart Healthy Addtl Attending Provider Instructions: Follow up with Dr.Manisha Blancas for Primary Care Services on Nov 24, 2018 at 11:00AM Follow up with your Harbor Master in 6-8 weeks as recommended by your Harbor Master Get Outpatient EGD/EUS in 6 to 8 weeks and genetic testing as recommended by your Harbor Master Quit drinking Alcohol and avoid Marijuana use as they can trigger recurrence of Pancreatitis Seek immediate medical attention if your symptoms reoccur or worsen Pending Studies at Discharge: No Stand-Alone Forms: Call Back Authorization, My [facility] Medications and DC Order Prescriptions: Continued buprenorphine HCl 8 mg tablet, sublingual 8 mg Sublingual TID RF: 0 Discharge Orders: Discharge Order (Routine); Ordered 11/19/18 Ordered By: Umesh Gilliam Admission Data Admit Date/Time: 11/17/18 23:18 Attending Provider: Umesh Gilliam Admit Provider: Yandel Granados Primary Care Provider: Alfred Carmichael Other Providers: Yandel Granados ; Ramiro Kat ; Carlo Mckee ; Kesha Craig ; Dave Lester ; Maxi Veloz ; Tyler Singleton ; Rupali Barton ; Pierre Dave ; Burt Rae ; Meghna Li ; Mary Grace Washburn ; Yamilet Rm ; Radha Vaz ; Brianna Leyva Other Interventions: Discharge Summary Assessment (RN) Last Done: 11/19/18 13:24 DC Date/Time DO NOT enter until pt leaves facility: 11/19/18 15:13
== END 2018-11-19 15:13 | disposition home or self-care (01) | DRG 439 ==
LOC: ED 20:31 → 3N 23:18